=== PATIENT | male | born 1955 | race Caucasian/White ===

== ENCOUNTER → 2017-08-05 08:44 | Day surgery (SDC) | payer OTHER, SELFPAY ==
--- NOTE | 2017-08-02 08:51 | RAD_ITS ---
STUDY: X-RAY CHEST REASON FOR EXAM: Male, 61 years old. Pre-heart catheter. TECHNIQUE: PA and lateral views of the chest. COMPARISON: 08/25/2016 FINDINGS: The lungs are clear and expanded. There is no demonstrated pleural abnormality. Sternal cerclage wires are present from a prior sternotomy. Mild cardiomegaly. Normal mediastinum and katie. Normal visualized pulmonary arteries. Normal visualized aortic arch and descending thoracic aorta. Normal visualized thoracic spine. Normal visualized ribs, clavicles, and shoulders. There is no demonstrated abnormality of the visualized soft tissue structures of the upper abdomen. RAD/Chest PA and Lateral IMPRESSION: Normal x-ray examination of the chest. Electronically Signed: Himanshu Romero DO at 15:19 EST Tel , Service support ,
[2017-08-02 09:23] LABS: Absolute Lymphocyte Count 1.56 X10^3/ul (0.83-4.51); Absolute Neutrophil Count 6.7 X10^3/uL (2.0-7.7); Basophil# 0.02 X10^3/uL; Basophil% 0.2 % (0-1); Eosinophil# 0.12 X10^3/uL; Eosinophils% 1.3 % (0-5); Hematocrit 37.1 % (40-54); Hemoglobin 12.7 g/dl (13.0-16.5); Lymphocyte # 1.56 X10^3/ul (4.0); Mean Corp Hgb Conc 34.2 g/gl (32-36); Mean Corpuscular Hgb 31.8 pg (27.0-32.0); Mean Corpuscular Volume 92.8 fL (80-94); Mean Platelet Vol. 11.7 fl (6.2-12.0); Monocyte# 0.75 X10^3/uL; Monocyte% 8.2 % (0-10); Neutrophil # 6.69 X10^3/uL (2.7-7.7); Neutrophil % 73.2 % (47-70); Platelet Count 190 K/mm3 (150-450); RBC Distribution Width CV 13.3 % (11.6-14.6); RBC Distribution Width SD 44.5 fl (35.1-43.9); White Blood Count 9.2 K/mm3 (4.4-11.0)
[2017-08-02 09:26] LABS: POSITIVE COUNT NO; POSITIVE DIFFERENTIAL NO; POSITIVE MORPHOLOGY NO
[2017-08-02 09:33] LABS: International Normalized Ratio 1.2; Partial Thromboplast Time 35.1 Seconds (24.1-36.2); Prothrombin Time (Protime)PT. 14.9 SECONDS (11.7-14.9)
[2017-08-02 09:45] LABS: Anion Gap 7 (5-15); BUN 33 mg/dL (7-18); BUN/Creat Ratio 18.8 RATIO (10-20); Chloride 108 mmol/L (98-107); Creatinine, Serum 1.76 mg/dL (0.70-1.30); EST Glomerular Filtration Rate 42 mL/min (>60); Est Glom Filt Rate - Afr Amer 50 mL/min (>60); Glucose 204 mg/dL (70-110); Potassium 4.5 mmol/L (3.5-5.1); Sodium Level 138 mmol/L (136-145)
[2017-08-04 12:44] VITALS: BMI 27.8
--- NOTE | 2017-08-05 09:53 | ECHOTEE_ITS ---
Reason For Study: AORTIC STENOSIS Medication THAI probe passed without difficulty. [id number] gargled and swallowed. Cetacaine Topical [place] given X2 orally. Versed 2 mg given slow IVP. Fentanyl 50 mcg given slow IVP. Performed a rapid injection of agitated mix of 9 cc saline and 1cc air to assess for atrial septal defect. Left Ventricle Normal size and thickness. The estimated ejection fraction is 40 %. There is moderate global hypokinesis of the left ventricle. Right Ventricle Normal size and thickness. The right ventricular wall motion is normal. Atria Normal atrial septum. Bubble contrast study negative for right to left interatrial shunt. Normal left atrium. No thrombus is detected in the left atrial appendage. Normal right atrium. Mitral Valve The mitral valve is structurally normal. No prolapse or stenosis seen. Trivial mitral valve insufficiency. Tricuspid Valve Normal tricuspid valve. Unable to estimate RV systolic pressure/pulmonary artery pressure due to technically difficult study. Aortic Valve Trisinus/trileaflet aortic valve. Mild diffuse aortic valve thickening. Mild restriction of the aortic valve. Mild restriction of non-coronary cusp. Mild aortic stenosis. Peak aortic valve gradient 23 mmHg. Mean aortic valve gradient 12 mmHg. Pulmonic Valve Normal pulmonic valve. Vessels Normal aortic root. Mild atherosclerosis of the aortic arch. The pulmonary artery is normal size. Normal pulmonary veins. Doppler Measurements & Calculations Ao V2 max: 223.3 cm/sec Ao V2 mean: 155.6 cm/sec Ao V2 VTI: 46.8 cm Interpretation Summary The estimated ejection fraction is 40 %. There is moderate global hypokinesis of the left ventricle. Bubble contrast study negative for right to left interatrial shunt. Trivial mitral valve insufficiency. Unable to estimate RV systolic pressure/pulmonary artery pressure due to technically difficult study. Mild aortic stenosis. No thrombus is detected in the left atrial appendage. Ordering Physician: Otoniel Cuevas Referring Physician: FREDY JOVEL III, MD Performed By: Alisson Patel RDCS, RVT
[2017-08-05 11:16] LABS: Blood Gas Specimen Type VEN; VBG BASE EXCESS -6 mmol/L (-1.0-3.5); VBG Bicarbonate 20 mmol/L (22-26); VBG Oxygen Content 21 mmol/L (23-33); VBG PO2 33 mmHg (25-40); VBG SO2 61 % (50-70); VBG pCO2 35.2 mmHg (41-51); VBG pH 7.36 (7.32-7.42)
[2017-08-05 11:16] LABS: Blood Gas Specimen Type VEN; VBG BASE EXCESS -3 mmol/L (-1.0-3.5); VBG Bicarbonate 22 mmol/L (22-26); VBG Oxygen Content 23 mmol/L (23-33); VBG PO2 34 mmHg (25-40); VBG SO2 65 % (50-70); VBG pCO2 36.2 mmHg (41-51); VBG pH 7.39 (7.32-7.42)
[2017-08-05 11:16] LABS: Base Excess -3 mmol/L (-2 to +2); Bicarbonate 20.9 mmol/L (22-26); Blood Gas Specimen Type ART; PO2 79 mmHG (75-100); SO2 96 % (95-99); Total Carbon Dioxide 22 mmol/L; pCO2 31.6 mmHg (35-45); pH 7.43 (7.35-7.45)
--- NOTE | 2017-08-05 11:23 | CL.D_ITS ---
Patient Name: VERENA CLEMENTS Study Date: 08/05/2017 Performing: Otoniel Cuevas MD Ht: 70.86 inches 180 cm : 1955 Wt: 200.62 lbs 91 kg Age: 61 Gender: male BSA: 2.11 PROCEDURE(S) PERFORMED EG29-EQR/LHC/COR/LV CLINICAL PROFILE AND INDICATIONS INDICATIONS: Chest-Pain syndrome of unclear etiology , Class I, Abnormal cardiac stress test, Lef t Ventricular dysfunction, Shortness of Breath, Valvular heart disease, Aortic valve stenosis Stress/Imaging Stress Echocardiogram: Yes Result: Positive Intermediate RiskStress Echocardiogram : Positive Intermediate Risk Angina Classification Anginal Classification w/in 2 Weeks: CCS II CAD Presentations: Unstable angina. Comorbidities/Risk Factors: Hypertension Dyslipidemia Prior CABG Diabetes Mellitus: Diabetes Therapy: Insulin CONCLUSIONS Global LV systolic dysfunction- Mild Triple vessel CAD of the LAD, DIAG, Ramus, RCA Widely patent MONROY to LAD Widely patent SVG to DIAG#1 Widely patent SVG to Ramus Widely patent SVG to PDA. The patient has normal pulmonary hemodynamics. RECOMMENDATIONS Risk factor modification ASA Indefinitely Management as per referring Electric Repair Supervisor D/c plavix, restart eliquis on 08/08/2017. DESCRIPTION OF PROCEDURE The patient arrived to the procedure lab. The risks and benefits of the procedure as well as a full d escription of our services here and current unavailability of surgical backup were fully explained to the patient and/or their significant other prior to the catheterization. The Timeout was completed, verifying the correct patient and procedure. The patient's procedural site was prepped and draped in the usual fashion. Local anesthetic was given subcutaneously to right groin region with Lidocaine 2%. Using a modified Seldinger technique, arterial access was obtained via the right femoral artery, a 4 Fr sheath was inserted. Venous access was obtained via the right femoral vein, a 7Fr sheath was inser ayana. A 7Fr thermal dilution catheter was inserted and right heart pressures were recorded, it was the n advanced to PA position for cardiac outputs. Thermal dilution cardiac outputs were then recorded. O 2 saturations were then obtained. The Thermal dilution catheter was then removed. Left Ventriculograp hy was performed in MANDUJANO projection using a 4 Fr. Pigtail catheter. LV to AO pullback pressures were t hen recorded. Left Coronary Artery selective angiography was performed in multiple views using a 4 Fr . JL5 catheter. Saphenous Vein graft to the DIAG 1 selective angiography was performed in multiple vi ews using a 4 Fr. 3DRC catheter. Saphenous Vein graft to the RPDA selective angiography was performed in multiple views using a 4 Fr. 3DRC catheter. Saphenous Vein graft to the Ramus selective angiograp hy was performed in multiple views using a 4 Fr. 3DRC catheter. Left internal mammary artery graft to the LAD selective angiography was performed in multiple views using a 4 Fr. 3DRC catheter. CORONARY ANGIOGRAPHY DOMINANCE: Right Dominant LEFT HEART ASSESSMENT Left Ventricular Ejection Fraction: by LV Gram 40-45 % Abnormal LV wall motion. Global Hypokinesis - Mild RIGHT HEART ASSESSMENT Thermal CO: 5.04 Thermal CI: 2.39 Shayy CO: 4.92 Shayy CI: 2.33 PW: 8 4 PA: 20/2 10 RV: 25/-4 0 RA: 12 PVR: 97 SVR: 1430 LEFT MAIN: Angiographically normal LEFT ANTERIOR DECENDING ARTERY: MID LAD: 75 % Stenosis DIAGONAL 1: Ostial - is occluded CIRCUMFLEX ARTERY: MID CIRC: 60 % Stenosis RIGHT CORONARY ARTERY: MID RCA: is occluded GRAFTS: MONROY graft to the LAD is patent Saphenous Vein graft to the 1st Diagonal is patent Saphenous Vein graft to the Ramus is patent Saphenous Vein graft to the RPDA is patent VALVE FINDINGS: Aortic Valve Stenosis - mild COMPLICATIONS No Complications PROCEDURE MEDICATIONS SUMMARY OF HEMODYNAMIC DATA Time AIR REST ECG 09:12:04 RA /14 (12) SV 10:50:32 RV 25/-4, 0 10:51:26 PW 12/20 (4) PV 10:51:59 PA 20/2 (10) PA 10:52:12 LV 147/-19, 3 10:57:09 LV 146/-15, 7 10:57:24 LV 151/-16, 5 10:57:51 PA 13/2 (6) 10:57:51 LV 143/-15, 6 10:58:06 PW 14/10 (7) 10:58:06 LV 145/-15, 6 10:58:35 RV 28/-1, 4 10:58:35 LVp 149/-13, 8 11:00:00 AOp 151/67 (97) 11:00:05 AO 130/75 (100) SA 11:01:52 Type SV CO (l/m) CI (l/m/ HR Time AIR REST Thermal 252.00 5.04 2.39 20 09:11:41 Shayy 246.00 4.92 2.33 20 09:11:41 Label % O2 Pres/Loc Time AIR REST AO 96 PV 11:05:31 PA 63 PA 11:05:46 Signed By Otoniel Cuevas MD On 08/05/2017 11:23:19 Otoniel Cuevas MD
== END ==
PROVIDERS: Family Provider Family Medicine; PCP Family Medicine; Visit Provider Internal Medicine Cardiovascular Disease
DX: I25.10 Atherosclerotic heart disease of native coronary artery without angina pectoris (principal); R94.39 Abnormal result of other cardiovascular function study; E78.5 Hyperlipidemia, unspecified; I50.22 Chronic systolic (congestive) heart failure; I27.21 Secondary pulmonary arterial hypertension; I48.0 Paroxysmal atrial fibrillation; I25.5 Ischemic cardiomyopathy; I35.0 Nonrheumatic aortic (valve) stenosis; E11.9 Type 2 diabetes mellitus without complications; I10 Essential (primary) hypertension; I25.2 Old myocardial infarction; R01.1 Cardiac murmur, unspecified; Z95.1 Presence of aortocoronary bypass graft; Z79.4 Long term (current) use of insulin; Z79.82 Long term (current) use of aspirin; Z79.899 Other long term (current) drug therapy; Z72.0 Tobacco use
CPT/HCPCS: 36415; 71020; 80048; 82803; 85025; 85610; 85730; 93312; 93320; 93325; 93461; A4216; C1751; C1769; C1894; Q9967

== ENCOUNTER 2018-05-11 10:36 | Emergency (ER) | payer OTHER, SELFPAY ==
[2018-05-11 10:37] VITALS: BP 173/87; PULSE 72; RESP 16; TEMP 36.7; O2SAT 98; BMI 26.6
[2018-05-11 10:39] VITALS: PULSE 68; O2SAT 99
--- NOTE | 2018-05-11 10:53 | EKG12_ITS ---
Test Reason : CP Blood Pressure : / mmHG Vent. Rate : 071 BPM Atrial Rate : 071 BPM P-R Int : 238 ms QRS Dur : 142 ms QT Int : 402 ms P-R-T Axes : 017 -21 -03 degrees QTc Int : 436 ms Sinus rhythm with 1st degree A-V block Left bundle branch block Abnormal ECG Confirmed by WOLFGANG CEVALLOS, JACKI ([id number]), graphic editor CORNEL MCKNIGHT ([id number]) on 05/15/2018 2:39:53 PM Referred By: LIANNE Confirmed By:JACKI GOSS MD
--- NOTE | 2018-05-11 10:53 | RAD_ITS ---
STUDY: X-RAY CHEST REASON FOR EXAM: Male, 62 years old. Chest pain and chest tightness for several days. TECHNIQUE: Single AP portable view of the chest. COMPARISON: Comparison is made with prior examination dated August 02, 2017. FINDINGS: EKG electrodes are seen. Hyperinflation. There is no demonstrated pleural abnormality. Sternal cerclage wires and vascular clips are present from a prior sternotomy and coronary artery bypass graft procedure (CABG). Mild cardiomegaly. Normal mediastinum and ktaie. Normal visualized pulmonary arteries. There is atherosclerotic calcification of the aortic arch with tortuosity. Normal visualized thoracic spine. Normal visualized ribs, clavicles, and shoulders. There is no demonstrated abnormality of the visualized soft tissue structures of the upper abdomen. RAD/Chest 1 View (Portable) IMPRESSION: No acute abnormality is seen. Electronically Signed: León Merchant MD at 11:27 EDT Tel [phone], Service support ,
--- NOTE | 2018-05-11 10:54 | ED.VISSUMM ---
- ER Visit Summary Date of Service: 05/11/18 Chief Complaint: Chest pain History of Present Illness: The patient is a 62 M known history of CAD, prior FL, A. fib status post quadruple bypass done 3 years ago. Patient states that the last 1-2 weeks he had intermittent episodes of chest discomfort on the left. Says is sharp and stabbing. Usually lasts 5-15 seconds. Not associated with exertion. Mild dyspnea. No history of DVT or PE. Physical Examination: Vital signs are stable and afebrile. His pulse ox 9 9% on room air no signs of hypoxia. He is in no distress. Patient is emotionally upset his fianc?e basically is terminal and was given about 2 months to live with a recent brain tumor. We have discussed that. H EENT exam unremarkable. Neck nontender no lymphadenopathy. Lungs clear to auscultation bilaterally. Heart regular rate and rhythm no murmur. Chest wall nontender. Status post CABG. Well-healed scar. Abdomen soft and nontender normal bowel sounds. Moving all 4 extremities. Calves nontender, no edema no cords. Neurologically awake alert no focal motor deficits. Test Results: EKG shows a sinus rhythm with a first-degree AV block. OR interval of 238. Also a left bundle branch block. No signs of FL or ischemia currently. White count of 15,000. Hemoglobin 13. Electrolytes unremarkable. He has chronic renal insufficiency his creatinine today is 1.5 which is better than his baseline. Normal gap. Normal troponin. Chest x-ray shows cardiomegaly but no acute process. He has had a prior sternotomy. Emergency Department Course and Treatment: Patient with atypical intermittent chest pain with no cardiac history will undergo cardiac workup. Repeat exam at 1230 patient is doing well. His [id number] sitting at bedside. He is in no distress. Has no complaints. He had I discussed further testing. He deferred a second troponin. Clinically I do not feel that he needs to be admitted. He has an upcoming appointment with his joy loading machine operator. Treatment Plan: Follow-up with his joy loading machine operator Dr. Stone Cuevas. Return if feeling worse. Disposition: Discharge Impression: Acute atypical chest pain of uncertain etiology History of CAD, CABG, anticoagulated This note was generated with [employer] dictation software. It may contain incorrect words, spelling, and punctuation that were not noted in review of the chart prior to signing ED Disposition - Plan for ED Patient: Chief Complaint: Chest Pain Referrals: Reynaldo Rucker III, MD [Primary Care Provider] -
[2018-05-11] MEDS: Aspirin 81 MG TAB.CHEW 324 MG PO (11:01)
[2018-05-11 11:03] VITALS: O2SAT 97
[2018-05-11 11:04] LABS: Absolute Neutrophil Count 12.6 X10^3/uL (2.0-7.7); Basophil# 0.02 X10^3/uL; Basophil% 0.1 % (0-1); Eosinophil# 0.14 X10^3/uL; Eosinophils% 0.9 % (0-5); Hematocrit 35.7 % (40-54); Lymphocyte % 8.5 % (19-41); Mean Corp Hgb Conc 36.4 g/gl (32-36); Mean Corpuscular Hgb 33.2 pg (27.0-32.0); Mean Corpuscular Volume 91.3 fL (80-94); Mean Platelet Vol. 11.3 fl (6.2-12.0); Monocyte# 1.15 X10^3/uL; Monocyte% 7.5 % (0-10); Neutrophil # 12.61 X10^3/uL (2.7-7.7); Neutrophil % 82.7 % (47-70); Platelet Count 186 K/mm3 (150-450); RBC Distribution Width CV 12.2 % (11.6-14.6); RBC Distribution Width SD 39.8 fl (35.1-43.9); Red Blood Count 3.91 M/mm3 (4.6-6.2); White Blood Count 15.3 K/mm3 (4.4-11.0)
--- NOTE | 2018-05-11 11:05 | ED.DCSUM_ITS ---
- ER Visit Summary Date of Service: 05/11/18 Chief Complaint: Chest pain History of Present Illness: The patient is a 62 M known history of CAD, prior [place], A. fib status post quadruple bypass done 3 years ago. Patient states that the last 1-2 weeks he had intermittent episodes of chest discomfort on the left. Says is sharp and stabbing. Usually lasts 5-15 seconds. Not associated with exertion. Mild dyspnea. No history of DVT or PE. Physical Examination: Vital signs are stable and afebrile. His pulse ox 9 9% on room air no signs of hypoxia. He is in no distress. Patient is emotionally upset his fianc?e basically is terminal and was given about 2 months to live with a recent brain tumor. We have discussed that. H EENT exam unremarkable. Neck nontender no lymphadenopathy. Lungs clear to auscultation bilaterally. Heart regular rate and rhythm no murmur. Chest wall nontender. Status post CABG. Well-healed scar. Abdomen soft and nontender normal bowel sounds. Moving all 4 extremities. Calves nontender, no edema no cords. Neurologically awake alert no focal motor deficits. Test Results: EKG shows a sinus rhythm with a first-degree AV block. SC interval of 238. Also a left bundle branch block. No signs of OR or ischemia currently. White count of 15,000. Hemoglobin 13. Electrolytes unremarkable. He has chronic renal insufficiency his creatinine today is 1.5 which is better than his baseline. Normal gap. Normal troponin. Chest x-ray shows cardiomegaly but no acute process. He has had a prior sternotomy. Emergency Department Course and Treatment: Patient with atypical intermittent chest pain with no cardiac history will undergo cardiac workup. Repeat exam at 1230 patient is doing well. His [id number] sitting at bedside. He is in no distress. Has no complaints. He had I discussed further testing. He deferred a second troponin. Clinically I do not feel that he needs to be admitted. He has an upcoming appointment with his buckshot swage operator. Treatment Plan: Follow-up with his buckshot swage operator Dr. Stone Cuevas. Return if feeling worse. Disposition: Discharge Impression: Acute atypical chest pain of uncertain etiology History of CAD, CABG, anticoagulated This note was generated with [employer] dictation software. It may contain incorrect words, spelling, and punctuation that were not noted in review of the chart prior to signing ED Disposition - Plan for ED Patient: Chief Complaint: Chest Pain Referrals: Reynaldo Rucker III, MD [Primary Care Provider] -
[2018-05-11 11:08] LABS: POSITIVE COUNT NO; POSITIVE DIFFERENTIAL NO; POSITIVE MORPHOLOGY NO
[2018-05-11 11:17] LABS: Anion Gap 7 (5-15); BUN 36 mg/dL (7-18); Calcium,Total 8.8 mg/dL (8.5-10.1); Chloride 109 mmol/L (98-107); EST Glomerular Filtration Rate 50 mL/min (>60); Est Glom Filt Rate - Afr Amer 61 mL/min (>60); Estimated Creatinine Clearance 54.61 ml/min; Glucose 164 mg/dL (74-106); Potassium 4.6 mmol/L (3.5-5.1); Sodium Level 137 mmol/L (136-145)
--- NOTE | 2018-05-11 12:33 | ED.DEP ---
ED Disposition - Plan for ED Patient: Disposition: Home or Assisted Living Chief Complaint: Chest Pain Instructions: ED Chest Pain Atypical Unkn Cause Referrals: Otoniel Cuevas MD [STAFF PHYSICIAN] - As soon as possible Additional Instructions: Return if feeling worse. Your workup today was negative. However I would try to call Dr. Cuevas's office and get in sooner than your next scheduled appointment.
[2018-05-11 12:44] VITALS: BP 151/94; PULSE 63; RESP 16; O2SAT 96
== END 2018-05-11 12:45 | disposition home or self-care (01) ==
PROVIDERS: Emergency Provider Emergency Medicine; Family Provider Family Medicine; PCP Family Medicine
DX: R07.89 Other chest pain (principal); I25.10 Atherosclerotic heart disease of native coronary artery without angina pectoris; Z95.1 Presence of aortocoronary bypass graft; I44.0 Atrioventricular block, first degree; I44.7 Left bundle-branch block, unspecified; E11.22 Type 2 diabetes mellitus with diabetic chronic kidney disease; I12.9 Hypertensive chronic kidney disease with stage 1 through stage 4 chronic kidney disease, or unspecified chronic kidney disease; N18.9 Chronic kidney disease, unspecified; I25.2 Old myocardial infarction; I48.91 Unspecified atrial fibrillation; Z79.01 Long term (current) use of anticoagulants; Z79.82 Long term (current) use of aspirin; Z79.899 Other long term (current) drug therapy
CPT/HCPCS: 71045; 80048; 84484; 85025; 93005; 99285; A4216

== ENCOUNTER → 2018-06-12 08:50 | Outpatient (CLI) | payer OTHER, SELFPAY ==
--- NOTE | 2018-06-12 08:51 | ECHOD_ITS ---
[id number] ECHO^ECHOD^Echo Complete [id number] TAG_START [facility] Echocardiogram [address] [place], [place] [address] Ordering Physician: Otoniel Cuevas TAG_ENDED TAG_START Name: VERENA CLEMENTS Study Date: 06/12/2018 09:01 AM BP: 138/79 mmHg Patient Location: [facility] BSA: 2.1 m2 : 1955 Gender: Male Height: 72 in Age: 62 yrs Ethnicity: C Weight: 185 lb History: ASHD, STEMI, CABG (05/06/2015), DM, HTN, ICMP, , PAF, PHTN, smoker TAG_ENDED Reason For Study: VALVE REPL EVAL Procedure This was a 2D Doppler, Color Flow transthoracic echocardiogram. Myocardial strain analysis was performed in this exam to aid in the assessment of cardiac function. Exam performed in department. Left Ventricle Moderately dilated left ventricle. The estimated ejection fraction is 35-40 %. Stage 1 diastolic dysfunction. There is moderate to severe global hypokinesis of the left ventricle. TAG_START TAG_ENDED Right Ventricle Normal size and thickness. Normal systolic function. Atria The left atrium is moderately enlarged. Normal right atrium. Normal atrial septum. Mitral Valve The mitral valve is structurally normal. No prolapse or stenosis seen. Trivial mitral valve insufficiency. Tricuspid Valve Normal tricuspid valve. Mild (1+) tricuspid valve insufficiency. Right ventricular systolic pressure estimated to be 23 mmHg. Aortic Valve Trisinus/trileaflet aortic valve. Moderate focal aortic valve thickening. Severe focal aortic valve calcification. Immobile and fixed non coronary cusp. Mild to moderate aortic stenosis. Peak aortic valve gradient 15 mmHg. Mean aortic valve gradient 9 mmHg. Calculated aortic valve area (continuity equation) is 1.3 cm2. Pulmonic Valve Normal pulmonic valve. Great Vessels Normal aortic root. Normal arch. Normal inferior vena cava. Inferior vena cava collapse with sniff. Pericardium/Pleural No pericardial effusion. MMode/2D Measurements & Calculations LVIDd: 5.2 cm IVSd: 0.95 cm LVOT diam: 2.1 cm LVIDs: 4.7 cm LVPWd: 0.99 cm LVOT area: 3.5 cm2 RVDd: 3.3 cm FS: 9.5 % Ao root diam: 3.5 cm LAV(MOD-bp): 76.2 ml LVAd ap4: 38.2 cm2 LAV(MOD-bp) Indexed: 37.0 ml/m2 EDV(MOD-sp4): 135.7 ml LAV(MOD-sp2): 70.6 ml EDV(sp4-el): 140.8 ml LAV(MOD-sp4): 80.2 ml LVAs ap4: 28.6 cm2 ESV(MOD-sp4): 85.3 ml ESV(sp4-el): 88.1 ml EF(MOD-sp4): 37.1 % EF(sp4-el): 37.4 % SV(MOD-sp4): 50.4 ml SV(sp4-el): 52.7 ml Aortic Valve Planimetry: 1.3 cm2 LA A4 area: 23.7 cm2 LA dimension(2D): 4.3 cm RA A4 area: 14.8 cm2 Time Measurements MV dec time: 0.30 sec Doppler Measurements & Calculations MV E max og: 58.6 cm/sec Lat Peak E' Og: 13.7 cm/sec Med Peak E' Og: 3.9 cm/sec MV A max og: 93.9 cm/sec E/E' lat: 4.3 E/E' med: 15.1 MV E/A: 0.62 Ao V2 max: 195.1 cm/sec LV V1 max: 73.0 cm/sec SV(LVOT): 59.9 ml Ao max P.2 mmHg LV V1 max P.1 mmHg Ao V2 mean: 141.5 cm/sec LV V1 mean P.2 mmHg Ao mean P.7 mmHg LV V1 mean: 51.3 cm/sec Ao V2 VTI: 42.0 cm LV V1 VTI: 16.9 cm MATT(I,D): 1.4 cm2 MATT(V,D): 1.3 cm2 PA V2 max: 98.6 cm/sec TR max og: 211.2 cm/sec TR max P.8 mmHg Interpretation Summary Moderately dilated left ventricle. The estimated ejection fraction is 35-40 %. Stage 1 diastolic dysfunction. There is moderate to severe global hypokinesis of the left ventricle. The left atrium is moderately enlarged. Trivial mitral valve insufficiency. Mild (1+) tricuspid valve insufficiency. Right ventricular systolic pressure estimated to be 23 mmHg. Calculated aortic valve area (continuity equation) is 1.3 cm2. Mild to moderate aortic stenosis. May be underestimated given degree of LV dysfunction. Consider stress echo with AV gradient analysis at peak exercise. TAG_START TAG_ENDED Ordering Physician: Otoniel Cuevas Referring Physician: FREDY JOVEL Performed By: Alisson Patel RDCS, RVT
== END ==
PROVIDERS: Family Provider Family Medicine; PCP Family Medicine; Referring Provider Internal Medicine Cardiovascular Disease; Visit Provider Internal Medicine Cardiovascular Disease
DX: I25.10 Atherosclerotic heart disease of native coronary artery without angina pectoris (principal); I27.21 Secondary pulmonary arterial hypertension; I35.0 Nonrheumatic aortic (valve) stenosis; I50.22 Chronic systolic (congestive) heart failure; R07.9 Chest pain, unspecified
CPT/HCPCS: 93306

== ENCOUNTER → 2018-06-14 09:32 | Outpatient (CLI) | payer OTHER, SELFPAY ==
--- NOTE | 2018-06-14 09:33 | STEWCON_ITS ---
Reason For Study: CAD, Chest Pain, Stress Results Protocol: Rfanco Protocol Maximum Predicted HR: 156 bpm Target HR: 133 bpm % Maximum Predicted HR: 84 % DurationHeart Rate Stage (mm:ss) (bpm) BP Comment Baseline 66 138/80No Chest Pain; Diluted Definity 2 ML Given Franco Protocol Stage I 3:00 103 142/76No Chest Pain; Mild Dyspnea Franco Protocol Stage II 3:00 116 144/80No Chest Pain; Mild Dyspnea Franco Protocol Stage III 1:45 131 172/80No Chest Pain; Moderate Dyspnea Recovery 78 130/74No Chest Pain; No Dyspnea Stress Duration: 7:45 mm:ss Maximum Stress HR: 131 bpm METS: 10 Baseline Echocardiogram Findings The estimated ejection fraction is 40 %. Moderately dilated left ventricle . Stress Echo Wall motion Data Resting WM Intermediate WM Stress WM Resting Wall Motion No regional wall motion abnormalities noted. EKG Data The baseline ECG displays normal sinus rhythm. The patient exercised according to the regular Franco protocol for a total duration of 7:45. The maximum heart rate attained was 134 beats per minute. This was 85% of maximum predicted heart rate. The patient exercised into stage 3 of the Franco protocol. No clinical angina was noted. At peak exercise, upsloping ST changes only were noted, which did not meet the criteria for ischemia. Interpretation Summary The estimated ejection fraction is 40 %. Abnormal, adequate, treadmill echocardiogram. Positive for ischemia by EKG and echocardiographic criteria. Patient developed moderate anteroseptal hypokinesis as seen in 2 views. No anginal symptoms noted. No arrhythmias noted. Average exercise capacity for age. Final LVEF of 45%. Patient had baseline moderate global LV dilatation with LVEF around 35-40%. Peak and mean aortic valve gradient at peak exercise was 28 and 17 mmHg respectively consistent with mild aortic stenosis. Test terminated due to dyspnea on exertion which may be an anginal equivalent. MMode/2D Measurements & Calculations LVOT diam: 2.1 cm LVOT area: 3.6 cm2 Doppler Measurements & Calculations Ao V2 max: 258.5 cm/sec Ao max P.7 mmHg Ao V2 mean: 187.2 cm/sec Ao mean P.5 mmHg Ao V2 VTI: 52.3 cm Ordering Physician: Otoniel Cuevas Referring Physician: Kostas Garcia M.D. Performed By: Giovanna Saenz RVT, RDCS and Student
== END ==
PROVIDERS: Family Provider Family Medicine; PCP Family Medicine; Referring Provider Internal Medicine Cardiovascular Disease; Visit Provider Internal Medicine Cardiovascular Disease
DX: R07.9 Chest pain, unspecified (principal); I27.21 Secondary pulmonary arterial hypertension; I11.0 Hypertensive heart disease with heart failure; I50.22 Chronic systolic (congestive) heart failure; I25.5 Ischemic cardiomyopathy; I25.10 Atherosclerotic heart disease of native coronary artery without angina pectoris; I35.0 Nonrheumatic aortic (valve) stenosis
CPT/HCPCS: 93017; 93350; Q9957; A4216; C8928

== ENCOUNTER → 2018-06-22 12:19 | Outpatient (CLI) | payer OTHER, SELFPAY ==
[2018-06-22 12:52] LABS: Hematocrit 37.7 % (40-54); Hemoglobin 13.1 g/dl (13.0-16.5); Mean Corp Hgb Conc 34.7 g/gl (32-36); Mean Corpuscular Hgb 32.5 pg (27.0-32.0); Mean Corpuscular Volume 93.5 fL (80-94); Mean Platelet Vol. 11.6 fl (6.2-12.0); Platelet Count 194 K/mm3 (150-450); RBC Distribution Width CV 12.5 % (11.6-14.6); RBC Distribution Width SD 42.5 fl (35.1-43.9); Red Blood Count 4.03 M/mm3 (4.6-6.2); White Blood Count 11.3 K/mm3 (4.4-11.0)
[2018-06-22 12:53] LABS: Scan Indicated on CBC? Y/N NO
[2018-06-22 13:02] LABS: International Normalized Ratio 1.4; Partial Thromboplast Time 37.4 Seconds (24.1-36.2); Prothrombin Time (Protime)PT. 16.9 SECONDS (11.7-14.9)
[2018-06-22 13:23] LABS: Anion Gap 8 (5-15); BUN 41 mg/dL (7-18); BUN/Creat Ratio 26.6 RATIO (10-20); Calcium,Total 9.3 mg/dL (8.5-10.1); Chloride 110 mmol/L (98-107); Creatinine, Serum 1.54 mg/dL (0.70-1.30); EST Glomerular Filtration Rate 49 mL/min (>60); Est Glom Filt Rate - Afr Amer 59 mL/min (>60); Glucose 129 mg/dL (74-106); Potassium 4.8 mmol/L (3.5-5.1); Sodium Level 141 mmol/L (136-145)
== END ==
PROVIDERS: Family Provider Family Medicine; PCP Family Medicine; Visit Provider Internal Medicine Cardiovascular Disease
DX: R06.09 Other forms of dyspnea (principal); R94.39 Abnormal result of other cardiovascular function study; R07.9 Chest pain, unspecified; I48.0 Paroxysmal atrial fibrillation; Z95.1 Presence of aortocoronary bypass graft; I25.10 Atherosclerotic heart disease of native coronary artery without angina pectoris; I25.5 Ischemic cardiomyopathy; E11.9 Type 2 diabetes mellitus without complications
CPT/HCPCS: 36415; 80048; 85027; 85610; 85730

== ENCOUNTER 2018-06-30 06:37 | Day surgery (SDC) | payer OTHER, SELFPAY ==
[2018-06-29 07:38] VITALS: BMI 25.4
[2018-06-30 09:20] LABS: Blood Gas Specimen Type VEN; VBG BASE EXCESS -6 mmol/L (-1.0-3.5); VBG Bicarbonate 20 mmol/L (22-26); VBG Oxygen Content 21 mmol/L (23-33); VBG PO2 35 mmHg (25-40); VBG SO2 64 % (50-70); VBG pCO2 35.4 mmHg (41-51); VBG pH 7.35 (7.32-7.42)
[2018-06-30 09:20] LABS: Blood Gas Specimen Type VEN; VBG BASE EXCESS -6 mmol/L (-1.0-3.5); VBG Bicarbonate 20 mmol/L (22-26); VBG Oxygen Content 21 mmol/L (23-33); VBG PO2 39 mmHg (25-40); VBG SO2 72 % (50-70); VBG pCO2 34.8 mmHg (41-51); VBG pH 7.36 (7.32-7.42)
[2018-06-30 09:21] LABS: Base Excess -8 mmol/L (-2 to +2); Bicarbonate 17.5 mmol/L (22-26); Blood Gas Specimen Type ART; PO2 88 mmHG (75-100); SO2 97 % (95-99); Total Carbon Dioxide 18 mmol/L; pCO2 30.7 mmHg (35-45); pH 7.36 (7.35-7.45)
--- NOTE | 2018-06-30 09:25 | CL.D_ITS ---
Patient Name: VERENA CLEMENTS Study Date: 06/30/2018 Performing: Otoniel Cuevas MD Ht: 72.04 inches 183 cm : 1955 Wt: 187.39 lbs 85 kg Age: 62 Gender: male BSA: 2.07 PROCEDURE(S) PERFORMED AY37-GSD/LHC/COR/LV/CABG CLINICAL PROFILE AND INDICATIONS Indications: Stable Known CAD, Valvular Disease, LV Dysfunction Heart Failure: NYHA Class: 1, Newly Diagnosed: No, Heart Failure Type: Systolic Stress/Imaging Stress Echocardiogram: Yes Result: Positive Intermediate RiskStress Echocardiogram : Positive Intermediate Risk Angina Classification Anginal Classification w/in 2 Weeks: CCS I CAD Presentations: Other: Dyspnea on exertion, aortic stenosis. Comorbidities/Risk Factors: Hypertension Dyslipidemia Prior CHF Prior NC Prior CABG Diabetes Mellitus: Diabetes Therapy: Insulin CONCLUSIONS Triple vessel CAD of the LAD, DIAG, RAMUS, RCA Segmented LV systolic dysfunction- Severe LVEF: by LV gram 25 % Widely patent MONROY to LAD Widely patent SVG to DIAG. 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 Consult with Dr Simpson for AICD placement. DESCRIPTION OF PROCEDURE The patient arrived to the procedure lab. The risks and benefits of the procedure as well as a full d escription of our services here and current unavailability of surgical backup were fully explained to the patient and/or their significant other prior to the catheterization. The Timeout was completed, verifying the correct patient and procedure. The patient's procedural site was prepped and draped in the usual fashion. Local anesthetic was given subcutaneously to right groin region with Lidocaine 2%. Using a modified Seldinger technique, arterial access was obtained via the right femoral artery, a 4 Fr sheath was inserted Venous access was obtained via the right femoral vein, a 7Fr sheath was insert ed. A 7Fr thermal dilution catheter was inserted and right heart pressures were recorded, it was then advanced to PA position for cardiac outputs. Thermal dilution cardiac outputs were then recorded. Th e Thermal dilution catheter was then removed. Simultaneous pressures were then recorded. Left Ventriculography was performed in MANDUJANO projection using a 4 Fr. Pigtail catheter. LV to AO pullba ck pressures were then recorded. Left Coronary Artery selective angiography was performed in multiple views using a 4 Fr. JL5 catheter. Right Coronary Artery selective angiography was then performed in multiple views using a 4 Fr. 3DRC catheter. Saphenous Vein graft to the DIAG selective angiography w as performed in multiple views using a 4 Fr. 3DRC catheter. Saphenous Vein graft to the Ramus selecti ve angiography was performed in multiple views using a 4 Fr. 3DRC catheter. Left internal mammary art aimee graft to the LAD selective angiography was performed in multiple views using a 4 Fr. 3DRC cathete r. Saphenous Vein graft to the PDA selective angiography was performed in multiple views using a 4 Fr . AR MOD 2 catheter.The arterial sheath was pulled and manual compression applied until hemostasis is achieved. CORONARY ANGIOGRAPHY DOMINANCE: Right Dominant LEFT HEART ASSESSMENT Left Ventricular Ejection Fraction: by LV Gram 25 % Inferior Mid Hypokinesis - Severe. Anterior Hypokinesis - Mild Depressed Left Ventricular systolic function LVEDP: 12 mmHg RIGHT HEART ASSESSMENT Thermal CO: 6.26 Thermal CI: 3.02 Shayy CO: 5.33 Shayy CI: 2.57 PW: /6 5 PA: /4 11 RV: 25/-3 0 RA: 10/15 1 PVR: 90 SVR: 1516 LEFT MAIN: Mild calcification LEFT ANTERIOR DECENDING ARTERY: 75 mid % Stenosis DIAGONAL 1: Proximal - is occluded CIRCUMFLEX ARTERY: Mild luminal irregularities less than 30% RAMUS: 99 % Stenosis RIGHT CORONARY ARTERY: DISTAL RCA: 100 % Stenosis GRAFTS: MONROY graft to the LAD is patent Saphenous Vein graft to the 1st Diagonal is patent Saphenous Vein graft to the Ramus is patent Saphenous Vein graft to the RPDA is patent VALVE FINDINGS: Aortic Valve Stenosis - mild AORTIC ROOT: Atherosclerotic COMPLICATIONS No Complications PROCEDURE MEDICATIONS Versed 1 mg IV SUMMARY OF HEMODYNAMIC DATA Time AIR REST ECG 07:03:50 RA 33 (1) SV 08:47:34 RV 25/-3, 0 08:47:52 PW 02/17 (5) PV 08:48:23 PA 22/4 (11) PA 08:48:38 LV 149/-6, 10 08:52:43 LV 143/-13, 4 08:53:13 PW 02/18 (1) 08:53:13 LV 146/-9, 7 08:53:16 PW 05/23 (5) 08:53:16 LV 149/-7, 8 08:53:43 RV 27/-1, 3 08:53:43 LV 150/-9, 7 08:53:49 RV 25/-2, 1 08:53:49 LV 152/-7, 9 08:54:04 RV 27/0, 3 08:54:04 LV 148/-10, 8 08:54:12 RV 26/-2, 2 08:54:12 LV 149/-9, 12 08:55:17 LV 150/-10, 11 08:55:24 LVp 156/-12, 8 08:55:32 AOp 146/65 (96) 08:55:37 AO 138/74 (102) SA 09:04:25 RM AIR REST 09:18:35 Type SV CO (l/m) CI (l/m/ HR Time AIR REST Thermal 97.80 6.26 3.02 64 07:03:50 Shayy 83.30 5.33 2.57 64 07:03:50 Label % O2 Pres/Loc Time AIR REST AO 97 PV 09:00:13 PA 68 PA 09:00:19 Signed By Otoniel Cuevas MD On 06/30/2018 09:24:46 Otoniel Cuevas MD
== END 2018-06-30 13:35 | disposition home or self-care (01) ==
LOC: CLSP 06:38
PROVIDERS: Family Provider Family Medicine; PCP Family Medicine; Referring Provider Internal Medicine Cardiovascular Disease; Visit Provider Internal Medicine Cardiovascular Disease
DX: I25.10 Atherosclerotic heart disease of native coronary artery without angina pectoris (principal); I35.0 Nonrheumatic aortic (valve) stenosis; R94.39 Abnormal result of other cardiovascular function study; I27.21 Secondary pulmonary arterial hypertension; I48.0 Paroxysmal atrial fibrillation; I25.5 Ischemic cardiomyopathy; E11.9 Type 2 diabetes mellitus without complications; E78.00 Pure hypercholesterolemia, unspecified; I10 Essential (primary) hypertension; I25.2 Old myocardial infarction; Z95.1 Presence of aortocoronary bypass graft; Z79.82 Long term (current) use of aspirin; Z79.4 Long term (current) use of insulin; Z79.84 Long term (current) use of oral hypoglycemic drugs; Z79.01 Long term (current) use of anticoagulants; Z79.899 Other long term (current) drug therapy; Z87.891 Personal history of nicotine dependence
CPT/HCPCS: 82803; 93459; 93567; 99152; 99153; J7040; Q9967; C1751; C1769; C1894

== ENCOUNTER → 2018-09-11 08:17 | Outpatient (CLI) | payer OTHER, SELFPAY ==
[2018-07-27 14:22] VITALS: BMI 25.6
[2018-09-11 08:32] LABS: Bacteria 0 SEEN /hpf (None Seen); Mucous, Urine 0 SEEN /hpf (<or=2+); Red Blood Cells-Urine 0 SEEN /hpf (0-5); Squamous Epithelial Cells - UA 0 SEEN /hpf (0-5)
[2018-09-11 10:11] LABS: Color, Urine Straw (Yellow); Glucose, Dipstick Normal (Normal); Ketone-Dipstick Negative (Negative); Leukocyte Esterase-Dipstick Negative /ul (Negative); Nitrite-Dipstick Negative (Negative); Occult Blood-Urine Negative /ul (Negative); Protein-Dipstick 30 mg/dl (Negative); Specific Gravity, Urine 1.015 (1.002-1.030); Urine Bilirubin Dipstick Negative (Negative); Urine Clarity Clear (Clear); Urine Urobilinogen Normal (Normal)
[2018-09-11 10:19] LABS: Hematocrit 36.6 % (40-54); Hemoglobin 12.8 g/dl (13.0-16.5); Mean Corpuscular Hgb 32.6 pg (27.0-32.0); Mean Corpuscular Volume 93.1 fL (80-94); Mean Platelet Vol. 11.8 fl (6.2-12.0); Platelet Count 148 K/mm3 (150-450); RBC Distribution Width CV 12.1 % (11.6-14.6); RBC Distribution Width SD 40.4 fl (35.1-43.9); Red Blood Count 3.93 M/mm3 (4.6-6.2); White Blood Count 13.3 K/mm3 (4.4-11.0)
[2018-09-11 10:21] LABS: International Normalized Ratio 1.3; Prothrombin Time (Protime)PT. 16.4 SECONDS (11.7-14.9)
[2018-09-11 10:26] LABS: White Blood Cells 0-5 SEEN /hpf (0-5)
[2018-09-11 10:27] LABS: Scan Indicated on CBC? Y/N NO
[2018-09-11 11:06] LABS: AST(SGOT) 16 U/L (15-37); Alanine Aminotransfer ALT/SGPT 40 U/L (16-61); Albumin, Serum 3.9 g/dL (3.2-5.0); Alkaline Phosphatase 78 U/L (45-117); Anion Gap 11 (5-15); BUN 37 mg/dL (7-18); BUN/Creat Ratio 25.9 RATIO (10-20); Bilirubin, Direct 0.14 mg/dL (0.00-0.30); Calcium,Total 8.9 mg/dL (8.5-10.1); Chloride 111 mmol/L (98-107); Cholesterol 119 mg/dL (200); Creatinine, Serum 1.43 mg/dL (0.70-1.30); EST Glomerular Filtration Rate 53 mL/min (>60); Est Glom Filt Rate - Afr Amer 64 mL/min (>60); Globulin 3.4 g/dL (2.2-4.2); Glucose 171 mg/dL (74-106); High Density Lipoprotein 30 mg/dL; Potassium 4.5 mmol/L (3.5-5.1); Protein, Total 7.3 g/dL (6.4-8.2); Sodium Level 140 mmol/L (136-145); Triglycerides 171 mg/dL; Very Low Density Lipoprotein 34 mg/dL (5-40)
== END ==
PROVIDERS: Family Provider Family Medicine; PCP Family Medicine; Referring Provider Internal Medicine Cardiovascular Disease; Visit Provider Internal Medicine Cardiovascular Disease
DX: I25.5 Ischemic cardiomyopathy (principal); I25.10 Atherosclerotic heart disease of native coronary artery without angina pectoris; I50.22 Chronic systolic (congestive) heart failure
CPT/HCPCS: 36415; 80048; 80061; 80076; 81001; 85027; 85610

== ENCOUNTER → 2019-02-28 | Outpatient (CLI) | payer MEDICARE, BC, SELFPAY ==
[2018-12-11 13:43] VITALS: BMI 25.9
--- NOTE | 2019-02-28 08:43 | ECHOD_ITS ---
Reason For Study: CHF Procedure This was a 2D Doppler, Color Flow transthoracic echocardiogram. Exam performed in department. Left Ventricle Mildly dilated left ventricle. The estimated ejection fraction is 45 %. Paced septal motion. Stage 1 diastolic dysfunction. The global longitudinal strain = -12.4% (abnormal). There is mild to moderate global hypokinesis of the left ventricle. Right Ventricle Mildly dilated right ventricle. ICD or pacer leads identified within the right ventricle. Normal systolic function. Atria The left atrium is moderately enlarged. Normal right atrium. ICD or pacer leads identified within the right atrium. Normal atrial septum. Mitral Valve The mitral valve is structurally normal. No prolapse or stenosis seen. Tricuspid Valve Normal tricuspid valve. Mild (1+) tricuspid valve insufficiency. Right ventricular systolic pressure estimated to be 28 mmHg. Aortic Valve Trisinus/trileaflet aortic valve. Severe focal aortic valve thickening. Moderate focal aortic valve calcification. Mild restriction of the aortic valve. Mild aortic stenosis. Peak aortic valve gradient 16 mmHg. Mean aortic valve gradient 10 mmHg. Calculated aortic valve area (continuity equation) is 2.0 cm2. Pulmonic Valve Normal pulmonic valve. Great Vessels Normal aortic root. Normal arch. Normal inferior vena cava. Inferior vena cava collapse with sniff. Pericardium/Pleural No pericardial effusion. MMode/2D Measurements & Calculations LVIDd: 4.7 cm IVSd: 1.1 cm LVOT diam: 2.3 cm LVIDs: 3.7 cm LVPWd: 1.1 cm LVOT area: 4.1 cm2 RVDd: 3.7 cm FS: 22.6 % Ao root diam: 3.3 cm LAV(MOD-bp): 96.4 ml LA A4 area: 26.1 cm2 LAV(MOD-bp) Indexed: 46.1 ml/m2 LAV(MOD-sp2): 93.8 ml LAV(MOD-sp4): 93.9 ml LA dimension(2D): 3.6 cm RA A4 area: 16.3 cm2 Time Measurements MV dec time: 0.18 sec Doppler Measurements & Calculations MV E max og: 64.1 cm/sec Lat Peak E' Og: 8.0 cm/sec Med Peak E' Og: 4.4 cm/sec MV A max og: 81.2 cm/sec E/E' lat: 8.0 E/E' med: 14.6 MV E/A: 0.79 Ao V2 max: 201.8 cm/sec LV V1 max: 96.0 cm/sec SV(LVOT): 87.2 ml Ao max P.9 mmHg LV V1 max P.7 mmHg Ao V2 mean: 147.0 cm/sec LV V1 mean P.0 mmHg Ao mean P.4 mmHg LV V1 mean: 68.0 cm/sec Ao V2 VTI: 44.6 cm LV V1 VTI: 21.3 cm MATT(I,D): 2.0 cm2 MATT(V,D): 2.0 cm2 PA V2 max: 94.8 cm/sec TR max og: 238.5 cm/sec TR max P.7 mmHg Interpretation Summary Mildly dilated left ventricle. The estimated ejection fraction is 45 %. There is mild to moderate global hypokinesis of the left ventricle. Stage 1 diastolic dysfunction. Mildly dilated right ventricle. The left atrium is moderately enlarged. Mild (1+) tricuspid valve insufficiency. Right ventricular systolic pressure estimated to be 28 mmHg. Immobile and fixed non coronary cusp. Mild aortic stenosis, but may be underestimated given mild LV dysfunction. Peak aortic valve gradient 16 mmHg. Mean aortic valve gradient 10 mmHg. Calculated aortic valve area (continuity equation) is 2.0 cm2. Compared with echo report dated 06/12/2018, LV function has improved from 35-40% to 45%. The global longitudinal strain = -12.4% (abnormal). Ordering Physician: Otoniel Cuevas Referring Physician: Danny Simpson/Reynaldo Rucker Performed By: Giovanna Saenz, RDCS, RVT
== END | disposition home or self-care (01) ==
PROVIDERS: Family Provider Family Medicine; PCP Family Medicine; Referring Provider Internal Medicine Cardiovascular Disease; Visit Provider Internal Medicine Cardiovascular Disease
DX: I25.10 Atherosclerotic heart disease of native coronary artery without angina pectoris (principal); I25.5 Ischemic cardiomyopathy; I48.0 Paroxysmal atrial fibrillation; I50.22 Chronic systolic (congestive) heart failure; Z95.810 Presence of automatic (implantable) cardiac defibrillator
CPT/HCPCS: 93306

== ENCOUNTER → 2019-12-12 09:55 | Outpatient (CLI) | payer MEDICARE, BC, SELFPAY ==
[2019-07-09 13:00] VITALS: BMI 26.7
--- NOTE | 2019-12-12 09:59 | STEWCON_ITS ---
Reason For Study: CHEST PAIN Stress Results Protocol: Franco Protocol WITH DEFINITY Maximum Predicted HR: 154 bpm Target HR: 131 bpm % Maximum Predicted HR: 84 % DurationHeart Rate Stage (mm:ss) (bpm) BP Comment BASELINE 72 148/721 CC DEFINITY STAGE 1 3:00 86 140/62 STAGE 2 3:00 104 142/68SOB NOTED STAGE 3 2:36 130 / 2 CC DEFINITY, INCREASED SOB RECOVERY 83 132/78 Stress Duration: 8:36 mm:ss Maximum Stress HR: 130 bpm Baseline Echocardiogram Findings The estimated ejection fraction is 45 %. Stress Echo Wall motion Data Resting WM Intermediate WM Stress WM Resting Wall Motion Wall Motion Stress Mid-Anterior : Mildly No regional wall motion hypokinetic. abnormalities noted. Mid-anteroseptal : Mildly hypokinetic. EKG Data NSR with paced ventricular response. The patient exercised according to the regular Franco protocol for a total duration of 8:36. The maximum heart rate attained was 130 beats per minute. This was 84% of maximum predicted heart rate. The patient exercised into stage 3 of the Franco protocol. During stress, there were no ST or T wave changes noted to suggest ischemia. No clinical angina was noted. Doppler Measurements & Calculations Ao V2 max: 270.0 cm/sec Ao max P.2 mmHg Ao V2 mean: 197.2 cm/sec Ao mean P.0 mmHg Ao V2 VTI: 50.0 cm Interpretation Summary The estimated ejection fraction is 45 %. Normal, adequate, treadmill echocardiogram. Negative for ischemia by EKG and echocardiographic criteria. No anginal symptoms noted. Rare PVC and ventricular aberrancy at peak exercise. Test terminated due to attainment of target heart rate and dyspnea. Patient at baseline anteroseptal hypokinesis which contracted normally during peak exercise. Final LVEF of 55%. Decrease sensitivity due to poor echo windows requiring Definity agent. Patient tolerated the procedure well. No complications. The study was technically difficult. Contrast injection was performed. Ordering Physician: Otoniel Cuevas Referring Physician: Otoniel Cuevas Performed By: Giovanna Saenz, EMILIA, RVT
== END ==
PROVIDERS: PCP Family Medicine; Referring Provider Internal Medicine Cardiovascular Disease; Visit Provider Internal Medicine Cardiovascular Disease
DX: I25.10 Atherosclerotic heart disease of native coronary artery without angina pectoris (principal); R07.9 Chest pain, unspecified; Z95.810 Presence of automatic (implantable) cardiac defibrillator; I25.5 Ischemic cardiomyopathy; Z95.1 Presence of aortocoronary bypass graft
CPT/HCPCS: 93017; 93350; Q9957; A4216; C8928

== ENCOUNTER → 2020-02-07 09:42 | Outpatient (CLI) | payer MEDICARE, BC, SELFPAY ==
[2020-01-17 09:31] VITALS: BMI 26.7
--- NOTE | 2020-02-07 09:42 | ECHOD_ITS ---
Reason For Study: VALVE REPLACEMENT EVAL Procedure This was a 2D Doppler, Color Flow transthoracic echocardiogram. Exam performed in department. Left Ventricle Normal size and thickness. The estimated ejection fraction is 45 %. Stage 1 diastolic dysfunction. The global longitudinal strain = -14.4% (abnormal). No regional wall motion abnormalities noted. Right Ventricle Normal size and thickness. ICD or pacer leads identified within the right ventricle. Normal systolic function. Atria The left atrium is mildly enlarged. Normal right atrium. Normal atrial septum. Mitral Valve The mitral valve is structurally normal. No prolapse or stenosis seen. Tricuspid Valve Normal tricuspid valve. Trivial tricuspid valve insufficiency. Right ventricular systolic pressure estimated to be 31 mmHg. Aortic Valve Trisinus/trileaflet aortic valve. Moderate focal aortic valve thickening. Moderate diffuse aortic valve thickening. Mild restriction of the aortic valve. Mild aortic stenosis. Peak aortic valve gradient 16 mmHg. Mean aortic valve gradient 10 mmHg. Calculated aortic valve area (continuity equation) is 1.9 cm2. Pulmonic Valve Normal pulmonic valve. Great Vessels Normal aortic root. Normal arch. Normal inferior vena cava. Inferior vena cava collapse with sniff. Pericardium/Pleural No pericardial effusion. MMode/2D Measurements & Calculations LVIDd: 5.1 cm IVSd: 1.1 cm LVOT diam: 2.3 cm LVIDs: 4.0 cm LVPWd: 1.1 cm LVOT area: 4.1 cm2 FS: 21.9 % Ao root diam: 3.5 cm LAV(MOD-bp): 80.1 ml LA A4 area: 22.9 cm2 LAV(MOD-bp) Indexed: 37.8 ml/m2 LAV(MOD-sp2): 74.2 ml LAV(MOD-sp4): 74.6 ml LA dimension(2D): 4.3 cm Time Measurements MV dec time: 0.19 sec Doppler Measurements & Calculations MV E max og: 56.4 cm/sec Lat Peak E' Og: 8.6 cm/sec Med Peak E' Og: 4.3 cm/sec MV A max og: 79.7 cm/sec E/E' lat: 6.6 E/E' med: 13.2 MV E/A: 0.71 Ao V2 max: 202.1 cm/sec LV V1 max: 95.7 cm/sec SV(LVOT): 92.9 ml Ao max P.3 mmHg LV V1 max P.5 mmHg Ao V2 mean: 149.5 cm/sec LV V1 mean P.2 mmHg Ao mean P.6 mmHg LV V1 mean: 71.3 cm/sec Ao V2 VTI: 45.7 cm LV V1 VTI: 22.7 cm MATT(I,D): 2.0 cm2 MATT(V,D): 1.9 cm2 PA V2 max: 93.2 cm/sec TR max og: 251.1 cm/sec TR max P.2 mmHg Interpretation Summary The estimated ejection fraction is 45 %. Stage 1 diastolic dysfunction. The left atrium is mildly enlarged. Trivial tricuspid valve insufficiency. Right ventricular systolic pressure estimated to be 31 mmHg. Mild aortic stenosis, but may be underestimated due to mild to moderate LV dysfunction. Possible fusion between left and noncoronary cusps. Calculated aortic valve area (continuity equation) is 1.9 cm2. The global longitudinal strain = -14.4% (abnormal). Compared to echo report dated 02/28/2019, no appreciable changes noted. Ordering Physician: Otoniel Cuevas Referring Physician: Reynaldo Rucker Performed By: Giovanna Saenz RDCS, RVT
== END ==
PROVIDERS: PCP Family Medicine; Referring Provider Internal Medicine Cardiovascular Disease; Visit Provider Internal Medicine Cardiovascular Disease
DX: R06.09 Other forms of dyspnea (principal)
CPT/HCPCS: 93306

== ENCOUNTER → 2020-02-12 11:46 | Outpatient (CLI) | payer MEDICARE, BC, SELFPAY ==
[2020-01-17 09:31] VITALS: BMI 26.7
[2020-02-12 12:58] LABS: AST(SGOT) 17 U/L (15-37); Alanine Aminotransfer ALT/SGPT 46 U/L (16-61); Alkaline Phosphatase 99 U/L (45-117); Bilirubin, Direct 0.15 mg/dL (0.00-0.30); Cholesterol 125 mg/dL (200); Globulin 3.5 g/dL (2.2-4.2); High Density Lipoprotein 34 mg/dL; Protein, Total 7.5 g/dL (6.4-8.2); Triglycerides 162 mg/dL; Very Low Density Lipoprotein 32 mg/dL (5-40)
== END ==
PROVIDERS: PCP Family Medicine; Referring Provider Internal Medicine Cardiovascular Disease; Visit Provider Internal Medicine Cardiovascular Disease
DX: I25.10 Atherosclerotic heart disease of native coronary artery without angina pectoris (principal); E78.5 Hyperlipidemia, unspecified
CPT/HCPCS: 36415; 80061; 80076

== ENCOUNTER → 2020-09-12 10:00 | Outpatient (CLI) | payer MEDICARE, BC, SELFPAY ==
[2020-08-21 10:35] VITALS: BMI 27.3
[2020-09-12 11:21] LABS: AST(SGOT) 13 U/L (15-37); Alanine Aminotransfer ALT/SGPT 40 U/L (16-61); Albumin, Serum 4.2 g/dL (3.2-5.0); Alkaline Phosphatase 77 U/L (45-117); Bilirubin, Direct 0.14 mg/dL (0.00-0.30); Cholesterol 145 mg/dL (200); Globulin 3.4 g/dL (2.2-4.2); High Density Lipoprotein 33 mg/dL; Protein, Total 7.6 g/dL (6.4-8.2); Triglycerides 176 mg/dL; Very Low Density Lipoprotein 35 mg/dL (5-40)
== END ==
PROVIDERS: PCP Family Medicine; Referring Provider Nurse Practitioner Family; Visit Provider Nurse Practitioner Family
DX: E78.5 Hyperlipidemia, unspecified (principal); E78.00 Pure hypercholesterolemia, unspecified
CPT/HCPCS: 36415; 80061; 80076

== ENCOUNTER 2022-09-06 08:01 | Emergency (ER) | payer MEDICARE, BC, SELFPAY ==
[2022-09-06 08:03] VITALS: BP 159/82; PULSE 75; RESP 17; TEMP 36.7; O2SAT 97; BMI 27.8
--- NOTE | 2022-09-06 08:22 | ED.VIS.LOWEX ---
HPI History of Present Illness Chief Complaint: Lower Extremity Injury Informant: patient Occured/Mechanism Mechanism/Context: Yes fall Onset/Context/Timing Onset: Yesterday Context: Sudden Onset Timing: Continuous Quality of Pain: Aching Location: R knee Current Severity: Moderate Maximum Severity: Severe Worsened by: trying to WB or move Relieved by: remaining still, brace given to him Associated Symptoms Associated Symptoms: Positive for Loss of Funtion; Negative for Parasthesia or Weakness Narrative Narrative: Patient states he slipped on ice last night, his right leg caught under his left when he fell, with flexion at the knee and external rotation at the hip, hearing a pop in the knee and sudden pain that has continued to this morning. Difficulty putting any weight on it. He has a specialty orthopedic brace that he states was given to him by someone else he has no prior history of knee problems. PFSH PFSH Medical History Abnormal stress test Atherosclerosis of coronary artery of [place] heart without angina pectoris Chest pain DM2 (diabetes mellitus, type 2) Dyspnea on exertion Essential hypertension Hyperlipidemia Ischemic cardiomyopathy Non-rheumatic aortic stenosis Non-ST elevation [place] (NSTEMI) Nonrheumatic mitral (valve) insufficiency Paroxysmal atrial fibrillation Secondary pulmonary arterial hypertension Tobacco use Home Medications aspirin 81 mg tablet,delayed release 81 mg PO DAILY 06/16/15 [History Last Taken 06/30/18] albuterol sulfate 90 mcg/actuation aerosol inhaler (ProAir HFA) 2 puff inhalation Q6H PRN Shortness Of Breath 05/15/18 [History Last Taken Unknown] fluoxetine 20 mg capsule 20 mg PO DAILY 05/16/18 [History Last Taken 06/30/18] nitroglycerin 0.4 mg sublingual tablet 0.4 mg sublingual DAILY PRN Pain #25 tabs 07/09/19 [Rx Last Taken Unknown] sildenafil 50 mg tablet 50 mg PO DAILY PRN 02/27/21 [History Last Taken Unknown] losartan 100 mg tablet 100 mg PO DAILY #90 tabs 05/04/21 [Rx Last Taken Unknown] dulaglutide 1.5 mg/0.5 mL subcutaneous pen injector (Trulicity) 1.5 mg subcut QWEEK 09/24/21 [History Last Taken Unknown] insulin detemir U-100 100 unit/mL (3 mL) subcutaneous pen 48 unit subcut BREAKFAST 09/24/21 [History Last Taken Unknown] multivitamin 1 tab PO DAILY 09/24/21 [History Last Taken Unknown] omeprazole 20 mg tablet,delayed release 20 mg PO DAILY 09/24/21 [History Last Taken Unknown] furosemide 40 mg tablet 40 mg PO DAILY #90 tabs 11/24/21 [Rx Last Taken Unknown] atorvastatin 80 mg tablet 80 mg PO QHS #90 tabs 03/17/22 [Rx Last Taken Unknown] carvedilol 25 mg tablet 25 mg PO BID #180 tabs 04/09/22 [Rx Last Taken Unknown] spironolactone 25 mg tablet 25 mg PO DAILY #90 tabs 04/30/22 [Rx Last Taken Unknown] apixaban 5 mg tablet 5 mg PO BID #180 tabs 08/31/22 [Rx Last Taken Unknown] hydrocodone-acetaminophen 5-325mg 5mg-325mg 1 tab PO Q4H PRN PRN Pain 3 days #15 TABLETS 09/06/22 [Rx Last Taken Unknown] Allergy/AdvReac Type Severity Reaction Status Date / Time No Known Allergies Allergy Verified 09/06/22 08:02 Family History Father , Age 49 from [place] CAD (coronary artery disease) from [place] age 49 Myocardial infarction Mother Pacemaker History of heart valve replacement Surgical History H/O coronary artery bypass surgery (05/06/15) History of repair of rotator cuff (~04/2015) History of right and left heart catheterization (06/30/18) Presence of cardiac resynchronization therapy defibrillator ([employer] COORDINATOR-D) (09/14/18) Social History Smoking Status: Former smoker quit date: 04/15/15 alcohol intake: current details: rarely substance use type: does not use caffeine: Yes Type: coffee Number of servings: 1 ROS ROS ED Constitutional Constitutional ED: Denies chills or fever(s) Musculoskeletal Musculoskeletal: Reports extremity pain; Denies neck pain Integumentary Denies Abrasions, rash or wounds Neurologic Neurologic: Denies paresthesias or weakness EXAM Physical Exam Const Vital Signs: 09/06/22 08:03 Temperature 98.0 F Temperature Source Temporal Pulse Rate 75 Respiratory Rate 17 Blood Pressure 159/82 H Blood Pressure Mean 107 Pulse Ox 97 Oxygen Delivery Method Room Air Positive well nourished and well developed General Appearance ED: well developed and NAD Neck full ROM and supple Back/Spine normal ROM and normal to inspection Extremity Extremity Narrative: Effusion right knee. Tenderness medial aspect of the distal femur. No other bony tenderness throughout the knee. Very limited range of motion, he cannot fully extend but extensor mechanism is intact, and he can only flex about 15 or 20 degrees. When stressing the MCL and LCL, there is no laxity but he does have significant discomfort with stressing the MCL. Not able to evaluate the ACL and PCL, but there is no anteroposterior laxity of the tibia on the femur. Neurovascularly intact distally. No pain with internal/external rotation about the hip. No pain with dorsiflexion and plantarflexion about the ankle. Neuro oriented x3, no focal motor deficits and no sensory deficits noted Sensorium / Orientation: alert Psych mental status grossly normal and thought process normal Skin no wounds Rashes: no rashes MDM MDM MDM Narrative Medical decision making narrative: Clinically, patient has a moderate effusion, limiting his range of motion and the exam right now, however his knee joint is not unstable or dislocated. X-rays are negative except for the effusion, 5 views which I interpreted myself. I agree with the radiologist interpretation. Patient should be referred to orthopedics, he has a brace that can function as a knee immobilizer, he already has crutches, a walker, and does not require any other hardware except for some analgesics which I will prescribe him and give him here. We discussed the differential which includes a sprained MCL and/or ACL, and/or medial meniscus involvement, and reason to follow-up with orthopedics, he is requesting Dr. Walls which I think is very reasonable. Radiography Diagnostic Testing: Clinical Impression(s) from Imaging Studies Knee X-Ray 09/06/22 08:39 IMPRESSION: Moderate size joint effusion. Prepatellar soft tissue swelling. No fracture is seen. Electronically Signed: León Merchant MD at 8:52 EST , Discharge Plan Triage Chief Complaint: Lower Extremity Injury ED Provider: He Katz Dx/Rx/DC Orders Clinical Impression: Injury of knee, right, Effusion of right knee Instructions: ED Knee Effusion Prescriptions: New hydrocodone-acetaminophen [hydrocodone-acetaminophen] 5-325 mg tablet 1 tab PO Q4H PRN PRN (Reason: Pain) 3 Days Qty: 15 0RF No Action ProAir HFA 90 mcg/actuation HFA aerosol inhaler 2 puff INHALATION Q6H PRN (Reason: Shortness Of Breath) fluoxetine 20 mg capsule 20 mg PO DAILY nitroglycerin 0.4 mg tablet, sublingual 0.4 mg SUBLINGUAL DAILY PRN (Reason: Pain) Qty: 25 3RF sildenafil 50 mg tablet 50 mg PO DAILY PRN Rx Instructions: administer 30 minutes to 4 hours before activity Trulicity 1.5 mg/0.5 mL pen injector 1.5 mg subcut QWEEK multivitamin Tablet 1 tab PO DAILY omeprazole 20 mg tablet,delayed release (DR/EC) 20 mg PO DAILY atorvastatin 80 mg tablet 80 mg PO QHS Qty: 90 3RF aspirin 81 MG tablet 81 mg PO DAILY insulin detemir U-100 100 unit/mL (3 mL) insulin pen 48 unit SC BREAKFAST losartan 100 mg tablet 100 mg PO DAILY Qty: 90 3RF furosemide 40 mg tablet 40 mg PO DAILY Qty: 90 4RF carvedilol 25 mg tablet 25 mg PO BID Qty: 180 3RF spironolactone 25 mg tablet 25 mg PO DAILY Qty: 90 3RF apixaban 5 mg tablet 5 mg PO BID Qty: 180 3RF Hold Instructions: Order Changed Primary Care Provider: Celi Griffith Referrals: Celi Griffith DO [Primary Care Provider] - Vamshi Bernardo DO [Med Staff - Active Staff] - 1-2 Weeks Activity Restrictions/Additional Instructions: Best to see orthopedics next week, due to the amount of time it may take for the swelling to go down especially since you are on a blood thinner. You should continue the blood thinner, and aggressively ice your right knee when resting, try to rest the knee in the brace and using crutches or a walker and do not force yourself to bend it. Disposition Disposition: Home, Self Care
--- NOTE | 2022-09-06 08:39 | RAD_ITS ---
STUDY: X-RAY - RIGHT KNEE REASON FOR EXAM: Male, 66 years old. Pain following a fall. TECHNIQUE: 4 view(s) of the knee. COMPARISON: None. FINDINGS: Normal visualized distal femur. Normal visualized proximal tibia and fibula. Normal proximal tibiofibular articulation. Normal medial femorotibial compartment. Normal lateral femorotibial compartment. Normal patellofemoral articulation. There is a moderate-sized joint effusion. Prepatellar soft tissue swelling. Atherosclerotic vascular calcification. RAD/Knee 4 or More Views IMPRESSION: Moderate size joint effusion. Prepatellar soft tissue swelling. No fracture is seen. Electronically Signed: León Merchant MD at 8:52 EST ,
[2022-09-06] MEDS: HYDROcodone Bitartrate/Apap 5/325 Tablet PO (10:43)
[2022-09-06 10:59] VITALS: RESP 16
== END 2022-09-06 10:59 | disposition home or self-care (01) ==
PROVIDERS: Emergency Provider Emergency Medicine; PCP Family Medicine; Visit Provider Emergency Medicine
DX: S80.911A Unspecified superficial injury of right knee, initial encounter (principal); I48.0 Paroxysmal atrial fibrillation; E11.9 Type 2 diabetes mellitus without complications; Z79.4 Long term (current) use of insulin; W00.9XXA Unspecified fall due to ice and snow, initial encounter; I25.10 Atherosclerotic heart disease of native coronary artery without angina pectoris; I25.2 Old myocardial infarction; I10 Essential (primary) hypertension; E78.5 Hyperlipidemia, unspecified; Z95.1 Presence of aortocoronary bypass graft; Z79.01 Long term (current) use of anticoagulants; Z79.82 Long term (current) use of aspirin; Z79.899 Other long term (current) drug therapy; Z87.891 Personal history of nicotine dependence
CPT/HCPCS: 73564; 99283

== ENCOUNTER → 2022-09-13 | Outpatient (CLI) | payer MEDICARE, BC, SELFPAY ==
--- NOTE | 2022-09-13 12:50 | CT_ITS ---
EXAM: CT RIGHT LOWER EXTREMITY WITHOUT INTRAVENOUS CONTRAST, KNEE CLINICAL INDICATION: UNILATERAL PRIMARY OSTEOARTHRITIS, RIGHT KNEE TECHNIQUE: Helically acquired images were obtained of the right knee without intravenous contrast. CTDIvol = ( 156.35 ) mGy, DLP = ( 568.68 ) mGycm This CT exam was performed using one or more of the following dose reduction techniques: automated exposure control, adjustment of the mA and/or kV according to patient size, and/or use of iterative reconstruction technique. This report was created using [employer] technology. COMPARISON: None. FINDINGS: BONES/JOINTS: Large suprapatellar joint effusion. Mild to moderate degenerative joint space narrowing at the medial femorotibial compartment. Tiny peripheral marginal osteophytes are identified at the femorotibial compartment. Extensor mechanism enthesopathy. No acute or healing fracture or malalignment. No unusual lytic or sclerotic lesions of bone. SOFT TISSUES: Unremarkable. No soft tissue swelling or gas. No radiopaque foreign body. VASCULATURE: Prominent large vessel atherosclerotic arterial calcifications are seen posteriorly at and below the level of the knee. CT/Extremity Lower without Contra IMPRESSION: 1. Mild to moderate degenerative changes at the medial femorotibial joint. 2. Large suprapatellar joint effusion. 3. Peripheral vascular disease. Electronically Signed: Shahid Noonan MD at 22:59 EST ,
== END | disposition home or self-care (01) ==
LOC: CT 12:47
PROVIDERS: PCP Family Medicine; Visit Provider Orthopaedic Surgery
DX: M17.11 Unilateral primary osteoarthritis, right knee (principal); I73.9 Peripheral vascular disease, unspecified; M25.469 Effusion, unspecified knee; S76.121A Laceration of right quadriceps muscle, fascia and tendon, initial encounter
CPT/HCPCS: 73700

== ENCOUNTER → 2022-09-27 | Outpatient (CLI) | payer MEDICARE, BC, SELFPAY ==
[2022-09-27 12:16] LABS: Absolute Lymphocyte Count 1.18 X10^3/uL (0.83-4.51); Absolute Neutrophil Count 8.8 X10^3/uL (2.0-7.7); Basophil# 0.05 X10^3/uL; Basophil% 0.5 % (0-1); Eosinophil# 0.17 X10^3/uL; Eosinophils% 1.6 % (0-5); Hematocrit 34.8 % (40-54); Hemoglobin 11.9 g/dL (13.0-16.5); Lymphocyte # 1.18 X10^3/ul (0.83-4.51); Lymphocyte % 10.8 % (19-41); Mean Corp Hgb Conc 34.2 g/dL (32-36); Mean Corpuscular Hgb 31.6 pg (27.0-32.0); Mean Corpuscular Volume 92.3 fL (80-94); Mean Platelet Vol. 11.6 fl (6.2-12.0); Monocyte# 0.72 X10^3/uL; Monocyte% 6.6 % (0-10); NRBC Flagged by Analyzer 0 % (0-5); Neutrophil % 80.2 % (47-70); Platelet Count 219 K/mm3 (150-450); RBC Distribution Width CV 12.1 % (11.6-14.6); RBC Distribution Width SD 40.8 fl (35.1-43.9); Red Blood Count 3.77 M/mm3 (4.6-6.2)
[2022-09-27 12:48] LABS: AST(SGOT) 10 U/L (15-37); Alanine Aminotransfer ALT/SGPT 24 U/L (16-61); Albumin, Serum 3.6 g/dL (3.2-5.0); Alkaline Phosphatase 91 U/L (45-117); Anion Gap 6 (5-15); BUN 43 mg/dL (7-18); BUN/Creat Ratio 20.4 RATIO (10-20); Calcium,Total 9.3 mg/dL (8.5-10.1); Chloride 108 mmol/L (98-107); Cholesterol 130 mg/dL (200); Creatinine, Serum 2.11 mg/dL (0.70-1.30); EST Glomerular Filtration Rate 33 mL/min (>60); Est Glom Filt Rate - Afr Amer 40 mL/min (>60); Globulin 3.6 g/dL (2.2-4.2); Glucose 247 mg/dL (74-106); High Density Lipoprotein 33 mg/dL; Potassium 5.6 mmol/L (3.5-5.1); Protein, Total 7.2 g/dL (6.4-8.2); Sodium Level 138 mmol/L (136-145); Triglycerides 228 mg/dL; Very Low Density Lipoprotein 46 mg/dL (5-40)
== END | disposition home or self-care (01) ==
LOC: MFPLAB 10:11
PROVIDERS: PCP Family Medicine; Visit Provider Family Medicine
DX: I10 Essential (primary) hypertension (principal); E11.9 Type 2 diabetes mellitus without complications
CPT/HCPCS: 80053; 80061; 82043; 85025

== ENCOUNTER → 2022-09-30 | Outpatient (CLI) | payer MEDICARE, BC, SELFPAY ==
[2022-09-30 18:08] LABS: Anion Gap 8 (5-15); BUN 43 mg/dL (7-18); BUN/Creat Ratio 23.4 RATIO (10-20); Calcium,Total 9.4 mg/dL (8.5-10.1); Chloride 110 mmol/L (98-107); Creatinine, Serum 1.84 mg/dL (0.70-1.30); EST Glomerular Filtration Rate 39 mL/min (>60); Est Glom Filt Rate - Afr Amer 47 mL/min (>60); Glucose 192 mg/dL (74-106); Potassium 4.8 mmol/L (3.5-5.1); Sodium Level 140 mmol/L (136-145)
== END | disposition home or self-care (01) ==
LOC: MFPLAB 14:34
PROVIDERS: Family Medicine; PCP Family Medicine; Referring Provider Family Medicine; Visit Provider Family Medicine
DX: E87.5 Hyperkalemia (principal)
CPT/HCPCS: 36415; 80048

== ENCOUNTER → 2022-10-07 | Outpatient (CLI) | payer MEDICARE, BC, SELFPAY ==
[2022-10-07 11:24] LABS: Anion Gap 5 (5-15); BUN 36 mg/dL (7-18); BUN/Creat Ratio 23.5 RATIO (10-20); Calcium,Total 9.4 mg/dL (8.5-10.1); Chloride 109 mmol/L (98-107); Creatinine, Serum 1.53 mg/dL (0.70-1.30); EST Glomerular Filtration Rate 48 mL/min (>60); Est Glom Filt Rate - Afr Amer 58 mL/min (>60); Glucose 196 mg/dL (74-106); Potassium 4.3 mmol/L (3.5-5.1); Sodium Level 140 mmol/L (136-145)
== END | disposition home or self-care (01) ==
LOC: LAB 09:50
PROVIDERS: PCP Family Medicine; Referring Provider Nurse Practitioner Gerontology; Visit Provider Nurse Practitioner Gerontology
DX: I10 Essential (primary) hypertension (principal)
CPT/HCPCS: 36415; 80048

== ENCOUNTER → 2022-10-14 | Outpatient (CLI) | payer MEDICARE, BC, SELFPAY ==
--- NOTE | 2022-10-14 15:00 | ECHOD_ITS ---
Reason For Study: Procedure This was a 2D Doppler, Color Flow transthoracic echocardiogram. The exam was of adequate technical quality. Exam performed in department. Left Ventricle Mildly dilated left ventricle. Mild concentric left ventricular hypertrophy. Mild segmental systolic dysfunction (see wall motion). The estimated ejection fraction is 50 %. Stage 2 diastolic dysfunction. Infero-Basal: Hypokinetic. Mid-Inferior: Hypokinetic. Right Ventricle Normal RV size. ICD or pacer leads identified within the right ventricle. Normal systolic function. Atria The left atrium is moderately enlarged. Normal right atrium. ICD or pacer leads identified within the right atrium. No doppler evidence for ASD. Mitral Valve There is no mitral annular calcification. Normal mitral valve. Mild (1+) mitral valve insufficiency. Tricuspid Valve Normal tricuspid valve. Moderate (2+) tricuspid valve insufficiency. Right ventricular systolic pressure estimated to be 43 mmHg. Aortic Valve Trisinus/trileaflet aortic valve. Mild diffuse aortic valve thickening. Moderate focal aortic valve calcification. Mild to moderate aortic stenosis. Pulmonic Valve The pulmonic valve is not well visualized. Great Vessels Normal sized aortic root. Calcified aortic root. Pericardium/Pleural No pericardial effusion. MMode/2D Measurements & Calculations LVIDd: 5.1 cm IVSd: 1.5 cm LVOT diam: 2.0 cm LVIDs: 3.7 cm LVPWd: 1.3 cm LVOT area: 3.3 cm2 RVDd: 4.1 cm FS: 27.5 % Ao root diam: 3.5 cm LAV(MOD-bp): 145.3 ml LVAd ap4: 43.4 cm2 LAV(MOD-bp) Indexed: 70.2 ml/m2 LVLd ap4: 9.1 cm LAV(MOD-sp2): 141.3 ml EDV(MOD-sp4): 174.6 ml LAV(MOD-sp4): 132.5 ml EDV(sp4-el): 176.5 ml LVAs ap4: 31.0 cm2 LVLs ap4: 8.3 cm ESV(MOD-sp4): 106.0 ml ESV(sp4-el): 98.8 ml EF(MOD-sp4): 39.3 % EF(sp4-el): 44.0 % LVAd ap2: 42.2 cm2 SV(MOD-sp4): 68.5 ml SV(MOD-sp2): 73.1 ml LVLd ap2: 9.1 cm EDV(MOD-sp2): 169.8 ml EDV(sp2-el): 166.3 ml LVAs ap2: 30.7 cm2 LVLs ap2: 9.0 cm ESV(MOD-sp2): 96.7 ml ESV(sp2-el): 89.1 ml EF(MOD-sp2): 43.1 % SV(sp4-el): 77.7 ml LA dimension(2D): 5.2 cm LA A4 area: 34.3 cm2 RA A4 area: 18.5 cm2 Time Measurements MV dec time: 0.13 sec Doppler Measurements & Calculations MV E max og: 93.9 cm/sec Lat Peak E' Og: 9.4 cm/sec Med Peak E' Og: 4.7 cm/sec MV A max og: 83.7 cm/sec E/E' lat: 10.0 E/E' med: 20.2 MV E/A: 1.1 MV V2 max: 87.8 cm/sec Ao V2 max: 205.7 cm/sec MV max P.1 mmHg MV dec slope: 723.9 cm/sec2 Ao max P.0 mmHg MV V2 mean: 55.6 cm/sec Ao V2 mean: 155.0 cm/sec MV mean P.4 mmHg Ao mean P.7 mmHg MV V2 VTI: 27.1 cm Ao V2 VTI: 51.7 cm AV (velocity ratio): 0.48 MVA(VTI): 3.0 cm2 MATT(I,D): 1.6 cm2 MATT(V,D): 1.5 cm2 LV V1 max: 93.5 cm/sec SV(LVOT): 80.2 ml PA V2 max: 96.5 cm/sec LV V1 max P.5 mmHg PA V2 mean: 71.4 cm/sec LV V1 mean P.4 mmHg LV V1 mean: 73.7 cm/sec LV V1 VTI: 24.7 cm TR max og: 314.2 cm/sec TR max P.5 mmHg ECHO/Echo Complete Interpretation Summary Mildly dilated left ventricle. Mild segmental systolic dysfunction (see wall motion). The estimated ejection fraction is 50 %. Mild concentric left ventricular hypertrophy. The left atrium is moderately enlarged. Mild (1+) mitral valve insufficiency. Moderate (2+) tricuspid valve insufficiency. Mild to moderate aortic stenosis. Calcified aortic root. Right ventricular systolic pressure estimated to be 43 mmHg. Stage 2 diastolic dysfunction. ICD or pacer leads identified within the right atrium ICD or pacer leads identified within the right ventricle. Ordering Physician: Alka Wagner Referring Physician: NONA VELASQUEZ Performed By: Bebe Kearney RCS
== END | disposition home or self-care (01) ==
PROVIDERS: PCP Family Medicine; Visit Provider Nurse Practitioner Gerontology
DX: I25.5 Ischemic cardiomyopathy (principal); I35.0 Nonrheumatic aortic (valve) stenosis
CPT/HCPCS: 93306

== ENCOUNTER → 2023-03-23 | Outpatient (CLI) | payer MEDICARE, BC, SELFPAY ==
[2023-03-23 13:00] LABS: Anion Gap 8 (5-15); BUN 72 mg/dL (7-18); BUN/Creat Ratio 31.3 RATIO (10-20); Calcium,Total 9.2 mg/dL (8.5-10.1); Chloride 108 mmol/L (98-107); EST Glomerular Filtration Rate 30 mL/min (>60); Est Glom Filt Rate - Afr Amer 36 mL/min (>60); Glucose 198 mg/dL (74-106); Potassium 5.2 mmol/L (3.5-5.1); Sodium Level 136 mmol/L (136-145)
== END | disposition home or self-care (01) ==
LOC: MFPLAB 11:03
PROVIDERS: PCP Family Medicine; Visit Provider Family Medicine
DX: E11.9 Type 2 diabetes mellitus without complications (principal)
CPT/HCPCS: 36415; 80048

== ENCOUNTER → 2023-04-06 | Outpatient (CLI) | payer MEDICARE, BC, SELFPAY | END | disposition home or self-care (01) | PROVIDERS: PCP Family Medicine; Referring Provider Family Medicine; Visit Provider Family Medicine | DX: R19.7 Diarrhea, unspecified (principal) | CPT/HCPCS: 87177; 87209 ==

== ENCOUNTER 2023-04-11 12:51 | Outpatient (RCR) | payer MEDICARE, BC, SELFPAY | END 2023-04-14 23:59 | LOC: NS 12:51 | PROVIDERS: PCP Family Medicine; Referring Provider Family Medicine; Visit Provider Family Medicine | DX: Z71.3 Dietary counseling and surveillance (principal); E11.22 Type 2 diabetes mellitus with diabetic chronic kidney disease; N18.9 Chronic kidney disease, unspecified | CPT/HCPCS: 97802 ==

== ENCOUNTER → 2023-05-09 | Outpatient (CLI) | payer MEDICARE, BC, SELFPAY ==
[2023-05-09 13:27] LABS: Absolute Lymphocyte Count 1.44 X10^3/uL (0.83-4.51); Absolute Neutrophil Count 8.4 X10^3/uL (2.0-7.7); Basophil# 0.03 X10^3/uL; Basophil% 0.3 % (0-1); Eosinophil# 0.16 X10^3/uL; Eosinophils% 1.5 % (0-5); Hemoglobin 11.5 g/dL (13.0-16.5); Lymphocyte # 1.44 X10^3/ul (0.83-4.51); Lymphocyte % 13.2 % (19-41); Mean Corp Hgb Conc 33.8 g/dL (32-36); Mean Corpuscular Hgb 31.9 pg (27.0-32.0); Mean Corpuscular Volume 94.4 fL (80-94); Mean Platelet Vol. 11.4 fl (6.2-12.0); Monocyte# 0.83 X10^3/uL; Monocyte% 7.6 % (0-10); NRBC Flagged by Analyzer 0 % (0-5); Neutrophil # 8.38 X10^3/uL (2.7-7.7); Neutrophil % 76.5 % (47-70); Platelet Count 183 K/mm3 (150-450); RBC Distribution Width CV 12.6 % (11.6-14.6); RBC Distribution Width SD 43.7 fl (35.1-43.9); White Blood Count 10.9 K/mm3 (4.4-11.0)
[2023-05-09 14:03] LABS: ALB/GLOB Ratio 1.1 RATIO (0.9-2.4); AST(SGOT) 12 U/L (15-37); Alanine Aminotransfer ALT/SGPT 32 U/L (16-61); Albumin, Serum 3.7 g/dL (3.2-5.0); Alkaline Phosphatase 83 U/L (45-117); Anion Gap 6 (5-15); BUN 40 mg/dL (7-18); BUN/Creat Ratio 21.9 RATIO (10-20); Calcium,Total 9.1 mg/dL (8.5-10.1); Chloride 112 mmol/L (98-107); Creatinine, Serum 1.83 mg/dL (0.70-1.30); EST Glomerular Filtration Rate 39 mL/min (>60); Est Glom Filt Rate - Afr Amer 47 mL/min (>60); Globulin 3.5 g/dL (2.2-4.2); Glucose 199 mg/dL (74-106); Potassium 4.7 mmol/L (3.5-5.1); Protein, Total 7.2 g/dL (6.4-8.2); Sodium Level 138 mmol/L (136-145)
[2023-05-09 18:27] LABS: BNP,B-Type NATRIURETIC PEPTIDE 81.2 pg/mL (0-100)
== END | disposition home or self-care (01) ==
LOC: LAB 12:16
PROVIDERS: PCP Family Medicine; Referring Provider Nurse Practitioner Family; Visit Provider Nurse Practitioner Family
DX: I11.0 Hypertensive heart disease with heart failure (principal); I50.22 Chronic systolic (congestive) heart failure; R06.09 Other forms of dyspnea; E78.5 Hyperlipidemia, unspecified; E87.5 Hyperkalemia
CPT/HCPCS: 36415; 80053; 83880; 85025

== ENCOUNTER → 2023-05-19 | Outpatient (CLI) | payer MEDICARE, BC, SELFPAY ==
[2023-05-19 12:36] LABS: Platelet Count 196 K/mm3 (150-450); RET-HE 35.8 pg (30-35); Reticulocyte Count 3.69 % (0.5-1.5)
[2023-05-19 12:54] LABS: Vitamin B12 566 pg/mL (211-911)
[2023-05-19 13:32] LABS: Ferritin 56 ng/mL (26-388); Iron 68 ug/dL (65-175); Iron Binding Capacity,Total 290 ug/dL (250-450)
== END | disposition home or self-care (01) ==
LOC: MFPLAB 10:30
PROVIDERS: PCP Family Medicine; Visit Provider Family Medicine
DX: D64.9 Anemia, unspecified (principal)
CPT/HCPCS: 36415; 82607; 82728; 82746; 83540; 83550; 85045

== ENCOUNTER → 2023-05-27 | Outpatient (CLI) | payer MEDICARE, BC, SELFPAY ==
--- NOTE | 2023-05-27 19:24 | STRESSREP ---
Stress Test Report Pharmacologic myocardial perfusion stress test. 67-year-old man with a history of coronary disease status post coronary bypass surgery status post biventricular ICD. Resting EKG demonstrates AV sequential pacing with a rate of 60 bpm. Resting blood pressure is 140/80 mmHg. 0.4 mg of regadenoson was infused per usual protocol followed by rapid intravenous saline flush injection. Continuous EKG monitoring was performed. The maximum heart rate was 90 bpm which was 59% of max impacted heart rate the maximum workload was 1 metabolic equivalent. At rest there were no ST or T wave changes noted to suggest ischemia and at peak infusion nonspecific ST changes were noted which did not meet the criteria for ischemia. No clinical angina is noted. The final blood pressure was 140/80 mmHg. Myocardial perfusion protocol. 14.1 mCi of technetium 99m sestamibi was injected at rest. 0.4 mg of regadenoson was infused per usual protocol. At peak infusion 43.3 mCi of technetium 99m sestamibi was injected stress images were obtained stress and rest images were reconstructed and compared in the short axis vertical long and horizontal long axis. Gated images were also obtained. Perfusion SPECT analysis: Review of the stress images demonstrate normal uptake of tracer noted in all areas of the myocardium except for the basal to mid inferior wall and apex with reduced perfusion. The resting images similar demonstrated reduction of perfusion noted in the basal to mid inferior wall and the apex suggestive of a previous basal and mid inferior infarct as well as an apical infarct. No reversibility is noted to suggest ischemia. Gated SPECT analysis: The gated ejection fraction is 39%. Conclusion: Myocardial perfusion stress test with basal and mid inferior infarct and apical infarct. No ischemia is noted. Reduced ejection fraction.
== END | disposition home or self-care (01) ==
PROVIDERS: PCP Family Medicine; Referring Provider Nurse Practitioner Family; Visit Provider Nurse Practitioner Family
DX: I25.5 Ischemic cardiomyopathy (principal); I50.22 Chronic systolic (congestive) heart failure; I48.0 Paroxysmal atrial fibrillation; R06.09 Other forms of dyspnea; Z95.1 Presence of aortocoronary bypass graft
CPT/HCPCS: 78452; 93017; A9500; A4216; J2785

== ENCOUNTER → 2023-10-31 | Outpatient (CLI) | payer MEDICARE, BC, SELFPAY | END | disposition home or self-care (01) | LOC: PSN 09:21 | PROVIDERS: PCP Family Medicine; Referring Provider Nurse Practitioner Family; Visit Provider Nurse Practitioner Family | DX: R06.09 Other forms of dyspnea (principal) | CPT/HCPCS: 94060; 94726; 94729 ==

== ENCOUNTER → 2023-12-28 | Outpatient (CLI) | payer MEDICARE, BC, SELFPAY ==
[2023-12-28 15:19] LABS: Absolute Lymphocyte Count 0.94 X10^3/uL (0.83-4.51); Absolute Neutrophil Count 9.9 X10^3/uL (2.0-7.7); Basophil# 0.03 X10^3/uL; Basophil% 0.3 % (0-1); Eosinophil# 0.18 X10^3/uL; Eosinophils% 1.5 % (0-5); Hematocrit 34.8 % (40-54); Hemoglobin 12.1 g/dL (13.0-16.5); Lymphocyte # 0.94 X10^3/ul (0.83-4.51); Mean Corp Hgb Conc 34.8 g/dL (32-36); Mean Corpuscular Hgb 31.9 pg (27.0-32.0); Mean Corpuscular Volume 91.8 fL (80-94); Mean Platelet Vol. 11.9 fl (6.2-12.0); Monocyte% 5.9 % (0-10); NRBC Flagged by Analyzer 0 % (0-5); Neutrophil # 9.93 X10^3/uL (2.7-7.7); Platelet Count 158 K/mm3 (150-450); RBC Distribution Width CV 12.3 % (11.6-14.6); RBC Distribution Width SD 40.9 fl (35.1-43.9); Red Blood Count 3.79 M/mm3 (4.6-6.2); White Blood Count 11.8 K/mm3 (4.4-11.0)
[2023-12-28 15:27] LABS: Vitamin D,25 Hydroxy 44.7 ng/mL
[2023-12-28 15:57] LABS: ALB/GLOB Ratio 1.1 RATIO (0.9-2.4); AST(SGOT) 12 U/L (15-37); Alanine Aminotransfer ALT/SGPT 24 U/L (16-61); Albumin, Serum 3.5 g/dL (3.2-5.0); Alkaline Phosphatase 83 U/L (45-117); Anion Gap 7 (5-15); BUN 25 mg/dL (7-18); BUN/Creat Ratio 13.7 RATIO (10-20); Calcium,Total 8.9 mg/dL (8.5-10.1); Chloride 107 mmol/L (98-107); Creatinine, Serum 1.83 mg/dL (0.70-1.30); EST Glomerular Filtration Rate 39 mL/min (>60); Est Glom Filt Rate - Afr Amer 47 mL/min (>60); Globulin 3.2 g/dL (2.2-4.2); Glucose 238 mg/dL (74-106); PSA,Total - Annual Screen 1.65 ng/mL (0.00-4.00); Potassium 4.2 mmol/L (3.5-5.1); Protein, Total 6.7 g/dL (6.4-8.2); Sodium Level 138 mmol/L (136-145); T4 Free Direct 0.93 ng/dL (0.76-1.46); Thyroid Stim Hormone (TSH) 2.23 uIU/mL (0.358-3.74)
== END | disposition home or self-care (01) ==
LOC: MFPLAB 11:39
PROVIDERS: PCP Family Medicine; Visit Provider Family Medicine
DX: R53.83 Other fatigue (principal); N18.30 Chronic kidney disease, stage 3 unspecified; Z12.5 Encounter for screening for malignant neoplasm of prostate
CPT/HCPCS: 36415; 80053; 82306; 84153; 84439; 84443; 85025; G0103

== ENCOUNTER → 2024-06-19 | Outpatient (CLI) | payer MEDICARE, BC, SELFPAY ==
[2024-06-19 16:17] LABS: Anion Gap 6 (5-15); BUN 44 mg/dL (7-18); BUN/Creat Ratio 22.6 RATIO (10-20); Calcium,Total 9.3 mg/dL (8.5-10.1); Chloride 111 mmol/L (98-107); Creatinine, Serum 1.95 mg/dL (0.70-1.30); EST Glomerular Filtration Rate 36 mL/min (>60); Est Glom Filt Rate - Afr Amer 44 mL/min (>60); Glucose 181 mg/dL (74-106); Sodium Level 138 mmol/L (136-145)
== END | disposition home or self-care (01) ==
LOC: LAB 14:53
PROVIDERS: Nurse Practitioner Family; PCP Family Medicine; Referring Provider Internal Medicine Cardiovascular Disease; Visit Provider Internal Medicine Cardiovascular Disease
DX: I50.22 Chronic systolic (congestive) heart failure (principal); I48.0 Paroxysmal atrial fibrillation; Z95.1 Presence of aortocoronary bypass graft; I35.0 Nonrheumatic aortic (valve) stenosis
CPT/HCPCS: 36415; 80048

== ENCOUNTER → 2024-07-04 | Outpatient (CLI) | payer MEDICARE, BC, SELFPAY ==
--- NOTE | 2024-07-04 12:53 | ECHOD_ITS ---
Reason For Study: Dilated CMP Procedure This was a 2D Doppler, Color Flow transthoracic echocardiogram. Exam performed in department. Left Ventricle Normal LV size. The global longitudinal strain = -13.6% (abnormal). Basal inferoseptal: Hypokinetic. Infero-Basal: Severely Hypokinetic. There are regional wall motion abnormalities as specified. Right Ventricle Normal RV size. ICD or pacer leads identified within the right ventricle. Normal systolic function. Atria Normal left atrium. Normal right atrium. Bubble contrast study negative for right to left interatrial shunt. Mitral Valve Bileaflet diffuse mitral valve thickening. Tricuspid Valve Normal tricuspid valve. Mild (1+) tricuspid valve insufficiency. Pulmonary artery systolic pressure is 34 mmHg. Great Vessels Normal aortic root. The pulmonary artery is normal size. Inferior vena cava collapse with respiration. Pericardium/Pleural No pericardial effusion. Medication 22 gauge I.V. with prn adaptor inserted into right arm. Performed a rapid injection of agitated mix of 9 cc saline and 1cc air to assess for atrial septal defect. MMode/2D Measurements & Calculations LVIDd: 5.4 cm IVSd: 1.0 cm LVOT diam: 2.2 cm LVIDs: 4.5 cm LVPWd: 0.66 cm LVOT area: 3.7 cm2 RVDd: 3.4 cm FS: 15.8 % Ao root diam: 3.5 cm LAV(MOD-bp): 71.0 ml LVAd ap4: 34.3 cm2 LAV(MOD-bp) Indexed: 34.3 ml/m2 LVLd ap4: 8.8 cm LAV(MOD-sp2): 75.3 ml EDV(MOD-sp4): 110.3 ml LAV(MOD-sp4): 59.8 ml EDV(sp4-el): 113.8 ml LVAs ap4: 22.7 cm2 LVLs ap4: 7.8 cm ESV(MOD-sp4): 57.5 ml ESV(sp4-el): 56.4 ml EF(MOD-sp4): 47.9 % EF(sp4-el): 50.5 % SV(MOD-sp4): 52.9 ml SV(sp4-el): 57.4 ml Ao sinus diam: 3.8 cm SI(MOD-sp4): 25.6 ml/m2 Ao ST Junction: 2.6 cm LA A4 area: 20.5 cm2 LA dimension(2D): 4.5 cm RA A4 area: 14.9 cm2 TAPSE: 1.3 cm Time Measurements MV dec time: 0.39 sec Doppler Measurements & Calculations MV E max og: 43.9 cm/sec Lat Peak E' Og: 11.2 cm/sec Med Peak E' Og: 4.9 cm/sec MV A max og: 68.6 cm/sec E/E' lat: 3.9 E/E' med: 9.0 MV E/A: 0.64 MV V2 max: 92.3 cm/sec MV P1/2t max og: 58.2 cm/sec Ao V2 max: 206.6 cm/sec MV max P.4 mmHg MV P1/2t: 145.9 msec Ao max P.1 mmHg MV V2 mean: 48.6 cm/sec MV dec slope: 116.7 cm/sec2 Ao V2 mean: 143.6 cm/sec MV mean P.1 mmHg MVA(P1/2t): 1.5 cm2 Ao mean P.4 mmHg MV V2 VTI: 25.3 cm Ao V2 VTI: 48.3 cm MVA(VTI): 2.6 cm2 AV (velocity ratio): 0.37 MATT(I,D): 1.4 cm2 MATT(V,D): 1.4 cm2 LV V1 max: 75.3 cm/sec SV(LVOT): 66.2 ml PA V2 max: 103.0 cm/sec LV V1 max P.3 mmHg LV V1 mean P.4 mmHg LV V1 mean: 54.7 cm/sec LV V1 VTI: 17.7 cm TR max og: 269.5 cm/sec TR max P.1 mmHg ECHO/Echo Complete Interpretation Summary Normal LV size. The global longitudinal strain = -13.6% (abnormal). Pulmonary artery systolic pressure is 34 mmHg. There are regional wall motion abnormalities as specified. Ordering Physician: Lewis Templeton Referring Physician: Lewis Templeton Performed By: Mike Lin RCS
== END | disposition home or self-care (01) ==
LOC: CVS 12:50
PROVIDERS: PCP Family Medicine; Referring Provider Internal Medicine Cardiovascular Disease; Visit Provider Internal Medicine Cardiovascular Disease
DX: I25.5 Ischemic cardiomyopathy (principal)
CPT/HCPCS: 93306; A4216

== ENCOUNTER → 2024-09-03 | Outpatient (CLI) | payer MEDICARE, SELFPAY ==
--- NOTE | 2024-09-03 14:51 | CT_ITS ---
INDICATION: NEW ONSET HEADACHE EXAMINATION: CT BRAIN - CT Head or Brain W/O Contrast Injection TECHNIQUE: Multiple axial images were obtained of the head with sagittal and coronal reconstructed images. Individualized dose optimization techniques were used for this CT. IV contrast dosage and agent: None. COMPARISON: None. FINDINGS: BRAIN PARENCHYMA: No evidence of an acute infarct or intracranial hemorrhage. No evidence of a mass. Chronic left cerebellar infarct. White matter changes consistent with mild chronic microvascular disease. CSF SPACES: Mild cerebral atrophy. CALVARIUM, SKULL BASE, PARANASAL SINUSES AND MASTOID AIR CELLS: No fracture. Mastoid air cells are clear. Visualized paranasal sinuses are unremarkable. ORBITS: The globes, extraocular muscles, optic nerves and retrobulbar fat are unremarkable. CT/Brain/Head without Contrast IMPRESSION: Chronic findings as described above. No acute abnormality. Electronically Signed: Pasquale Villagran DO at 7:55 EST ,
== END | disposition home or self-care (01) ==
PROVIDERS: PCP Family Medicine; Referring Provider Family Medicine; Visit Provider Family Medicine
DX: R51.9 Headache, unspecified (principal)
CPT/HCPCS: 70450

== ENCOUNTER → 2025-01-18 | Outpatient (CLI) | payer MEDICARE, SELFPAY ==
[2025-01-18 13:25] LABS: ALB/GLOB Ratio 1.6 RATIO (0.9-2.4); AST(SGOT) 15 U/L (<=37); Alanine Aminotransfer ALT/SGPT 17 U/L (<=46); Albumin, Serum 4.1 g/dL (3.4-4.8); Alkaline Phosphatase 84 U/L (40-129); Anion Gap 12 (5-15); BUN 29 mg/dL (4-19); BUN/Creat Ratio 16.1 RATIO (10-20); Calcium,Total 9.3 mg/dL (7.6-11.0); Carbon Dioxide 18.7 mmol/L (21.0-32.0); Chloride 108 mmol/L (98-108); Cholesterol 114 mg/dL (<=200); EST Glomerular Filtration Rate 40 (>60); Globulin 2.5 g/dL (2.2-4.2); Glucose 188 mg/dL (70-99); High Density Lipoprotein 33 mg/dL; Low Density Lipoprotein Calc. 61 mg/dL; Potassium 4.5 mmol/L (3.3-5.1); Protein, Total 6.6 g/dL (5.9-8.4); Sodium Level 138 mmol/L (133-145); Total Bilirubin 0.33 mg/dL (0.00-1.30); Triglycerides 102 mg/dL; Very Low Density Lipoprotein 20 mg/dL (5-40); cholesterol:hdl ratio screen 3.45
== END | disposition home or self-care (01) ==
LOC: LAB 12:01
PROVIDERS: PCP Family Medicine; Referring Provider Physician Assistant Medical; Visit Provider Physician Assistant Medical
DX: E78.5 Hyperlipidemia, unspecified (principal); Z95.1 Presence of aortocoronary bypass graft
CPT/HCPCS: 36415; 80053; 80061

== ENCOUNTER → 2025-01-30 | Outpatient (CLI) | payer MEDICARE, SELFPAY ==
--- NOTE | 2025-01-30 10:04 | CDU_ITS ---
Reason For Study Reason For Study: Rt Carotid Artery Bruit Rt. Velocities/BP Lt. Velocities/BP Prox CCA 94.8/14.4 cm/sec. Prox CCA 86.9/12.1 cm/sec. Mid CCA 89.5/14.6 cm/sec. Mid CCA 100.2/15.5 cm/sec. Dist CCA 85.8/15.8 cm/sec. Dist CCA 69.5/14.2 cm/sec. Prox ICA 86.1/20.2 cm/sec. Prox ICA 86.7/25.3 cm/sec. Mid ICA 83.9/26.8 cm/sec. Mid ICA 95.8/26.0 cm/sec. Dist ICA 94.8/20.2 cm/sec. Dist ICA 98.6/26.1 cm/sec. Rt. ICA/CCA = 1.1. Lt. ICA/CCA = 1.0. Prox ECA 68.6/19.5 cm/sec. Prox ECA 100.8/4.2 cm/sec. Rt. Vert. 59.1/17.6 cm/sec. Lt. Vert. 43.9/0.0 cm/sec. Right Extracranial There is heterogeneous, irregular atherosclerotic plaque noted in the right common carotid artery. There is heterogeneous, irregular atherosclerotic plaque noted in the right internal carotid artery. The right internal carotid artery is very tortuous. There is heterogeneous, irregular atherosclerotic plaque noted in the right external carotid artery. Antegrade flow is noted in the right vertebral artery. Left Extracranial There is intimal thickening but no significant atherosclerotic plaque noted in the left common carotid artery. There is heterogeneous, irregular atherosclerotic plaque noted in the left internal carotid artery. There is intimal thickening but no significant atherosclerotic plaque noted in the left external carotid artery. Antegrade flow is noted in the left vertebral artery. Lt Vertebral Artery high resistant waveform noted. Procedure Carotid Duplex [id number]. This is a Carotid Duplex examination using B-mode, color flow and specral Doppler. The exam was diagnostic. Exam performed in department. VL/Carotid Duplex Ultrasound Interpretation Summary Mild (<50%) stenosis right extracranial internal carotid. Mild (<50%) stenosis left extracranial internal carotid. Patent and antegrade vertebrals bilaterally. Ordering Physician: Kiki Ramirez Referring Physician: Elo Ralph Performed By: Obi Díaz RVT
== END | disposition home or self-care (01) ==
LOC: CVS 10:01
PROVIDERS: PCP Family Medicine; Referring Provider Physician Assistant Medical; Visit Provider Physician Assistant Medical
DX: R09.89 Other specified symptoms and signs involving the circulatory and respiratory systems (principal)
CPT/HCPCS: 93880

== ENCOUNTER 2025-02-06 09:26 | Observation (INO) | payer MEDICARE, SELFPAY ==
[2025-02-06] VITALS (11 sets, daily range): BP systolic 143–170; BP diastolic 74–99; PULSE 67–86; RESP 10–18; TEMP 36.4–36.7; O2SAT 96–99; BMI 26.0
--- NOTE | 2025-02-06 09:48 | RAD_ITS ---
PROCEDURE: CHEST 1 VIEW (PORTABLE) 02/06/2025 REASON FOR EXAM: SHORTNESS OF BREATH TECHNIQUE: Frontal view of the chest. COMPARISON: Chest x-ray of 05/11/2018. RAD/Chest 1 View (Portable) IMPRESSION: Interval placement of left thoracic transvenous pacemaker/AICD device with lead s. No complication is noted. Sternotomy wires again noted. Mediastinal surgical clips are again seen. Lungs appear clear of acute disease; no evidence of pulmonary edema. No pleural effusion or pneumothorax is evident. The cardiomediastinal silhouette is stable, without evidence of cardiomegaly. No acute osseous change is seen. No evidence of acute cardiopulmonary disease. Reading Location: [facility]
--- NOTE | 2025-02-06 09:49 | EX.ED.DYSGE1 ---
HPI History of Present Illness Chief Complaint: General Illness Narrative Narrative: 69-year-old male past medical history of hypertension, hyperlipidemia, diabetes, pacemaker defibrillator, presents with generalized weakness, malaise and fatigue as well as intermittent nausea and vomiting that has had over the last week. 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 He states he has not vomited in the last 24 hours. Yesterday he may have had intermittent chest pain. He has been more tired and has not been feeling as energetic and has had low energy over the last week as he has been working out in the heat. He denies any diarrhea, no cough or shortness of breath. No fevers or chills, no dysuria or hematuria. No exacerbating or alleviating factors. [facility] Medical History Essential hypertension Hyperlipidemia Dyspnea on exertion Abnormal stress test Chest pain Nonrheumatic mitral (valve) insufficiency Secondary pulmonary arterial hypertension Paroxysmal atrial fibrillation Atherosclerosis of coronary artery of [place] heart without angina pectoris Ischemic cardiomyopathy Non-rheumatic aortic stenosis Non-ST elevation [place] (NSTEMI) Tobacco use DM2 (diabetes mellitus, type 2) Home Medications ?Medication ?Instructions ?Recorded ?Last Taken ?Type aspirin 81 mg tablet,delayed 81 mg PO DAILY 06/16/15 06/30/18 History release fluoxetine 20 mg capsule 20 mg PO DAILY 05/16/18 06/30/18 History nitroglycerin 0.4 mg sublingual 0.4 mg sublingual DAILY PRN Pain 07/09/19 Unknown Rx tablet #25 tabs sildenafil 50 mg tablet 50 mg PO DAILY PRN sexual activity 02/27/21 Unknown History omeprazole 20 mg tablet,delayed 20 mg PO DAILY 09/24/21 Unknown History release cholecalciferol (vitamin D3) 25 50 mcg PO DAILY 09/30/23 Unknown History mcg (1,000 unit) tablet insulin glargine U-300 conc 300 46 unit subcut DAILY 12/30/23 Unknown History unit/mL (1.5 mL) subcutaneous pen (Toureinaldoo SoloStar U-300 Insulin) furosemide 40 mg tablet 40 mg PO DAILY #90 tabs 01/16/24 Unknown Rx spironolactone 25 mg tablet 25 mg PO DAILY #90 tabs 03/29/24 Unknown Rx carvedilol 25 mg tablet 25 mg PO BID #180 tabs 05/02/24 Unknown Rx tamsulosin 0.4 mg capsule 0.4 mg PO DAILY 06/19/24 Unknown History apixaban 5 mg tablet (Eliquis) 5 mg PO BID #60 tabs 08/29/24 Unknown Rx sacubitril 49 mg-valsartan 51 mg 1 tab PO BID #180 tabs 09/03/24 Unknown Rx tablet (Entresto) atorvastatin 80 mg tablet 80 mg PO QHS #90 tabs 10/22/24 Unknown Rx albuterol sulfate 90 mcg/actuation 2 inh inhalation Q6H PRN shortness 02/06/25 Unknown History breath activated powder inhaler of breath or wheezing lorazepam 0.5 mg tablet 0.5 mg PO DAILY PRN anxiety 02/06/25 02/02/25 History losartan 100 mg tablet 100 mg PO DAILY 02/06/25 Unknown History semaglutide 1 mg/dose (4 mg/3 mL) 0.5 mg subcut QWEEK 02/06/25 02/02/25 History subcutaneous pen injector (Ozempic) trazodone 50 mg tablet 50 - 100 mg PO QHS 02/06/25 Unknown History Allergy/AdvReac Type Severity Reaction Status Date / Time No Known Allergies Allergy Verified 02/06/25 09:28 Family History Father , Age 49 from [place] CAD (coronary artery disease) from [place] age 49 Myocardial infarction Mother Pacemaker History of heart valve replacement Surgical History Presence of cardiac resynchronization therapy defibrillator ([employer]OR-D) (09/14/18) History of repair of rotator cuff (~04/2015) History of right and left heart catheterization (06/30/18) H/O coronary artery bypass surgery (05/06/15) Social History Smoking Status: Former smoker quit date: 04/15/15 alcohol intake: current details: rarely substance use type: does not use caffeine: Yes Type: coffee Number of servings: 1 ROS ROS ED ROS Narrative Review of systems positive for malaise and fatigue x 1 week. Generalized weakness. Intermittent chest pains even yesterday evening. Positive nausea and vomiting intermittently as well. No fevers or chills, no exacerbating or alleviating factors. EXAM Physical Exam Narrative Exam Narrative: Afebrile. Vital signs noted. Nontoxic-appearing. Cardiovascular examination reveals a regular rate and rhythm. Lungs are clear to auscultation bilaterally. Abdomen is soft and nontender with positive bowel sounds. Neurological examination nonfocal, nonlateralizing. No appreciable pedal edema bilaterally. Const Vital Signs: 02/06/25 09:27 02/06/25 09:37 02/06/25 09:38 Temperature 97.9 F Temperature Source Oral Pulse Rate 71 67 Respiratory Rate 18 14 Respiratory Effort Normal Non-Labored Respiratory Pattern Normal Blood Pressure 149/75 H 163/81 H Blood Pressure Mean 99 108 Pulse Ox 99 99 Oxygen Delivery Method Room Air Room Air 02/06/25 11:08 02/06/25 12:15 02/06/25 13:42 Temperature Temperature Source Pulse Rate 69 86 85 Respiratory Rate 17 11 L 10 L Respiratory Effort Respiratory Pattern Blood Pressure 155/99 H 170/88 H 168/75 H Blood Pressure Mean 117 115 106 Pulse Ox 98 97 97 Oxygen Delivery Method Room Air Room Air Room Air MDM MDM MDM Narrative Medical decision making narrative: Differential diagnosis includes but not limited to ACS versus unstable angina portion versus non-STEMI versus dehydration versus other electrolyte imbalance. EKG interpreted by myself independently shows a paced rhythm at [address] changes. No STEMI. I reviewed his laboratory work and he has normal white count/slightly elevated at 11.1 with hemoglobin 11.1, hematocrit 31.3, platelet count normal at 174. Electrolyte panel shows BUN of 36 with creatinine 1.84 with glucose 192 but normal anion gap of 12. LFTs are grossly unremarkable. Initial high-sensitivity troponin is elevated at 24 with repeat being 23. Lipase slightly elevated at 76 as well. Urinalysis is negative. Urinalysis negative for infection. Chest x-ray interpreted by myself independently shows no evidence of an acute process, no pneumonia or pneumothorax. I reviewed the radiology report which confirms my independent interpretation. While in the emergency department, patient has been having intermittent chest pains. His is concerned regarding this as he started having them yesterday. With his elevated troponins, he may be having more unstable angina although this may be his baseline. He has not had a stress test since 2022, and he did have an echocardiogram in 2023. I discussed patient with Dr. Medina, given his elevated troponin and his chronic kidney disease, he may have elevated troponins for this reason, but given his stuttering chest pains in the emergency department, he will be placed on observation in the PCU. Disposition is assigned observation. Patient is in stable condition. History & Record Review Discussion w/independent historian: Patient and Family Additional record(s) reviewed:: Prior outpatient record and Prior labs Lab Data Attestation: I reviewed the patient's lab results. Labs: Laboratory Results - last 24 hr 02/06/25 02/06/25 02/06/25 10:00 11:05 12:14 WBC 11.1 H RBC 3.41 L Hgb 11.1 L Hct 31.3 L MCV 91.8 MCH 32.6 H MCHC 35.5 RDW Std Deviation 40.6 RDW Coeff of Brianna 12.2 Plt Count 174 MPV 11.1 Immature Gran % (Auto) 0.600 Neut % (Auto) 82.5 H Lymph % (Auto) 8.7 L [place]ward % (Auto) 6.6 Eos % (Auto) 1.3 Baso % (Auto) 0.3 Absolute Neuts (auto) 9.2 H Absolute Lymphs (auto) 0.97 Nucleated RBC % 0 Sodium 139 Potassium 4.9 Chloride 106 Carbon Dioxide 21.7 Anion Gap 12 BUN 36 H Creatinine 1.84 H Estim Creat Clear Calc 39.22 L Est GFR (MDRD) Non-Af 39 L BUN/Creatinine Ratio 19.5 Glucose 192 H Calcium 9.7 Total Bilirubin 0.49 AST 18 ALT 25 Alkaline Phosphatase 84 Troponin T High Sens 24 H Troponin T Hi Sens 2 Hr 23 H Total Protein 6.6 Albumin 4.2 Globulin 2.4 Albumin/Globulin Ratio 1.7 Lipase 76 H Urine Color Yellow Urine Clarity Clear Urine pH 6.0 Ur Specific [place] 1.015 Urine Protein 100 H Urine Glucose (UA) Normal Urine Ketones Negative Urine Occult Blood 10 H Urine Nitrite Negative Urine Bilirubin Negative Urine Urobilinogen Normal Ur Leukocyte Esterase Negative Urine RBC 0-5 SEEN Urine WBC 0 SEEN Ur Squamous Epith Cells 0-5 SEEN Urine Bacteria 0 SEEN Urine Mucus 0 SEEN Radiography Chest X-Ray - ED: 1 View, Read by ED Physician and Read by Radiologist Diagnostic Testing: Clinical Impression(s) from Imaging Studies Chest X-Ray 02/06/25 09:48 IMPRESSION: Interval placement of left thoracic transvenous pacemaker/AICD device with leads. No complication is noted. Sternotomy wires again noted. Mediastinal surgical clips are again seen. Lungs appear clear of acute disease; no evidence of pulmonary edema. No pleural effusion or pneumothorax is evident. The cardiomediastinal silhouette is stable, without evidence of cardiomegaly. No acute osseous change is seen. No evidence of acute cardiopulmonary disease. Reading Location: [place] [id number] Management Discussion w/another healthcare provider: Hospitalist (Dr. Medina) Discharge Plan Dx/Rx/DC Orders Clinical Impression: Chest pain, Elevated troponin level, Malaise and fatigue, Nausea and vomiting Disposition Disposition: Acute Care [facility]
[2025-02-06 10:09] LABS: Absolute Lymphocyte Count 0.97 X10^3/uL (0.83-4.51); Absolute Neutrophil Count 9.2 X10^3/uL (2.0-7.7); Basophil# 0.03 X10^3/uL; Basophil% 0.3 % (0-1); Eosinophil# 0.14 X10^3/uL; Eosinophils% 1.3 % (0-5); Hematocrit 31.3 % (40-54); Hemoglobin 11.1 g/dL (13.0-16.5); Lymphocyte # 0.97 X10^3/ul (0.83-4.51); Lymphocyte % 8.7 % (19-41); Mean Corp Hgb Conc 35.5 g/dL (32-36); Mean Corpuscular Hgb 32.6 pg (27.0-32.0); Mean Corpuscular Volume 91.8 fL (80-94); Mean Platelet Vol. 11.1 fl (6.2-12.0); Monocyte# 0.74 X10^3/uL; Monocyte% 6.6 % (0-10); NRBC Flagged by Analyzer 0 % (0-5); Neutrophil # 9.19 X10^3/uL (2.7-7.7); Neutrophil % 82.5 % (47-70); Platelet Count 174 K/mm3 (150-450); RBC Distribution Width CV 12.2 % (11.6-14.6); RBC Distribution Width SD 40.6 fl (35.1-43.9); Red Blood Count 3.41 M/mm3 (4.6-6.2); White Blood Count 11.1 K/mm3 (4.4-11.0)
[2025-02-06] MEDS: 0.9% Normal Saline (1000mL) 1,000 ML 1000 ML IV (10:14)
[2025-02-06 10:46] LABS: Troponin T High Sensitivity 24 ng/L (<=22)
[2025-02-06 10:48] LABS: ALB/GLOB Ratio 1.7 RATIO (0.9-2.4); AST(SGOT) 18 U/L (<=37); Alanine Aminotransfer ALT/SGPT 25 U/L (<=46); Albumin, Serum 4.2 g/dL (3.4-4.8); Alkaline Phosphatase 84 U/L (40-129); Anion Gap 12 (5-15); BUN 36 mg/dL (4-19); BUN/Creat Ratio 19.5 RATIO (10-20); Calcium,Total 9.7 mg/dL (7.6-11.0); Carbon Dioxide 21.7 mmol/L (21.0-32.0); Chloride 106 mmol/L (98-108); Creatinine, Serum 1.84 mg/dL (0.70-1.20); EST Glomerular Filtration Rate 39 (>60); Estimated Creatinine Clearance 39.22 ml/min (50-250); Globulin 2.4 g/dL (2.2-4.2); Glucose 192 mg/dL (70-99); Lipase 76 U/L (13-75); Potassium 4.9 mmol/L (3.3-5.1); Protein, Total 6.6 g/dL (5.9-8.4); Sodium Level 139 mmol/L (133-145); Total Bilirubin 0.49 mg/dL (0.00-1.30)
[2025-02-06 11:15] LABS: Bacteria 0 SEEN /hpf (None Seen); Mucous, Urine 0 SEEN /hpf (<or=2+); White Blood Cells 0 SEEN /hpf (0-5)
[2025-02-06 11:17] LABS: Color, Urine Yellow (Yellow); Glucose, Dipstick Normal (Normal); Ketone-Dipstick Negative (Negative); Leukocyte Esterase-Dipstick Negative /ul (Negative); Nitrite-Dipstick Negative (Negative); Occult Blood-Urine 10 /ul (Negative); Protein-Dipstick 100 mg/dl (Negative); Specific Gravity, Urine 1.015 (1.002-1.030); Urine Bilirubin Dipstick Negative (Negative); Urine Clarity Clear (Clear); Urine Urobilinogen Normal (Normal)
[2025-02-06 11:23] LABS: Red Blood Cells-Urine 0-5 SEEN /hpf (0-5); Squamous Epithelial Cells - UA 0-5 SEEN /hpf (0-5)
[2025-02-06 13:23] LABS: Troponin T High Sens 2 HR 23 ng/L (<=22)
--- NOTE | 2025-02-06 13:31 | ED.RN ---
notified Dr. Trivedi aboutnew onset CP. Verbal order for repeat EKG, respiratory notified.
[2025-02-06] MEDS: Aspirin 81 MG TAB.CHEW 324 MG PO (13:47)
[2025-02-06] MEDS: Labetalol 20 MG/4 ML Vial IV (13:47)
[2025-02-06] MEDS: APIXABAN 5 MG TABLET PO ×2 (14:46→20:48)
[2025-02-06 15:26] LABS: Troponin T High Sens 4 HR 25 ng/L (<=22)
--- NOTE | 2025-02-06 15:34 | PCM.HP.STD ---
HPI - General General Date of Admission: 02/06/25 Date of Service: 02/06/25 Chief Complaint: Nausea, fatigue, CP HPI Narrative VERENA CLEMENTS, is [id number] male history of pacemaker defibrillator, diabetes, ischemic cardiomyopathy, CAD, paroxysmal atrial fibrillation, GERD, BPH, anxiety presented [facility] ED 02/06/2025 with generalized weakness, fatigue, intermittent nausea and vomiting as well as intermittent chest pain over the past week. Has been doing more manual labor around the house and has been feeling fatigued with chest pain and nausea that has been coming and going. In the ED patient afebrile, heart rate 71 with blood pressure 149/75, pulse ox 99% on room air. EKG is paced without acute ST changes and no STEMI. White blood cell count 11.1 with a hemoglobin of 11.1, platelets within normal limits at 174. BUN 36 and creatinine of 1.84 not overtly changed from baseline. Initial high-sensitivity troponin very minimally elevated at 24 with repeat of 23. Given patient's chest pain and history hospitalist contacted for admission for stress test/cardiac workup. Patient evaluated at bedside and reports he is felt somewhat unwell for the past week but notes he has been very stressed and a lot is been going on and has not been very good about taking his medications. Intermittently having nausea and reports the chest pain that he has is sometimes on the left side or sometimes middle of his chest and is more of just a general pain but would rated at a 1 out of 10 and it happens at random for a 15 to 20 seconds, not sustained no additional associations that patient reports. No shortness of breath. Reports he got his Eliquis in the ED and some fluids and is feeling better however given his history and the concern patient agreeable to coming in for stress test. [facility] Medical History Essential hypertension Hyperlipidemia Dyspnea on exertion Abnormal stress test Chest pain Nonrheumatic mitral (valve) insufficiency Secondary pulmonary arterial hypertension Paroxysmal atrial fibrillation Atherosclerosis of coronary artery of false pass heart without angina pectoris Ischemic cardiomyopathy Non-rheumatic aortic stenosis Non-ST elevation [place] (NSTEMI) Tobacco use DM2 (diabetes mellitus, type 2) Home Medications ?Medication ?Instructions ?Recorded ?Last Taken ?Type aspirin 81 mg tablet,delayed 81 mg PO DAILY 06/16/15 06/30/18 History release fluoxetine 20 mg capsule 20 mg PO DAILY 05/16/18 06/30/18 History nitroglycerin 0.4 mg sublingual 0.4 mg sublingual DAILY PRN Pain 07/09/19 Unknown Rx tablet #25 tabs sildenafil 50 mg tablet 50 mg PO DAILY PRN sexual activity 02/27/21 Unknown History omeprazole 20 mg tablet,delayed 20 mg PO DAILY 09/24/21 Unknown History release cholecalciferol (vitamin D3) 25 50 mcg PO DAILY 09/30/23 Unknown History mcg (1,000 unit) tablet insulin glargine U-300 conc 300 46 unit subcut DAILY 12/30/23 Unknown History unit/mL (1.5 mL) subcutaneous pen (T[employer] SoloStar U-300 Insulin) furosemide 40 mg tablet 40 mg PO DAILY #90 tabs 01/16/24 Unknown Rx spironolactone 25 mg tablet 25 mg PO DAILY #90 tabs 03/29/24 Unknown Rx carvedilol 25 mg tablet 25 mg PO BID #180 tabs 05/02/24 Unknown Rx tamsulosin 0.4 mg capsule 0.4 mg PO DAILY 06/19/24 Unknown History apixaban 5 mg tablet (Eliquis) 5 mg PO BID #60 tabs 08/29/24 Unknown Rx sacubitril 49 mg-valsartan 51 mg 1 tab PO BID #180 tabs 09/03/24 Unknown Rx tablet (Entresto) atorvastatin 80 mg tablet 80 mg PO QHS #90 tabs 10/22/24 Unknown Rx albuterol sulfate 90 mcg/actuation 2 inh inhalation Q6H PRN shortness 02/06/25 Unknown History breath activated powder inhaler of breath or wheezing lorazepam 0.5 mg tablet 0.5 mg PO DAILY PRN anxiety 02/06/25 02/02/25 History losartan 100 mg tablet 100 mg PO DAILY 02/06/25 Unknown History semaglutide 1 mg/dose (4 mg/3 mL) 0.5 mg subcut QWEEK 02/06/25 02/02/25 History subcutaneous pen injector (Ozempic) trazodone 50 mg tablet 50 - 100 mg PO QHS 02/06/25 Unknown History Allergy/AdvReac Type Severity Reaction Status Date / Time No Known Allergies Allergy Verified 02/06/25 09:28 Family History Father , Age 49 from [place] CAD (coronary artery disease) from [place] age 49 Myocardial infarction Mother Pacemaker History of heart valve replacement Surgical History Presence of cardiac resynchronization therapy defibrillator (VARNISH DIPPER-D) (09/14/18) History of repair of rotator cuff (~04/2015) History of right and left heart catheterization (06/30/18) H/O coronary artery bypass surgery (05/06/15) Social History Smoking Status: Former smoker quit date: 04/15/15 alcohol intake: current details: rarely substance use type: does not use caffeine: Yes Type: coffee Number of servings: 1 ROS ROS Narrative General: Denies fever/chills, self felt somewhat fatigued and generally unwell HENT: Denies headache, denies stuffy nose, denies sore throat EYES: Denies changes in vision Resp: Denies cough, denies shortness of breath Cardiac: Brief episodes of chest pain as above GI: Denies abdominal pain, denies changes in bowel, intermittent nausea : Denies changes in urination Extremity: Denies swelling MSK: Denies weakness Neuro: Denies any numbness/tingling Heme: Denies any bleeding or bruising Skin: Denies rashes Psychiatric: No complaints voiced Vital Signs Vital Signs Vital Signs: 02/06/25 09:27 02/06/25 09:37 02/06/25 09:38 Temperature 97.9 F Temperature Source Oral Pulse Rate 71 67 Respiratory Rate 18 14 Respiratory Effort Normal Non-Labored Respiratory Pattern Normal Blood Pressure 149/75 H 163/81 H Blood Pressure Mean 99 108 Pulse Ox 99 99 Oxygen Delivery Method Room Air Room Air 02/06/25 11:08 02/06/25 12:15 02/06/25 13:42 Temperature Temperature Source Pulse Rate 69 86 85 Respiratory Rate 17 11 L 10 L Respiratory Effort Respiratory Pattern Blood Pressure 155/99 H 170/88 H 168/75 H Blood Pressure Mean 117 115 106 Pulse Ox 98 97 97 Oxygen Delivery Method Room Air Room Air Room Air Weight Weight: 84.686 kg Body Mass Index (BMI) 26.0 Physical Exam Narrative General: Alert, oriented, no apparent distress HEENT: Atraumatic, normocephalic Eyes: Anicteric, normal conjunctiva, extraocular movements grossly intact Neck: Supple Respiratory: Clear to auscultation bilaterally, normal respiratory effort Cardiovascular: Regular rate and rhythm GI: Soft, nontender, nondistended Extremities: No edema Musculoskeletal: Moving all extremities Neuro: No overt focal neurological deficits Skin: No rashes appreciated Psych: Cooperative Results Lab / Micro Data 02/06/25 10:00 02/06/25 10:00 Labs: Laboratory Results - last 24 hr 02/06/25 10:00: WBC 11.1 H, RBC 3.41 L, Hgb 11.1 L, Hct 31.3 L, MCV 91.8, MCH 32.6 H, MCHC 35.5, RDW Std Deviation 40.6, RDW Coeff of Brianna 12.2, Plt Count 174, MPV 11.1, Immature Gran % (Auto) 0.600, Neut % (Auto) 82.5 H, Lymph % (Auto) 8.7 L, [place] % (Auto) 6.6, Eos % (Auto) 1.3, Baso % (Auto) 0.3, Absolute Neuts (auto) 9.2 H, Absolute Lymphs (auto) 0.97, Nucleated RBC % 0, Sodium 139, Potassium 4.9, Chloride 106, Carbon Dioxide 21.7, Anion Gap 12, BUN 36 H, Creatinine 1.84 H, Estim Creat Clear Calc 39.22 L, Est GFR (MDRD) Non-Af 39 L, BUN/Creatinine Ratio 19.5, Glucose 192 H, Calcium 9.7, Total Bilirubin 0.49, AST 18, ALT 25, Alkaline Phosphatase 84, Troponin T High Sens 24 H, Total Protein 6.6, Albumin 4.2, Globulin 2.4, Albumin/Globulin Ratio 1.7, Lipase 76 H 02/06/25 11:05: Urine Color Yellow, Urine Clarity Clear, Urine pH 6.0, Ur Specific [place] 1.015, Urine Protein 100 H, Urine Glucose (UA) Normal, Urine Ketones Negative, Urine Occult Blood 10 H, Urine Nitrite Negative, Urine Bilirubin Negative, Urine Urobilinogen Normal, Ur Leukocyte Esterase Negative, Urine RBC 0-5 SEEN, Urine WBC 0 SEEN, Ur Squamous Epith Cells 0-5 SEEN, Urine Bacteria 0 SEEN, Urine Mucus 0 SEEN 02/06/25 12:14: Troponin T Hi Sens 2 Hr 23 H 02/06/25 14:12: Troponin T Hi Sens 4Hr 25 H Imaging Radiology Impression Chest X-Ray 02/06/25 09:48 IMPRESSION: Interval placement of left thoracic transvenous pacemaker/AICD device with leads. No complication is noted. Sternotomy wires again noted. Mediastinal surgical clips are again seen. Lungs appear clear of acute disease; no evidence of pulmonary edema. No pleural effusion or pneumothorax is evident. The cardiomediastinal silhouette is stable, without evidence of cardiomegaly. No acute osseous change is seen. No evidence of acute cardiopulmonary disease. Reading Location: [place] [address] Assessment & Plan Assessment/Plan (1) Chest pain: (2) DM2 (diabetes mellitus, type 2): QUALIFIERS: Diabetes mellitus complication status: without complication Qualified Code(s): E11.9 - PLAN: Plan # Intermittent chest pain -Chest pain atypical and happens 15 to 20 seconds at random, sometimes left side of chest sometimes middle, there was concern given his history and the troponins the patient needs cardiac workup, patient to be admitted for stress test with likely DC tomorrow if normal -EKG paced with no acute changes -Trop very minimally elevated 24 with repeat of 23 -Admit to telemetry -Echo ordered -Aspirin -Statin -Lipid panel in AM -Stress test ordered for AM # History of ischemic cardiomyopathy with pacemaker/defibrillator - Daily weights, I's and O's - Does not appear to be fluid overloaded - Continue patient's home medications - Patient is listed on being on both losartan and Entresto, continue Entresto and holding losartan, will need to verify which 1 patient is on as these 2 medications are not indicated together # CKD stage III b -Appears to be at baseline -Avoid nephrotoxic agents -Daily BMPs #Type 2 diabetes mellitus -Glucose checks and sliding scale insulin -Continue long-acting insulin but at lower dosing given patient will be n.p.o. #Paroxysmal Atrial Fibrillation -Rate control: Carvedilol -Anticoagulation: Eliquis # History of coronary artery disease -With previous CABG - Continue aspirin and statin #Chronic BPH with obstruction -Continue home medications #GERD -Continue PPI #Depression/anxiety -Continue home medications #DVT ppx: Patient on Clairequis Miesha Medina MD Charges/Coding Visit Charges Inpatient E&M: 31708 Init Hosp L2
--- NOTE | 2025-02-06 16:00 | ECHOD_ITS ---
Reason For Study Reason For Study: Chest Pain Procedure This was a 2D Doppler, Color Flow transthoracic echocardiogram. Myocardial strain analysis was performed in this exam to aid in the assessment of cardiac function. Exam performed in department. Left Ventricle Normal LV size. Mild concentric left ventricular hypertrophy. The global longitudinal strain = -14.7% (abnormal). Mild global left ventricular systolic dysfunction. The LV ejection fraction is 45 %. Stage 2 diastolic dysfunction. Right Ventricle Normal right ventricle. There is a pacemaker lead in the right ventricle. Atria The left atrium is mildly enlarged. Normal right atrium. ICD or pacer leads identified within the right atrium. Mitral Valve Mild (1+) mitral valve insufficiency. Tricuspid Valve Mild tricuspid valve insufficiency. Right ventricular systolic pressure estimated to be 42 mmHg. Aortic Valve Mild aortic valve stenosis. Mean peak gradient 11 mmHg. Aortic valve area 1.5 cm?? by planimetry. Pulmonic Valve Trivial pulmonic valve insufficiency. Great Vessels Normal sized aortic root. Pericardium/Pleural No pericardial effusion. MMode/2D Measurements & Calculations LVIDd: 4.8 cm IVSd: 1.4 cm LVOT diam: 2.3 cm RVDd: 3.9 cm LVPWd: 1.2 cm LVOT area: 4.1 cm2 Ao root diam: 3.7 cm LAV(MOD-bp): 80.2 ml LVAd ap4: 36.1 cm2 LAV(MOD-bp) Indexed: 39.3 ml/m2 LVLd ap4: 8.8 cm LAV(MOD-sp2): 104.4 ml EDV(MOD-sp4): 120.6 ml LAV(MOD-sp4): 60.3 ml EDV(sp4-el): 126.1 ml LVAs ap4: 26.4 cm2 LVLs ap4: 7.8 cm ESV(MOD-sp4): 80.9 ml ESV(sp4-el): 76.5 ml EF(MOD-sp4): 32.9 % EF(sp4-el): 39.4 % SV(MOD-sp4): 39.7 ml SV(sp4-el): 49.6 ml Ao sinus diam: 3.9 cm SI(MOD-sp4): 19.5 ml/m2 Ao ST Junction: 2.4 cm Aortic Valve Planimetry: 1.5 cm2 LA A4 area: 21.3 cm2 LA dimension(2D): 4.5 cm RA A4 area: 15.2 cm2 TAPSE: 1.5 cm Time Measurements MV dec time: 0.21 sec Doppler Measurements & Calculations MV E max og: 65.6 cm/sec Lat Peak E' Og: 10.2 cm/sec Med Peak E' Og: 5.4 cm/sec MV A max og: 90.2 cm/sec E/E' lat: 6.4 E/E' med: 12.2 MV E/A: 0.73 MV V2 max: 127.2 cm/sec MV P1/2t max og: 91.2 cm/sec Ao V2 max: 222.1 cm/sec MV max P.5 mmHg MV P1/2t: 86.8 msec Ao max P.8 mmHg MV V2 mean: 64.5 cm/sec Ao V2 mean: 156.6 cm/sec MV mean P.0 mmHg MV dec slope: 307.7 cm/sec2 Ao mean P.2 mmHg MV V2 VTI: 31.8 cm MVA(P1/2t): 2.5 cm2 Ao V2 VTI: 51.9 cm AV (velocity ratio): 0.54 MVA(VTI): 3.6 cm2 MATT(I,D): 2.2 cm2 MATT(V,D): 2.1 cm2 LV V1 max: 111.3 cm/sec SV(LVOT): 116.0 ml PA V2 max: 113.4 cm/sec LV V1 max P.0 mmHg LV V1 mean P.9 mmHg LV V1 mean: 80.0 cm/sec LV V1 VTI: 28.3 cm TR max og: 305.9 cm/sec TR max P.4 mmHg ECHO/Echo Complete Interpretation Summary Mild concentric left ventricular hypertrophy. The global longitudinal strain = -14.7% (abnormal). The LV ejection fraction is 45 %. Stage 2 diastolic dysfunction. The left atrium is mildly enlarged. Mild (1+) mitral valve insufficiency. Mild tricuspid valve insufficiency. Right ventricular systolic pressure estimated to be 42 mmHg. Mild aortic valve stenosis. Mean peak gradient 11 mmHg. Aortic valve area 1.5 c m?? by planimetry. Ordering Physician: Miesha Medina Performed By: Mike Lin RCS
[2025-02-06] MEDS: Carvedilol 25 MG Tablet PO (19:18)
[2025-02-06] MEDS: traZODone 50 MG Tablet PO (20:48)
[2025-02-06] MEDS: SACUBITRIL/VALSARTAN 49-51 MG TABLET 1 EACH PO (20:48)
[2025-02-06] MEDS: Atorvastatin Calcium 80 MG Tablet PO (20:48)
[2025-02-07 04:59] LABS: Bedside Glucose 119 mg/dL (74-106)
[2025-02-07 05:30] VITALS: BP 144/90; PULSE 70; RESP 16; TEMP 36.3; O2SAT 95
[2025-02-07 05:39] VITALS: BMI 26.3
[2025-02-07 05:54] LABS: Absolute Lymphocyte Count 1.35 X10^3/uL (0.83-4.51); Absolute Neutrophil Count 7.7 X10^3/uL (2.0-7.7); Basophil# 0.03 X10^3/uL; Basophil% 0.3 % (0-1); Eosinophil# 0.16 X10^3/uL; Eosinophils% 1.6 % (0-5); Hemoglobin 10.6 g/dL (13.0-16.5); Lymphocyte # 1.35 X10^3/ul (0.83-4.51); Lymphocyte % 13.5 % (19-41); Mean Corp Hgb Conc 35.3 g/dL (32-36); Mean Corpuscular Hgb 32.6 pg (27.0-32.0); Mean Corpuscular Volume 92.3 fL (80-94); Mean Platelet Vol. 11.3 fl (6.2-12.0); Monocyte# 0.76 X10^3/uL; Monocyte% 7.6 % (0-10); NRBC Flagged by Analyzer 0 % (0-5); Neutrophil # 7.67 X10^3/uL (2.7-7.7); Neutrophil % 76.7 % (47-70); Platelet Count 154 K/mm3 (150-450); RBC Distribution Width SD 40.7 fl (35.1-43.9); Red Blood Count 3.25 M/mm3 (4.6-6.2)
[2025-02-07 06:35] LABS: Bedside Glucose 139 mg/dL (74-106)
[2025-02-07 07:04] LABS: Anion Gap 10 (5-15); BUN 27 mg/dL (4-19); BUN/Creat Ratio 17.2 RATIO (10-20); Calcium,Total 9.1 mg/dL (7.6-11.0); Carbon Dioxide 20.7 mmol/L (21.0-32.0); Chloride 110 mmol/L (98-108); Cholesterol 121 mg/dL (<=200); Creatinine, Serum 1.55 mg/dL (0.70-1.20); EST Glomerular Filtration Rate 48 (>60); Estimated Creatinine Clearance 46.56 ml/min (50-250); Glucose 138 mg/dL (70-99); High Density Lipoprotein 28 mg/dL; Low Density Lipoprotein Calc. 59 mg/dL; Potassium 4.5 mmol/L (3.3-5.1); Sodium Level 140 mmol/L (133-145); Triglycerides 168 mg/dL; Very Low Density Lipoprotein 34 mg/dL (5-40); cholesterol:hdl ratio screen 4.31
[2025-02-07 09:23] VITALS: BP 140/81; PULSE 66; RESP 14; RESP 16; TEMP 36.9; O2SAT 97
--- NOTE | 2025-02-07 09:26 | PN.HOSP_ITS ---
Reason for Visit Reason for Visit: Diagnoses Type 2 diabetes mellitus without complications (02/06/25) Chest pain, unspecified (02/06/25) Objective Data Objective Data Vital Signs: Vital Signs Temp Pulse Resp BP Pulse Ox O2 Del Method 97.3 F L 70 16 144/90 H 95 Room Air 02/07/25 05:30 02/07/25 05:30 02/07/25 05:30 02/07/25 05:30 02/07/25 05:30 02/07/25 05:30 Oxygen Delivery Method Room Air Weight: 188 lb 14.978 oz Body Mass Index (BMI) 26.3 Intake & Output: Intake and Output for Last 24 Hours 02/05/25 02/06/25 02/07/25 23:59 23:59 23:59 Intake Total 1000 / 1350 350 / 350 Balance 1000 / 1350 350 / 350 Lab / Micro Data 02/07/25 05:20 02/07/25 05:20 Labs: Laboratory Results - last 24 hr 02/06/25 10:00: WBC 11.1 H, RBC 3.41 L, Hgb 11.1 L, Hct 31.3 L, MCV 91.8, MCH 32.6 H, MCHC 35.5, RDW Std Deviation 40.6, RDW Coeff of Brianna 12.2, Plt Count 174, MPV 11.1, Immature Gran % (Auto) 0.600, Neut % (Auto) 82.5 H, Lymph % (Auto) 8.7 L, [place] % (Auto) 6.6, Eos % (Auto) 1.3, Baso % (Auto) 0.3, Absolute Neuts (auto) 9.2 H, Absolute Lymphs (auto) 0.97, Nucleated RBC % 0, Sodium 139, Potassium 4.9, Chloride 106, Carbon Dioxide 21.7, Anion Gap 12, BUN 36 H, Creatinine 1.84 H, Estim Creat Clear Calc 39.22 L, Est GFR (MDRD) Non-Af 39 L, BUN/Creatinine Ratio 19.5, Glucose 192 H, Calcium 9.7, Total Bilirubin 0.49, AST 18, ALT 25, Alkaline Phosphatase 84, Troponin T High Sens 24 H, Total Protein 6.6, Albumin 4.2, Globulin 2.4, Albumin/Globulin Ratio 1.7, Lipase 76 H 02/06/25 11:05: Urine Color Yellow, Urine Clarity Clear, Urine pH 6.0, Ur Specific [place] 1.015, Urine Protein 100 H, Urine Glucose (UA) Normal, Urine Ketones Negative, Urine Occult Blood 10 H, Urine Nitrite Negative, Urine Bilirubin Negative, Urine Urobilinogen Normal, Ur Leukocyte Esterase Negative, Urine RBC 0-5 SEEN, Urine WBC 0 SEEN, Ur Squamous Epith Cells 0-5 SEEN, Urine Bacteria 0 SEEN, Urine Mucus 0 SEEN 02/06/25 12:14: Troponin T Hi Sens 2 Hr 23 H 02/06/25 14:12: Troponin T Hi Sens 4Hr 25 H 02/06/25 18:11: POC Glucose 139 H 02/07/25 02:52: POC Glucose 119 H 02/07/25 05:20: WBC 10.0, RBC 3.25 L, Hgb 10.6 L, Hct 30.0 L, MCV 92.3, MCH 32.6 H, MCHC 35.3, RDW Std Deviation 40.7, RDW Coeff of Brianna 12.0, Plt Count 154, MPV 11.3, Immature Gran % (Auto) 0.300, Neut % (Auto) 76.7 H, Lymph % (Auto) 13.5 L, [place] % (Auto) 7.6, Eos % (Auto) 1.6, Baso % (Auto) 0.3, Absolute Neuts (auto) 7.7, Absolute Lymphs (auto) 1.35, Nucleated RBC % 0, Sodium 140, Potassium 4.5, Chloride 110 H, Carbon Dioxide 20.7 L, Anion Gap 10, BUN 27 H, Creatinine 1.55 H , Estim Creat Clear Calc 46.56 L, Est GFR (MDRD) Non-Af 48 L, BUN/Creatinine Ratio 17.2, Glucose 138 H, Calcium 9.1, Triglycerides 168, Cholesterol 121, LDL Cholesterol, Calc 59, VLDL Cholesterol 34, HDL Cholesterol 28 L, Cholesterol/HDL Ratio 4.31, TSH 2.190 Radiography Diagnostic Testing: Radiology Impression Chest X-Ray 02/06/25 09:48 IMPRESSION: Interval placement of left thoracic transvenous pacemaker/AICD device with leads. No complication is noted. Sternotomy wires again noted. Mediastinal surgical clips are again seen. Lungs appear clear of acute disease; no evidence of pulmonary edema. No pleural effusion or pneumothorax is evident. The cardiomediastinal silhouette is stable, without evidence of cardiomegaly. No acute osseous change is seen. No evidence of acute cardiopulmonary disease. Reading Location: [place] [address] Assessment & Plan Assessment/Plan (1) Chest pain: (2) DM2 (diabetes mellitus, type 2): QUALIFIERS: Diabetes mellitus complication status: without complication Qualified Code(s): E11.9 - PLAN: Plan 69-year-old Male admitted with nausea vomiting, generalized weakness and fatigue for about 1 week. Did not vomit last 24 hours. Yesterday had intermittent chest pain. # Intermittent chest pain -Chest pain atypical and happens 15 to 20 seconds at random, sometimes left side of chest sometimes middle, there was concern given his history and the troponins the patient needs cardiac workup, patient to be admitted for stress test with likely DC tomorrow if normal -EKG paced with no acute changes -Trop very minimally elevated 24 with repeat of 23 -Admit to telemetry -Echo ordered -Aspirin -Statin -Lipid panel in AM -Stress test ordered for AM # History of ischemic cardiomyopathy with pacemaker/defibrillator - Daily weights, I's and O's - Does not appear to be fluid overloaded - Continue patient's home medications - Patient is listed on being on both losartan and Entresto, continue Entresto and holding losartan, will need to verify which 1 patient is on as these 2 medications are not indicated together # CKD stage III b -Appears to be at baseline -Avoid nephrotoxic agents -Daily BMPs #Type 2 diabetes mellitus -Glucose checks and sliding scale insulin -Continue long-acting insulin but at lower dosing given patient will be n.p.o. #Paroxysmal Atrial Fibrillation -Rate control: Carvedilol -Anticoagulation: Eliquis # History of coronary artery disease -With previous CABG - Continue aspirin and statin #Chronic BPH with obstruction -Continue home medications #GERD -Continue PPI #Depression/anxiety -Continue home medications #DVT ppx: Patient on Eliquis
--- NOTE | 2025-02-07 11:25 | PCM.DC ---
Discharge Instructions Diet Discharge Diet: Low fat / Low cholesterol and 2000 mg Sodium Diet DC O2, CPAP, BIPAP needs Home O2 Discharge instructions: No Dressing / Incision Discharge Activity: Return to Normal Activity Weight Bearing Status: Weight bearing as tolerated Dressing / Incision Call your doctor if you observe: Fever of 101 or Higher, Coldness, Increased Pain, Numbness or Tingling, Change in Color, Inability to urinate, Inability to have a bowel movement, Shortness of breath, Dizziness, Fainting spells, Swelling in the ankles, Chest pain, Prolonged hiccupping, Increased palpitations (irregular heartbeat) and Calf discomfort Follow Up Care When: IN 2 WEEKS Test Results: Test results from this visit will be discussed in further detail at your follow-up appointment, if applicable. Discharge Plan Admission Admit Date/Time: 02/06/25 15:34 Primary Reason for Your Visit: Atypical chest pain, nausea/vomiting Attending Provider: Jair Simmons Primary Care Provider: Elo Ralph Consulting Providers: Miesha Medina Discharge Orders/Prescriptions Prescriptions: Continued fluoxetine 20 mg capsule 20 mg PO DAILY nitroglycerin 0.4 mg tablet, sublingual 0.4 mg SUBLINGUAL DAILY PRN (Reason: Pain) Qty: 25 3RF sildenafil 50 mg tablet 50 mg PO DAILY PRN (Reason: sexual activity) Rx Instructions: administer 30 minutes to 4 hours before activity omeprazole 20 mg tablet,delayed release (DR/EC) 20 mg PO DAILY cholecalciferol (vitamin D3) 25 mcg (1,000 unit) tablet 50 mcg PO DAILY insulin glargine U-300 conc [[employer] SoloStar U-300 Insulin] 300 unit/mL (1.5 mL) insulin pen 46 unit subcut DAILY tamsulosin 0.4 mg capsule 0.4 mg PO DAILY aspirin 81 MG tablet 81 mg PO DAILY lorazepam 0.5 mg tablet 0.5 mg PO DAILY PRN (Reason: anxiety) Ozempic 1 mg/dose (4 mg/3 mL) pen injector 0.5 mg subcut QWEEK Patient Comments: SATURDAYS losartan 100 mg tablet 100 mg PO DAILY trazodone 50 mg tablet 50 - 100 mg PO QHS albuterol sulfate 90 mcg/actuation aerosol powdr breath activated 2 inh inhalation Q6H PRN (Reason: shortness of breath or wheezing) furosemide 40 mg tablet 40 mg PO DAILY Qty: 90 4RF spironolactone 25 mg tablet 25 mg PO DAILY Qty: 90 3RF carvedilol 25 mg tablet 25 mg PO BID Qty: 180 3RF Eliquis 5 mg tablet 5 mg PO BID Qty: 60 11RF Entresto 49-51 mg tablet 1 tab PO BID Qty: 180 3RF atorvastatin 80 mg tablet 80 mg PO QHS Qty: 90 3RF Referrals / Follow Up: Elo Ralph MD [Primary Care Provider] - Kiki Ramirez PA [Med Staff - [facility]] - Within 1 Month Disposition Disposition (needs filled in before D/C Order can be placed): Home, Self Care
[2025-02-07 12:25] VITALS: BP 167/79; PULSE 63; RESP 14; TEMP 36.9; O2SAT 98
[2025-02-07] MEDS: Tamsulosin HCl 0.4 MG Capsule PO (12:33)
[2025-02-07] MEDS: FLUoxetine 20 MG Capsule PO (12:33)
[2025-02-07] MEDS: Carvedilol 25 MG Tablet PO (12:34)
[2025-02-07] MEDS: Spironolactone 25 MG Tablet PO (12:34)
[2025-02-07] MEDS: Furosemide 40 MG Tablet PO (12:34)
[2025-02-07] MEDS: Pantoprazole Sodium 20 MG Tablet PO (12:34)
--- NOTE | 2025-02-07 13:23 | STRESSREP_ITS ---
Stress Test Report Date: 02/07/2025 Procedure: Pharmacologic stress nuclear imaging study Indications: Chest pain Consent: Per the patient Procedure: The patient underwent pharmacologic (Regadenoson 0.4mg ) evaluation with a peak heart rate of 96 beats per minute (64%predicted maximal heart rate) and a peak blood pressure of 162/80 mmHg. The baseline ECG demonstrated sinus rhythm with electronic ventricular pacing. The peak pharmacologic ECG was nondiagnostic. There were no cardiac dysrhythmias pretest, during pharmacologic infusion, or recovery. There was no complaint of chest discomfort during pharmacologic infusion or recovery. The patient was injected with 11.8 millicuries of technetium 99m Cardiolite and subsequently rest SPECT Cardiolite nuclear imaging was obtained in the horizontal long, vertical long, and short axis views. The patient underwent pharmacologic (Regadenoson) evaluation. The patient was injected with 35.6 mil licuries of technetium 99m Cardiolite and subsequently stress SPECT Cardiolite nuclear imaging was obtained in the horizontal long, vertical long, and short axis views. A gated Cardiolite study at peak stress was obtained. The examination was stopped secondary to completion of protocol. Rest and stress SPECT Cardiolite nuclear imaging status post realignment, normalization, and attenuation correction demonstrate hypoperfusion of the inferior wall at rest, suggestive of prior nontransmural infarct. No significant guillermo-infarct ischemia noted. There is end systolic thickening and brightening. The gated study shows inferior hypokinesis. The reported LVEF is 40%. Impression: 1. Pharmacologic (Regadenoson) evaluation 2. Peak pharmacologic ECG with no diagnostic changes. 3. There were no cardiac dysrhythmias pretest, during pharmacologic infusion, or recovery. 5. Prior inferior nontransmural infarct with no significant guillermo-infarct ischemia. 6. The gated Cardiolite study reports an LVEF of 40%. This note was generated with [employer] software. It may contain incorrect words, spelling, and punctuation that were not noted in checking the note before signing.
[2025-02-07 14:22] VITALS: BP 143/92; PULSE 66; RESP 16; TEMP 36.6; O2SAT 98
--- NOTE | 2025-02-07 15:28 | DS.PCM_ITS ---
Providers Date of Admission: 02/06/25 Date of Discharge: 02/07/25 Primary Care Physician: Elo Ralph MD Reason For Visit: CP R/O Diagnosis Discharge Diagnosis (1) Chest pain: Status: Acute Code(s): R07.9 - Chest pain, unspecified (2) DM2 (diabetes mellitus, type 2): Status: Chronic Code(s): E11.9 - Type 2 diabetes mellitus without complications Qualifiers: Diabetes mellitus complication status: without complication Qualified Code(s): E11.9 - Plan 69-year-old Male admitted with nausea vomiting, generalized weakness and fatigue for about 1 week. Did not vomit last 24 hours. Yesterday had intermittent chest pain. # Intermittent chest pain, ACS ruled out -Chest pain atypical and happens 15 to 20 seconds at random, sometimes left side of chest sometimes middle Serial troponins were 24, 23 and 25. -EKG paced with no acute changes -Pharmacological nuclear stress test was done which shows prior inferior nontransmural infarct but no significant guillermo-infarct ischemia. EF 40%. 2D echo was also done which shows EF improved to 45%. Stage II diastolic dysfunction, LA mildly enlarged mild MR, mild TR RVSP 42 mmHg. Mild aortic stenosis aortic valve area 1.5 cm??. Patient stated his prior EF was very low about 18% Lipid profile shows LDL 59, HDL 28. Triglyceride 160. Patient on appropriate medications as mentioned below # History of ischemic cardiomyopathy with pacemaker/defibrillator - Daily weights, I's and O's - Does not appear to be fluid overloaded - Continue patient's home medications - Patient is listed on being on both losartan and Entresto, continue Entresto and holding losartan, will need to verify which 1 patient is on as these 2 02/07: Patient on furosemide, spironolactone, Entresto, atorvastatin, and baby aspirin continue. Losartan discontinued. Follow-up with Kiki Ramirez in 1 month # CKD stage III b -Appears to be at baseline -Avoid nephrotoxic agents -Daily BMPs 02/07: Kidney function is on baseline #Type 2 diabetes mellitus -Glucose checks and sliding scale insulin -Continue long-acting insulin but at lower dosing given patient will be n.p.o. #Paroxysmal Atrial Fibrillation -Rate control: Carvedilol -Anticoagulation: Eliquis # History of coronary artery disease -With previous CABG - Continue aspirin and statin #Chronic BPH with obstruction -Continue home medications #GERD -Continue PPI #Depression/anxiety -Continue home medications #DVT ppx: Patient on Eliquis Discharge medication reconciliation done. Discharge follow-up instructions completed. Discharge process discussed with the patient and all questions were answered to patient's satisfaction. Follow with PCP in 1 to 2 weeks Total time spent, exact 35 minutes on discharge meds reconciliation, examination, coordination of care with nurses and ancillary staff, review of imaging and blood test and discussion with the patient on follow-up instructions. Medications at Discharge Home Medications aspirin 81 mg tablet,delayed release 81 mg PO DAILY 06/16/15 fluoxetine 20 mg capsule 20 mg PO DAILY 05/16/18 nitroglycerin 0.4 mg sublingual tablet 0.4 mg sublingual DAILY PRN Pain #25 tabs 07/09/19 sildenafil 50 mg tablet 50 mg PO DAILY PRN sexual activity 02/27/21 omeprazole 20 mg tablet,delayed release 20 mg PO DAILY 09/24/21 cholecalciferol (vitamin D3) 25 mcg (1,000 unit) tablet 50 mcg PO DAILY 09/30/23 insulin glargine U-300 conc 300 unit/mL (1.5 mL) subcutaneous pen (Toujeo SoloStar U-300 Insulin) 46 unit subcut DAILY 12/30/23 furosemide 40 mg tablet 40 mg PO DAILY #90 tabs 01/16/24 spironolactone 25 mg tablet 25 mg PO DAILY #90 tabs 03/29/24 carvedilol 25 mg tablet 25 mg PO BID #180 tabs 05/02/24 tamsulosin 0.4 mg capsule 0.4 mg PO DAILY 06/19/24 apixaban 5 mg tablet (Eliquis) 5 mg PO BID #60 tabs 08/29/24 sacubitril 49 mg-valsartan 51 mg tablet (Entresto) 1 tab PO BID #180 tabs 09/03/24 atorvastatin 80 mg tablet 80 mg PO QHS #90 tabs 10/22/24 albuterol sulfate 90 mcg/actuation breath activated powder inhaler 2 inh inhalation Q6H PRN shortness of breath or wheezing 02/06/25 lorazepam 0.5 mg tablet 0.5 mg PO DAILY PRN anxiety 02/06/25 semaglutide 1 mg/dose (4 mg/3 mL) subcutaneous pen injector (Ozempic) 0.5 mg subcut QWEEK 02/06/25 trazodone 50 mg tablet 50 - 100 mg PO QHS 02/06/25 Hospital Course Summary of Care Provided Hospital Course: Clinical Impression(s) from Imaging Studies Chest X-Ray 02/06/25 09:48 IMPRESSION: Interval placement of left thoracic transvenous pacemaker/AICD device with leads. No complication is noted. Sternotomy wires again noted. Mediastinal surgical clips are again seen. Lungs appear clear of acute disease; no evidence of pulmonary edema. No pleural effusion or pneumothorax is evident. The cardiomediastinal silhouette is stable, without evidence of cardiomegaly. No acute osseous change is seen. No evidence of acute cardiopulmonary disease. Reading Location: [facility] Echocardiogram 02/06/25 16:00 Interpretation Summary Mild concentric left ventricular hypertrophy. The global longitudinal strain = -14.7% (abnormal). The LV ejection fraction is 45 %. Stage 2 diastolic dysfunction. The left atrium is mildly enlarged. Mild (1+) mitral valve insufficiency. Mild tricuspid valve insufficiency. Right ventricular systolic pressure estimated to be 42 mmHg. Mild aortic valve stenosis. Mean peak gradient 11 mmHg. Aortic valve area 1.5 cm?? by planimetry. Ordering Physician: Miesha Medina Performed By: Mike Lin RCS Physical Exam Narrative Seen and examined Patient worked unaccustomed under sun. Feeling normal back to his baseline Physical exam General: Alert, Oriented x3, Cooperative HEENT: Atraumatic, PERRLA, EOMI, Normocephalic. Oral: No Gingival or Mucosal Lesions/ Ulcerations Neck: Supple, No JVD, Negative Carotid Bruits Chest wall/Lungs: Air entry diminished in bilateral lung bases. No crepitation/rhonchi Cardiovascular: Sinus rhythm, normal S1,S2, soft holosystolic murmur at cardiac apex. Defibrillator. Prior CABG Abdomen: Bowel Sounds Present, Soft, Non Tender, Non-Distended : No dysuria. No renal angle tenderness. No suprapubic tenderness. Extremities: No edema, Capillary Refill Less than 3 Seconds Skin: No rashes, No breakdown Musculoskeletal: No Tenderness to Palpation of Joints or Extremities Neurological: Cranial nerves II-XII grossly intact, DTR 2+/4. No acute focal neurological deficit. Psych/Mental Status: Normal Affect, Appropriate. Weight / BMI Weight Weight: 188 lb 14.978 oz Body Mass Index (BMI) 26.3 ABG / Lab / Microbiology Data 02/07/25 05:20 02/07/25 05:20 Laboratory: Laboratory Results - last 24 hr 02/06/25 18:11: POC Glucose 139 H 02/07/25 02:52: POC Glucose 119 H 02/07/25 05:20: WBC 10.0, RBC 3.25 L, Hgb 10.6 L, Hct 30.0 L, MCV 92.3, MCH 32.6 H, MCHC 35.3, RDW Std Deviation 40.7, RDW Coeff of Brianna 12.0, Plt Count 154, MPV 11.3, Immature Gran % (Auto) 0.300, Neut % (Auto) 76.7 H, Lymph % (Auto) 13.5 L, Boone % (Auto) 7.6, Eos % (Auto) 1.6, Baso % (Auto) 0.3, Absolute Neuts (auto) 7.7, Absolute Lymphs (auto) 1.35, Nucleated RBC % 0, Sodium 140, Potassium 4.5, Chloride 110 H, Carbon Dioxide 20.7 L, Anion Gap 10, BUN 27 H, Creatinine 1.55 H , Estim Creat Clear Calc 46.56 L, Est GFR (MDRD) Non-Af 48 L, BUN/Creatinine Ratio 17.2, Glucose 138 H, Calcium 9.1, Triglycerides 168, Cholesterol 121, LDL Cholesterol, Calc 59, VLDL Cholesterol 34, HDL Cholesterol 28 L, Cholesterol/HDL Ratio 4.31, TSH 2.190 Radiography Diagnostic Testing: Radiology Impression Echocardiogram 02/06/25 16:00 Interpretation Summary Mild concentric left ventricular hypertrophy. The global longitudinal strain = -14.7% (abnormal). The LV ejection fraction is 45 %. Stage 2 diastolic dysfunction. The left atrium is mildly enlarged. Mild (1+) mitral valve insufficiency. Mild tricuspid valve insufficiency. Right ventricular systolic pressure estimated to be 42 mmHg. Mild aortic valve stenosis. Mean peak gradient 11 mmHg. Aortic valve area 1.5 cm?? by planimetry. Ordering Physician: Miesha Medina Performed By: Mike Lin RCS D/C Instructions Discharge Diet: Low fat / Low cholesterol and 2000 mg Sodium Diet Weight Bearing Status: Weight bearing as tolerated Call your doctor if you observe: Fever of 101 or Higher, Coldness, Increased Pain, Numbness or Tingling, Change in Color, Inability to urinate, Inability to have a bowel movement, Shortness of breath, Dizziness, Fainting spells, Swelling in the ankles, Chest pain, Prolonged hiccupping, Increased palpitations (irregular heartbeat) and Calf discomfort DC O2, CPAP, BIPAP Needs Home O2 Discharge instructions: No When: IN 2 WEEKS Meaningful Use Info Meaningful Use Meaningful Use Diagnoses (Choose all that apply): None applicable Ischemic Stroke Statin Dosing Therapy Reference: STATIN DOSE THERAPY REFERENCE: * Patients > 75 years receive moderate or high dose statin therapy. * Patients 75 years or YOUNGER should receive HIGH intensity statin dose unless contraindicated. You will be required to document reason for non-treatment if statin daily dose does not meet guidelines. HIGH DOSE STATIN THERAPY DAILY Atorvastatin > than or = to 40 mg Rosuvastatin > than or = to 20 mg Amlodipine + Atorvastatin > than or = to 2.5/40 mg Ezetimibe + Simvastatin 10/80 mg Simvastatin 80mg Discharge Plan Admission Admit Date/Time: 02/06/25 15:34 Primary Reason for Your Visit: Atypical chest pain, nausea/vomiting Attending Provider: Jair Simmons Primary Care Provider: Eol Ralph Consulting Providers: Miesha Medina Discharge Orders/Prescriptions Prescriptions: Continued fluoxetine 20 mg capsule 20 mg PO DAILY nitroglycerin 0.4 mg tablet, sublingual 0.4 mg SUBLINGUAL DAILY PRN (Reason: Pain) Qty: 25 3RF sildenafil 50 mg tablet 50 mg PO DAILY PRN (Reason: sexual activity) Rx Instructions: administer 30 minutes to 4 hours before activity omeprazole 20 mg tablet,delayed release (DR/EC) 20 mg PO DAILY cholecalciferol (vitamin D3) 25 mcg (1,000 unit) tablet 50 mcg PO DAILY insulin glargine U-300 conc [Toujeo SoloStar U-300 Insulin] 300 unit/mL (1.5 mL) insulin pen 46 unit subcut DAILY tamsulosin 0.4 mg capsule 0.4 mg PO DAILY aspirin 81 MG tablet 81 mg PO DAILY lorazepam 0.5 mg tablet 0.5 mg PO DAILY PRN (Reason: anxiety) Ozempic 1 mg/dose (4 mg/3 mL) pen injector 0.5 mg subcut QWEEK Patient Comments: SATURDAYS trazodone 50 mg tablet 50 - 100 mg PO QHS albuterol sulfate 90 mcg/actuation aerosol powdr breath activated 2 inh inhalation Q6H PRN (Reason: shortness of breath or wheezing) furosemide 40 mg tablet 40 mg PO DAILY Qty: 90 4RF spironolactone 25 mg tablet 25 mg PO DAILY Qty: 90 3RF carvedilol 25 mg tablet 25 mg PO BID Qty: 180 3RF Eliquis 5 mg tablet 5 mg PO BID Qty: 60 11RF Entresto 49-51 mg tablet 1 tab PO BID Qty: 180 3RF atorvastatin 80 mg tablet 80 mg PO QHS Qty: 90 3RF Discontinued losartan 100 mg tablet 100 mg PO DAILY Referrals / Follow Up: Elo Ralph MD [Primary Care Provider] - Kiki Ramirez PA [Med Staff - Adv Practice Prof] - Within 1 Month Disposition Disposition (needs filled in before D/C Order can be placed): Home, Self Care Charges/Coding Visit Charges Inpatient E&M: 24167 Disch Hosp >30min
--- NOTE | 2025-02-07 15:40 | CASEMGMT ---
Patient has order for discharge. RN CM in to discuss needs at discharge. Patient denies needs or help at discharge. Patient had no further questions or concerns.
--- NOTE | 2025-02-07 15:44 | CASEMGMT ---
SW received a consult for advance directives. SW met with patient and his . Introduced self and role at [facility]. Patient confirmed he would like to complete documents. SW also assisted patient's in completing documents. Copies were made and given to patient along with originals. SW will take patient's 's copies to Medical Records to have them scanned in. Hermelinda ANGULO
== END 2025-02-07 15:27 | disposition home or self-care (01) ==
LOC: ED 13:41 → PCU 17:34
PROVIDERS: Admitting Provider Internal Medicine; Emergency Provider Emergency Medicine; PCP Family Medicine; Visit Provider Internal Medicine
DX: R07.89 Other chest pain (principal); I27.21 Secondary pulmonary arterial hypertension; I48.0 Paroxysmal atrial fibrillation; E11.22 Type 2 diabetes mellitus with diabetic chronic kidney disease; N18.32 Chronic kidney disease, stage 3b; E78.5 Hyperlipidemia, unspecified; Z95.810 Presence of automatic (implantable) cardiac defibrillator; Z82.49 Family history of ischemic heart disease and other diseases of the circulatory system; I25.5 Ischemic cardiomyopathy; Z87.891 Personal history of nicotine dependence; R53.81 Other malaise; R79.89 Other specified abnormal findings of blood chemistry; I12.9 Hypertensive chronic kidney disease with stage 1 through stage 4 chronic kidney disease, or unspecified chronic kidney disease; Z79.85 Long-term (current) use of injectable non-insulin antidiabetic drugs; K21.9 Gastro-esophageal reflux disease without esophagitis; Z79.82 Long term (current) use of aspirin; Z79.01 Long term (current) use of anticoagulants; I25.10 Atherosclerotic heart disease of native coronary artery without angina pectoris; N40.1 Benign prostatic hyperplasia with lower urinary tract symptoms; N13.8 Other obstructive and reflux uropathy; Z95.1 Presence of aortocoronary bypass graft
CPT/HCPCS: 36415; 71045; 78452; 80048; 80053; 80061; 81001; 82962; 83690; 84443; 84484; 85025; 93005; 93017; 93306; 96361; 96374; 99221; 99285; A9500; A4216; G0378; J2785

== ENCOUNTER 2025-02-18 16:26 | Outpatient (CLI) | payer MEDICARE, SELFPAY ==
[2025-02-18 18:09] LABS: Hematocrit 33.5 % (40-54); Hemoglobin 11.4 g/dL (13.0-16.5); Immature Granulocytes Count 0.040 X10^3/uL (0.0-0.0); Mean Corp Hgb Conc 34.0 g/dL (32-36); Mean Corpuscular Volume 94.1 fL (80-94); Mean Platelet Vol. 11.9 fl (6.2-12.0); NRBC Flagged by Analyzer 0 % (0-5); Platelet Count 173 K/mm3 (150-450); RBC Distribution Width CV 12.5 % (11.6-14.6); RBC Distribution Width SD 43.5 fl (35.1-43.9); Red Blood Count 3.56 M/mm3 (4.6-6.2); White Blood Count 10.4 K/mm3 (4.4-11.0)
[2025-02-18 19:05] LABS: Anion Gap 10 (5-15); BUN 31 mg/dL (4-19); BUN/Creat Ratio 18.3 RATIO (10-20); Calcium,Total 9.5 mg/dL (7.6-11.0); Carbon Dioxide 21.0 mmol/L (21.0-32.0); Chloride 107 mmol/L (98-108); Glucose 137 mg/dL (70-99); Potassium 4.9 mmol/L (3.3-5.1); Vitamin D,25 Hydroxy 29.3 ng/mL (30-100)
--- OUTSIDE RECORDS SUMMARY | 2025-02-21 02:28 | XMS RPT_ITS | CCD ---
Author Organization [facility] Care Team Providers Care Reworker Name Role Phone [employer] MEDICAL COLLECTIONS SPECIALIST.SENIOR POWER PLANT OPERATOR, DNP, Otoniel Primary Care Provider Afua STAGE RIGGER, STAGE RIGGER-C Otoniel Primary Care Provider Afua STAGE RIGGER, STAGE RIGGER-C Otoniel Referring Provider Dr. César Mcgill Attending Provider Lety Calderon Attending Provider Unavailable DO Celi Griffith Primary Care Provider Afua STAGE RIGGER, STAGE RIGGER-C Otoniel Referring Provider DO Celi Griffith Referring Provider Bernard TORRES, STAGE RIGGER-C [place] Attending Provider Dr. César Mcgill Attending Provider DO Celi Griffith Primary Care Provider DO Celi Griffith Referring Provider Lety Calderon Attending Provider Unavailable DO Celi Griffith Primary Care Provider DO Celi Griffith Referring Provider Lety Calderon Attending Provider Unavailable Jeanette STAGE RIGGER, STAGE RIGGER-C James Noonan Referring Provider Jeanette STAGE RIGGER, STAGE RIGGER-C James Noonan Other Provider Dr. Lewis Templeton Attending Provider Roof STAGE RIGGER, STAGE RIGGER-C James Noonan Attending Provider DO Celi Griffith Primary Care Provider Dr. Lewis Templeton Attending Provider DO Celi Griffith Referring Provider Jessica BLACKWELL, ROSALVA Rainey Attending Provider Jeanette STAGE RIGGER, BRIAN-Jesus Noonan Attending Provider Ramo CEVALLOS, Elo Primary Care Provider Jareth CEVALLOS, Dr. Saucedo Attending Provider Ramo CEVALLOS, Elo Referring Provider Kiki Corrigan Attending Provider Kiki Corrigan Referring Provider Alvin CEVALLOS, Dr. Maldonado Attending Provider Shikha CEVALLOS, Stevenson Emergency Provider Shikha CEVALLOS, Stevenson Emergency Provider Adam CEVALLOS, Dr. Whiteside Admit Provider Adam CEVALLOS, Dr. Whiteside Attending Provider Adam CEVALLOS, Dr. Whiteside Other Provider Troy CEVALLOS, Dr. Adam Attending Provider Troy CEVALLOS, Dr. Adam Other Provider Jesus CEVALLOS, Dr. Harry Attending Provider Jesus CEVALLOS, Dr. Harry Attending Provider Jesus CEVALLOS, Dr. Harry Referring Provider Bernard TORRES, [place] Attending Unavailable Ramo, Chalon Primary Care Unavailable Jareth, [place] Attending Unavailable Ramo, Chalon Primary Care Unavailable JarethLewis montes Attending Unavailable Celi Griffith Referring Unavailable Ramo, Chalon Primary Care Unavailable JarethLewis montes Attending Unavailable Celi Griffith Referring Unavailable Ramo, Chalon Primary Care Unavailable Ramo, Chalon Primary Care Unavailable Miesha Medina Attending Unavailable Piero Lee Attending Unavailable Miesha Medina Consulting Unavailable Miesha Medina Admitting Unavailable Jair Simmons Consulting Unavailable Jair Simmons Attending Unavailable Ramo, Chalon Primary Care Unavailable Kiki Corrigan Referring Unavail able Kiki Corrigan Attending Unavail able Jareth, Lewis Attending Unavailable Ramo, Chalon Primary Care Unavailable Jareth, [place] Referring Unavailable Kiki Corrigan Attending Unavail able Kiki Corrigan Referring Unavail able Ramo, Chalon Primary Care Unavailable Ramo, Chalon Primary Care Unavailable Jareth, [place] Attending Unavailable Ramo, Chalon Primary Care Unavailable Jareth, [place] Attending Unavailable Jareth, [place] Referring Unavailable Ramo, Chalon Primary Care Unavailable Miesha Medina Consulting Unavailable Miesha Medina Admitting Unavailable Jair Simmons Attending Unavailable Ramo, Chalon Referring Unavailable Ramo, Chalon Attending Unavailable Ramo, Chalon Primary Care Unavailable Ramo, Chalon Referring Unavailable Kiki Corrigan Attending Unavail able Ramo, Chalon Primary Care Unavailable Ramo, Chalon Primary Care Unavailable Jareth, [place] Attending Unavailable Ramo, Chalon Primary Care Unavailable Jareth, Lewis Attending Unavailable Ramo, Chalon Primary Care Unavailable Jareth, Lewis Attending Unavailable Jesus, Piero Referring Unavailable Jesus, Piero Attending Unavailable Ramo, Chalon Primary Care Unavailable Ramo, Chalon Primary Care Unavailable Joel Esquivel Attending Unavailable Kiki Corrigan Referring Unavail able Ramo, Chalon Primary Care Unavailable Jareth, [place] Attending Unavailable Allergies Allergy Classification Reported Allergen(s) Allergy Type Date of Onset Reaction(s) Facility (4 sources) metFORMIN Drug Allergy 03-29-2019 GI Upset [facility] Medications Current Medications Medication Drug Class(es) Dates Sig (Normalized) Sig (Original) 200 actuat albuterol 0.09 mg/actuat dry powder inhaler (20 sources) beta2-Adrenergic Agonist Start: 02-06-2025 Albuterol Sulfate 90 mcg/actuation aerosol powdr breath activated Active 2 NMA INHALATION EVERY 6 HOURS as needed for shortness of breath or wheezing February 06, 2025 12:00am Start: 05-30-2020 take 2 puff(s) by in halation every four hours as needed for wheezing albuterol HFA (PROAIR HFA) 90 mcg/actuation inhaler Inhale 2 Puffs as instructed every 4 hours as needed for Wheezing/Shortness of Breath. 8.5 g 5 05/30/2020 Active Start: 05-15-2018 End: 02-06-2025 Albuterol Sulfate (Proair Hf a) 90 mcg/actuation HFA aerosol inhaler Discontinued 2 NMA INHALATION EVERY 6 HOURS as needed for Shortness Of Breath May 15, 2018 12:00am February 06, 2025 12:58pm Start: 05-15-2018 take 1 puff(s) by in halation every six hours Albuterol Sulfate (Proair Hfa) 90 mcg/actuation HFA aerosol inhaler Active 2 PUFF INHALATION EVERY 6 HOURS May 15, 2018 12:00am Comment on above: Inhale 2 Puffs as in structed every 4 hours as needed for Wheezing/Shortness of Breath. aspirin 81 mg delayed release oral tablet (20 sources) Platelet Aggregation Inhibitor, Nonsteroidal Anti-inflammatory Drug Start: 2014 take 1 tablet by mouth once daily Aspirin 81 MG tablet Active 81 mg PO DAILY June 16, 2015 1:00am Comment on above: Take 1 tablet by kwesi once daily. cholecalciferol 0.025 mg oral tablet (7 sources) Vitamin D Start: 2023 take 1 tablet by mouth once daily Cholecalciferol (Vitamin D3) 25 mcg (1,000 unit) tablet Active 50 ug PO DAILY September 30, 2023 1:00am Start: 09-30-2023 take 1 tablet by kwesi once daily Cholecalciferol (Vitamin D3) 25 mcg (1,000 unit) tablet Active 25 ug PO DAILY September 30, 2023 1:00am FLUoxetine 20 mg oral capsule (20 sources) Serotonin Reuptake Inhibitor Start: 05-16-2018 End: 02-16-2022 take 1 capsule by mouth once daily Fluoxetine 20 mg capsule Active 20 mg PO DAILY May 16, 2018 12:00am Comment on above: Take 1 capsule by [facility] once daily. TAKE 1 CAPSULE BY MO [facility] DAILY Insulin Glargine U-300 Conc (Toujeo Solostar U-300 Insulin) 300 unit/mL (1.5 mL) insulin pen (13 sources) Start: 12-30-2023 Insulin Glargi ne U-300 Conc (Toujeo Solostar U-300 Insulin) 300 unit/mL (1.5 mL) insulin pen Active 46 U SC DAILY December 30, 2023 11:53am Start: 12-30-2023 Insulin Glargi ne U-300 Conc (Toujeo Solostar U-300 Insulin) 300 unit/mL (1.5 mL) insulin pen Active 30 U SC DAILY December 30, 2023 11:53am Start: 09-30-2023 End: 12-30-2023 Insulin Glargine U-300 Conc (Toujeo Solostar U-300 Insulin) 300 unit/mL (1.5 mL) insulin pen Discontinued 48 U SC DAILY September 30, 2023 1:00am December 30, 2023 11:54am Start: 09-30-2023 Insulin Glargi ne U-300 Conc (Toujeo Solostar U-300 Insulin) 300 unit/mL (1.5 mL) insulin pen Active 48 UNIT SC DAILY September 30, 2023 1:00am LORazepam 0.5 mg oral tablet (9 sources) Benzodiazepine Start: 02-06-2025 take 1 tablet by mouth once daily as needed for anxiety Lorazepam 0.5 mg tablet Active 0.5 mg PO DAILY as needed for anxiety February 06, 2025 12:00am Start: 01-18-2022 End: 03-18-2022 take 1 tablet by mouth once daily as needed for anxiety LORazepam (ATIVAN) 0.5 mg Indications: Long-term current use of benzodiazepine , Anxiety TAKE 1 TABLET BY MOUTH EVERY DAY NEEDED FOR ANXIETY FOR UP TO 30 DAYS 15 tablet 0 01/18/2022 03/18/2022 Active Start: 09-15-2021 End: 01-10-2022 take 1 tablet by mouth once daily as needed for anxiety LORazepam (ATIVAN) 0.5 mg Indications: Anxiety , Long-term current use of benzodiazepine TAKE 1 TABLET BY MOUTH EVERY DAY NEEDED FOR ANXIETY FOR UP TO 30 DAYS 15 tablet 0 11/12/2021 01/10/2022 Active Comment on above: TAKE 1 TABLET BY KWESI TH EVERY DAY NEEDED FOR ANXIETY FOR UP TO 30 DAYS nitroglycerin 0.4 mg sublingual tablet (20 sources) Nitrate Vasodilator Start: 07-26-2018 nitroglycerin sublingual (NITROQUICK) 0.4 mg SL tablet Dissolve 1 tablet under the tongue every 5 minutes as needed for Chest Pain. 1 Bottle of 25 0 07/26/2018 Active Start: 05-11-2018 End: 07-09-2019 take 1 tablet under the tongue once daily as needed for pain Nitroglycerin 0.4 mg tablet, sublingual Active 0.4 mg SL DAILY as needed for Pain 06 11July 09, 2019 2:10pm Comment on above: Dissolve 1 tablet un rashard the tongue every 5 minutes as needed for Chest Pain. omeprazole 20 mg delayed release oral tablet (20 sources) Proton Pump Inhibitor Start: 09-24-2021 take 1 tablet by mouth once daily Omeprazole 20 mg tablet,delayed release (DR/EC) Active 20 mg PO DAILY September 24, 2021 1:00am Start: 04-30-2015 End: 06-16-2015 take 1 capsule by mouth once daily Omeprazole 20 MG capsule Discontinued 20 mg PO DAILY April 30, 2015 12:00am June 16, 2015 2:34pm Comment on above: Take 20 mg by mouth once daily. Semaglutide (4 sources) Start: 02-06-2025 Semaglutide (Ozempic) 1 mg/dose (4 mg/3 mL) pen injector Active 0.5 mg SC EVERY WEEK February 06, 2025 12:00am Start: 02-06-2025 inject 1 mg by subcu taneous injection every week Semaglutide (Semaglutide 1 Mg/Dose (4 Mg/3 Ml) Subcutaneous Pen Injector) 1 mg/dose (4 mg/3 mL) pen injector Active 0.5 mg SC EVERY WEEK February 06, 2025 12:00am sildenafil 50 mg oral tablet (20 sources) Phosphodiesterase 5 Inhibitor Start: 02-27-2021 Sildenafil 50 mg tablet Active 50 mg PO DAILY as needed for sexual activity February 27, 2021 12:00am administer 30 minutes to 4 hours before activity Start: 05-15-2018 End: 05-16-2018 take 1 tablet by mouth once daily as needed Sildenafil 50 mg tablet Discontinued 50 mg PO DAILY as needed May 15, 2018 12:00am May 16, 2018 2:30pm tamsulosin hydrochloride 0.4 mg oral capsule (6 sources) alpha-Adrenergic Jina Start: 06-19-2024 take 1 capsule by mouth once daily Tamsulosin 0.4 mg capsule Active 0.4 mg PO DAILY June 19, 2024 1:00am temazepam 15 mg oral capsule (5 sources) Benzodiazepine Start: 01-18-2022 End: 03-04-2022 take 1 capsule by mouth at bedtime as needed temazepam (RESTORIL) 15 mg Indications: Chronic insomnia , Long-term current use of benzodiazepine Take 1 capsule by mouth at bedtime as needed for up to 45 days. FOR INSOMNIA 45 capsule 0 01/18/2022 03/04/2022 Active Start: 11-12-2021 End: 12-27-2021 take 1 capsule by mouth at bedtime as needed temazepam (RESTORIL) 15 mg Indications: Chronic insomnia , Long-term current use of benzodiazepine Take 1 capsule by mouth at bedtime as needed for up to 45 days. FOR INSOMNIA 45 capsule 0 11/12/2021 12/27/2021 Active Start: 07-21-2021 End: 11-12-2021 take 1 capsule by mouth at bedtime as needed temazepam (RESTORIL) 15 mg Indications: Chronic insomnia Take 1 capsule by mouth at bedtime as needed for up to 90 days. FOR INSOMNIA 90 capsule 0 07/21/2021 11/12/2021 Discontinued Comment on above: Take 1 capsule by mo uth at bedtime as needed for up to 45 days. FOR INSOMNIA Take 1 capsule by mo uth at bedtime as needed for up to 90 days. FOR INSOMNIA traZODone hydrochloride 50 mg oral tablet (4 sources) Serotonin Reuptake Inhibitor Start: take 50-100 mg by mouth at bedtime Trazodone 50 mg tablet Active 50 - 100 mg PO AT BEDTIME February 06, 2025 12:00am Completed/Discontinued Medications Medication Drug Class(es) Dates Sig (Normalized) Sig (Original) acetaminophen 325 mg / HYDROcodone bitartrate 5 mg oral tablet (17 sources) Opioid Agonist Start: 09-06-2022 End: 10-07-2022 Hydrocodone-Acetami nophen 5-325 mg tablet Discontinued 1 {tbl} PO EVERY 4 HOURS NEEDED as needed for Pain 15 3 0 September 06, 2022 October 07, 2022 10:10am Injury of right knee Unspecified injury of right lower leg, initial encounter Start: 09-06-2022 End: 10-07-2022 take 1 tablet by mouth every four hours as needed Hydrocodone-Acetaminophen Discontinued 1 TABLET PO EVERY 4 HOURS NEEDED 15 3 September 06, 2022 October 07, 2022 10:10am allopurinol 100 mg oral tablet (2 sources) Xanthine Oxidase Inhibitor Start: 10-30-2020 End: 11-25-2021 take 1 tablet by mouth once daily allopurinol (ZYLOPRIM) 100 mg tablet Indications: Chronic gout of right elbow, unspecified cause Take 1 tablet by mouth once daily. For gout. 30 tablet 11 10/30/2020 11/25/2021 Discontinued (Course of therapy completed) Comment on above: Take 1 tablet by kwesi th once daily. For gout. amiodarone hydrochloride 200 mg oral tablet (17 sources) Antiarrhythmic Start: 06-16-2015 End: 08-01-2017 take 1 tablet by mouth once daily Amiodarone 200 MG tablet Discontinued 200 mg PO DAILY June 16, 2015 1:00am August 01, 2017 2:05pm amLODIPine 5 mg oral tablet (20 sources) Dihydropyridine Calcium Channel Jina Start: 05-09-2023 End: 09-30-2023 take 1 tablet by mouth once daily Amlodipine 5 mg tablet Discontinued 5 mg PO DAILY 30 May 09, 2023 11:56am September 30, 2023 11:56am Start: 04-30-2015 End: 06-16-2015 take 1 tablet by mouth once daily Amlodipine 5 MG tablet Discontinued 5 mg PO DAILY April 30, 2015 12:00am June 16, 2015 2:34pm amoxicillin 875 mg / clavulanate 125 mg oral tablet (7 sources) Penicillin-class Antibacterial Start: 09-06-2023 End: 09-30-2023 Amoxicillin-Pot Clavulanate 875-125 mg tablet Discontinued 1 {tbl} PO TWICE A DAY September 06, 2023 1:00am September 30, 2023 11:56am Start: 09-06-2023 End: 09-30-2023 take 1 tablet by mouth twice daily Amoxicillin-Pot Clavulanate Discontinued 1 TABLET PO TWICE A DAY September 06, 2023 1:00am September 30, 2023 11:56am apixaban 5 mg oral tablet (20 sources) Factor Xa Inhibitor Start: 01-23-2024 End: 08-29-2024 take 1 tablet by mouth twice daily Apixaban (Eliquis) 5 mg tablet Discontinued 5 mg PO TWICE A DAY 60 April 02, 2024 11:30am August 29, 2024 9:02am Start: 09-05-2015 End: 12-30-2023 take 1 tablet by mouth twice daily Apixaban 5 mg tablet Discontinued 5 mg PO TWICE A DAY 180 3 August 31, 2022 2:47pm December 30, 2023 11:55am Comment on above: Take 1 tablet by kwesi twice daily. Ascorbic Acid (4 sources) Vitamin C ascorbic acid (VITAMIN C ORAL) Take by mouth once daily. 0 Active Comment on above: Take by mouth once d aily. atorvastatin 80 mg oral tablet (20 sources) HMG-CoA Reductase Inhibitor Start: 5 End: 5 take 1 tablet by mouth at bedtime Atorvastatin 80 MG tablet Discontinued 80 mg PO AT BEDTIME June 16, 2015 1:00am March 17, 2022 11:08am Comment on above: Take 1 tablet by kwesi once daily. carvedilol 25 mg oral tablet (20 sources) alpha-Adrenergic Ijna, beta-Adrenergic Jina Start: 8 End: 4 take 1 tablet by mouth twice daily Carvedilol 25 mg tablet Discontinued 25 mg PO TWICE A DAY 180 3 April 20, 2023 3:37pm May 02, 2024 12:29pm Start: 08-01-2017 End: 11-03-2017 take 1 tablet by mouth twice daily Carvedilol 12.5 mg tablet Discontinued 12.5 mg PO TWICE A DAY August 01, 2017 1:00am November 03, 2017 1:48pm Start: 06-16-2015 End: 08-01-2017 Carvedilol 6.25 MG tablet Discontinued 2 {tbl} PO TWICE A DAY June 16, 2015 1:00am August 01, 2017 2:06pm Comment on above: Take 1 tablet by kwesi twice daily. cholecalciferol, vitamin D3, (VITAMIN D3 ORAL) (4 sources) cholecalciferol, vitamin D3, (VITAMIN D3 ORAL) Take by mouth once daily. 0 Active Comment on above: Take by mouth once d aily. clopidogrel 75 mg oral tablet (20 sources) P2Y12 Platelet Inhibitor Start: 06-15-2018 End: 07-12-2018 Clopidogrel (Plavix) 75 mg tablet Discontinued 75 mg PO .COMPLEX June 15, 2018 12:00am July 12, 2018 9:59am 75 mg PO start when Eliquis stopped for heart cath; Start: 08-01-2017 End: 11-03-2017 take 1 tablet by mouth once daily Clopidogrel (Plavix) 75 mg tablet Discontinued 75 mg PO daily 14 07August 01, 2017 3:59pm November 03, 2017 1:49pm Dulaglutide (20 sources) GLP-1 Receptor Agonist Start: 10-07-2022 End: 09-30-2023 Dulaglutide (Trulicity) 3 mg/0.5 mL pen injector Discontinued 3 mg SC EVERY WEEK October 07, 2022 1:00am September 30, 2023 11:53am Start: 10-07-2022 End: 09-30-2023 Dulaglutide (Trulicity) 3 mg /0.5 mL pen injector Discontinued 3 MG SC EVERY WEEK October 07, 2022 1:00am September 30, 2023 11:53am Start: 10-07-2022 Dulaglutide (T rulicity) 3 mg/0.5 mL pen injector Active 3 MG SC EVERY WEEK October 07, 2022 1:00am Start: 10-07-2022 Dulaglutide (T rulicity) 3 mg/0.5 mL pen injector Active 3 MG SC EVERY WEEK October 07, 2022 12:00am Start: 05-11-2018 End: 10-07-2022 Dulaglutide (Trulicity) 1.5 mg/0.5 mL pen injector Discontinued 1.5 mg SC EVERY WEEK September 24, 2021 1:00am October 07, 2022 10:12am Comment on above: Inject 1.5 mg subcut aneously one time a week. Inject once per week. Discard Pen After ferrous sulfate 325 mg delayed release oral tablet (20 sources) Start: End: 2 take 1 tablet by mouth once daily Ferrous Sulfate 325 mg (65 mg iron) tablet,delayed release (DR/EC) Discontinued 325 mg PO DAILY February 27, 2021 3:35pm September 24, 2021 11:17am Start: 12-11-2018 End: 02-27-2021 take 1 tablet by mouth twice daily Ferrous Sulfate 325 mg (65 mg iron) tablet,delayed release (DR/EC) Discontinued 325 mg PO TWICE A DAY December 11, 2018 12:00am February 27, 2021 3:35pm furosemide 40 mg oral tablet (20 sources) Loop Diuretic Start: 06-18-2015 End: 01-16-2024 take 1 tablet by mouth once daily Furosemide 40 mg tablet Discontinued 40 mg PO DAILY 90 4 January 12, 2023 5:16pm January 16, 2024 1:42pm Comment on above: Take 1 tablet by kwesi th once daily. glimepiride 4 mg oral tablet (17 sources) Sulfonylurea Start: 04-30-2015 End: 06-16-2015 take 1 tablet by mouth once daily Glimepiride 4 MG tablet Discontinued 4 mg PO DAILY April 30, 2015 12:00am June 16, 2015 2:34pm indapamide 2.5 mg oral tablet (17 sources) Thiazide-like Diuretic Start: 04-30-2015 End: 06-16-2015 take 1 tablet by mouth once daily Indapamide 2.5 MG tablet Discontinued 2.5 mg PO DAILY April 30, 2015 12:00am June 16, 2015 2:34pm insulin detemir (20 sources) Insulin Analog Start: 10-07-2022 End: 09-30-2023 Insulin Detemir U-100 Discontinued 48 UNIT SC AT BEDTIME October 07, 2022 10:10am September 30, 2023 11:54am Start: 10-07-2022 Insulin Detemi r U-100 Active 48 UNIT SC AT BEDTIME October 07, 2022 10:10am Start: 10-07-2022 Insulin Detemi r U-100 Active 48 UNIT SC AT BEDTIME October 07, 2022 9:10am Start: 12-09-2021 insulin detemi r U-100 (LEVEMIR FLEXTOUCH U-100 INSULIN) 100 unit/mL (3 mL) injection pen Indications: Type 2 diabetes mellitus with stage 3a chronic kidney disease, with long-term current use of insulin (HCC) Inject 34 units subcutaneously daily 15 Pen 3 12/09/2021 Active Start: 09-24-2021 End: 10-07-2022 Insulin Detemir U-100 100 un it/mL (3 mL) insulin pen Discontinued 48 U SC WITH BREAKFAST September 24, 2021 11:16am October 07, 2022 10:12am Start: 02-27-2021 End: 09-24-2021 Insulin Detemir U-100 100 un it/mL (3 mL) insulin pen Discontinued 34 U SC WITH BREAKFAST February 27, 2021 3:33pm September 24, 2021 11:18am Start: 02-04-2021 insulin detemi r U-100 (LEVEMIR FLEXTOUCH U-100 INSULIN) 100 unit/mL (3 mL) injection pen Indications: Type 2 diabetes mellitus with stage 3a chronic kidney disease, with long-term current use of insulin (HCC) Inject 34 units subcutaneously daily 15 Pen 3 02/04/2021 Active Start: 07-09-2019 End: 02-27-2021 Insulin Detemir U-100 100 un it/mL (3 mL) insulin pen Discontinued 36 U SC WITH BREAKFAST July 09, 2019 2:09pm February 27, 2021 3:35pm Start: 12-11-2018 End: 07-09-2019 Insulin Detemir U-100 100 un it/mL (3 mL) insulin pen Discontinued 34 U SC WITH BREAKFAST December 11, 2018 1:47pm July 09, 2019 2:10pm Start: 06-16-2015 End: 12-11-2018 Insulin Detemir U-100 100 UN IT/ML insulin pen Discontinued 36 U SC WITH BREAKFAST June 16, 2015 1:00am December 11, 2018 1:48pm Comment on above: Inject 34 units subc utaneously daily Insulin Detemir U-100 100 unit/mL (3 mL) insulin pen (6 sources) Start: 3 End: 4 Insulin Detemir U-100 100 unit/mL (3 mL) insulin pen Discontinued 48 U SC AT BEDTIME October 07, 2022 10:10am September 30, 2023 11:54am losartan potassium 100 mg oral tablet (20 sources) Angiotensin 2 Receptor Jina Start: 5 End: 5 take 1 tablet by mouth once daily Losartan 100 mg tablet Discontinued 100 mg PO DAILY February 06, 2025 12:00am February 07, 2025 3:35pm Start: 08-05-2017 End: 09-30-2023 take 1 tablet by mouth once daily Losartan 100 mg tablet Discontinued 100 mg PO DAILY 90 3 May 04, 2021 8:30am September 30, 2023 12:42pm Start: 06-16-2015 End: 08-01-2017 take 2 tablets by mouth once daily Losartan 50 MG tablet Discontinued 100 mg PO DAILY June 16, 2015 1:00am August 01, 2017 2:07pm Start: 06-16-2015 End: 08-01-2017 take 100 mg by mouth once daily Losartan Discontinued 100 MG PO DAILY June 16, 2015 1:00am August 01, 2017 2:07pm Comment on above: Take 100 mg by mouth once daily. metFORMIN hydrochloride 500 mg oral tablet (20 sources) Biguanide Start: 8 End: 9 take 1 tablet by mouth twice daily Metformin 500 mg tablet Discontinued 500 mg PO TWICE A DAY May 16, 2018 12:00am December 11, 2018 1:47pm Start: 04-30-2015 End: 06-16-2015 take 1 tablet by mouth twice daily at mealtime Metformin 500 MG tablet Discontinued 500 mg PO TWICE DAILY WITH MEALS April 30, 2015 12:00am June 16, 2015 2:34pm Multivitamin preparation (11 sources) Start: 09-24-2021 End: 09-30-2023 take 1 tablet by mouth once daily Multivitamin Discontinued 1 TABLET PO DAILY September 24, 2021 1:00am September 30, 2023 11:57am Start: 09-24-2021 take 1 tablet by kwesi th once daily Multivitamin Active 1 TABLET PO DAILY September 24, 2021 1:00am Start: 09-24-2021 take 1 tablet by kwesi th once daily Multivitamin Active 1 TABLET PO DAILY September 24, 2021 12:00am Multivitamin tablet (6 sources) Start: 09-24-2021 End: 09-30-2023 Multivitamin tablet Discontinued 1 {tbl} PO DAILY September 24, 2021 1:00am September 30, 2023 11:57am quinapril 40 mg oral tablet (17 sources) Angiotensin Converting Enzyme Inhibitor Start: 04-30-2015 End: 06-16-2015 take 1 tablet by mouth once daily Quinapril Hcl (Accupril) 40 MG tablet Discontinued 40 mg PO DAILY April 30, 2015 12:00am June 16, 2015 2:33pm rivaroxaban 20 mg oral tablet (17 sources) Factor Xa Inhibitor Start: 09-24-2021 End: 03-17-2022 take 1 tablet by mouth once daily at dinner Rivaroxaban (Xarelto) 20 mg tablet Discontinued 20 mg PO DAILY 30 6 September 24, 2021 1:00am March 17, 2022 10:50am must administer with evening meal sacubitril 49 mg / valsartan 51 mg oral tablet (19 sources) Angiotensin 2 Receptor Jina Start: 09-30-2023 End: 09-03-2024 Sacubitril-Valsart an (Entresto) 49-51 mg tablet Discontinued 1 {tbl} PO TWICE A DAY 60 January 23, 2024 4:35pm September 03, 2024 12:30pm Semaglutide (7 sources) Start: 09-30-2023 End: 02-06-2025 Semaglutide (Ozempic) 0.25 mg or 0.5 mg (2 mg/3 mL) pen injector Discontinued 0.25 mg SC EVERY WEEK September 30, 2023 1:00am February 06, 2025 12:54pm for 4 weeks Start: 09-30-2023 Semaglutide (O zempic) 0.25 mg or 0.5 mg (2 mg/3 mL) pen injector Active 0.25 mg SC EVERY WEEK September 30, 2023 1:00am for 4 weeks Start: 09-30-2023 Semaglutide (O zempic) 0.25 mg or 0.5 mg (2 mg/3 mL) pen injector Active 0.25 MG SC EVERY WEEK September 30, 2023 1:00am for 4 weeks spironolactone 25 mg oral tablet (20 sources) Aldosterone Antagonist Start: 09-05-2015 End: 03-29-2024 take 1 tablet by mouth once daily Spironolactone 25 mg tablet Discontinued 25 mg PO DAILY 90 3 April 20, 2023 3:37pm March 29, 2024 11:15am Comment on above: Take 1 tablet by kwesi once daily. tadalafil 20 mg oral tablet (20 sources) Phosphodiesterase 5 Inhibitor Start: 06-12-2019 End: 02-27-2021 take 1 tablet by mouth once daily as needed Tadalafil 20 mg tablet Discontinued 20 mg PO DAILY as needed July 09, 2019 1:00am February 27, 2021 3:35pm Comment on above: Take 1 tablet by kwesi th as needed. terbinafine 250 mg oral tablet (4 sources) Allylamine Antifungal Start: 11-25-2021 End: 02-23-2022 take 1 tablet by mouth once daily terbinafine HCl (LAMISIL) 250 mg tablet Indications: Toenail fungus TAKE 1 TABLET BY MOUTH DAILY 90 tablet 0 02/16/2022 Active Comment on above: Take 1 tablet by kwesi th once daily. TAKE 1 TABLET BY KWESI TH DAILY Problems Active Problems Problem Classification Problem Date Documented Date Episodic/Chronic Acute myocardial infarction (20 sources) Myocardial infarction; Translations: [Non-ST elevation (NSTEMI) myocardial infarction] Onset: 06-28-2018 06-28-2018 Chronic Anxiety disorders (10 sources) Anxiety; Translations: [Anxiety disorder, unspecified] Onset: 07-11-2015 Chronic Cardiac dysrhythmias (20 sources) Paroxysmal atrial fibrillation; Translations: [Paroxysmal atrial fibrillation] Onset: 08-26-2015 08-26-2015 Chronic Chronic kidney disease (3 sources) Chronic kidney disease stage 3; Translations: [Chronic kidney disease, stage III (moderate)] Onset: 05-02-2017 11-23-2021 Chronic Conduction disorders (20 sources) Cardiac defibrillator in situ; Translations: [Presence of automatic (implantable) cardiac defibrillator] Onset: 09-14-2018 09-19-2018 Chronic Comment on above: Placed per Dr. 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 Congestive heart failure; nonhypertensive (20 sources) Chronic systolic heart failure; Translations: [Chronic systolic (congestive) heart failure] Onset: 06-23-2015 03-28-2018 Chronic Coronary atherosclerosis and other heart disease (20 sources) Coronary arteriosclerosis; Translations: [Atherosclerotic heart disease of [place] coronary artery without angina pectoris] Onset: 08-26-2015 08-26-2015 Chronic Comment on above: MONROY-LAD, SVG-Diag, SVG-Ramus, SVG-PDA 05/06/15 Coronary atherosclerosis and other heart disease (7 sources) Aortocoronary bypass graft present; Translations: [Presence of aortocoronary bypass graft] Onset: 05-06-2015 03-28-2018 Episodic Diabetes mellitus with complications (5 sources) Type 2 diabetes mellitus; Translations: [Type 2 diabetes mellitus with diabetic chronic kidney disease] Onset: 01-09-2016 Chronic Diabetes mellitus without complication (20 sources) Type 2 diabetes mellitus without complication; Translations: [Type 2 diabetes mellitus without complications] Onset: 01-09-2016 06-29-2021 Chronic Disorders of lipid metabolism (20 sources) Hyperlipidemia; Translations: [Hyperlipidemia, unspecified] Onset: 05-23-2012 04-08-2015 Chronic Esophageal disorders (4 sources) Gastroesophageal reflux disease; Translations: [Gastro-esophageal reflux disease without esophagitis] Onset: 07-13-2010 07-13-2010 Chronic Essential hypertension (20 sources) Benign essential hypertension; Translations: [Essential (primary) hypertension] 01-29-2010 Chronic Headache; including migraine (1 source) Headache; including migraine; Translations: [Headache, unspecified] Onset: 09-26-2024 Heart valve disorders (20 sources) Aortic stenosis, non-rheumatic ; Translations: [Nonrheumatic aortic (valve) stenosis] Onset: 07-26-2017 07-26-2017 Chronic Comment on above: Mild (1+) per echo 1 08/29/16 Hypertension with complications and secondary hypertension (3 sources) Hypertensive heart AND chronic kidney disease with congestive heart failure; Translations: [Hypertensive heart and chronic kidney disease with heart failure and stage 1 through stage 4 chronic kidney disease, or unspecified chronic kidney disease] Onset: 11-23-2021 11-23-2021 Chronic Malaise and fatigue (8 sources) Fatigue; Translations: [Other fatigue] Episodic Miscellaneous mental health disorders (2 sources) Chronic insomnia; Translations: [Psychophysiologic insomnia] Chronic Mycoses (2 sources) Onychomycosis of toenails; Translations: [Tinea unguium] Episodic Nausea and vomiting (7 sources) Nausea and vomiting; Translations: [Nausea with vomiting, unspecified] 02-06-2025 Episodic Nonspecific chest pain (20 sources) Chest pain; Translations: [Chest pain, unspecified] Onset: 02-11-2025 05-15-2018 Episodic Comment on above: To [facility] 05/11/2018 Nutritional deficiencies (1 source) Vitamin D deficiency; Translations: [Vitamin D deficiency, unspecified] Chronic Occlusion or stenosis of precerebral arteries (4 sources) Arteriosclerosis of carotid artery; Translations: [Occlusion and stenosis of unspecified carotid artery] Onset: 08-16-2013 08-16-2013 Chronic Other aftercare (2 sources) Long-term current use of benzodiazepine; Translations: [Other longwall foreman (current) drug therapy] Episodic Other circulatory disease (12 sources) Carotid bruit; Translations: [Other specified symptoms and signs involving the circulatory and respiratory systems] 01-18-2025 Episodic Other circulatory disease (1 source) Other specified symptoms and signs involving the circulatory and respiratory systems; Translations: [Other specified symptoms and signs involving the circulatory and respiratory systems] Onset: 02-06-2025 Episodic Other injuries and conditions due to external causes (9 sources) Injury of knee; Translations: [Unspecified injury of right lower leg, initial encounter] 09-06-2022 Episodic Other injuries and conditions due to external causes (8 sources) Injury of right knee; Translations: [Unspecified injury of right lower leg, initial encounter] 09-14-2022 Episodic Other lower respiratory disease (17 sources) Dyspnea on exertion; Translations: [Other forms of dyspnea] 06-15-2018 Episodic Other lower respiratory disease (2 sources) Other forms of dyspnea; Translations: [Other respiratory abnormalities] 05-09-2023 Episodic Other male genital disorders (4 sources) Male erectile dysfunction, unspecified; Translations: [Impotence of organic origin] Onset: 10-22-2016 10-22-2016 Chronic Other non-traumatic joint disorders (17 sources) Effusion of right knee joint; Translations: [Effusion, right knee] 09-06-2022 Episodic Other screening for suspected conditions (not mental disorders or infectious disease) (20 sources) Cardiovascular stress test abnormal; Translations: [Abnormal result of other cardiovascular function study] 06-15-2018 Episodic Pulmonary heart disease (20 sources) Pulmonary arterial hypertension; Translations: [Secondary pulmonary arterial hypertension] Onset: 06-13-2018 06-28-2018 Chronic Residual codes; unclassified (17 sources) Tobacco use and exposure - finding; Translations: [Tobacco use] 08-01-2017 Episodic Past or Other Problems Problem Classification Problem Date Documented Date Episodic/Chronic Other aftercare (4 sources) Long-term current use of anticoagulant; Translations: [penitentiary (current) use of anticoagulants] Onset: 08-26-2015 08-26-2015 Episodic Residual codes; unclassified (17 sources) History of cardiac catheterization; Translations: [Other specified postprocedural states] Onset: 06-30-2018 06-30-2018 Episodic Comment on above: per cath 06/30/18: a ll grafts open, EF persists at 25%; refer for prophylactic ICD. Results Test Name Value Interpretation Reference Range Facility Absolute lymphocyte countOrd ered By: Miesha Medina on 02-07-2025 Lymphocytes Auto (Unsp spec) [#/Vol] 1.35 10*3/uL 0.83-4.51 [facility] Absolute neutrophil countOrd ered By: Miesha Medina on 02-07-2025 Neutrophils (Bld) [#/Vol] 7.7 10*3/uL 2.0-7.7 [facility] Anion gap in Serum or Plasma Ordered By: Miesha Medina on 02-07-2025 Anion gap [Moles/Vol] 10 mmol/L 5- [facility] Automated lymphocyte count a s percentage of total leukocytesOrdered By: Miesha Medina on 02-07-2025 Lymphocytes/100 WBC Auto (Unsp spec) 13.5 % Low 19-41 [facility] BUN/creatinine ratioOrdered By: Miesha Medina on 02-07-2025 Urea nitrogen/Creatinine [Mass ratio] 17.2 mg/mg 10- [facility] Basic Metabolic Profile (BMP )on 02-07-2025 BUN/CRE 17.2 RATIO Normal - [facility] Comment on above: Performed By: #### L 500.2500, L100.0100, L500.4100, L501.9520 #### [facility] [address] [place], [address] Calcium [Mass/Vol] 9.1 mg/dL Normal 7.6-11.0 [facility] Comment on above: Performed By: #### L 500.2500, L100.0100, L500.4100, L501.9520 #### [facility] [address] [place], [address] Chloride [Moles/Vol] 110 mmol/L High 98-108 [facility] Comment on above: Performed By: #### L 500.2500, L100.0100, L500.4100, L501.9520 #### [facility] [address] [place], [address] CO2 [Moles/Vol] 20.7 mmol/L Low 21.0-32.0 [facility] Comment on above: Performed By: #### L 500.2500, L100.0100, L500.4100, L501.9520 #### [facility] [address] [place], [address] Creatinine [Mass/Vol] 1.55 mg/dL High 0.70-1.20 [facility] Comment on above: Performed By: #### L 500.2500, L100.0100, L500.4100, L501.9520 #### [facility] [address] [place], [address] ECRCL 46.56 ml/min Low 50-250 [facility] Comment on above: Performed By: #### L 500.2500, L100.0100, L500.4100, L501.9520 #### [facility] [address] [place], [address] GAP 10 Normal 5-15 [facility] Comment on above: Performed By: #### L 500.2500, L100.0100, L500.4100, L501.9520 #### [facility] [address] [place], [address] GFR/1.73 sq M.predicted among non-blacks MDRD (S/P/Bld) [Vol rate/Area] 48 mL/min/{1.73_m2} Low >60 [facility] Comment on above: Result Comment: mL/m in/1.73m2 CKD-EPI Creatinine Equation (2020) Performed By: #### L 500.2500, L100.0100, L500.4100, L501.9520 #### [facility] [address] [place], [address] Glucose [Mass/Vol] 138 mg/dL High 70-99 [facility] Comment on above: Performed By: #### L 500.2500, L100.0100, L500.4100, L501.9520 #### [facility] [address] [place], [address] Potassium [Moles/Vol] 4.5 mmol/L Normal 3.3-5.1 [facility] Comment on above: Performed By: #### L 500.2500, L100.0100, L500.4100, L501.9520 #### [facility] [address] [place], [address] Sodium [Moles/Vol] 140 mmol/L Normal 133-145 [facility] Comment on above: Performed By: #### L 500.2500, L100.0100, L500.4100, L501.9520 #### [facility] [address] [place], [address] Urea nitrogen [Mass/Vol] 27 mg/dL High 4-19 [facility] Comment on above: Performed By: #### L 500.2500, L100.0100, L500.4100, L501.9520 #### [facility] [address] [place], [address] Basophil percentageOrdered B y: Miesha Medina on 02-07-2025 Basophils/100 WBC (Bld) 0.3 % 0-1 [facility] Bedside Glucoseon 02-07-2025 FINGERSTICK GLU 139 mg/dL High 74-106 [facility] Comment on above: Result Comment: KRISTINE GEMENT OF PATIENT CARE PER NURSING PROTOCOL Performed By: #### L 501.080 ####[facility] [address] [place], [address] FINGERSTICK GLU 119 mg/dL High 74-106 [facility] Comment on above: Result Comment: KRISTINE GEMENT OF PATIENT CARE PER NURSING PROTOCOL Performed By: #### L 501.080 ####[facility] [address] [place], [address] CBC W/Diff, Automatedon 06-2 Absolute Lymph 1.35 X10 3/uL Normal 0.83-4.51 [facility] Comment on above: Performed By: #### L 500.2500, L100.0100, L500.4100, L501.9520 #### [facility] [address] [place], [address] Absolute Neut 7.7 X10 3/uL Normal 2.0-7.7 [facility] Comment on above: Performed By: #### L 500.2500, L100.0100, L500.4100, L501.9520 #### [facility] [address] [place], [address] Basophils/100 WBC (Bld) 0.3 % Normal 0-1 [facility] Comment on above: Performed By: #### L 500.2500, L100.0100, L500.4100, L501.9520 #### [facility] [address] [place], [address] Eosinophils/100 WBC (Bld) 1.6 % Normal 0-5 [facility] Comment on above: Performed By: #### L 500.2500, L100.0100, L500.4100, L501.9520 #### [facility] [address] [place], [address] Erythrocyte distribution width (RBC) [Ratio] 12.0 % Normal 11.6-14.6 [facility] Comment on above: Performed By: #### L 500.2500, L100.0100, L500.4100, L501.9520 #### [facility] [address] [place], [address] Hematocrit (Bld) [Volume fraction] 30.0 % Low 40-54 [facility] Comment on above: Performed By: #### L 500.2500, L100.0100, L500.4100, L501.9520 #### [facility] [address] [place], [address] Hemoglobin (Bld) [Mass/Vol] 10.6 g/dL Low 13.0-16.5 [facility] Comment on above: Performed By: #### L 500.2500, L100.0100, L500.4100, L501.9520 #### [facility] [address] [place], [address] IG% 0.300 Normal 0.0-0.9 [facility] Comment on above: Result Comment: IG% - Immature Granulocytes (promyelocytes, myelocytes and metamyelocytes) > 1% indicates that a LEFT SHIFT is Present. Performed By: #### L 500.2500, L100.0100, L500.4100, L501.9520 #### [facility] [address] [place], [address] Lymphocytes/100 WBC (Bld) 13.5 % Low 19-41 [facility] Comment on above: Performed By: #### L 500.2500, L100.0100, L500.4100, L501.9520 #### [facility] [address] [place], [address] MCH (RBC) [Entitic mass] 32.6 pg High 27.0-32.0 [facility] Comment on above: Performed By: #### L 500.2500, L100.0100, L500.4100, L501.9520 #### [facility] [address] [place], [address] MCHC (RBC) [Mass/Vol] 35.3 g/dL Normal 32-36 [facility] Comment on above: Performed By: #### L 500.2500, L100.0100, L500.4100, L501.9520 #### [facility] [address] [place], [address] MCV (RBC) [Entitic vol] 92.3 fL Normal 80-94 [facility] Comment on above: Performed By: #### L 500.2500, L100.0100, L500.4100, L501.9520 #### [facility] [address] [place], [address] Monocytes/100 WBC (Bld) 7.6 % Normal 0-10 [facility] Comment on above: Performed By: #### L 500.2500, L100.0100, L500.4100, L501.9520 #### [facility] [address] [place], [address] Neutrophils/100 WBC (Bld) 76.7 % High 47-70 [facility] Comment on above: Performed By: #### L 500.2500, L100.0100, L500.4100, L501.9520 #### [facility] [address] [place], [address] Nucleated RBC (Bld) [#/Vol] 0 10*3/uL Normal 0-5 [facility] Comment on above: Performed By: #### L 500.2500, L100.0100, L500.4100, L501.9520 #### [facility] [address] [place], [address] Platelet mean volume (Bld) [Entitic vol] 11.3 fL Normal 6.2-12.0 [facility] Comment on above: Performed By: #### L 500.2500, L100.0100, L500.4100, L501.9520 #### [facility] [address] [place], [address] Platelets (Bld) [#/Vol] 154 10*3/uL Normal 150-450 [facility] Comment on above: Performed By: #### L 500.2500, L100.0100, L500.4100, L501.9520 #### [facility] [address] [place], [address] RBC (Bld) [#/Vol] 3.25 10*6/uL Low 4.6-6.2 [facility] Comment on above: Performed By: #### L 500.2500, L100.0100, L500.4100, L501.9520 #### [facility] [address] [place], [address] RDW SD 40.7 fl Normal 35.1-43.9 [facility] Comment on above: Performed By: #### L 500.2500, L100.0100, L500.4100, L501.9520 #### [facility] [address] [place], [address] WBC (Bld) [#/Vol] 10.0 10*3/uL Normal 4.4-11.0 [facility] Comment on above: Performed By: #### L 500.2500, L100.0100, L500.4100, L501.9520 #### [facility] [address] [place], [address] Calculated very low density lipoprotein (VLDL) cholesterol measurementOrdered By: Miesha Medina on 02-07-2025 Calculated very low density lipoprotein (VLDL) cholesterol measurement 34 mg/dL 5-40 [facility] Carbon dioxide, total [Moles /volume] in Central venous bloodOrdered By: Miesha Medina on 02-07-2025 CO2 [Moles/Vol] 20.7 mmol/L Low 21.0-32.0 [facility] Cardiovascular stress test r eportOrdered By: Piero Lee on 02-07-2025 Study report [facility] [address] [place] [address] MR#: [id number] Acct: [id number] Name: VERENA CLEMENTS Rep #: [id number] : 1955 69 From: Piero Lee MD Primary Care: Dr. Elo Ralph MD Status: ADM MARGARITA Referring Dr: Sex: Redd Lee Stress Test Report Date: 02/07/2025 Procedure: Pharmacologic stress nuclear imaging study Indications: Chest pain Consent: Per the patient Procedure: The patient underwent pharmacologic (Regadenoson 0.4mg ) evaluation with a peak heart rate of 96 beats per minute (64%predicted maximal heart rate) and a peak blood pressure of 162/80 mmHg. The baseline ECG demonstrated sinus rhythm with electronic ventricular pacing. The peak pharmacologic ECG was nondiagnostic. There were no cardiac dysrhythmias pretest, during pharmacologic infusion, or recovery. There was no complaint of chest discomfort during pharmacologic infusion or recovery. The patient was injected with 11.8 millicuries of technetium 99m Cardiolite and subsequently rest SPECT Cardiolite nuclear imaging was obtained in the horizontal long, vertical long, and short axis views. The patient underwent pharmacologic (Regadenoson) evaluation. The patient was injected with 35.6 millicuries of technetium 99m Cardiolite and subsequently stress SPECT Cardiolite nuclear imaging was obtained in the horizontal long, vertical long, and short axis views. A gated Cardiolite study at peak stress was obtained. The examination was stopped secondary to completion of protocol. Rest and stress SPECT Cardiolite nuclear imaging status post realignment, normalization, and attenuation correction demonstrate hypoperfusion of the inferior wall at rest, suggestive of prior nontransmural infarct. No significant guillermo-infarct ischemia noted. There is end systolic thickening and brightening. The gated study shows inferior hypokinesis. The reported LVEF is 40%. Impression: 1. Pharmacologic (Regadenoson) evaluation 2. Peak pharmacologic ECG with no diagnostic changes. 3. There were no cardiac dysrhythmias pretest, during pharmacologic infusion, or recovery. 5. Prior inferior nontransmural infarct with no significant guillermo-infarct ischemia. 6. The gated Cardiolite study reports an LVEF of 40%. This note was generated with [employer] software. It may contain incorrectwords, spelling, and punctuation that were not noted in checking the note beforesigning. 02/07/25 1325 Date _ Piero Lee MD CC: Dr. Stevenson Trivedi MD; Dr. Elo Ralph MD; Dr. Miesha Medina MD; Dr. Jair Simmons MD ~ Date Dictated: 02/07/251322 Date Transcribed: 02/07/251322 Windows Vmware Administrator: AR Signed [facility] Work Phone: Chloride assayOrdered By: Rosalva Medina on 02-07-2025 Chloride [Moles/Vol] 110 mmol/L High 98-108 [facility] Discharge Instructionon 01-14 Discharge Instruction [facility] Medical Records Department [address] [place] [address] Instructions for Home/Discharge Instructions 02/07/25 1125 MR#: [id number] Acct: [id number] Name: VERENA CLEMENTS Rep #: [id number] : 1955 69 From: Jair Simmons MD PCP: Dr. Elo Ralph MD Status:ADM MARGARITA Discharge Instructions Diet Discharge Diet: Low fat / Low cholesterol and 2000 mg Sodium Diet DC O2, CPAP, BIPAP needs Home O2 Discharge instructions: No Dressing / Incision Discharge Activity: Return to Normal Activity Weight Bearing Status: Weight bearing as tolerated Dressing / Incision Call your doctor if you observe: Fever of 101 or Higher, Coldness, Increased Pain, Numbness or Tingling, Change in Color, Inability to urinate, Inability to have a bowel movement, Shortness of breath, Dizziness, Fainting spells, Swelling in the ankles, Chest pain, Prolonged hiccupping, Increased palpitations (irregular heartbeat) and Calf discomfort Follow Up Care When: IN 2 WEEKS Test Results: Test results from this visit will be discussed in further detail at your follow-up appointment, if applicable. Discharge Plan Admission Admit Date/Time: 02/06/25 15:34 Primary Reason for Your Visit: Atypical chest pain, nausea/vomiting Attending Provider: Jair Simmons Primary Care Provider: Elo Ralph Consulting Providers: Miesha Medina Discharge Orders/Prescriptions Prescriptions: Continued fluoxetine 20 mg capsule 20 mg PO DAILY nitroglycerin 0.4 mg tablet, sublingual 0.4 mg SUBLINGUAL DAILY PRN (Reason: Pain) Qty: 25 3RF sildenafil 50 mg tablet 50 mg PO DAILY PRN (Reason: sexual activity) Rx Instructions: administer 30 minutes to 4 hours before activity omeprazole 20 mg tablet,delayed release (DR/EC) 20 mg PO DAILY cholecalciferol (vitamin D3) 25 mcg (1,000 unit) tablet 50 mcg PO DAILY insulin glargine U-300 conc [Toujeo SoloStar U-300 Insulin] 300 unit/mL (1.5 mL) insulin pen 46 unit subcut DAILY tamsulosin 0.4 mg capsule 0.4 mg PO DAILY aspirin 81 MG tablet 81 mg PO DAILY lorazepam 0.5 mg tablet 0.5 mg PO DAILY PRN (Reason: anxiety) Ozempic 1 mg/dose (4 mg/3 mL) pen injector 0.5 mg subcut QWEEK Patient Comments: SATURDAYS losartan 100 mg tablet 100 mg PO DAILY trazodone 50 mg tablet 50 - 100 mg PO QHS albuterol sulfate 90 mcg/actuation aerosol powdr breath activated 2 inh inhalation Q6H PRN (Reason: shortness of breath or wheezing) furosemide 40 mg tablet 40 mg PO DAILY Qty: 90 4RF spironolactone 25 mg tablet 25 mg PO DAILY Qty: 90 3RF carvedilol 25 mg tablet 25 mg PO BID Qty: 180 3RF Eliquis 5 mg tablet 5 mg PO BID Qty: 60 11RF Entresto 49-51 mg tablet 1 tab PO BID Qty: 180 3RF atorvastatin 80 mg tablet 80 mg PO QHS Qty: 90 3RF Referrals / Follow Up: Elo Ralph MD [Primary Care Provider] - Kiki Ramirez PA [Med Staff - Adv Practice Prof] - Within 1 Month Disposition Disposition (needs filled in before D/C Order can be placed): Home, Self Care 02/07/25 1528 Jair Simmons MD CC: Dr. Elo Ralph MD; Dr. Miesha Medina MD Signed Normal [facility] Echocardiogram study reportO rdered By: Piero Lee on 02-07-2025 Study report [facility] [address] [place] [address] Echo Complete 02/07/25 1115 MR#: [id number] Acct: [id number] Name: VERENA CLEMENTS Rep #:[id number] : 1955 69 From: Piero Lee MD Attending Dr: Dr. Jair Simmons MD Status: ADM MARGARITA Ordering Dr: Miesha Medina MD Date: Location: [facility] Sex: M C Admitted: 02/06/25 Reason For Study Reason For Study: Chest Pain Procedure This was a 2D Doppler, Color Flow transthoracic echocardiogram. Myocardial strain analysis was performed in this exam to aid in the assessment of cardiac function. Exam performed in department. Left Ventricle Normal LV size. Mild concentric left ventricular hypertrophy. The global longitudinal strain = -14.7% (abnormal). Mild global left ventricular systolic dysfunction. The LV ejection fraction is 45 %. Stage 2 diastolic dysfunction. Right Ventricle Normal right ventricle. There is a pacemaker lead in the right ventricle. Atria The left atrium is mildly enlarged. Normal right atrium. ICD or pacer leads identified within the right atrium. Mitral Valve Mild (1+) mitral valve insufficiency. Tricuspid Valve Mild tricuspid valve insufficiency. Right ventricular systolic pressure estimated to be 42 mmHg. Aortic Valve Mild aortic valve stenosis. Mean peak gradient 11 mmHg. Aortic valve area 1.5 cm?? by planimetry. Pulmonic Valve Trivial pulmonic valve insufficiency. Great Vessels Normal sized aortic root. Pericardium/Pleural No pericardial effusion. MMode/2D Measurements & Calculations LVIDd: 4.8 cm IVSd: 1.4 cm LVOT diam: 2.3 cm RVDd: 3.9 cm LVPWd: 1.2 cm LVOT area: 4.1 cm2 Ao root diam: 3.7 cm LAV(MOD-bp): 80.2 ml LVAd ap4: 36.1 cm2 LAV(MOD-bp) Indexed: 39.3 ml/m2 LVLd ap4: 8.8 cm LAV(MOD-sp2): 104.4 ml EDV(MOD-sp4): 120.6 ml LAV(MOD-sp4): 60.3 ml EDV(sp4-el): 126.1 ml LVAs ap4: 26.4 cm2 LVLs ap4: 7.8 cm ESV(MOD-sp4): 80.9 ml ESV(sp4-el): 76.5 ml EF(MOD-sp4): 32.9 % EF(sp4-el): 39.4 % SV(MOD-sp4): 39.7 ml SV(sp4-el): 49.6 ml Ao sinus diam: 3.9 cm SI(MOD-sp4): 19.5 ml/m2 Ao ST Junction: 2.4 cm Aortic Valve Planimetry: 1.5 cm2 LA A4 area: 21.3 cm2 LA dimension(2D): 4.5 cm RA A4 area: 15.2 cm2 TAPSE: 1.5 cm Time Measurements MV dec time: 0.21 sec Doppler Measurements & Calculations MV E max konrad: 65.6 cm/sec Lat Peak E' Konrad: 10.2 cm/sec Med Peak E' Konrad: 5.4 cm/sec MV A max konrad: 90.2 cm/sec E/E' lat: 6.4 E/E' med: 12.2 MV E/A: 0.73 MV V2 max: 127.2 cm/sec MV P1/2t max konrad: 91.2 cm/sec Ao V2 max: 222.1 cm/sec MV max P.5 mmHg MV P1/2t: 86.8 msec Ao max P.8 mmHg MV V2 mean: 64.5 cm/sec Ao V2 mean: 156.6 cm/sec MV mean P.0 mmHg MV dec slope: 307.7 cm/sec2 Ao mean P.2 mmHg MV V2 VTI: 31.8 cm MVA(P1/2t): 2.5 cm2 Ao V2 VTI: 51.9 cm AV (velocity ratio): 0.54 MVA(VTI): 3.6 cm2 MATT(I,D): 2.2 cm2 MATT(V,D): 2.1 cm2 LV V1 max: 111.3 cm/sec SV(LVOT): 116.0 ml PA V2 max: 113.4 cm/sec LV V1 max P.0 mmHg LV V1 mean P.9 mmHg LV V1 mean: 80.0 cm/sec LV V1 VTI: 28.3 cm TR max konrad: 305.9 cm/sec TR max P.4 mmHg ECHO/Echo Complete Interpretation Summary Mild concentric left ventricular hypertrophy. The global longitudinal strain = -14.7% (abnormal). The LV ejection fraction is 45 %. Stage 2 diastolic dysfunction. The left atrium is mildly enlarged. Mild (1+) mitral valve insufficiency. Mild tricuspid valve insufficiency. Right ventricular systolic pressure estimated to be 42 mmHg. Mild aortic valve stenosis. Mean peak gradient 11 mmHg. Aortic valve area 1.5 cm?? by planimetry. Ordering Physician: Miesha Medina Performed By: Mike Lin RCS 02/07/25 1506 Date _ Piero Lee MD CC: Dr. Elo Ralph MD; Dr. Miesha Medina MD; Dr. Jair Simmons MD ~ Date Dictated: 02/07/25 1115 Date Transcribed: 02/07/25 1506 Windows Vmware Administrator: Signed [facility] Work Phone: Eosinophil percentageOrdered By: Miesha Medina on 02-07-2025 Eosinophils/100 WBC (Bld) 1.6 % 0-5 [facility] Erythrocyte distribution wid th ratioOrdered By: Miesha Medina on 02-07-2025 Erythrocyte distribution width (RBC) [Ratio] 12.0 % 11.6-14.6 [facility] Erythrocyte distribution wid th standard deviationOrdered By: Miesha Medina on 02-07-2025 Erythrocyte distribution width (RBC) [Ratio] 40.7 fl 35.1-43.9 [facility] Glomerular filtration rate ( GFR) estimation/1.73 sq m using serum, plasma, or whole bOrdered By: Miesha Medina on 02-07-2025 GFR/1.73 sq M.predicted among non-blacks MDRD (S/P/Bld) [Vol rate/Area] 48 mL/min/{1.73_m2} Low >60 [facility] Comment on above: mL/min/1.73m2 CKD-EP I Creatinine Equation (2020) Glucose measurement at [facility] deOrdered By: Miesha Medina on 02-07-2025 Glucose [Mass/Vol] 119 mg/dL High 74-106 [facility] Comment on above: MANAGEMENT OF PATIEN T CARE PER NURSING PROTOCOL Hematocrit Auto (Bld) [Volum e fraction]Ordered By: Miesha Medina on 02-07-2025 Hematocrit (Bld) [Volume fraction] 30.0 % Low 40-54 [facility] Hemoglobin measurementOrdere d By: Miesha Medina on 02-07-2025 Hemoglobin (Bld) [Mass/Vol] 10.6 g/dL Low 13.0-16.5 [facility] Immature granulocytes/100 WB C Auto (Bld)Ordered By: Miesha Medina on 02-07-2025 Immature granulocytes/100 WBC (Bld) 0.300 % 0.0-0.9 [facility] Comment on above: IG% - Immature Granu locytes (promyelocytes, myelocytes and metamyelocytes) > 1% indicates that a LEFT SHIFT is Present. LDL calc ser/plasOrdered By: Miesha Medina on 02-07-2025 Cholesterol in LDL [Mass/Vol] 59 mg/dL [facility] Comment on above: Esikqkemfz=547-195 m g/dL & Higher [place]=555 mg/dL or greater Lipid Profileon 02-07-2025 CHOL:HDL 4.31 Normal [facility] Comment on above: Performed By: #### L 500.2500, L100.0100, L500.4100, L501.9520 #### [facility] [address] [place], [address] Cholesterol [Mass/Vol] 121 mg/dL Normal <=200 [facility] Comment on above: Result Comment: Chol esterol level, Desirable <200 mg/dL Borderline high cholesterol 200-239 mg/dL High cholesterol >=240 mg/dL Recommendations of the NCEP Adult Treatment Panel for the following risk-cutoff thresholds for the [place] population. Performed By: #### L 500.2500, L100.0100, L500.4100, L501.9520 #### [facility] [address] [place], [address] Cholesterol in HDL [Mass/Vol] 28 mg/dL Low [facility] Comment on above: Result Comment: Lien onal Cholesterol Education Program (NCEP) guidelines: <40 mg/dL: Low HDL-cholesterol (major risk factor for CHD) >= 60 mg/dL: High HDL-cholesterol (negative risk factor for CHD) HDL-cholesterol is affected by a number of factors, e.g. smoking, exercise, hormones, sex and age. Performed By: #### L 500.2500, L100.0100, L500.4100, L501.9520 #### [facility] [address] [place], [address] Cholesterol in LDL [Mass/Vol] 59 mg/dL Normal [facility] Comment on above: Result Comment: Bord bbpnpp=650-701 mg/dL Higher Jrgh=334 mg/dL or greater Performed By: #### L 500.2500, L100.0100, L500.4100, L501.9520 #### [facility] [address] [place], [address] Cholesterol in VLDL [Mass/Vol] 34 mg/dL Normal 5-40 [facility] Comment on above: Performed By: #### L 500.2500, L100.0100, L500.4100, L501.9520 #### [facility] [address] [facility] [place], [address] Triglyceride [Mass/Vol] 168 mg/dL Normal [facility] Comment on above: Result Comment: The drugs N-Acetylcysteine and Metamizole may falsely depress this assay. Normal range: <150 mg/dL Borderline High: 150-199 mg/dL High: 200-499 mg/dL Very High: >500 mg/dL Performed By: #### L 500.2500, L100.0100, L500.4100, L501.9520 #### [facility] [address], [place], [id number] MCV (mean corpuscular volume ) determinationOrdered By: Miesha Medina on 02-07-2025 MCV (RBC) [Entitic vol] 92.3 fL 80-94 [facility] Mean corpuscular hemoglobin (MCH) determinationOrdered By: Miesha Medina on 02-07-2025 MCH (RBC) [Entitic mass] 32.6 pg High 27.0-32.0 [facility] Mean corpuscular hemoglobin concentration (MCHC) determinationOrdered By: Miesha Medina on 02-07-2025 MCHC (RBC) [Mass/Vol] 35.3 g/dL 32-36 [facility] Mean platelet volume determi nationOrdered By: Miesha Medina on 02-07-2025 Platelet mean volume (Bld) [Entitic vol] 11.3 fL 6.2-12.0 [facility] Monocyte percentageOrdered B y: Miesha Medina on 02-07-2025 Monocytes/100 WBC (Bld) 7.6 % 0-10 [facility] Neutrophil percentageOrdered By: Miesha Medina on 02-07-2025 Neutrophils/100 WBC (Bld) 76.7 % High 47-70 [facility] Nucleated red blood cell per centageOrdered By: Miesha Medina on 02-07-2025 Nucleated RBC/100 WBC (Bld) [Ratio] 0 % 0-5 [facility] Platelet countOrdered By: Rosalva Medina on 02-07-2025 Platelets (Bld) [#/Vol] 154 10*3/uL 150-450 [facility] Potassium measurement (mass/ volume)Ordered By: Miesha Medina on 02-07-2025 Potassium (Unsp spec) [Mass/Vol] 4.5 mmol/L 3.3-5.1 [facility] RBC Auto (Bld) [#/Vol]Ordere d By: Miesha Medina on 02-07-2025 RBC (Bld) [#/Vol] 3.25 10*6/uL Low 4.6-6.2 [facility] Screening total cholesterol/ high density lipoprotein (HDL) cholesterol ratioOrdered By: Miesha Medina on 02-07-2025 Cholesterol.total/Sveta sterol in HDL [Mass ratio] 4.31 {ratio} [facility] Serum creatinine measurement (mass/volume)Ordered By: Miesha Medina on 02-07-2025 Creatinine [Mass/Vol] 1.55 mg/dL High 0.70-1.20 [facility] Serum glucose measurement (m ass/volume)Ordered By: Miesha Medina on 02-07-2025 Glucose [Mass/Vol] 138 mg/dL High 70-99 [facility] Serum or plasma calcium lion urement (mass/volume)Ordered By: Miesha Medina on 02-07-2025 Calcium [Mass/Vol] 9.1 mg/dL 7.6-11.0 [facility] Serum or plasma cholesterol in HDL measurement (mass/volume)Ordered By: Miesha Medina on 02-07-2025 Cholesterol in HDL [Mass/Vol] 28 mg/dL Low >40 [facility] Comment on above: National Cholesterol Education Program (NCEP) guidelines:<40 mg/dL: Low HDL-cholesterol (major risk factor for CHD)>= 60 mg/dL: High HDL-cholesterol (negative risk factor for CHD)HDL-cholesterol is affected by a number of factors, e.g. smoking, exercise, hormones, sex and age. Serum or plasma cholesterol measurement (mass/volume)Ordered By: Miesha Medina on 02-07-2025 Cholesterol [Mass/Vol] 121 mg/dL <201 [facility] Comment on above: Cholesterol level, D esirable <200 mg/dLBorderline high cholesterol 200-239 mg/dLHigh cholesterol >=240 mg/dLRecommendations of the NCEP Adult Treatment Panel for the following risk-cutoff thresholds for the [place] population. Serum or plasma urea nitroge n measurement (mass/volume)Ordered By: Miesha Medina on 02-07-2025 Urea nitrogen [Mass/Vol] 27 mg/dL High 4-19 [facility] Sodium levelOrdered By: French Medina on 02-07-2025 Sodium [Moles/Vol] 140 mmol/L 133-145 [facility] Stress Reporton 02-07-2025 Stress Report [facility] [address] [place] [address] MR#: [id number] Acct: [id number] Name: VERENA CLEMENTS Rep #: [id number] : 1955 69 From: Piero Lee MD Primary Care: Dr. Elo Ralph MD Status: ADM MARGARITA Referring Dr: Silke: Redd Lee Stress Test Report Date: 02/07/2025 Procedure: Pharmacologic stress nuclear imaging study Indications: Chest pain Consent: Per the patient Procedure: The patient underwent pharmacologic (Regadenoson 0.4mg ) evaluation with a peak heart rate of 96 beats per minute (64%predicted maximal heart rate) and a peak blood pressure of 162/80 mmHg. The baseline ECG demonstrated sinus rhythm with electronic ventricular pacing. The peak pharmacologic ECG was nondiagnostic. There were no cardiac dysrhythmias pretest, during pharmacologic infusion, or recovery. There was no complaint of chest discomfort during pharmacologic infusion or recovery. The patient was injected with 11.8 millicuries of technetium 99m Cardiolite and subsequently rest SPECT Cardiolite nuclear imaging was obtained in the horizontal long, vertical long, and short axis views. The patient underwent pharmacologic (Regadenoson) evaluation. The patient was injected with 35.6 millicuries of technetium 99m Cardiolite and subsequently stress SPECT Cardiolite nuclear imaging was obtained in the horizontal long, vertical long, and short axis views. A gated Cardiolite study at peak stress was obtained. The examination was stopped secondary to completion of protocol. Rest and stress SPECT Cardiolite nuclear imaging status post realignment, normalization, and attenuation correction demonstrate hypoperfusion of the inferior wall at rest, suggestive of prior nontransmural infarct. No significant guillermo-infarct ischemia noted. There is end systolic thickening and brightening. The gated study shows inferior hypokinesis. The reported LVEF is 40%. Impression: 1. Pharmacologic (Regadenoson) evaluation 2. Peak pharmacologic ECG with no diagnostic changes. 3. There were no cardiac dysrhythmias pretest, during pharmacologic infusion, or recovery. 5. Prior inferior nontransmural infarct with no significant guillermo-infarct ischemia. 6. The gated Cardiolite study reports an LVEF of 40%. This note was generated with [employer] software. It may contain incorrect words, spelling, and punctuation that were not noted in checking the note before signing. 02/07/251324 Date Piero Lee MD CC: Dr. Stevenson Trivedi MD; Dr. Elo Ralph MD; Dr. Miesha Medina MD; Dr. Jair Simmons MD Date Dictated: 02/07/251322 Date Transcribed: 02/07/251322 Windows Vmware Administrator: RUIZ Signed Normal [facility] TSH DL <= 0.005 mIU/L QnOrde red By: Miesha Medina on 02-07-2025 TSH Qn 2.190 uIU/mL 0.300-4.200 [facility] Thyroid Stim Hormone (TSH)on 02-07-2025 TSH 2.190 uIU/mL Normal 0.300-4.200 [facility] Comment on above: Performed By: #### L 500.2500, L100.0100, L500.4100, L501.9520 #### [facility] [address] [place], [address] Triglycerides measurementOrd ered By: Miesha Median on 02-07-2025 Triglyceride [Mass/Vol] 168 mg/dL <199 [facility] Comment on above: The drugs N-Acetylcy steine and Metamizole may falsely depress this assay. Normal range: <150 mg/dLBorderline High: 150-199 mg/dLHigh: 200-499 mg/dLVery High: >500 mg/dL White blood cell (WBC) count Ordered By: Miesha Medina on 02-07-2025 WBC (Bld) [#/Vol] 10.0 10*3/uL 4.4-11.0 [facility] Absolute lymphocyte countOrd ered By: Stevenson Trivedi on 02-06-2025 Lymphocytes Auto (Unsp spec) [#/Vol] 0.97 10*3/uL 0.83-4.51 [facility] Absolute neutrophil countOrd ered By: Stevenson Trivedi on 02-06-2025 Neutrophils (Bld) [#/Vol] 9.2 10*3/uL High 2.0-7.7 [facility] Anion gap in Serum or Plasma Ordered By: Stevenson Trivedi on 02-06-2025 Anion gap [Moles/Vol] 12 mmol/L 5-15 [facility] Automated blood erythrocyte countOrdered By: Stevenson Trivedi on 02-06-2025 RBC (Bld) [#/Vol] 3.41 10*6/uL Low 4.6-6.2 [facility] Comment on above: Performed By: #### L 500.4050, L501.2450, L100.0100 #### [facility] [address], [place], [id number] Automated blood hematocrit ( percentage)Ordered By: Stevenson Trivedi on 02-06-2025 Hematocrit (Bld) [Volume fraction] 31.3 % Low 40-54 [facility] Comment on above: Performed By: #### L 500.4050, L501.2450, L100.0100 #### [facility] [address] [place], [address] Automated lymphocyte count a s percentage of total leukocytesOrdered By: Stevenson Trivedi on 02-06-2025 Lymphocytes/100 WBC Auto (Unsp spec) 8.7 % Low 19-41 [facility] BUN/creatinine ratioOrdered By: Stevenson Trivedi on 02-06-2025 Urea nitrogen/Creatinine [Mass ratio] 19.5 mg/mg 10-20 [facility] Basophil percentageOrdered B y: Stevenson Trivedi on 02-06-2025 Basophils/100 WBC (Bld) 0.3 % Normal 0-1 [facility] Comment on above: Performed By: #### L 500.4050, L501.2450, L100.0100 #### [facility] [address] [place], [address] Bilirubin Test strip Ql (U)O rdered By: Stevenson Trivedi on 02-06-2025 Bilirubin Ql (U) Negative Negative [facility] Bilirubin, totalOrdered By: Stevenson Trivedi on 02-06-2025 Bilirubin [Mass/Vol] 0.49 mg/dL Normal 0.00-1.30 [facility] Comment on above: Performed By: #### L 500.4050, L501.2450, L100.0100 #### [facility] [address] [place], [address] CBC W/Diff, Automatedon 01-14 Absolute Lymph 0.97 X10 3/uL Normal 0.83-4.51 [facility] Comment on above: Performed By: #### L 500.4050, L501.2450, L100.0100 #### [facility] [address] [place], [address] Absolute Neut 9.2 X10 3/uL High 2.0-7.7 [facility] Comment on above: Performed By: #### L 500.4050, L501.2450, L100.0100 #### [facility] [address] [place], [address] IG% 0.600 Normal 0.0-0.9 [facility] Comment on above: Result Comment: IG% - Immature Granulocytes (promyelocytes, myelocytes and metamyelocytes) > 1% indicates that a LEFT SHIFT is Present. Performed By: #### L 500.4050, L501.2450, L100.0100 #### [facility] [address] [place], [address] Lymphocytes/100 WBC (Bld) 8.7 % Low 19-41 [facility] Comment on above: Performed By: #### L 500.4050, L501.2450, L100.0100 #### [facility] [address] [place], [address] Nucleated RBC (Bld) [#/Vol] 0 10*3/uL Normal 0-5 [facility] Comment on above: Performed By: #### L 500.4050, L501.2450, L100.0100 #### [facility] [address] [place], [address] RDW SD 40.6 fl Normal 35.1-43.9 [facility] Comment on above: Performed By: #### L 500.4050, L501.2450, L100.0100 #### [facility] [address] [place], [address] Carbon dioxide, total [Moles /volume] in Central venous bloodOrdered By: Stevenson Trivedi on 02-06-2025 CO2 [Moles/Vol] 21.7 mmol/L Normal 21.0-32.0 [facility] Comment on above: Performed By: #### L 500.4050, L501.2450, L100.0100 #### [facility] [address] [place], [address] Chest 1 View (Portable)on Chest 1 View (Portable) [facility] Imaging Services [address] [place] [address] Chest 1 View (Portable) MR#: [id number] Acct: [id number] Name: VERENA CLEMENTS Rep #: [id number] : 1955 M 69 From: Hernandez Mott PCP: Dr. Elo Ralph MD Status: PRE ER Study: Chest 1 View (Portable) Date of Exam: 02/06/25 Exam# [id number] Ordering Dr: Stevenson Trivedi MD PROCEDURE: CHEST 1 VIEW (PORTABLE) 02/06/2025 REASON FOR EXAM: SHORTNESS OF BREATH TECHNIQUE: Frontal view of the chest. COMPARISON: Chest x-ray of 05/11/2018. RAD/Chest 1 View (Portable) IMPRESSION: Interval placement of left thoracic transvenous pacemaker/AICD device with leads. No complication is noted. Sternotomy wires again noted. Mediastinal surgical clips are again seen. Lungs appear clear of acute disease; no evidence of pulmonary edema. No pleural effusion or pneumothorax is evident. The cardiomediastinal silhouette is stable, without evidence of cardiomegaly. No acute osseous change is seen. No evidence of acute cardiopulmonary disease. Reading Location: [place] [address] CC: Dr. Stevenson Trivedi MD; Dr. Elo Ralph MD Windows Vmware Administrator: Signed Normal [facility] Chloride assayOrdered By: Jose J Trivedi on 02-06-2025 Chloride [Moles/Vol] 106 mmol/L Normal 98-108 [facility] Comment on above: Performed By: #### L 500.4050, L501.2450, L100.0100 #### [facility] [address] [place], [address] Comprehensive Metabolic Prof ilon 02-06-2025 ALK PHOS 84 U/L Normal 40-129 [facility] Comment on above: Performed By: #### L 500.4050, L501.2450, L100.0100 #### [facility] [address] [place], [address] BUN/CRE 19.5 RATIO Normal 10-20 [facility] Comment on above: Performed By: #### L 500.4050, L501.2450, L100.0100 #### [facility] [address] [place], [address] ECRCL 39.22 ml/min Low 50-250 [facility] Comment on above: Performed By: #### L 500.4050, L501.2450, L100.0100 #### [facility] [address] [place], [address] GAP 12 Normal 5-15 [facility] Comment on above: Performed By: #### L 500.4050, L501.2450, L100.0100 #### [facility] [address] [place], [address] Potassium [Moles/Vol] 4.9 mmol/L Normal 3.3-5.1 [facility] Comment on above: Performed By: #### L 500.4050, L501.2450, L100.0100 #### [facility] [address] [place], [address] T PROT 6.6 g/dL Normal 5.9-8.4 [facility] Comment on above: Performed By: #### L 500.4050, L501.2450, L100.0100 #### [facility] [address] [place], [address] Comprehensive Metabolic Prof ilOrdered By: Stevenson Trivedi on 02-06-2025 AST [Catalytic activity/Vol] 18 U/L Normal <=37 [facility] Comment on above: Performed By: #### L 500.4050, L501.2450, L100.0100 #### [facility] [address] [place], [address] Echo Completeon 02-06-2025 Echo Complete [facility] [address] [place] [address] Echo Complete 02/07/25 1115 MR#: [id number] Acct: [id number] Name: VERENA CLEMENTS Rep #: [id number] : 1955 69 From: Piero Lee MD Attending Dr: Dr. Jair Simmons MD Status: ADM MARGARITA Ordering Dr: Miesha Medina MD Date: 02/06/25 Location: [facility] Sex: M C Admitted: 02/06/25 Reason For Study Reason For Study: Chest Pain Procedure This was a 2D Doppler, Color Flow transthoracic echocardiogram. Myocardial strain analysis was performed in this exam to aid in the assessment of cardiac function. Exam performed in department. Left Ventricle Normal LV size. Mild concentric left ventricular hypertrophy. The global longitudinal strain = - 14.7% (abnormal). Mild global left ventricular systolic dysfunction. The LV ejection fraction is 45 %. Stage 2 diastolic dysfunction. Right Ventricle Normal right ventricle. There is a pacemaker lead in the right ventricle. Atria The left atrium is mildly enlarged. Normal right atrium. ICD or pacer leads identified within the right atrium. Mitral Valve Mild (1+) mitral valve insufficiency. Tricuspid Valve Mild tricuspid valve insufficiency. Right ventricular systolic pressure estimated to be 42 mmHg. Aortic Valve Mild aortic valve stenosis. Mean peak gradient 11 mmHg. Aortic valve area 1.5 cm?? by planimetry. Pulmonic Valve Trivial pulmonic valve insufficiency. Great Vessels Normal sized aortic root. Pericardium/Pleural No pericardial effusion. MMode/2D Measurements Calculations LVIDd: 4.8 cm IVSd: 1.4 cm LVOT diam: 2.3 cm RVDd: 3.9 cm LVPWd: 1.2 cm LVOT area: 4.1 cm2 Ao root diam: 3.7 cm LAV(MOD-bp): 80.2 ml LVAd ap4: 36.1 cm2 LAV(MOD-bp) Indexed: 39.3 ml/m2 LVLd ap4: 8.8 cm LAV(MOD-sp2): 104.4 ml EDV(MOD-sp4): 120.6 ml LAV(MOD-sp4): 60.3 ml EDV(sp4-el): 126.1 ml LVAs ap4: 26.4 cm2 LVLs ap4: 7.8 cm ESV(MOD-sp4): 80.9 ml ESV(sp4-el): 76.5 ml EF(MOD-sp4): 32.9 % EF(sp4-el): 39.4 % SV(MOD-sp4): 39.7 ml SV(sp4-el): 49.6 ml Ao sinus diam: 3.9 cm SI(MOD-sp4): 19.5 ml/m2 Ao ST Junction: 2.4 cm Aortic Valve Planimetry: 1.5 cm2 LA A4 area: 21.3 cm2 LA dimension(2D): 4.5 cm RA A4 area: 15.2 cm2 TAPSE: 1.5 cm Time Measurements MV dec time: 0.21 sec Doppler Measurements Calculations MV E max konrad: 65.6 cm/sec Lat Peak E' Konrad: 10.2 cm/sec Med Peak E' Konrad: 5.4 cm/sec MV A max konrad: 90.2 cm/sec E/E' lat: 6.4 E/E' med: 12.2 MV E/A: 0.73 MV V2 max: 127.2 cm/sec MV P1/2t max konrad: 91.2 cm/sec Ao V2 max: 222.1 cm/sec MV max P.5 mmHg MV P1/2t: 86.8 msec Ao max P.8 mmHg MV V2 mean: 64.5 cm/sec Ao V2 mean: 156.6 cm/sec MV mean P.0 mmHg MV dec slope: 307.7 cm/sec2 Ao mean P.2 mmHg MV V2 VTI: 31.8 cm MVA(P1/2t): 2.5 cm2 Ao V2 VTI: 51.9 cm AV (velocity ratio): 0.54 MVA(VTI): 3.6 cm2 MATT(I,D): 2.2 cm2 MATT(V,D): 2.1 cm2 LV V1 max: 111.3 cm/sec SV(LVOT): 116.0 ml PA V2 max: 113.4 cm/sec LV V1 max P.0 mmHg LV V1 mean P.9 mmHg LV V1 mean: 80.0 cm/sec LV V1 VTI: 28.3 cm TR max konrad: 305.9 cm/sec TR max P.4 mmHg ECHO/Echo Complete Interpretation Summary Mild concentric left ventricular hypertrophy. The global longitudinal strain = -14.7% (abnormal). The LV ejection fraction is 45 %. Stage 2 diastolic dysfunction. The left atrium is mildly enlarged. Mild (1+) mitral valve insufficiency. Mild tricuspid valve insufficiency. Right ventricular systolic pressure estimated to be 42 mmHg. Mild aortic valve stenosis. Mean peak gradient 11 mmHg. Aortic valve area 1.5 cm?? by planimetry. Ordering Physician: Miesha Medina Performed By: Mike Lin RCS 02/07/25 1506 Date Piero Lee MD CC: Dr. Elo Ralph MD; Dr. Miesha Medina MD; Dr. Jair Simmons MD Date Dictated: 02/07/25 1115 Date Transcribed: 02/07/25 1506 Windows Vmware Administrator: Signed Normal [facility] Emergency Department Summary on 02-06-2025 Emergency Department Summary [facility] Department [address] [place] [address] Emergency Department Summary 02/06/25 MR#: [id number] Acct: [id number] Name: TYREEVERENA Rep #: [id number] : 1955 69 From: Stevenson Trivedi MD PCP: Dr. Elo Ralph MD Status:REG ER Location: ED HPI History of Present Illness Chief Complaint: General Illness Narrative Narrative: 69-year-old male past medical history of hypertension, hyperlipidemia, diabetes, pacemaker defibrillator, presents with generalized weakness, malaise and fatigue as well as intermittent nausea and vomiting that has had over the last week. 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 He states he has not vomited in the last 24 hours. Yesterday he may have had intermittent chest pain. He has been more tired and has not been feeling as energetic and has had low energy over the last week as he has been working out in the heat. He denies any diarrhea, no cough or shortness of breath. No fevers or chills, no dysuria or hematuria. No exacerbating or alleviating factors. [facility] Medical History Essential hypertension Hyperlipidemia Dyspnea on exertion Abnormal stress test Chest pain Nonrheumatic mitral (valve) insufficiency Secondary pulmonary arterial hypertension Paroxysmal atrial fibrillation Atherosclerosis of coronary artery of [place] heart without angina pectoris Ischemic cardiomyopathy Non-rheumatic aortic stenosis Non-ST elevation [place] (NSTEMI) Tobacco use DM2 (diabetes mellitus, type 2) Home Medications ???Medication ???Instructions ???Recorded ???Last Taken ???Type aspirin 81 mg tablet,delayed 81 mg PO DAILY 06/16/15 06/30/18 H istory release fluoxetine 20 mg capsule 20 mg PO DAILY 05/16/18 06/30/18 H istory nitroglycerin 0.4 mg sublingual 0.4 mg sublingual DAILY PRN Pain 1 09/08/18 Unknown Rx tablet #25 tabs sildenafil 50 mg tablet 50 mg PO DAILY PRN sexual activity 02/27/21 Unknown History omeprazole 20 mg tablet,delayed 20 mg PO DAILY 09/24/21 Unknown Hi story release cholecalciferol (vitamin D3) 25 50 mcg PO DAILY 09/30/23 Unknown H istory mcg (1,000 unit) tablet insulin glargine U-300 conc 300 46 unit subcut DAILY 12/30/23 Unkn own History unit/mL (1.5 mL) subcutaneous pen ([employer] SoloStar U-300 Insulin) furosemide 40 mg tablet 40 mg PO DAILY #90 tabs 01/16/24 U nknown Rx spironolactone 25 mg tablet 25 mg PO DAILY #90 tabs 03/29/24 U nknown Rx carvedilol 25 mg tablet 25 mg PO BID #180 tabs 05/02/24 Un known Rx tamsulosin 0.4 mg capsule 0.4 mg PO DAILY 06/19/24 Unknown H istory apixaban 5 mg tablet (Eliquis) 5 mg PO BID #60 tabs 08/29/24 Unkn own Rx sacubitril 49 mg-valsartan 51 mg 1 tab PO BID #180 tabs 09/03/24 Un known Rx tablet (Entresto) atorvastatin 80 mg tablet 80 mg PO QHS #90 tabs 10/22/24 Unk nown Rx albuterol sulfate 90 mcg/actuation 2 inh inhalation Q6H PRN shortne ss 02/06/25 Unknown History breath activated powder inhaler of breath or wheezing lorazepam 0.5 mg tablet 0.5 mg PO DAILY PRN anxiety 02/02/25 History losartan 100 mg tablet 100 mg PO DAILY 02/06/25 Unknown H istory semaglutide 1 mg/dose (4 mg/3 mL) 0.5 mg subcut QWEEK 02/06/2501/14 History subcutaneous pen injector (Ozempic) trazodone 50 mg tablet 50 - 100 mg PO QHS 02/06/25 Unknow n History Allergy/AdvReac Type Severity Reaction Status Date / Time No Known Allergies Allergy Verified 02/06/25 09:28 Family History Father , Age 49 from [place] CAD (coronary artery disease) from [place] age 49 Myocardial infarction Mother Pacemaker History of heart valve replacement Surgical History Presence of cardiac resynchronization therapy defibrillator (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) (09/14/18) History of repair of rotator cuff ( 04/2015) History of right and left heart catheterization (06/30/18) H/O coronary artery bypass surgery (05/06/15) Social History Smoking Status: Former smoker quit date: 04/15/15 alcohol intake: current details: rarely substance use type: does not use caffeine: Yes Type: coffee Number of servings: 1 ROS ROS ED ROS Narrative Review of systems positive for malaise and fatigue x 1 week. Generalized weakness. Intermittent chest pains even yesterday evening. Positive nausea and vomiting intermittently as well. No fevers or chills, no exacerbating or alleviating factors. EXAM Physical Exam Narrative Exam Narrative: Afebrile. Vital signs noted. Nontoxic-appearing (more content not included)... Normal [facility] Eosinophil percentageOrdered By: Stevenson Trivedi on 02-06-2025 Eosinophils/100 WBC (Bld) 1.3 % Normal 0-5 [facility] Comment on above: Performed By: #### L 500.4050, L501.2450, L100.0100 #### [facility] [address] [place], [place], [id number] Erythrocyte distribution wid th ratioOrdered By: Stevenson Trivedi on 02-06-2025 Erythrocyte distribution width (RBC) [Ratio] 12.2 % Normal 11.6-14.6 [facility] Comment on above: Performed By: #### L 500.4050, L501.2450, L100.0100 #### [facility] [address] [place], [address] Erythrocyte distribution wid th standard deviationOrdered By: Stevenson Trivedi on 02-06-2025 Erythrocyte distribution width (RBC) [Ratio] 40.6 fl 35.1-43.9 [facility] Glomerular filtration rate ( GFR) estimation/1.73 sq m using serum, plasma, or whole bOrdered By: Stevenson Trivedi on 02-06-2025 GFR/1.73 sq M.predicted among non-blacks MDRD (S/P/Bld) [Vol rate/Area] 39 mL/min/{1.73_m2} Low >60 [facility] Comment on above: mL/min/1.73m2 CKD-EP I Creatinine Equation (2020) Result Comment: mL/m in/1.73m2 CKD-EPI Creatinine Equation (2020) Performed By: #### L 500.4050, L501.2450, L100.0100 #### [facility] [address] [place], [address] H AND P Exam - [facility] 02-06-2025 H&P Exam - Hospitalist [facility] Medical Records Department [address] [place] [address] H P Exam - Hospitalist 02/06/25 1534 MR#: [id number] Acct: [id number] Name: VERENA CLEMENTS Rep #: [id number] : 1955 69 From: Miesha Medina MD PCP: Dr. Elo Ralph MD Status:REG ER Location: ED HPI - General General Date of Admission: 02/06/25 Date of Service: 02/06/25 Chief Complaint: Nausea, fatigue, CP HPI Narrative VERENA CLEMENTS, is [id number] male history of pacemaker defibrillator, diabetes, ischemic cardiomyopathy, CAD, paroxysmal atrial fibrillation, GERD, BPH, anxiety presented [facility] ED 02/06/2025 with generalized weakness, fatigue, intermittent nausea and vomiting as well as intermittent chest pain over the past week. Has been doing more manual labor around the house and has been feeling fatigued with chest pain and nausea that has been coming and going. In the ED patient afebrile, heart rate 71 with blood pressure 149/75, pulse ox 99% on room air. EKG is paced without acute ST changes and no STEMI. White blood cell count 11.1 with a hemoglobin of 11.1, platelets within normal limits at 174. BUN 36 and creatinine of 1.84 not overtly changed from baseline. Initial high-sensitivity troponin very minimally elevated at 24 with repeat of 23. Given patient's chest pain and history hospitalist contacted for admission for stress test/cardiac workup. Patient evaluated at bedside and reports he is felt somewhat unwell for the past week but notes he has been very stressed and a lot is been going on and has not been very good about taking his medications. Intermittently having nausea and reports the chest pain that he has is sometimes on the left side or sometimes middle of his chest and is more of just a general pain but would rated at a 1 out of 10 and it happens at random for a 15 to 20 seconds, not sustained no additional associations that patient reports. No shortness of breath. Reports he got his Eliquis in the ED and some fluids and is feeling better however given his history and the concern patient agreeable to coming in for stress test. [facility] Medical History Essential hypertension Hyperlipidemia Dyspnea on exertion Abnormal stress test Chest pain Nonrheumatic mitral (valve) insufficiency Secondary pulmonary arterial hypertension Paroxysmal atrial fibrillation Atherosclerosis of coronary artery of [place] heart without angina pectoris Ischemic cardiomyopathy Non-rheumatic aortic stenosis Non-ST elevation [place] (NSTEMI) Tobacco use DM2 (diabetes mellitus, type 2) Home Medications ???Medication ???Instructions ???Recorded ???Last Taken ???Type aspirin 81 mg tablet,delayed 81 mg PO DAILY 06/16/15 06/30/18 H istory release fluoxetine 20 mg capsule 20 mg PO DAILY 05/16/18 06/30/18 H istory nitroglycerin 0.4 mg sublingual 0.4 mg sublingual DAILY PRN Pain 1 09/08/18 Unknown Rx tablet #25 tabs sildenafil 50 mg tablet 50 mg PO DAILY PRN sexual activity 02/27/21 Unknown History omeprazole 20 mg tablet,delayed 20 mg PO DAILY 09/24/21 Unknown Hi story release cholecalciferol (vitamin D3) 25 50 mcg PO DAILY 09/30/23 Unknown H istory mcg (1,000 unit) tablet insulin glargine U-300 conc 300 46 unit subcut DAILY 12/30/23 Unkn own History unit/mL (1.5 mL) subcutaneous pen ([employer] SoloStar U-300 Insulin) furosemide 40 mg tablet 40 mg PO DAILY #90 tabs 01/16/24 U nknown Rx spironolactone 25 mg tablet 25 mg PO DAILY #90 tabs 03/29/24 U nknown Rx carvedilol 25 mg tablet 25 mg PO BID #180 tabs 05/02/24 Un known Rx tamsulosin 0.4 mg capsule 0.4 mg PO DAILY 06/19/24 Unknown H istory apixaban 5 mg tablet (Eliquis) 5 mg PO BID #60 tabs 08/29/24 Unkn own Rx sacubitril 49 mg-valsartan 51 mg 1 tab PO BID #180 tabs 09/03/24 Un known Rx tablet (Entresto) atorvastatin 80 mg tablet 80 mg PO QHS #90 tabs 10/22/24 Unk nown Rx albuterol sulfate 90 mcg/actuation 2 inh inhalation Q6H PRN shortne ss 02/06/25 Unknown History breath activated powder inhaler of breath or wheezing lorazepam 0.5 mg tablet 0.5 mg PO DAILY PRN anxiety 02/02/25 History losartan 100 mg tablet 100 mg PO DAILY 02/06/25 Unknown H istory semaglutide 1 mg/dose (4 mg/3 mL) 0.5 mg subcut QWEEK 02/06/2501/14 History subcutaneous pen injector (Ozempic) trazodone 50 mg tablet 50 - 100 mg PO QHS 02/06/25 Unknow n History Allergy/AdvReac Type Severity Reaction Status Date / Time No Known Allergies Allergy Verified 02/06/25 09:28 Family History Father , Age 49 from [place] CAD (coronary artery disease) from [place] age 49 Myocardial infarction Mother Pacemaker History of heart valve replacement Surgical History (Reviewed (more content not included)... Normal [facility] Hemoglobin measurementOrdere d By: Stevenson Trivedi on 02-06-2025 Hemoglobin (Bld) [Mass/Vol] 11.1 g/dL Low 13.0-16.5 [facility] Comment on above: Performed By: #### L 500.4050, L501.2450, L100.0100 #### [facility] [address] [place], [address] Immature granulocytes/100 WB C Auto (Bld)Ordered By: Stevenson Trivedi on 02-06-2025 Immature granulocytes/100 WBC (Bld) 0.600 % 0.0-0.9 [facility] Comment on above: IG% - Immature Granu locytes (promyelocytes, myelocytes and metamyelocytes) > 1% indicates that a LEFT SHIFT is Present. Ketones Test strip Ql (U)Ord ered By: Stevenson Trivedi on 02-06-2025 Ketones Ql (U) Negative Negative [facility] L499.0042on 02-06-2025 Trop T High Sen 23 ng/L High <=22 [facility] Comment on above: Performed By: #### L 499.0042 ####[facility] [address] [place], [address] L499.0043on 02-06-2025 Trop T High Sen 25 ng/L High <=22 [facility] Comment on above: Performed By: #### L 499.0043 ####[facility] [address] [place], [address] L501.4021on 02-06-2025 Trop T High Sen 24 ng/L High <=22 [facility] Comment on above: Performed By: #### L 501.4021 ####[facility] [address] [place], [address] Lipase measurementOrdered By : Stevenson Trivedi on 02-06-2025 Lipase [Catalytic activity/Vol] 76 U/L High 13-75 [facility] Comment on above: Please note:LIPASE r evised reference range effective 22. New Lipase methodology. Expected to produce lower values than the previous assay method. NEW Reference Range: 13 - 75 U/L Result Comment: Ronnell robles note: LIPASE revised reference range effective 22. New Lipase methodology. Expected to produce lower values than the previous assay method. NEW Reference Range: 13 - 75 U/L Performed By: #### L 500.4050, L501.2450, L100.0100 #### [facility] [address] [place], [address] MCV (mean corpuscular volume ) determinationOrdered By: Stevenson Trivedi on 02-06-2025 MCV (RBC) [Entitic vol] 91.8 fL Normal 80-94 [facility] Comment on above: Performed By: #### L 500.4050, L501.2450, L100.0100 #### [facility] [address] [place], [address] Mean corpuscular hemoglobin (MCH) determinationOrdered By: Stevenson Trivedi on 02-06-2025 MCH (RBC) [Entitic mass] 32.6 pg High 27.0-32.0 [facility] Comment on above: Performed By: #### L 500.4050, L501.2450, L100.0100 #### [facility] [address] [place], [address] Mean corpuscular hemoglobin concentration (MCHC) determinationOrdered By: Stevenson Trivedi on 02-06-2025 MCHC (RBC) [Mass/Vol] 35.5 g/dL Normal 32-36 [facility] Comment on above: Performed By: #### L 500.4050, L501.2450, L100.0100 #### [facility] [address] [place], [address] Mean platelet volume determi nationOrdered By: Stevenson Trivedi on 02-06-2025 Platelet mean volume (Bld) [Entitic vol] 11.1 fL Normal 6.2-12.0 [facility] Comment on above: Performed By: #### L 500.4050, L501.2450, L100.0100 #### [facility] [address] [place], [address] Microscopic analysis of urin e for red blood cells (RBC)Ordered By: Stevenson Trivedi on 02-06-2025 Microscopic analysis of urine for red blood cells (RBC) 0-5 SEEN /hpf 0-5 [facility] Monocyte percentageOrdered B y: Stevenson Trivedi on 02-06-2025 Monocytes/100 WBC (Bld) 6.6 % Normal 0-10 [facility] Comment on above: Performed By: #### L 500.4050, L501.2450, L100.0100 #### [facility] [address] [place], [address] Mucus LM Ql (Urine sed)Order ed By: Stevenson Trivedi on 02-06-2025 Mucus Ql (Urine sed) 0 SEEN /hpf [facility] Neutrophil percentageOrdered By: Stevenson Trivedi on 02-06-2025 Neutrophils/100 WBC (Bld) 82.5 % High 47-70 [facility] Comment on above: Performed By: #### L 500.4050, L501.2450, L100.0100 #### [facility] [address] [place], [place], [id number] Nitrite Test strip Ql (U)Ord ered By: Stevenson Trivedi on 02-06-2025 Nitrite Ql (U) Negative Negative [facility] Nucleated red blood cell per centageOrdered By: Stevenson Trivedi on 02-06-2025 Nucleated RBC/100 WBC (Bld) [Ratio] 0 % 0-5 [facility] Platelet countOrdered By: Jose J Trivedi on 02-06-2025 Platelets (Bld) [#/Vol] 174 10*3/uL Normal 150-450 [facility] Comment on above: Performed By: #### L 500.4050, L501.2450, L100.0100 #### [facility] [address] [place], [place], [address] Potassium measurement (mass/ volume)Ordered By: Stevenson Trivedi on 02-06-2025 Potassium (Unsp spec) [Mass/Vol] 4.9 mmol/L 3.3-5.1 [facility] Protein Test strip Ql (U)Ord ered By: Stevensno Trivedi on 02-06-2025 Protein Ql (U) 100 mg/dl High Negative [facility] Serum creatinine measurement (mass/volume)Ordered By: Stevenson Trivedi on 02-06-2025 Creatinine [Mass/Vol] 1.84 mg/dL High 0.70-1.20 [facility] Comment on above: Performed By: #### L 500.4050, L501.2450, L100.0100 #### [facility] [address] [place], [address] Serum globulin measurementOr dered By: Stevenson Trivedi on 02-06-2025 Globulin (S) [Mass/Vol] 2.4 g/dL Normal 2.2-4.2 [facility] Comment on above: Performed By: #### L 500.4050, L501.2450, L100.0100 #### [facility] [address] [place], [address] Serum glucose measurement (m ass/volume)Ordered By: Stevenson Trivedi on 02-06-2025 Glucose [Mass/Vol] 192 mg/dL High 70-99 [facility] Comment on above: Performed By: #### L 500.4050, L501.2450, L100.0100 #### [facility] [address] [place], [address] Serum or plasma alanine hunter otransferase (ALT) measurementOrdered By: Stevenson Trivedi on 02-06-2025 ALT [Catalytic activity/Vol] 25 U/L Normal <=46 [facility] Comment on above: Performed By: #### L 500.4050, L501.2450, L100.0100 #### [facility] [address] [place], [address] Serum or plasma albumin lion urement (mass/volume)Ordered By: Stevenson Trivedi on 02-06-2025 Albumin [Mass/Vol] 4.2 g/dL Normal 3.4-4.8 [facility] Comment on above: Performed By: #### L 500.4050, L501.2450, L100.0100 #### [facility] [address] [place], [address] Serum or plasma albumin/glob ulin mass ratioOrdered By: Stevenson Trivedi on 02-06-2025 Albumin/Globulin [Mass ratio] 1.7 {ratio} Normal 0.9-2.4 [facility] Comment on above: Performed By: #### L 500.4050, L501.2450, L100.0100 #### [facility] [address] [place], [address] Serum or plasma alkaline alphonse sphatase measurementOrdered By: Stevenson Trivedi on 02-06-2025 ALP [Catalytic activity/Vol] 84 U/L 40-129 [facility] Serum or plasma calcium lion urement (mass/volume)Ordered By: Stevenson Trivedi on 02-06-2025 Calcium [Mass/Vol] 9.7 mg/dL Normal 7.6-11.0 [facility] Comment on above: Performed By: #### L 500.4050, L501.2450, L100.0100 #### [facility] [address] [place], [address] Serum or plasma urea nitroge n measurement (mass/volume)Ordered By: Stevenson Trivedi on 02-06-2025 Urea nitrogen [Mass/Vol] 36 mg/dL High 4-19 [facility] Comment on above: Performed By: #### L 500.4050, L501.2450, L100.0100 #### [facility] [address] [place], [address] Sodium levelOrdered By: Stevenson Trivedi on 02-06-2025 Sodium [Moles/Vol] 139 mmol/L Normal 133-145 [facility] Comment on above: Performed By: #### L 500.4050, L501.2450, L100.0100 #### [facility] [address] [place], [address] Squamous epithelial cells de tection in urine sediment by light microscopyOrdered By: Stevenson Trivedi on 02-06-2025 Epithelial cells.squamous LM Ql (Urine sed) 0-5 SEEN /hpf 0-5 [facility] Total proteinOrdered By: Fatmata Trivedi on 02-06-2025 Protein [Mass/Vol] 6.6 g/dL 5.9-8.4 [facility] Troponin T.cardiac [Mass/vol ume] in Serum or Plasma by High sensitivity methodOrdered By: Stevenson Trivedi on 02-06-2025 Troponin T.cardiac High sensitivity method [Mass/Vol] 25 ng/L High <22 [facility] Troponin T.cardiac High sensitivity method [Mass/Vol] 23 ng/L High <22 [facility] Troponin T.cardiac High sensitivity method [Mass/Vol] 24 ng/L High <22 [facility] Urinalysis, Completeon 02-06 EPI,SQUAMOUS 0-5 SEEN Normal 0-5 [facility] Comment on above: Order Comment: CLEAN CATCH Performed By: #### L 400.0001 #### [facility] [address] [place], [address] RBC 0-5 SEEN Normal 0-5 [facility] Comment on above: Order Comment: CLEAN CATCH Performed By: #### L 400.0001 #### [facility] [address] [place], [address] BACTERIA 0 SEEN Normal None Seen [facility] Comment on above: Order Comment: CLEAN CATCH Performed By: #### L 400.0001 #### [facility] [address] [place], [address] Mucus Ql (Urine sed) 0 SEEN Normal [facility] Comment on above: Order Comment: CLEAN CATCH Performed By: #### L 400.0001 #### [facility] [address] [place], [address] WBC 0 SEEN Normal 0-5 [facility] Comment on above: Order Comment: CLEAN CATCH Performed By: #### L 400.0001 #### [facility] [address] [place], [address] Urine clarityOrdered By: Fatmata Trivedi on 02-06-2025 Clarity (U) Clear Clear [facility] Urine color determinationOrd ered By: Stevenson Trivedi on 02-06-2025 Color (U) Yellow Yellow [facility] Urine glucose detectionOrder ed By: Stevenson Trivedi on 02-06-2025 Glucose Ql (U) Normal mg/dl Normal [facility] Urine leukocyte esterase det ection by dipstickOrdered By: Stevenson Trivedi on 02-06-2025 Leukocyte esterase Test strip Ql (U) Negative Negative [facility] Urine pHOrdered By: Stevenson petty on 02-06-2025 pH (U) 6.0 [pH] 5.0 - 8.0 [facility] Urine sediment bacteria coun t by microscopy (number/high power field)Ordered By: Stevenson Trivedi on 02-06-2025 Bacteria LM.HPF (Urine sed) [#/Area] 0 /[HPF] None Seen [facility] Urine specific gravity measu rementOrdered By: Stevenson Trivedi on 02-06-2025 Specific gravity (U) [Rel density] 1.015 1.002-1.030 [facility] Urine urobilinogen measureme ntOrdered By: Stevenson Trivedi on 02-06-2025 Urobilinogen Ql (U) Normal mg/dl Normal [facility] White blood cell (WBC) count Ordered By: Stevenson Trivedi on 02-06-2025 WBC (Bld) [#/Vol] 11.1 10*3/uL High 4.4-11.0 [facility] Comment on above: Performed By: #### L 500.4050, L501.2450, L100.0100 #### [facility] [address] [place], [address] White blood cell countOrdere d By: Stevenson Trivedi on 02-06-2025 White blood cell count 0 SEEN /hpf 0-5 [facility] Duplex ultrasound of carotid artery reportOrdered By: Joel Esquivel on 02-04-2025 Study report [facility] [address] [place] [address] Carotid Duplex Ultrasound 01/30/25 1006 MR#: [id number] Acct: [id number] Name: VERENA CLEMENTS Rep #:[id number] : 1955 69 From: Joel Mott Attending Dr: ROSALVA Albert Status: REG CLI Ordering Dr: Kiki Ramirez Date: 01/30/25 Location: [facility] Sex: M C Admitted: Reason For Study Reason For Study: Rt Carotid Artery Bruit Rt. Velocities/BP Lt. Velocities/BP Prox CCA 94.8/14.4 cm/sec. Prox CCA 86.9/12.1 cm/sec. Mid CCA 89.5/14.6 cm/sec. Mid CCA 100.2/15.5 cm/sec. Dist CCA 85.8/15.8 cm/sec. Dist CCA 69.5/14.2 cm/sec. Prox ICA 86.1/20.2 cm/sec. Prox ICA 86.7/25.3 cm/sec. Mid ICA 83.9/26.8 cm/sec. Mid ICA 95.8/26.0 cm/sec. Dist ICA 94.8/20.2 cm/sec. Dist ICA 98.6/26.1 cm/sec. Rt. ICA/CCA = 1.1. Lt. ICA/CCA = 1.0. Prox ECA 68.6/19.5 cm/sec. Prox ECA 100.8/4.2 cm/sec. Rt. Vert. 59.1/17.6 cm/sec. Lt. Vert. 43.9/0.0 cm/sec. Right Extracranial There is heterogeneous, irregular atherosclerotic plaque noted in the right common carotid artery. There is heterogeneous, irregular atherosclerotic plaque noted in the right internal carotid artery. The right internal carotid artery is very tortuous. There is heterogeneous, irregular atherosclerotic plaque noted in the right external carotid artery. Antegrade flow is noted in the right vertebral artery. Left Extracranial There is intimal thickening but no significant atherosclerotic plaque noted in the left common carotid artery. There is heterogeneous, irregular atherosclerotic plaque noted in the left internal carotid artery. There is intimal thickening but no significant atherosclerotic plaque noted in the left external carotid artery. Antegrade flow is noted in the left vertebral artery. Lt Vertebral Artery high resistant waveform noted. Procedure Carotid Duplex [id number]. This is a Carotid Duplex examination using B-mode, color flow and specral Doppler. The exam was diagnostic. Exam performed in department. VL/Carotid Duplex Ultrasound Interpretation Summary Mild (<50%) stenosis right extracranial internal carotid. Mild (<50%) stenosis left extracranial internal carotid. Patent and antegrade vertebrals bilaterally. Ordering Physician: Kiki Ramirez Referring Physician: Elo Ralph Performed By: Obi Díaz RVAubree 02/04/25 1618 Date _ Joel Esquivel MD CC: Dr. Elo Ralph MD; ROSALVA Albert ~ Date Dictated: 01/30/25 1006 Date Transcribed: 02/04/251617 Windows Vmware Administrator: Signed [facility] Work Phone: Carotid Duplex Ultrasoundon 01-30-2025 Carotid Duplex Ultrasound [facility] [address] [place] [address]. [place] [address] Carotid Duplex Ultrasound 01/30/25 1006 MR#: [id number] Acct: [id number] Name: VERENA CLEMENTS Rep #: [id number] : 1955 69 From: Joel Esquivel MD Attending Dr: ROSALVA Albert Status: REG CLI Ordering Dr: Kiki Ramirez Date: 01/13 04/08 Location: CVS Sex: M C Admitted: Reason For Study Reason For Study: Rt Carotid Artery Bruit Rt. Velocities/BP Lt. Velocities/BP Prox CCA 94.8/14.4 cm/sec. Prox CCA 86.9/12.1 cm/sec. Mid CCA 89.5/14.6 cm/sec. Mid CCA 100.2/15.5 cm/sec. Dist CCA 85.8/15.8 cm/sec. Dist CCA 69.5/14.2 cm/sec. Prox ICA 86.1/20.2 cm/sec. Prox ICA 86.7/25.3 cm/sec. Mid ICA 83.9/26.8 cm/sec. Mid ICA 95.8/26.0 cm/sec. Dist ICA 94.8/20.2 cm/sec. Dist ICA 98.6/26.1 cm/sec. Rt. ICA/CCA = 1.1. Lt. ICA/CCA = 1.0. Prox ECA 68.6/19.5 cm/sec. Prox ECA 100.8/4.2 cm/sec. Rt. Vert. 59.1/17.6 cm/sec. Lt. Vert. 43.9/0.0 cm/sec. Right Extracranial There is heterogeneous, irregular atherosclerotic plaque noted in the right common carotid artery. There is heterogeneous, irregular atherosclerotic plaque noted in the right internal carotid artery. The right internal carotid artery is very tortuous. There is heterogeneous, irregular atherosclerotic plaque noted in the right external carotid artery. Antegrade flow is noted in the right vertebral artery. Left Extracranial There is intimal thickening but no significant atherosclerotic plaque noted in the left common carotid artery. There is heterogeneous, irregular atherosclerotic plaque noted in the left internal carotid artery. There is intimal thickening but no significant atherosclerotic plaque noted in the left external carotid artery. Antegrade flow is noted in the left vertebral artery. Lt Vertebral Artery high resistant waveform noted. Procedure Carotid Duplex 80516. This is a Carotid Duplex examination using B-mode, color flow and specral Doppler. The exam was diagnostic. Exam performed in department. VL/Carotid Duplex Ultrasound Interpretation Summary Mild (<50%) stenosis right extracranial internal carotid. Mild (<50%) stenosis left extracranial internal carotid. Patent and antegrade vertebrals bilaterally. Ordering Physician: Kiki Ramirez Referring Physician: Ramo, Chalon Performed By: Bre, Obi, RVT 02/04/25 1618 Date Joel Esquivel MD CC: Dr. Elo Ralph MD; ROSALVA Albert Date Dictated: 01/30/25 1006 Date Transcribed: 02/04/251617 Windows Vmware Administrator: Signed Normal [facility] Anion gap in Serum or Plasma Ordered By: Kiki Ramirez on 01-18-2025 Anion gap [Moles/Vol] 12 mmol/L 5-15 [facility] BUN/creatinine ratioOrdered By: Kiki Ramirez on 01-18-2025 Urea nitrogen/Creatinine [Mass ratio] 16.1 mg/mg 10-20 [facility] Bilirubin, totalOrdered By: Kiki Ramirez on 01-18-2025 Bilirubin [Mass/Vol] 0.33 mg/dL 0.00-1.30 [facility] Calculated very low density lipoprotein (VLDL) cholesterol measurementOrdered By: Kiki Ramirez on 01-18-2025 Calculated very low density lipoprotein (VLDL) cholesterol measurement 20 mg/dL 5-40 [facility] Carbon dioxide, total [Moles /volume] in Central venous bloodOrdered By: Kiki Ramirez on 01-18-2025 CO2 [Moles/Vol] 18.7 mmol/L Low 21.0-32.0 [facility] Cardiology Visit Reporton Cardiology Visit Report [facility] 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 Pts main complaint is postional dizziness. He does have DM and does have neuropathy. He does not have any chest pain/heaviness or SOB. Intake Vital Signs 06/19/24 14:08 01/18/25 07:08 01/18/25 11:53 Height 5 ft 11 in 5 ft 11 in Weight: 192 lb BMI 26.7 BP 147/81 H 128/70 H Blood Pressure Location Lt brachial Position Sitting Respiration 18 Pulse 62 Pulse Source Monitor Pulse Oximetry (%) 97 Intake Visit Reasons: 6-8 M FU Clinical Statistical Programmer Required: No Is patient in pain?: No Allergies No Known Allergies Allergy (Verified 01/18/25 11:28) Medications ???Medication ???Instructions ???Recorded ???Confirmed ???Type aspirin 81 mg tablet,delayed 81 mg PO DAILY 06/16/15 01/18/25 H istory release albuterol sulfate 90 mcg/actuation 2 puff inhalation Q6H PRN 01/18/25 History aerosol inhaler (ProAir HFA) Shortness Of Breath fluoxetine 20 mg capsule 20 mg PO DAILY 05/16/18 01/18/25 H istory nitroglycerin 0.4 mg sublingual 0.4 mg sublingual DAILY PRN Pain 1 09/08/18 01/18/25 Rx tablet #25 tabs sildenafil 50 mg tablet 50 mg PO DAILY PRN 02/27/21 History omeprazole 20 mg tablet,delayed 20 mg PO DAILY 09/24/21 01/18/25 H istory release cholecalciferol (vitamin D3) 25 25 mcg PO DAILY 09/30/23 01/18/25 History mcg (1,000 unit) tablet semaglutide 0.25 mg or 0.5 mg (2 0.25 mg subcut QWEEK 09/30/2302/06 History mg/3 mL) subcutaneous pen injector (Ozempic) insulin glargine U-300 conc 300 30 unit subcut DAILY 12/30/2302/06 History unit/mL (1.5 mL) subcutaneous pen (Toujeo SoloStar U-300 Insulin) furosemide 40 mg tablet 40 mg PO DAILY #90 tabs 01/16/24 0 01/18/25 Rx spironolactone 25 mg tablet 25 mg PO DAILY #90 tabs 03/29/24 0 01/18/25 Rx carvedilol 25 mg tablet 25 mg PO BID #180 tabs 05/02/24 Rx tamsulosin 0.4 mg capsule 0.4 mg PO QDAY 06/19/24 01/18/25 H istory apixaban 5 mg tablet (Eliquis) 5 mg PO BID #60 tabs 08/29/2402/06 Rx sacubitril 49 mg-valsartan 51 mg 1 tab PO BID #180 tabs 09/03/24 Rx tablet (Entresto) atorvastatin 80 mg tablet 80 mg PO QHS #90 tabs 10/22/2402/06 Rx Ejection fraction %: 50 Have you fallen in the past year?: No PFSH Medical History Essential hypertension Hyperlipidemia Dyspnea on exertion Abnormal stress test Chest pain Nonrheumatic mitral (valve) insufficiency Secondary pulmonary arterial hypertension Paroxysmal atrial fibrillation Atherosclerosis of coronary artery of [place] heart without angina pectoris Ischemic cardiomyopathy Non-rheumatic aortic stenosis Non-ST elevation [place] (NSTEMI) Tobacco use DM2 (diabetes mellitus, type 2) Surgical History Presence of cardiac resynchronization therapy defibrillator (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) (09/14/18) History of repair of rotator cuff ( 04/2015) History of right and left heart catheterization (06/30/18) H/O coronary artery bypass surgery (05/06/15) Family History Father , Age 49 from [place] CAD (coronary artery disease) from [place] age 49 Myocardial infarction Mother Pacemaker History of heart valve replacement Social History Smoking Status: Former smoker quit date: 04/15/15 alcohol intake: current details: rarely substance use type: does not use caffeine: Yes Type: coffee Number of servings: 1 ROS Const Const: Positive for fatigue; Negative for weakness, headache(s) or frequent falls Eyes Eyes: Negative for blurry vision ENT ENT: Positive for dizziness; Negative for headache(s) or Nosebleed/epistaxis Cardio Chest Pain: No Palpitations: No Edema: Bilateral (occasionally) and None Muscle aches with walking: None Resp Respiratory: Negative for SOB with activity, SOB at rest or SOB orthopnea SOB lying down GI GI: Negative nausea, vomiting, heartburn, bright, red blood in stools or black,tarry stools : Negative for hematuria Neur (more content not included)... Normal [facility] Chloride assayOrdered By: Sylvia Ramirez on 01-18-2025 Chloride [Moles/Vol] 108 mmol/L 98-108 [facility] Comprehensive Metabolic Prof ilon 01-18-2025 Albumin [Mass/Vol] 4.1 g/dL Normal 3.4-4.8 [facility] Comment on above: Performed By: #### L 500.4050, L500.4100 ####[facility] [address] [place], [address] Albumin/Globulin [Mass ratio] 1.6 {ratio} Normal 0.9-2.4 [facility] Comment on above: Performed By: #### L 500.4050, L500.4100 ####[facility] [address] [place], [address] ALK PHOS 84 U/L Normal 40-129 [facility] Comment on above: Performed By: #### L 500.4050, L500.4100 ####[facility] [address] [place], [address] ALT [Catalytic activity/Vol] 17 U/L Normal <=46 [facility] Comment on above: Performed By: #### L 500.4050, L500.4100 ####[facility] [address] [place], [address] AST [Catalytic activity/Vol] 15 U/L Normal <=37 [facility] Comment on above: Performed By: #### L 500.4050, L500.4100 ####[facility] [address] [place], [address] Bilirubin [Mass/Vol] 0.33 mg/dL Normal 0.00-1.30 [facility] Comment on above: Performed By: #### L 500.4050, L500.4100 ####[facility] [address] [place], [address] BUN/CRE 16.1 RATIO Normal 10-20 [facility] Comment on above: Performed By: #### L 500.4050, L500.4100 ####[facility] [address] [place], [address] Calcium [Mass/Vol] 9.3 mg/dL Normal 7.6-11.0 [facility] Comment on above: Performed By: #### L 500.4050, L500.4100 ####[facility] [address] [place], [address] Chloride [Moles/Vol] 108 mmol/L Normal 98-108 [facility] Comment on above: Performed By: #### L 500.4050, L500.4100 ####[facility] [address] [place], [address] CO2 [Moles/Vol] 18.7 mmol/L Low 21.0-32.0 [facility] Comment on above: Performed By: #### L 500.4050, L500.4100 ####[facility] [address] [place], [address] Creatinine [Mass/Vol] 1.80 mg/dL High 0.70-1.20 [facility] Comment on above: Performed By: #### L 500.4050, L500.4100 ####[facility] [address] [place], [address] GAP 12 Normal 5-15 [facility] Comment on above: Performed By: #### L 500.4050, L500.4100 ####[facility] [address] [place], [address] GFR/1.73 sq M.predicted among non-blacks MDRD (S/P/Bld) [Vol rate/Area] 40 mL/min/{1.73_m2} Low >60 [facility] Comment on above: Result Comment: mL/m in/1.73m2 CKD-EPI Creatinine Equation (2020) Performed By: #### L 500.4050, L500.4100 ####[facility] [address], [address] Globulin (S) [Mass/Vol] 2.5 g/dL Normal 2.2-4.2 [facility] Comment on above: Performed By: #### L 500.4050, L500.4100 ####[facility] [address] [place], [address] Glucose [Mass/Vol] 188 mg/dL High 70-99 [facility] Comment on above: Performed By: #### L 500.4050, L500.4100 ####[facility] [address] [place], [address] Potassium [Moles/Vol] 4.5 mmol/L Normal 3.3-5.1 [facility] Comment on above: Performed By: #### L 500.4050, L500.4100 ####[facility] [address] [place], [address] Sodium [Moles/Vol] 138 mmol/L Normal 133-145 [facility] Comment on above: Performed By: #### L 500.4050, L500.4100 ####[facility] [address] [place], [address] T PROT 6.6 g/dL Normal 5.9-8.4 [facility] Comment on above: Performed By: #### L 500.4050, L500.4100 ####[facility] [address] [place], [address] Urea nitrogen [Mass/Vol] 29 mg/dL High 4-19 [facility] Comment on above: Performed By: #### L 500.4050, L500.4100 ####[facility] [address] [place], [address] Glomerular filtration rate ( GFR) estimation/1.73 sq m using serum, plasma, or whole bOrdered By: Kiki Ramirez on 01-18-2025 GFR/1.73 sq M.predicted among non-blacks MDRD (S/P/Bld) [Vol rate/Area] 40 mL/min/{1.73_m2} Low >60 [facility] Comment on above: mL/min/1.73m2 CKD-EP I Creatinine Equation (2020) LDL calc ser/plasOrdered By: Kiki Ramirez on 01-18-2025 Cholesterol in LDL [Mass/Vol] 61 mg/dL [facility] Comment on above: Pmjthzxfyn=756-538 m g/dL & Higher Qlfq=616 mg/dL or greater Laboratory - Chemistry and C hemistry - challengeOrdered By: Kiki Ramirez on 01-18-2025 AST [Catalytic activity/Vol] 15 U/L <38 [facility] Lipid Profileon 01-18-2025 CHOL:HDL 3.45 Normal [facility] Comment on above: Performed By: #### L 500.4050, L500.4100 ####[facility] [address] [place], [address] Cholesterol [Mass/Vol] 114 mg/dL Normal <=200 [facility] Comment on above: Result Comment: Chol esterol level, Desirable <200 mg/dL Borderline high cholesterol 200-239 mg/dL High cholesterol >=240 mg/dL Recommendations of the NCEP Adult Treatment Panel for the following risk-cutoff thresholds for the [place] population. Performed By: #### L 500.4050, L500.4100 ####[facility] [address] [place], [address] Cholesterol in HDL [Mass/Vol] 33 mg/dL Low [facility] Comment on above: Result Comment: Lien onal Cholesterol Education Program (NCEP) guidelines: <40 mg/dL: Low HDL-cholesterol (major risk factor for CHD) >= 60 mg/dL: High HDL-cholesterol (negative risk factor for CHD) HDL-cholesterol is affected by a number of factors, e.g. smoking, exercise, hormones, sex and age. Performed By: #### L 500.4050, L500.4100 ####[facility] [address] [place], [address] Cholesterol in LDL [Mass/Vol] 61 mg/dL Normal [facility] Comment on above: Result Comment: Bord pveugi=062-706 mg/dL Higher Gdgr=886 mg/dL or greater Performed By: #### L 500.4050, L500.4100 ####[facility] [address] [place], [address] Cholesterol in VLDL [Mass/Vol] 20 mg/dL Normal 5-40 [facility] Comment on above: Performed By: #### L 500.4050, L500.4100 ####[facility] [address] [place], [address] Triglyceride [Mass/Vol] 102 mg/dL Normal [facility] Comment on above: Result Comment: The drugs N-Acetylcysteine and Metamizole may falsely depress this assay. Normal range: <150 mg/dL Borderline High: 150-199 mg/dL High: 200-499 mg/dL Very High: >500 mg/dL Performed By: #### L 500.4050, L500.4100 ####[facility] [address] [place], [address] Potassium measurement (mass/ volume)Ordered By: Kiki Ramirez on 01-18-2025 Potassium (Unsp spec) [Mass/Vol] 4.5 mmol/L 3.3-5.1 [facility] Screening total cholesterol/ high density lipoprotein (HDL) cholesterol ratioOrdered By: Kiki Ramirez on 01-18-2025 Cholesterol.total/Sveta sterol in HDL [Mass ratio] 3.45 {ratio} [facility] Serum creatinine measurement (mass/volume)Ordered By: Kiki Ramirez on 01-18-2025 Creatinine [Mass/Vol] 1.80 mg/dL High 0.70-1.20 [facility] Serum globulin measurementOr dered By: Kiki Ramirez on 01-18-2025 Globulin (S) [Mass/Vol] 2.5 g/dL 2.2-4.2 [facility] Serum glucose measurement (m ass/volume)Ordered By: Kiki Ramirez on 01-18-2025 Glucose [Mass/Vol] 188 mg/dL High 70-99 [facility] Serum or plasma alanine hunter otransferase (ALT) measurementOrdered By: Kiki Ramirez on 01-18-2025 ALT [Catalytic activity/Vol] 17 U/L <47 [facility] Serum or plasma albumin lion urement (mass/volume)Ordered By: Kiki Ramirez on 01-18-2025 Albumin [Mass/Vol] 4.1 g/dL 3.4-4.8 [facility] Serum or plasma albumin/glob ulin mass ratioOrdered By: Kiki Ramirez on 01-18-2025 Albumin/Globulin [Mass ratio] 1.6 {ratio} 0.9-2.4 [facility] Serum or plasma alkaline alphonse sphatase measurementOrdered By: Kiki Ramirez on 01-18-2025 ALP [Catalytic activity/Vol] 84 U/L 40-129 [facility] Serum or plasma calcium lion urement (mass/volume)Ordered By: Kiki Ramirez on 01-18-2025 Calcium [Mass/Vol] 9.3 mg/dL 7.6-11.0 [facility] Serum or plasma cholesterol in HDL measurement (mass/volume)Ordered By: Kiki Ramirez on 01-18-2025 Cholesterol in HDL [Mass/Vol] 33 mg/dL Low >40 [facility] Comment on above: National Cholesterol Education Program (NCEP) guidelines:<40 mg/dL: Low HDL-cholesterol (major risk factor for CHD)>= 60 mg/dL: High HDL-cholesterol (negative risk factor for CHD)HDL-cholesterol is affected by a number of factors, e.g. smoking, exercise, hormones, sex and age. Serum or plasma cholesterol measurement (mass/volume)Ordered By: Kiki Ramirez on 01-18-2025 Cholesterol [Mass/Vol] 114 mg/dL <201 [facility] Comment on above: Cholesterol level, D esirable <200 mg/dLBorderline high cholesterol 200-239 mg/dLHigh cholesterol >=240 mg/dLRecommendations of the NCEP Adult Treatment Panel for the following risk-cutoff thresholds for the [place] population. Serum or plasma urea nitroge n measurement (mass/volume)Ordered By: Kiki Ramirez on 01-18-2025 Urea nitrogen [Mass/Vol] 29 mg/dL High 4-19 [facility] Sodium levelOrdered By: Hernan Ramirez on 01-18-2025 Sodium [Moles/Vol] 138 mmol/L 133-145 [facility] Total proteinOrdered By: Antoine Ramirez on 01-18-2025 Protein [Mass/Vol] 6.6 g/dL 5.9-8.4 [facility] Triglycerides measurementOrd ered By: Kiki Ramirez on 01-18-2025 Triglyceride [Mass/Vol] 102 mg/dL <199 [facility] Comment on above: The drugs N-Acetylcy steine and Metamizole may falsely depress this assay. Normal range: <150 mg/dLBorderline High: 150-199 mg/dLHigh: 200-499 mg/dLVery High: >500 mg/dL Brain/Head without Contrasto n 09-03-2024 Brain/Head without Contrast [facility] Imaging Services [address] [place], [place] [address] Brain/Head without Contrast MR#: [id number] Acct: [id number] Name: VERENA CLEMENTS Rep #: [id number] : 1955 M 68 From: Pasquale Villagran MD PCP: Dr. Elo Ralph MD Status: REG CLI Study: Brain/Head without Contrast Date of Exam: 08/16 Exam# [id number] Ordering Dr: Elo Ralph MD [id number] INDICATION: NEW ONSET HEADACHE EXAMINATION: CT BRAIN - CT Head or Brain W/O Contrast Injection TECHNIQUE: Multiple axial images were obtained of the head with sagittal and coronal reconstructed images. Individualized dose optimization techniques were used for this CT. IV contrast dosage and agent: None. COMPARISON: None. FINDINGS: BRAIN PARENCHYMA: No evidence of an acute infarct or intracranial hemorrhage. No evidence of a mass. Chronic left cerebellar infarct. White matter changes consistent with mild chronic microvascular disease. CSF SPACES: Mild cerebral atrophy. CALVARIUM, SKULL BASE, PARANASAL SINUSES AND MASTOID AIR CELLS: No fracture. Mastoid air cells are clear. Visualized paranasal sinuses are unremarkable. ORBITS: The globes, extraocular muscles, optic nerves and retrobulbar fat are unremarkable. CT/Brain/Head without Contrast IMPRESSION: Chronic findings as described above. No acute abnormality. Electronically Signed: Pasquale Villagran DO at 7:55 EST , CC: Dr. Elo Ralph MD Windows Vmware Administrator: Signed Normal [facility] Echo Completeon 07-04-2024 Echo Complete [facility] [address] [place] [address] Echo Complete 07/04/24 1257 MR#: [id number] Acct: [id number] Name: VERENA CLEMENTS Rep #: [id number] : 1955 68 From: Lewis Templeton MD Attending Dr: Dr. Lewis Templeton MD Status: MATTEO PIERSON Ordering Dr: Lewis Templeton MD Date: 07/04/24 Location: [facility] Sex: M C Admitted: Reason For Study: Dilated CMP Procedure This was a 2D Doppler, Color Flow transthoracic echocardiogram. Exam performed in department. Left Ventricle Normal LV size. The global longitudinal strain = -13.6% (abnormal). Basal inferoseptal: Hypokinetic. Infero-Basal: Severely Hypokinetic. There are regional wall motion abnormalities as specified. Right Ventricle Normal RV size. ICD or pacer leads identified within the right ventricle. Normal systolic function. Atria Normal left atrium. Normal right atrium. Bubble contrast study negative for right to left interatrial shunt. Mitral Valve Bileaflet diffuse mitral valve thickening. Tricuspid Valve Normal tricuspid valve. Mild (1+) tricuspid valve insufficiency. Pulmonary artery systolic pressure is 34 mmHg. Great Vessels Normal aortic root. The pulmonary artery is normal size. Inferior vena cava collapse with respiration. Pericardium/Pleural No pericardial effusion. Medication 22 gauge I.V. with prn adaptor inserted into right arm. Performed a rapid injection of agitated mix of 9 cc saline and 1cc air to assess for atrial septal defect. MMode/2D Measurements Calculations LVIDd: 5.4 cm IVSd: 1.0 cm LVOT diam: 2.2 cm LVIDs: 4.5 cm LVPWd: 0.66 cm LVOT area: 3.7 cm2 RVDd: 3.4 cm FS: 15.8 % Ao root diam: 3.5 cm LAV(MOD-bp): 71.0 ml LVAd ap4: 34.3 cm2 LAV(MOD-bp) Indexed: 34.3 ml/m2 LVLd ap4: 8.8 cm LAV(MOD-sp2): 75.3 ml EDV(MOD-sp4): 110.3 ml LAV(MOD-sp4): 59.8 ml EDV(sp4-el): 113.8 ml LVAs ap4: 22.7 cm2 LVLs ap4: 7.8 cm ESV(MOD-sp4): 57.5 ml ESV(sp4-el): 56.4 ml EF(MOD-sp4): 47.9 % EF(sp4-el): 50.5 % SV(MOD-sp4): 52.9 ml SV(sp4-el): 57.4 ml Ao sinus diam: 3.8 cm SI(MOD-sp4): 25.6 ml/m2 Ao ST Junction: 2.6 cm LA A4 area: 20.5 cm2 LA dimension(2D): 4.5 cm RA A4 area: 14.9 cm2 TAPSE: 1.3 cm Time Measurements MV dec time: 0.39 sec Doppler Measurements Calculations MV E max konrad: 43.9 cm/sec Lat Peak E' Konrad: 11.2 cm/sec Med Peak E' Konrad: 4.9 cm/sec MV A max konrad: 68.6 cm/sec E/E' lat: 3.9 E/E' med: 9.0 MV E/A: 0.64 MV V2 max: 92.3 cm/sec MV P1/2t max konrad: 58.2 cm/sec Ao V2 max: 206.6 cm/sec MV max P.4 mmHg MV P1/2t: 145.9 msec Ao max P.1 mmHg MV V2 mean: 48.6 cm/sec MV dec slope: 116.7 cm/sec2 Ao V2 mean: 143.6 cm/sec MV mean P.1 mmHg MVA(P1/2t): 1.5 cm2 Ao mean P.4 mmHg MV V2 VTI: 25.3 cm Ao V2 VTI: 48.3 cm MVA(VTI): 2.6 cm2 AV (velocity ratio): 0.37 MATT(I,D): 1.4 cm2 MATT(V,D): 1.4 cm2 LV V1 max: 75.3 cm/sec SV(LVOT): 66.2 ml PA V2 max: 103.0 cm/sec LV V1 max P.3 mmHg LV V1 mean P.4 mmHg LV V1 mean: 54.7 cm/sec LV V1 VTI: 17.7 cm TR max konrad: 269.5 cm/sec TR max P.1 mmHg ECHO/Echo Complete Interpretation Summary Normal LV size. The global longitudinal strain = -13.6% (abnormal). Pulmonary artery systolic pressure is 34 mmHg. There are regional wall motion abnormalities as specified. Ordering Physician: Lewis Templeton Referring Physician: Lewis Templeton Performed By: Mike Lin RCS 07/04/241717 Date Lewis Templeton MD CC: Dr. Elo Ralph MD; Dr. Lewis Templeton MD Date Dictated: 07/04/24 1257 Date Transcribed: 07/04/241717 Windows Vmware Administrator: Signed Normal [facility] Basic Metabolic Profile (BMP )on 06-19-2024 BUN/CRE 22.6 RATIO High 10-20 [facility] Comment on above: Performed By: #### L 500.2500 ####[facility] [address] [place], [address] CA,Total 9.3 mg/dL Normal 8.5-10.1 [facility] Comment on above: Performed By: #### L 500.2500 ####[facility] [address] [place], [address] Chloride [Moles/Vol] 111 mmol/L High 98-107 [facility] Comment on above: Performed By: #### L 500.2500 ####[facility] [address] [place], [address] CO2 [Moles/Vol] 21.0 mmol/L Normal 21.0-32.0 [facility] Comment on above: Performed By: #### L 500.2500 ####[facility] [address] [place], [address] Creatinine [Mass/Vol] 1.95 mg/dL High 0.70-1.30 [facility] Comment on above: Result Comment: The validity of the calculated GFR GFRAA in patients over 70 years has not been determined. Clinical correlation is essential. Performed By: #### L 500.2500 ####[facility] [address] [place], [address] EST GFR - AA 44 mL/min Low >60 [facility] Comment on above: Result Comment: Afri can Lao GFR Calc Performed By: #### L 500.2500 ####[facility] [address] [place], [address] GAP 6 Normal 5-15 [facility] Comment on above: Performed By: #### L 500.2500 ####[facility] [address] [place], [address] GFR/1.73 sq M.predicted among non-blacks MDRD (S/P/Bld) [Vol rate/Area] 36 mL/min/{1.73_m2} Low >60 [facility] Comment on above: Result Comment: Non- GFR Calc Performed By: #### L 500.2500 ####[facility] [address] [place], [address] Glucose [Mass/Vol] 181 mg/dL High 74-106 [facility] Comment on above: Result Comment: Fast ing Glucose result greater than or equal to 126 mg/dL suggests DIABETES MELLITUS per A.D.A. criteria. Performed By: #### L 500.2500 ####[facility] [address] [place], [address] Potassium [Moles/Vol] 5.0 mmol/L Normal 3.5-5.1 [facility] Comment on above: Performed By: #### L 500.2500 ####[facility] [address] [place], [address] Sodium [Moles/Vol] 138 mmol/L Normal 136-145 [facility] Comment on above: Performed By: #### L 500.2500 ####[facility] [address] [place], [address] Urea nitrogen [Mass/Vol] 44 mg/dL High 7-18 [facility] Comment on above: Performed By: #### L 500.2500 ####[facility] [address] [place], [place], [address] Cardiology Visit Reporton Cardiology Visit Report [facility] [address] [place], [place] [address] OFFICE VISIT Date of Service: 06/19/24 MR#: [id number] Acct: [id number] Name: VERENA CLEMENTS Rep #: [id number] : 1955 Provider: Dr. Lewis Templeton MD Age/Sex: 68/M Location: [facility] Status: Signed HPI HPI History of Present Illness Details: This is a 68-year-old white male who presents today for an outpatient cardiovascular follow-up visit. He has a history of underlying CAD, status post CABG, ischemic mediated cardiomyopathy, chronic systolic CHF, status post BiV-ICD/RIBBON LAP MACHINE TENDER therapy, paroxysmal atrial fibrillation/flutter, aortic valve stenosis, MR, hyperlipidemia, and hypertension. He denies chest, arm, jaw, or neck discomfort. He denies palpitations. He states bilateral lower extremity edema. He denies claudication. He states shortness of breath with activity. He denies shortness of breath at rest, orthopnea, or PND. He denies chronic cough. He denies significant, sudden weight gain. He denies lightheadedness, dizziness, near-syncope, or syncope. He denies blood in urine, blood in stool, or epistaxis. He denies fever with chills. He denies myalgia. He denies fatigue. His exercise level has remained stable. Intake Vital Signs 05/09/23 11:07 12/30/23 11:49 06/19/24 14:08 Height 5 ft 11 in 5 ft 11 in 5 ft 11 in Weight: 191 lb BMI 26.6 BP 153/86 H Blood Pressure Location Lt brachial Position Sitting Respiration 16 Pulse 70 Pulse Source Monitor Intake Visit Reasons: 1 Y FU 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 f/u @ 11AM Clinical Statistical Programmer Required: No Accompanied by: Self Is patient in pain?: No Allergies No Known Allergies Allergy (Verified 06/19/24 14:23) Medications ???Medication ???Instructions ???Recorded ???Confirmed ???Type aspirin 81 mg tablet,delayed 81 mg PO DAILY 06/16/15 06/19/24 History release albuterol sulfate 90 mcg/actuation 2 puff inhalation Q6H PRN 05/15/18 06/19/24 History aerosol inhaler (ProAir HFA) Shortness Of Breath fluoxetine 20 mg capsule 20 mg PO DAILY 05/16/18 06/19/24 History nitroglycerin 0.4 mg sublingual 0.4 mg sublingual DAILY PRN Pain 07/09/19 06/19/24 Rx tablet #25 tabs sildenafil 50 mg tablet 50 mg PO DAILY PRN 02/27/21 06/19/24 History omeprazole 20 mg tablet,delayed 20 mg PO DAILY 09/24/21 06/19/24 History release cholecalciferol (vitamin D3) 25 25 mcg PO DAILY 09/30/23 06/19/24 History mcg (1,000 unit) tablet semaglutide 0.25 mg or 0.5 mg (2 0.25 mg subcut QWEEK 09/30/23 06/19/24 History mg/3 mL) subcutaneous pen injector (Ozempic) atorvastatin 80 mg tablet 80 mg PO QHS #90 tabs 12/30/23 06/19/24 Rx insulin glargine U-300 conc 300 30 unit subcut DAILY 12/30/23 06/19/24 History unit/mL (1.5 mL) subcutaneous pen (Toujeo SoloStar U-300 Insulin) furosemide 40 mg tablet 40 mg PO DAILY #90 tabs 01/16/24 06/19/24 Rx sacubitril 49 mg-valsartan 51 mg 1 tab PO BID #60 tabs 01/23/24 06/19/24 Rx tablet (Entresto) spironolactone 25 mg tablet 25 mg PO DAILY #90 tabs 03/29/24 06/19/24 Rx apixaban 5 mg tablet (Eliquis) 5 mg PO BID #60 tabs 04/02/24 06/19/24 Rx carvedilol 25 mg tablet 25 mg PO BID #180 tabs 05/02/24 06/19/24 Rx tamsulosin 0.4 mg capsule 0.4 mg PO QDAY 06/19/24 06/19/24 History Have you fallen in the past year?: No PFSH Medical History Essential hypertension Hyperlipidemia Dyspnea on exertion Abnormal stress test Chest pain Nonrheumatic mitral (valve) insufficiency Secondary pulmonary arterial hypertension Paroxysmal atrial fibrillation Atherosclerosis of coronary artery of [place] heart without angina pectoris Ischemic cardiomyopathy Non-rheumatic aortic stenosis Non-ST elevation [place] (NSTEMI) Tobacco use DM2 (diabetes mellitus, type 2) Surgical History Presence of cardiac resynchronization therapy defibrillator (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) (09/14/18) History of repair of rotator cuff ( 04/2015) History of right and left heart catheterization (06/30/18) H/O coronary artery bypass surgery (05/06/15) Family History Father , Age 49 from [place] CAD (coronary artery disease) from [place] age 49 Myocardial infarction Mother Pacemaker History of heart valve replacement Social History Smoking Status: Former smoker quit date: 04/15/15 alcohol intake: current details: rarely substance use type: does not use caffeine: Yes Type: coffee Number of servings: 1 ROS Const Const: Positive for fatigue; Negative for weakness, headache(s), daytime sleepiness or difficulty sleeping ENT ENT: Negative for headache(s), dizziness or Nosebleed/epistaxis Cardio Ch (more content not included)... Normal [facility] Pacemaker Checkon 06-19-2024 Pacemaker Check [facility] [address] [place] [address] Pacemaker Check Date of Service: 06/19/241443 MR#: [id number] Acct: [id number] Name: VERENA CLEMENTS Rep #: [id number] : 1955 From: Lety Calderon Age/Sex: 68/M Location: [facility] Status: Signed Billing Codes ICD Device Billin ICD Dev Prog Eval, Multi Assessment and Plan Assessment and Plan (1) Presence of cardiac resynchronization therapy defibrillator (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): Status: Chronic Comment: Placed per Dr. Danny Simpson on 09/14/18 @ [facility]: [employer]ogen X4 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 model G148; serial # [id number], lot # [id number]; leads [employer]. (2) Chronic systolic (congestive) heart failure: Status: Chronic (3) Paroxysmal atrial fibrillation: Status: Chronic (4) Ischemic cardiomyopathy: Status: Chronic 06/19/241443 Date Lety Reddy Signature: Date (if applicable) CC: Normal [facility] Hemoglobin in reticulocytes (mass per reticulocyte)Ordered By: Celi Griffith on 05-19-2023 Hemoglobin (Reticulocytes) [Entitic mass] 35.8 pg 30-35 [facility] Iron measurement (mass/mass) Ordered By: Celi Griffith on 05-19-2023 Iron (Unsp spec) [Mass/Mass] 68 ug/dL 65-175 [facility] Laboratory - Chemistry and C hemistry - challengeOrdered By: Celi Griffith on 05-19-2023 Cobalamin (Vitamin B12) [Mass/Vol] 566 pg/mL 211-911 [facility] No Panel InformationOrdered By: Celi Griffith on 05-19-2023 Immature Reticulocyte Fraction 20.00 % 3.00-15.90 [facility] Reticulocyte Count 3.69 % 0.5-1.5 [facility] Total Iron Binding Capacity 290 ug/dL 250-450 [facility] Serum or plasma ferritin alicia surement (mass/volume)Ordered By: Celi Griffith on 05-19-2023 Ferritin [Mass/Vol] 56 ng/mL 26-388 [facility] Serum or plasma folate measu rement (mass/volume)Ordered By: Celi Griffith on 05-19-2023 Folate [Mass/Vol] 10.20 ng/mL 3.1-55.4 [facility] Absolute lymphocyte countOrd ered By: James Reid on 05-09-2023 Lymphocytes Auto (Unsp spec) [#/Vol] 1.44 10*3/uL 0.83-4.51 [facility] Basophil percentageOrdered B y: Celi Griffith on 05-09-2023 Bilirubin [Mass/Vol] 0.50 mg/dL 0.20-1.00 [facility] Comment on above: For patients on eltr ombopag therapy, use of Dimension [place] TBIL is not recommended. Chloride [Moles/Vol] 112 mmol/L 98-107 [facility] Glucose [Mass/Vol] 199 mg/dL 74-106 [facility] Comment on above: Fasting Glucose resu lt greater than or equal to 126 mg/dL suggests DIABETES MELLITUS per A.D.A. criteria. Potassium [Moles/Vol] 4.7 mmol/L 3.5-5.1 [facility] Protein [Mass/Vol] 7.2 g/dL 6.4-8.2 [facility] Sodium [Moles/Vol] 138 mmol/L 136-145 [facility] Basophil percentageOrdered B y: James Reid on 05-09-2023 Basophils/100 WBC (Bld) 0.3 % 0-1 [facility] Eosinophils/100 WBC (Bld) 1.5 % 0-5 [facility] Neutrophils (Bld) [#/Vol] 8.4 10*3/uL 2.0-7.7 [facility] Neutrophils/100 WBC (Bld) 76.5 % 47-70 [facility] WBC (Bld) [#/Vol] 10.9 10*3/uL 4.4-11.0 [facility] Blood erythrocytes count (nu mber/volume)Ordered By: James Reid on 05-09-2023 RBC (Bld) [#/Vol] 3.60 10*6/uL 4.6-6.2 [facility] Blood hemoglobin measurement (mass/volume)Ordered By: James Reid on 05-09-2023 Hemoglobin (Bld) [Mass/Vol] 11.5 g/dL 13.0-16.5 [facility] Blood lymphocytes/100 leukoc ytesOrdered By: James Reid on 05-09-2023 Lymphocytes/100 WBC (Bld) 13.2 % 19-41 [facility] Blood monocytes/100 leukocyt esOrdered By: James Reid on 05-09-2023 Monocytes/100 WBC (Bld) 7.6 % 0-10 [facility] Blood platelet mean volumeOr dered By: James Reid on 05-09-2023 Platelet mean volume (Bld) [Entitic vol] 11.4 fL 6.2-12.0 [facility] Determination of erythrocyte mean corpuscular volume (MCV)Ordered By: James Reid on 05-09-2023 MCV (RBC) [Entitic vol] 94.4 fL 80-94 [facility] Hematocrit Auto (Bld) [Volum e fraction]Ordered By: James Reid on 05-09-2023 Hematocrit (Bld) [Volume fraction] 34.0 % 40-54 [facility] Laboratory - Chemistry and C hemistry - challengeOrdered By: Celi Griffith on 05-09-2023 ALP [Catalytic activity/Vol] 83 U/L 45-117 [facility] ALT [Catalytic activity/Vol] 32 U/L 16-61 [facility] CO2 [Moles/Vol] 20.0 mmol/L 21.0-32.0 [facility] Globulin (S) [Mass/Vol] 3.5 g/dL 2.2-4.2 [facility] Urea nitrogen/Creatinine [Mass ratio] 21.9 mg/mg 10-20 [facility] - Chemistry and C hemistry - challengeOrdered By: James Reid on 05-09-2023 Natriuretic peptide B (Bld) [Mass/Vol] 81.2 pg/mL 0-100 [facility] - Hematology and Cell countsOrdered By: James Reid on 05-09-2023 Erythrocyte distribution width (RBC) [Entitic vol] 43.7 fL 35.1-43.9 [facility] Erythrocyte distribution width (RBC) [Ratio] 12.6 % 11.6-14.6 [facility] Immature granulocytes/100 WBC (Bld) 0.900 % 0.0-0.9 [facility] Comment on above: IG% - Immature Granu locytes (promyelocytes, myelocytes and metamyelocytes) > 1% indicates that a LEFT SHIFT is Present. MCH (RBC) [Entitic mass] 31.9 pg 27.0-32.0 [facility] Nucleated RBC/100 WBC (Bld) [Ratio] 0 % 0-5 [facility] MCHC Auto (RBC) [Mass/Vol]Or dered By: James Reid on 05-09-2023 MCHC (RBC) [Mass/Vol] 33.8 g/dL 32-36 [facility] No Panel InformationOrdered By: Celi Griffith on 05-09-2023 Estimated GFR (MDRD) Amer 47 mL/min >60 [facility] Comment on above: GFR Calc Estimated GFR (MDRD) Non-Af Amer 39 mL/min >60 [facility] Comment on above: Non- GFR Calc Platelets bldOrdered By: Santosh Reid on 05-09-2023 Platelets (Bld) [#/Vol] 183 10*3/uL 150-450 [facility] Serum or plasma albumin lion urement (mass/volume)Ordered By: Celi Griffith on 05-09-2023 Albumin [Mass/Vol] 3.7 g/dL 3.2-5.0 [facility] Serum or plasma albumin/glob ulin mass ratioOrdered By: Celi Griffith on 05-09-2023 Albumin/Globulin [Mass ratio] 1.1 {ratio} 0.9-2.4 [facility] Serum or plasma calcium lion urement (mass/volume)Ordered By: Celi Griffith on 05-09-2023 Calcium [Mass/Vol] 9.1 mg/dL 8.5-10.1 [facility] Serum or plasma creatinine m easurement (mass/volume)Ordered By: Celi Griffith on 05-09-2023 Creatinine [Mass/Vol] 1.83 mg/dL 0.70-1.30 [facility] Comment on above: The validity of the calculated GFR & GFRAA in patients over 70 years has not been determined. Clinical correlation is essential. Serum or plasma urea nitroge n measurement (mass/volume)Ordered By: Celi Griffith on 05-09-2023 Urea nitrogen [Mass/Vol] 40 mg/dL 7-18 [facility] Thin prep Papanicolaou smear with manual screeningOrdered By: Celi Griffith on 05-09-2023 Thin prep Papanicolaou smear with manual screening 12 U/L 15-37 [facility] Thin prep Papanicolaou smear with manual screening 6 5-15 [facility] No Panel InformationOrdered By: Celi Griffith on 04-06-2023 Miscellaneous Test See comment [facility] Comment on above: SALMONELLA/SHIGELLA SCREEN FINAL REPORTRESULT 1 NO SALMONELLA OR SHIGELLA RECOVERED.CAMPYLOBACTER CULTURE FINAL REPORTRESULT 1 NO CAMPYLOBACTER SPECIES ISOLATED.E. COLI TOXIN EIA NEGATIVE ___ TESTING PERFORMED AT [facility]. ORIGINAL REPORT ON FILE IN LAB CONTAINS ADDITIONAL TEST SITE INFORMATION. Ova and parasitesOrdered By: Celi Griffith on 04-06-2023 Ova and parasites identified LM Nom (Unsp spec) [facility] Basophil percentageOrdered B y: Celi Griffith on 03-23-2023 Chloride [Moles/Vol] 108 mmol/L 98-107 [facility] Glucose [Mass/Vol] 198 mg/dL 74-106 [facility] Comment on above: Fasting Glucose resu lt greater than or equal to 126 mg/dL suggests DIABETES MELLITUS per A.D.A. criteria. Potassium [Moles/Vol] 5.2 mmol/L 3.5-5.1 [facility] Sodium [Moles/Vol] 136 mmol/L 136-145 [facility] Laboratory - Chemistry and C hemistry - challengeOrdered By: Celi Griffith on 03-23-2023 CO2 [Moles/Vol] 20.0 mmol/L 21.0-32.0 [facility] Urea nitrogen/Creatinine [Mass ratio] 31.3 mg/mg 10-20 [facility] No Panel InformationOrdered By: Celi Griffith on 03-23-2023 Estimated GFR (MDRD) Amer 36 mL/min >60 [facility] Comment on above: GFR Calc Estimated GFR (MDRD) Non-Af Amer 30 mL/min >60 [facility] Comment on above: Non- GFR Calc Serum or plasma calcium lion urement (mass/volume)Ordered By: Celi Griffith on 03-23-2023 Calcium [Mass/Vol] 9.2 mg/dL 8.5-10.1 [facility] Serum or plasma creatinine m easurement (mass/volume)Ordered By: Celi Griffith on 03-23-2023 Creatinine [Mass/Vol] 2.30 mg/dL 0.70-1.30 [facility] Comment on above: The validity of the calculated GFR & GFRAA in patients over 70 years has not been determined. Clinical correlation is essential. Serum or plasma urea nitroge n measurement (mass/volume)Ordered By: Celi Griffith on 03-23-2023 Urea nitrogen [Mass/Vol] 72 mg/dL 7-18 [facility] Thin prep Papanicolaou smear with manual screeningOrdered By: Celi Griffith on 03-23-2023 Thin prep Papanicolaou smear with manual screening 8 5-15 [facility] Basophil percentageOrdered B y: Alka Wagner on 10-07-2022 Chloride [Moles/Vol] 109 mmol/L 98-107 [facility] Glucose [Mass/Vol] 196 mg/dL 74-106 [facility] Comment on above: Fasting Glucose resu lt greater than or equal to 126 mg/dL suggests DIABETES MELLITUS per A.D.A. criteria. Potassium [Moles/Vol] 4.3 mmol/L 3.5-5.1 [facility] Sodium [Moles/Vol] 140 mmol/L 136-145 [facility] Laboratory - Chemistry and C hemistry - challengeOrdered By: Alka Wagner on 10-07-2022 CO2 [Moles/Vol] 26.0 mmol/L 21.0-32.0 [facility] Urea nitrogen/Creatinine [Mass ratio] 23.5 mg/mg 10-20 [facility] No Panel InformationOrdered By: Alka Wagner on 10-07-2022 Estimated GFR (MDRD) Amer 58 mL/min >60 [facility] Comment on above: GFR Calc Estimated GFR (MDRD) Non-Af Amer 48 mL/min >60 [facility] Comment on above: Non- GFR Calc Serum or plasma calcium lion urement (mass/volume)Ordered By: Alka Wagner on 10-07-2022 Calcium [Mass/Vol] 9.4 mg/dL 8.5-10.1 [facility] Serum or plasma creatinine m easurement (mass/volume)Ordered By: Alka Wagner on 10-07-2022 Creatinine [Mass/Vol] 1.53 mg/dL 0.70-1.30 [facility] Comment on above: The validity of the calculated GFR & GFRAA in patients over 70 years has not been determined. Clinical correlation is essential. Serum or plasma urea nitroge n measurement (mass/volume)Ordered By: Alka Wagner on 10-07-2022 Urea nitrogen [Mass/Vol] 36 mg/dL 7-18 [facility] Thin prep Papanicolaou smear with manual screeningOrdered By: Alka Wagner on 10-07-2022 Thin prep Papanicolaou smear with manual screening 5 5-15 [facility] Basophil percentageOrdered B y: Dr. Chun on 09-30-2022 Chloride [Moles/Vol] 110 mmol/L 98-107 [facility] Glucose [Mass/Vol] 192 mg/dL 74-106 [facility] Comment on above: Fasting Glucose resu lt greater than or equal to 126 mg/dL suggests DIABETES MELLITUS per A.D.A. criteria. Potassium [Moles/Vol] 4.8 mmol/L 3.5-5.1 [facility] Sodium [Moles/Vol] 140 mmol/L 136-145 [facility] Laboratory - Chemistry and C hemistry - challengeOrdered By: Dr. Chun on 09-30-2022 CO2 [Moles/Vol] 22.0 mmol/L 21.0-32.0 [facility] Urea nitrogen/Creatinine [Mass ratio] 23.4 mg/mg 10-20 [facility] No Panel InformationOrdered By: Dr. Chun on 09-30-2022 Estimated GFR (MDRD) Amer 47 mL/min >60 [facility] Comment on above: GFR Calc Estimated GFR (MDRD) Non-Af Amer 39 mL/min >60 [facility] Comment on above: Non- GFR Calc Serum or plasma calcium lion urement (mass/volume)Ordered By: Dr. Chun on 09-30-2022 Calcium [Mass/Vol] 9.4 mg/dL 8.5-10.1 [facility] Serum or plasma creatinine m easurement (mass/volume)Ordered By: Dr. Chun on 09-30-2022 Creatinine [Mass/Vol] 1.84 mg/dL 0.70-1.30 [facility] Comment on above: The validity of the calculated GFR & GFRAA in patients over 70 years has not been determined. Clinical correlation is essential. Serum or plasma urea nitroge n measurement (mass/volume)Ordered By: Dr. Chun on 09-30-2022 Urea nitrogen [Mass/Vol] 43 mg/dL 7-18 [facility] Thin prep Papanicolaou smear with manual screeningOrdered By: Dr. Chun on 09-30-2022 Thin prep Papanicolaou smear with manual screening 8 5-15 [facility] Absolute lymphocyte countOrd ered By: Celi Griffith on 09-27-2022 Lymphocytes Auto (Unsp spec) [#/Vol] 1.18 10*3/uL 0.83-4.51 [facility] Basophil percentageOrdered B y: Celi Griffith on 09-27-2022 Basophils/100 WBC (Bld) 0.5 % 0-1 [facility] Bilirubin [Mass/Vol] 0.40 mg/dL 0.20-1.00 [facility] Comment on above: For patients on eltr ombopag therapy, use of Dimension [place] TBIL is not recommended. Chloride [Moles/Vol] 108 mmol/L 98-107 [facility] Cholesterol [Mass/Vol] 130 mg/dL <200 [facility] Comment on above: <200 mg/dL Desirable 200-240 mg/dL Borderline >240 mg/dL High Risk Eosinophils/100 WBC (Bld) 1.6 % 0-5 [facility] Glucose [Mass/Vol] 247 mg/dL 74-106 [facility] Comment on above: Glucose result great er than or equal to 200 mg/dLsuggests DIABETES MELLITUS per A.D.A. criteria. Neutrophils (Bld) [#/Vol] 8.8 10*3/uL 2.0-7.7 [facility] Neutrophils/100 WBC (Bld) 80.2 % 47-70 [facility] Potassium [Moles/Vol] 5.6 mmol/L 3.5-5.1 [facility] Protein [Mass/Vol] 7.2 g/dL 6.4-8.2 [facility] Sodium [Moles/Vol] 138 mmol/L 136-145 [facility] Triglyceride [Mass/Vol] 228 mg/dL <199 [facility] Comment on above: The drugs N-Acetylcy steine and Metamizole may falsely depress this assay.Serum Triglycerides Reference Interval Normal <150 mg/dL Borderline high 150 - 199 mg/dL High 200 - 499 mg/dL Very High > or = 500 mg/dL WBC (Bld) [#/Vol] 11.0 10*3/uL 4.4-11.0 [facility] Blood erythrocytes count (nu mber/volume)Ordered By: Celi Griffith on 02-13-2023 RBC (Bld) [#/Vol] 3.77 10*6/uL 4.6-6.2 [facility] Blood hemoglobin measurement (mass/volume)Ordered By: Celi Griffith on 09-27-2022 Hemoglobin (Bld) [Mass/Vol] 11.9 g/dL 13.0-16.5 [facility] Blood lymphocytes/100 leukoc ytesOrdered By: Celi Griffith on 09-27-2022 Lymphocytes/100 WBC (Bld) 10.8 % 19-41 [facility] Blood monocytes/100 leukocyt esOrdered By: Celi Griffith on 09-27-2022 Monocytes/100 WBC (Bld) 6.6 % 0-10 [facility] Blood platelet mean volumeOr dered By: Celi Griffith on 09-27-2022 Platelet mean volume (Bld) [Entitic vol] 11.6 fL 6.2-12.0 [facility] Determination of erythrocyte mean corpuscular volume (MCV)Ordered By: Celi Griffith on 09-27-2022 MCV (RBC) [Entitic vol] 92.3 fL 80-94 [facility] Hematocrit Auto (Bld) [Volum e fraction]Ordered By: Celi Griffith on 09-27-2022 Hematocrit (Bld) [Volume fraction] 34.8 % 40-54 [facility] Laboratory - Chemistry and C hemistry - challengeOrdered By: Celi Griffith on 09-27-2022 ALP [Catalytic activity/Vol] 91 U/L 45-117 [facility] ALT [Catalytic activity/Vol] 24 U/L 16-61 [facility] CO2 [Moles/Vol] 24.0 mmol/L 21.0-32.0 [facility] Globulin (S) [Mass/Vol] 3.6 g/dL 2.2-4.2 [facility] Urea nitrogen/Creatinine [Mass ratio] 20.4 mg/mg 10-20 [facility] - Hematology and Cell countsOrdered By: Celi Griffith on 09-27-2022 Erythrocyte distribution width (RBC) [Entitic vol] 40.8 fL 35.1-43.9 [facility] Erythrocyte distribution width (RBC) [Ratio] 12.1 % 11.6-14.6 [facility] Immature granulocytes/100 WBC (Bld) 0.300 % 0.0-0.9 [facility] Comment on above: IG% - Immature Granu locytes (promyelocytes, myelocytes and metamyelocytes) > 1% indicates that a LEFT SHIFT is Present. MCH (RBC) [Entitic mass] 31.6 pg 27.0-32.0 [facility] Nucleated RBC/100 WBC (Bld) [Ratio] 0 % 0-5 [facility] MCHC Auto (RBC) [Mass/Vol]Or dered By: Celi Griffith on 09-27-2022 MCHC (RBC) [Mass/Vol] 34.2 g/dL 32-36 [facility] No Panel InformationOrdered By: Celi Griffith on 09-27-2022 Estimated GFR (MDRD) Amer 40 mL/min >60 [facility] Comment on above: GFR Calc Estimated GFR (MDRD) Non-Af Amer 33 mL/min >60 [facility] Comment on above: Non- GFR Calc Platelets bldOrdered By: Lion Griffith on 09-27-2022 Platelets (Bld) [#/Vol] 219 10*3/uL 150-450 [facility] Serum or plasma albumin lion urement (mass/volume)Ordered By: Celi Griffith on 09-27-2022 Albumin [Mass/Vol] 3.6 g/dL 3.2-5.0 [facility] Serum or plasma albumin/glob ulin mass ratioOrdered By: Celi Griffith on 09-27-2022 Albumin/Globulin [Mass ratio] 1.0 {ratio} 0.9-2.4 [facility] Serum or plasma calcium lion urement (mass/volume)Ordered By: Celi Griffith on 09-27-2022 Calcium [Mass/Vol] 9.3 mg/dL 8.5-10.1 [facility] Serum or plasma cholesterol in HDL measurement (mass/volume)Ordered By: Celi Griffith on 09-27-2022 Cholesterol in HDL [Mass/Vol] 33 mg/dL >40 [facility] Comment on above: The drugs N-Acetylcy steine and Metamizole may falsely depress this assay. Reference Range HDL <40 mg/dL Low HDL Cholesterol HDL >or= 60 mg/dL High HDL Cholesterol Serum or plasma cholesterol in VLDL measurement (mass/volume)Ordered By: Celi Griffith on 09-27-2022 Cholesterol in VLDL [Mass/Vol] 46 mg/dL 5-40 [facility] Serum or plasma creatinine m easurement (mass/volume)Ordered By: Celi Griffith on 09-27-2022 Creatinine [Mass/Vol] 2.11 mg/dL 0.70-1.30 [facility] Comment on above: The validity of the calculated GFR & GFRAA in patients over 70 years has not been determined. Clinical correlation is essential. Serum or plasma low density lipoprotein (LDL) cholesterol measurement (mass/volume)Ordered By: Celi Griffith on 09-27-2022 Cholesterol in LDL [Mass/Vol] 51 mg/dL 0-130 [facility] Serum or plasma urea nitroge n measurement (mass/volume)Ordered By: Celi Griffith on 09-27-2022 Urea nitrogen [Mass/Vol] 43 mg/dL 7-18 [facility] Thin prep Papanicolaou smear with manual screeningOrdered By: Celi Griffith on 09-27-2022 Thin prep Papanicolaou smear with manual screening 10 U/L 15-37 [facility] Thin prep Papanicolaou smear with manual screening 6 5-15 [facility] Thin prep Papanicolaou smear with manual screening 864.0 mg/L NO RANGE EST. [facility] 01-23-2022 [facility] Telephone (CLIFFORD) VERENA CLEMENTS ([id number]) 1955 M Date Time Provider Department 01/23/22 OTONIEL CORTES During your visit today, we recorded the following information about you: Georgina Mcleod RN 01/23/2022 8:56 AM Signed Patient's Teressa calls and states that patient has gout which has gotten worse over the past week. asking if provider can send in medication for gout? Please review and advise, SERGIO Sparks DO 01/23/2022 9:28 AM Signed Patient can be seen in UC, needs to be seen for this concern with his health risks DO Georgina Mason RN 01/23/2022 9:30 AM Signed Patient's Teressa called and notified of provider instruction. voiced understanding. Georgina Mcleod RN Allergies As of Date: 01/23/2022 Noted Allergy Reaction METFORMIN 03/29/2019 8 - GI Upset Date Reviewed: 11/25/2021 Reviewed by: Otoniel Cortes APRN.SENIOR POWER PLANT OPERATOR, DNP - Fully Assessed Reason for Visit: Patient Update [1234] Prescriptions as of 01/23/2022 - temazepam (RESTORIL) 15 mg Take 1 capsule by mouth at bedtime as needed for up to 45 days. FOR INSOMNIA - LORazepam (ATIVAN) 0.5 mg TAKE 1 TABLET BY MOUTH EVERY DAY NEEDED FOR ANXIETY FOR UP TO 30 DAYS - insulin detemir U-100 (LEVEMIR FLEXTOUCH U-100 INSULIN) 100 unit/mL (3 mL) injection pen Inject 34 units subcutaneously daily - terbinafine HCl (LAMISIL) 250 mg tablet Take 1 tablet by mouth once daily. - dulaglutide (TRULICITY) 1.5 mg/0.5 mL pen injector Inject 1.5 mg subcutaneously one time a week. Inject once per week. Discard Pen After - furosemide (LASIX) 40 mg tablet Take 1 tablet by mouth once daily. - Insulin [place], Disposable, (BD ULTRAFINE III MINI PEN) 31 gauge x 3/16 USE 4 TIMES A DAY DIRECTED - spironolactone (ALDACTONE) 25 mg tablet Take 1 tablet by mouth once daily. - FLUoxetine (PROZAC) 20 mg capsule Take 1 capsule by mouth once daily. - apixaban (ELIQUIS) 5 mg tab(s) Take 1 tablet by mouth twice daily. - atorvastatin (LIPITOR) 80 mg tablet Take 1 tablet by mouth once daily. - cholecalciferol, vitamin D3, (VITAMIN D3 ORAL) Take by mouth once daily. - ascorbic acid (VITAMIN C ORAL) Take by mouth once daily. - albuterol HFA (PROAIR HFA) 90 mcg/actuation inhaler Inhale 2 Puffs as instructed every 4 hours as needed for Wheezing/Shortness of Breath. - omeprazole (PRILOSEC) 20 mg capsule Take 20 mg by mouth once daily. - Tadalafil (CIALIS) 20 mg tab(s) Take 1 tablet by mouth as needed. - nitroglycerin sublingual (NITROQUICK) 0.4 mg SL tablet Dissolve 1 tablet under the tongue every 5 minutes as needed for Chest Pain. - blood sugar diagnostic (Pathogenetix ULTRA TEST) test strip 1 Strip twice daily. Use as instructed - carvedilol (COREG) 25 mg tablet Take 1 tablet by mouth twice daily. - losartan (COZAAR) 100 mg tablet Take 100 mg by mouth once daily. - aspirin, enteric coated (ASPIRIN, ENTERIC COATED) 81 mg EC tablet Take 1 tablet by mouth once daily. Problem List As Of Date 01/23/2022 Noted Resolved Depression [F32.A] 03/02/2019 Essential Hypertension, Benign [I10] GERD (gastroesophageal reflux disease) [K21.9] 07/13/2010 Hyperlipidemia with target LDL less than 100 [E*05/23/2012 Arteriosclerosis of carotid artery [I65.29] 08/16/2013 Rotator cuff tear arthropathy [M75.100, M12.819]04/08/2015 11/22/2018 S/P CABG x 4 [Z95.1] 05/29/2015 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, F51.05] 07/11/2015 ASHD (arteriosclerotic heart disease) [I25.10] 08/26/2015 Paroxysmal atrial fibrillation (HCC) [I48.0] 08/26/2015 Chronic anticoagulation [Z79.01] 08/26/2015 Type 2 diabetes mellitus with stage 3 chronic k*01/09/2016 Anxiety [F41.9] 09/17/2016 Erectile dysfunction [N52.9] 10/22/2016 Chronic kidney disease, stage III (moderate) (H*05/02/2017 Nonrheumatic aortic valve stenosis [I35.0] 07/26/2017 Situational depression [F43.21] 07/26/2017 03/02/2019 Chronic systolic heart failure (HCC) [I50.22] 06/23/2015 Presence of aortocoronary bypass graft [Z95.1] 06/23/2015 11/23/2021 Ischemic cardiomyopathy [I25.5] 08/12/2017 11/23/2021 Nonrheumatic tricuspid (valve) insufficiency [I*03/28/2018 Ventricular bigeminy [I49.8] 03/28/2018 11/22/2018 Secondary pulmonary arterial hypertension (HCC)*06/13/2018 History of non-ST elevation myocardial infarcti*06/28/2018 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*11/23/2021 Non-ST elevation (NSTEMI) myocardial infarction*11/25/2021 Encounter Status:Closed by GEORGINA MCLEOD on 01/23/22 [facility] CNOVon 11-25-2021 CNOV Office Visit (FAMPWS ) VERENA CLEMENTS ([id number]) 1955 M Date Time Provider Department 11/25/21 1:20 PM OTONIEL CORTES During your visit today, we recorded the following information about you: Pulse Respiration Blood pressure Weight 80/minute 16/minute 128/70 90.3 kg Otoniel Cortes APRN.CNP, DNP 01/18/2022 4:47 PM Addendum Medicare Yearly Visit Verena Ki RiceClements is a 66 year old male who presents here today for a Medicare Wellness Exam. Presents to the [facility] as an established patient Dr. Otoniel Cortes APRN.CNP, DNP Medical B eligibilty date 2018 Date of last exam unknown Past medical history: CAD, diabetes type 2, CKD stage III, diabetes with neuropathy, hypertension, GERD, hyperlipidemia, long-term anticoagulation, left bundle branch block, A. fib, status post CABG x4 DM/CKD3: Last hemoglobin A1c was 7.1%. Currently on insulin and has been using 34 units of insulin detemir U100 and morning time along with his other diabetic medications. Overall feeling well. Denies hypoglycemic symptoms. States compliance with diabetic medications. Continues with routine follow-up with cardiology. Followed by cardiology in the [facility]. - Dr. Mcgill. On chronic anticoagulation. Stage 3 CKD. Stable in previous labs. Verena Clements gets minimal exercise. He watches his diet for sodium, low fat and low cholesterol most of the time. Previously diagnosed with Covid. Complains of occasional brain fog since having COVID. Also complains of intermittent continued fatigue. Denies chest pain, shortness of breath or difficulty breathing. No jaw numbness pain or tingling. No upper extremity pain. Followed by cardiology and has an appointment next month. Current specialists seen: Cardiology: [facility]?Dr. Mcgill Ophthalmology: [facility] Past medical history, appointments, medications, allergies reviewed 11/25/2021 Previous Medical History PAST MEDICAL HISTORY Diagnosis Date - Arteriosclerosis of carotid artery 08/16/2013 - Atherosclerotic heart disease of [place] coronary artery without angina pectoris 08/26/2015 - Chronic anticoagulation 08/26/2015 - Depression - Diabetes mellitus with neuropathy (HCC) 01/29/2010 - Essential hypertension, benign - GERD (gastroesophageal reflux disease) 07/13/2010 - Hyperlipidemia LDL goal < 100 05/23/2012 - LBBB (left bundle branch block) - Paroxysmal atrial fibrillation ([facility]) 08/26/2015 - Presence of cardiac resynchronization therapy defibrillator - Rotator cuff tear arthropathy 04/08/2015 - S/P CABG x 4 05/29/2015 - Type 2 diabetes mellitus with stage 3 chronic kidney disease, with long-term current use of insulin ([facility]) 01/09/2016 - Ventricular bigeminy 03/28/2018 Previous Surgical History PAST SURGICAL HISTORY Procedure Laterality Date - COLONOSCOP W/ OR W/O BRSH SPEC 09/12/2013 Colonoscopy - COLONOSCOPY - CORONARY ARTERY BYPASS GRAFT - CORONARY ARTERY BYPASS GRAFT HX 05/06/2015 - EGD W/O OR W/BRUSH/WASH 09/12/2013 EGD - INSERTION OF BIVENTRICULAR ASSIST DEVICE 09/14/2018 [facility]-Dr. Simpson - ROTATOR CUFF REPAIR 04/2015 - RT AND LT HEART CATH 05/01/2015 Family History FAMILY HISTORY Problem Relation Age of Onset - Diabetes Father - Coronary Artery Disease Father - Heart Mother pacemaker - Arthritis Brother - Hypertension Brother - Heart disease Brother - Hypertension Brother - Diabetes Sister - Heart disease Paternal Grandmother - Heart disease Paternal Grandfather Patient Allergies ALLERGIES Allergen Reactions - Metformin GI Upset Current Medications Current Outpatient Medications on File Prior to Visit Medication Sig - dulaglutide (TRULICITY) 1.5 mg/0.5 mL pen injector Inject 1.5 mg subcutaneously one time a week. Inject once per week. Discard Pen After - LORazepam (ATIVAN) 0.5 mg TAKE 1 TABLET BY MOUTH EVERY DAY NEEDED FOR ANXIETY FOR UP TO 30 DAYS - temazepam (RESTORIL) 15 mg Take 1 capsule by mouth at bedtime as needed for up to 45 days. FOR INSOMNIA - furosemide (LASIX) 40 mg tablet Take 1 tablet by mouth once daily. - Insulin [place], Disposable, (BD ULTRAFINE III MINI PEN) 31 gauge x 3/16 USE 4 TIMES A DAY DIRECTED - spironolactone (ALDACTONE) 25 mg tablet Take 1 tablet by mouth once daily. - FLUoxetine (PROZAC) 20 mg capsule Take 1 capsule by mouth once daily. - apixaban (ELIQUIS) 5 mg tab(s) Take 1 tablet by mouth twice daily. - insulin detemir U-100 (LEVEMIR FLEXTOUCH U-100 INSULIN) 100 unit/mL (3 mL) injection pen Inject 34 units subcutaneously daily - atorvastatin (LIPITOR) 80 mg tablet Take 1 tablet by mouth once daily. - cholecalciferol, vitamin D3, (VITAMIN D3 ORAL) Take by mouth once daily. - ascorbic acid (VITAMIN C ORAL) Take by mouth once daily. - allopurinol (ZYLOPRIM) 100 mg tablet Take 1 tablet by mouth once daily. For gout. - (more content not included)... Normal [facility] [place] 09-23-2021 [place] Telephone (FAMPWS) VERENA CLEMENTS ([id number]) 1955 M Date Time Provider Department 09/23/21 OTONIEL CORTES During your visit today, we recorded the following information about you: Kasey Darling RN 09/23/2021 12:45 PM Signed Friend (Shirley) calls to let provider know that patient is not able to afford the Trulicity (cost is over $500/mo). Patient has not had medication for a couple of weeks. Patient is filling out a [employer] Application and will bring in later today for provider to complete. Once completed, form needs faxed back to . Kasey Darling RN [facility] 09/23/2021 3:23 PM Signed Will give form to provider once received [facility] 09/24/2021 10:29 AM Signed Form received and given to PCP for completion [facility] Otoniel Cortes APRN.EL TAYLOR 09/25/2021 12:55 PM Signed Form completed and signed. Please fax. Otoniel Cortes APRN.EL TAYLORy [facility] 09/25/2021 1:16 PM Signed Faxed patient notified [facility] Allergies As of Date: 09/23/2021 Noted Allergy Reaction METFORMIN 03/29/2019 8 - GI Upset Date Reviewed: 07/21/2021 Reviewed by: Otoniel Cortes APRN.EL TAYLOR - Fully Assessed Reason for Visit: [employer] Application [Other] Prescriptions as of 09/25/2021 - LORazepam (ATIVAN) 0.5 mg TAKE 1 TABLET BY MOUTH EVERY DAY NEEDED FOR ANXIETY FOR UP TO 30 DAYS - furosemide (LASIX) 40 mg tablet Take 1 tablet by mouth once daily. - temazepam (RESTORIL) 15 mg Take 1 capsule by mouth at bedtime as needed for up to 90 days. FOR INSOMNIA - Insulin [place], Disposable, (BD ULTRAFINE III MINI PEN) 31 gauge x 3/16 USE 4 TIMES A DAY DIRECTED - spironolactone (ALDACTONE) 25 mg tablet Take 1 tablet by mouth once daily. - FLUoxetine (PROZAC) 20 mg capsule Take 1 capsule by mouth once daily. - dulaglutide (TRULICITY) 1.5 mg/0.5 mL pen injector Inject 1.5 mg subcutaneously one time a week. Inject once per week. Discard Pen After - apixaban (ELIQUIS) 5 mg tab(s) Take 1 tablet by mouth twice daily. - insulin detemir U-100 (LEVEMIR FLEXTOUCH U-100 INSULIN) 100 unit/mL (3 mL) injection pen Inject 34 units subcutaneously daily - atorvastatin (LIPITOR) 80 mg tablet Take 1 tablet by mouth once daily. - cholecalciferol, vitamin D3, (VITAMIN D3 ORAL) Take by mouth once daily. - ascorbic acid (VITAMIN C ORAL) Take by mouth once daily. - allopurinol (ZYLOPRIM) 100 mg tablet Take 1 tablet by mouth once daily. For gout. - albuterol HFA (PROAIR HFA) 90 mcg/actuation inhaler Inhale 2 Puffs as instructed every 4 hours as needed for Wheezing/Shortness of Breath. - omeprazole (PRILOSEC) 20 mg capsule Take 20 mg by mouth once daily. - Tadalafil (CIALIS) 20 mg tab(s) Take 1 tablet by mouth as needed. - nitroglycerin sublingual (NITROQUICK) 0.4 mg SL tablet Dissolve 1 tablet under the tongue every 5 minutes as needed for Chest Pain. - blood sugar diagnostic (Pathogenetix ULTRA TEST) test strip 1 Strip twice daily. Use as instructed - carvedilol (COREG) 25 mg tablet Take 1 tablet by mouth twice daily. - losartan (COZAAR) 100 mg tablet Take 100 mg by mouth once daily. - aspirin, enteric coated (ASPIRIN, ENTERIC COATED) 81 mg EC tablet Take 1 tablet by mouth once daily. Problem List As Of Date 09/23/2021 Noted Resolved Depression [F32.A] 03/02/2019 Essential Hypertension, Benign [I10] GERD (gastroesophageal reflux disease) [K21.9] 07/13/2010 Hyperlipidemia with target LDL less than 100 [E*05/23/2012 Arteriosclerosis of carotid artery [I65.29] 08/16/2013 Rotator cuff tear arthropathy [M75.100, M12.819]04/08/2015 11/22/2018 S/P CABG x 4 [Z95.1] 05/29/2015 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, F51.05] 07/11/2015 ASHD (arteriosclerotic heart disease) [I25.10] 08/26/2015 Paroxysmal atrial fibrillation (HCC) [I48.0] 08/26/2015 Chronic anticoagulation [Z79.01] 08/26/2015 Controlled type 2 diabetes mellitus without com*01/09/2016 Anxiety [F41.9] 09/17/2016 Erectile dysfunction [N52.9] 10/22/2016 CKD (chronic kidney disease) stage 3, GFR 30-59*05/02/2017 03/28/2018 Nonrheumatic aortic valve stenosis [I35.0] 07/26/2017 Situational depression [F43.21] 07/26/2017 03/02/2019 Chronic systolic heart failure (HCC) [I50.22] 06/23/2015 Presence of aortocoronary bypass graft [Z95.1] 06/23/2015 Ischemic cardiomyopathy [I25.5] 08/12/2017 Nonrheumatic tricuspid (valve) insufficiency [I*03/28/2018 Ventricular bigeminy [I49.8] 03/28/2018 11/22/2018 Secondary pulmonary arterial hypertension (HCC)*06/13/2018 Non-ST elevation (NSTEMI) myocardial infarction*06/28/2018 Encounter Status:Closed by BOOGIE HARO CMA on 09/25/21 [facility] Roberto 07-21-2021 CNOV Office Visit (ANNEWS ) VERENA CLEMENTS ([id number]) 1955 M Date Time Provider Department 07/21/21 10:00 AM OTONIEL CORTES During your visit today, we recorded the following information about you: Pulse Respiration Blood pressure Weight 96/minute 16/minute 130/74 90.7 kg Otoniel Cortes APRN.CNP, DNP 07/21/2021 10:22 AM Signed Follow up with Otoniel Cortes APRN.CNP, DNP in November 2021 for Medicare Wellness Exam Continue with current medications. We will recheck lab work at next appointment. Return to the clinic or seek care at [facility] for any worsening signs or symptoms: Healthy Habits: Recommend regular physical activity, nutrition and healthy eating habits. Consume a variety of foods every day focusing on fruits, vegetables and lean meats). Eat foods low in fat, saturated fat and cholesterol. Eat a limited amount of salt and sodium. Drink adequate amounts of water and limit sugary drinks. Exercise portion control in meal selection. Establish a mindset of a wellness approach to health. Thank you for allowing me to provide your care today. I look forward to seeing you again and maintaining your health. Otoniel Cortes APRN.CNP, DNP Daniel Blaz, APRN.CNP, DNP 07/21/2021 3:08 PM Signed Chief Complaint Patient presents with: Recheck HPI Verena Clements is a 65 year old male who presents here today for follow-up related to low back pain episode. This is an established patient of Otoniel Cortes APRN.CNP, DNP. Denies any recent urgent care visits, ER visits or hospitalizations. Back pain: Recently seen for back pain. Seen approximately 4 weeks ago for low back pain. Symptoms have improved. No more back pain at this time. He limited his heavy lifting he was doing as part of his workout routine. DM/CKD3: Last hemoglobin A1c was 7.3%. Currently on insulin and has been using 34 units of insulin detemir U100 and morning time along with his other diabetic medications. Overall feeling well. A1c was rechecked yesterday and was 7.1%. Denies hypoglycemic symptoms. States compliance with diabetic medications. Continues with routine follow-up with cardiology. Followed by cardiology in the [facility]. - Dr. Mcgill. On chronic anticoagulation. Stage 3 CKD. Stable in previous labs. Requesting med refills today Past medical history, appointments, medications, allergies reviewed 06/29/2021 Previous Medical History PAST MEDICAL HISTORY Diagnosis Date - Arteriosclerosis of carotid artery 08/16/2013 - Atherosclerotic heart disease of [place] coronary artery without angina pectoris 08/26/2015 - Chronic anticoagulation 08/26/2015 - Depression - Diabetes mellitus with neuropathy (HCC) 01/29/2010 - Essential hypertension, benign - GERD (gastroesophageal reflux disease) 07/13/2010 - Hyperlipidemia LDL goal < 100 05/23/2012 - LBBB (left bundle branch block) - Paroxysmal atrial fibrillation (HCC) 08/26/2015 - Presence of cardiac resynchronization therapy defibrillator - Rotator cuff tear arthropathy 04/08/2015 - S/P CABG x 4 05/29/2015 - Type 2 diabetes mellitus with stage 3 chronic kidney disease, with long-term current use of insulin (HCC) 01/09/2016 - Ventricular bigeminy 03/28/2018 Previous Surgical History PAST SURGICAL HISTORY Procedure Laterality Date - COLONOSCOP W/ OR W/O BRSH SPEC 09/12/2013 Colonoscopy - COLONOSCOPY - CORONARY ARTERY BYPASS GRAFT - CORONARY ARTERY BYPASS GRAFT HX 05/06/2015 - EGD W/O OR W/BRUSH/WASH 09/12/2013 EGD - INSERTION OF BIVENTRICULAR ASSIST DEVICE 09/14/2018 [facility]-Dr. Simpson - ROTATOR CUFF REPAIR 04/2015 - RT AND LT HEART CATH 05/01/2015 Family History FAMILY HISTORY Problem Relation Age of Onset - Diabetes Father - Coronary Artery Disease Father - Heart Mother pacemaker - Arthritis Brother - Hypertension Brother - Heart disease Brother - Hypertension Brother - Diabetes Sister - Heart disease Paternal Grandmother - Heart disease Paternal Grandfather Patient Allergies ALLERGIES Allergen Reactions - Metformin GI Upset Current Medications Current Outpatient Medications on File Prior to Visit Medication Sig - temazepam (RESTORIL) 15 mg Take 1 capsule by mouth at bedtime as needed for up to 90 days. FOR INSOMNIA - atorvastatin (LIPITOR) 80 mg tablet Take 1 tablet by mouth once daily. - cholecalciferol, vitamin D3, (VITAMIN D3 ORAL) Take by mouth once daily. - ascorbic acid (VITAMIN C ORAL) Take by mouth once daily. - insulin detemir U-100 (LEVEMIR FLEXTOUCH U-100 INSULIN) 100 unit/mL (3 mL) injection pen Inject 37 units subcutaneously daily - allopurinol (ZYLOPRIM) 100 mg tablet Take 1 tablet by mouth once daily. For gout. - albuterol HFA (PROAIR HFA) 90 mcg/actuation inhaler Inhale 2 Puffs as instructed every 4 hours as needed for Wheezing/Shortness of Breath. - Insulin [place], Dispo (more content not included)... Normal [facility] Comp Metabolic Panelon 07-20 Albumin [Mass/Vol] 4.5 g/dL Normal 3.9-4.9 [facility] Comment on above: Performed By: #### C MP, HBA1C ####[place] [address] [place], [place] [phone] ALP [Catalytic activity/Vol] 80 U/L Normal 38-113 [facility] Comment on above: Performed By: #### C MP, HBA1C ####[place] [address] [address] [place], [place] [phone] ALT [Catalytic activity/Vol] 65 U/L High 10-54 [facility] Comment on above: Performed By: #### C MP, HBA1C ####[place] [address] [place], [place] [phone] Anion gap [Moles/Vol] 12 mmol/L Normal 9-18 [facility] Comment on above: Performed By: #### C MP, HBA1C ####[place] [address] [place], [place] [phone] AST [Catalytic activity/Vol] 30 U/L Normal 14-40 [facility] Comment on above: Performed By: #### C MP, HBA1C ####[place] [address] [place], [place] [phone] Bilirubin [Mass/Vol] 0.6 mg/dL Normal 0.2-1.3 [facility] Comment on above: Performed By: #### C MP, HBA1C ####[place] [address] [place], [place] [phone] Calcium [Mass/Vol] 10.0 mg/dL Normal 8.5-10.2 [facility] Comment on above: Performed By: #### C MP, HBA1C ####[place] [address] [place], [place] [phone] Chloride [Moles/Vol] 103 mmol/L Normal 97-105 [facility] Comment on above: Performed By: #### C MP, HBA1C ####[facility] [address] [place], [place] [phone] CO2 [Moles/Vol] 23 mmol/L Normal 22-30 [facility] Comment on above: Performed By: #### C MP, HBA1C ####[facility] [place], [place] [phone] Creatinine [Mass/Vol] 1.57 mg/dL High 0.73-1.22 [facility] Comment on above: Performed By: #### C MP, HBA1C ####[facility] [place], [place] [phone] eGFR- Amer. 54 [facility] Comment on above: Performed By: #### C MP, HBA1C ####[facility], [place] [phone] eGFR-All Other Races 44 . Normal [facility] Comment on above: Result Comment: eGFR (Estimated GFR) Units of measure: mL/min/1.73 meters squared eGFR is derived from the reexpressed MDRD Study equation using the following parameters: serum creatinine, age, gender and race. The creatinine assay has been calibrated to be traceable to IDMS. An eGFR <60 mL/min/1.73m2 for >3 months is consistent with chronic kidney disease. Refer to KDOQI guidelines for clinical interpretation. In patients with unstable renal function, e.g. those with acute kidney injury, the eGFR may not accurately reflect actual GFR. Note: On 10/10/2021, the eGFR calculation will be updated to the NKF-ASN Task Force recommended 2020 CKD-EPI creatinine equation which does not include a race variable. For more information or to access a 2020 CKD-EPI calculator, visit the National Kidney Foundation website at kidney.org/professionals/kdoqi/gfr_calculator. Performed By: #### C MP, HBA1C ####[facility] [place], [place] [phone] Glucose [Mass/Vol] 161 mg/dL High 74-99 [facility] Comment on above: Result Comment: The [place] Diabetes Association (ADA) provides guidance for cutoff values for fasting glucose and random glucose. The ADA defines fasting as no caloric intake for at least 8 hours. Fasting plasma glucose results between 100 to 125 mg/dL indicate increased risk for diabetes (prediabetes). Fasting plasma glucose results greater than or equal to 126 mg/dL meet the criteria for diagnosis of diabetes. In the absence of unequivocal hyperglycemia, results should be confirmed by repeat testing. In a patient with classic symptoms of hyperglycemia or hyperglycemic crisis, random plasma glucose results greater than or equal to 200 mg/dL meet the criteria for diagnosis of diabetes. Reference: Standards of Medical Care in Diabetes 2016, [place] Diabetes Association. Diabetes Care. 2016.39(Suppl 1). Performed By: #### C MP, HBA1C ####[address] [phone] Potassium [Moles/Vol] 4.9 mmol/L Normal 3.7-5.1 [facility] Comment on above: Performed By: #### C MP, HBA1C ####[address] [phone] Protein [Mass/Vol] 7.1 g/dL Normal 6.3-8.0 [facility] Comment on above: Performed By: #### C MP, HBA1C ####[facility] [place] [address] [phone] Sodium [Moles/Vol] 138 mmol/L Normal 136-144 [facility] Comment on above: Performed By: #### C MP, HBA1C ####[facility] [place], [place] [phone] Urea nitrogen [Mass/Vol] 31 mg/dL High 9-24 [facility] Comment on above: Performed By: #### C MP, HBA1C ####[id number] [place], [place] [phone] Hemoglobin A1con 07-20-2021 Glucose [Mass/Vol] 157 mg/dL Normal [facility] Comment on above: Result Comment: eAG: (Estimated average glucose) is a calculated value from HgbA1c and is off premise service representative of the average blood glucose level in the last 2-3 month period. Performed By: #### C MP, HBA1C ####[facility] [place], [place] [phone] HbA1c (Bld) [Mass fraction] 7.1 % High 4.3-5.6 [facility] Comment on above: Result Comment: [place] Diabetes Association guidelines indicate that patients with HgbA1c in the range 5.7-6.4% are at increased risk for development of diabetes, and intervention by lifestyle modification may be beneficial. HgbA1c greater or equal to 6.5% is considered diagnostic of diabetes. Performed By: #### C MP, HBA1C ####[facility] [place], [place] [phone] CNOVon 06-29-2021 CNOV Office Visit (CLIFFORD ) VERENA CLEMENTS ([id number]) 1955 M Date Time Provider Department 06/29/21 3:00 PM OTONIEL CORTES During your visit today, we recorded the following information about you: Pulse Respiration Blood pressure Weight 71/minute 14/minute 138/80 89.4 kg Otoniel Cortes APRN.EL TAYLOR 07/21/2021 8:08 AM Addendum Chief Complaint Patient presents with: Back Pain HPI Verena Clements is a 65 year old male who presents here today for low back pain x 3 weeks. This is an established patient of Otoniel Cortes APRN.EL TAYLOR. Denies any recent urgent care visits, ER visits or hospitalizations. Back pain: Complains of 3 weeks of bilateral mid to low back pain. Denies numbness or tingling in the lower or upper extremities. Denies radicular pain. States he had an episode of shingles several weeks ago. This was on the right side. Denies redness or swelling. Denies bruising. Denies hearing a pop or snap. Pain is dull and achy typically at 2 out of 10. Pain-free today. Denies recent injury or trauma. No history of back surgery. No bowel or bladder changes. No numbness or tingling in the groin. DM/CKD3: Last hemoglobin A1c was 7.3%. Currently on insulin and has been using 34 units of insulin detemir U100 and morning time along with his other diabetic medications. Overall feeling well.. Denies hypoglycemic symptoms. States compliance with diabetic medications. Continues with routine follow-up with cardiology. Followed by cardiology in the [facility]. - Dr. Mcgill. On chronic anticoagulation. Stage 3 CKD. Stable in previous labs. Past medical history, appointments, medications, allergies reviewed 06/29/2021 Previous Medical History PAST MEDICAL HISTORY Diagnosis Date - Arteriosclerosis of carotid artery 08/16/2013 - Atherosclerotic heart disease of [place] coronary artery without angina pectoris 08/26/2015 - Chronic anticoagulation 08/26/2015 - Depression - Diabetes mellitus with neuropathy (HCC) 01/29/2010 - Essential hypertension, benign - GERD (gastroesophageal reflux disease) 07/13/2010 - Hyperlipidemia LDL goal < 100 05/23/2012 - LBBB (left bundle branch block) - Paroxysmal atrial fibrillation (HCC) 08/26/2015 - Presence of cardiac resynchronization therapy defibrillator - Rotator cuff tear arthropathy 04/08/2015 - S/P CABG x 4 05/29/2015 - Type 2 diabetes mellitus with stage 3 chronic kidney disease, with long-term current use of insulin ([facility]) 01/09/2016 - Ventricular bigeminy 03/28/2018 Previous Surgical History PAST SURGICAL HISTORY Procedure Laterality Date - COLONOSCOP W/ OR W/O BRSH SPEC 09/12/2013 Colonoscopy - COLONOSCOPY - CORONARY ARTERY BYPASS GRAFT - CORONARY ARTERY BYPASS GRAFT HX 05/06/2015 - EGD W/O OR W/BRUSH/WASH 09/12/2013 EGD - INSERTION OF BIVENTRICULAR ASSIST DEVICE 09/14/2018 [facility]-Dr. Simpson - ROTATOR CUFF REPAIR 04/2015 - RT AND LT HEART CATH 05/01/2015 Family History FAMILY HISTORY Problem Relation Age of Onset - Diabetes Father - Coronary Artery Disease Father - Heart Mother pacemaker - Arthritis Brother - Hypertension Brother - Heart disease Brother - Hypertension Brother - Diabetes Sister - Heart disease Paternal Grandmother - Heart disease Paternal Grandfather Patient Allergies ALLERGIES Allergen Reactions - Metformin GI Upset Current Medications Current Outpatient Medications on File Prior to Visit Medication Sig - temazepam (RESTORIL) 15 mg Take 1 capsule by mouth at bedtime as needed for up to 90 days. FOR INSOMNIA - atorvastatin (LIPITOR) 80 mg tablet Take 1 tablet by mouth once daily. - cholecalciferol, vitamin D3, (VITAMIN D3 ORAL) Take by mouth once daily. - ascorbic acid (VITAMIN C ORAL) Take by mouth once daily. - insulin detemir U-100 (LEVEMIR FLEXTOUCH U-100 INSULIN) 100 unit/mL (3 mL) injection pen Inject 37 units subcutaneously daily - allopurinol (ZYLOPRIM) 100 mg tablet Take 1 tablet by mouth once daily. For gout. - albuterol HFA (PROAIR HFA) 90 mcg/actuation inhaler Inhale 2 Puffs as instructed every 4 hours as needed for Wheezing/Shortness of Breath. - Insulin [place], Disposable, (BD ULTRAFINE III MINI PEN) 31 gauge x 3/16 USE 4 TIMES A DAY DIRECTED - dulaglutide (TRULICITY) 1.5 mg/0.5 mL Inject 1.5 mg subcutaneously one time a week. Inject once per week. Discard Pen After - spironolactone (ALDACTONE) 25 mg tablet Take 1 tablet by mouth once daily. - furosemide (LASIX) 40 mg tablet Take 1 tablet by mouth once daily. - apixaban (ELIQUIS) 5 mg tab(s) Take 1 tablet by mouth twice daily. - FLUoxetine (PROZAC) 20 mg capsule Take 1 capsule by mouth once daily. - omeprazole (PRILOSEC) 20 mg capsule Take 20 mg by mouth once daily. - Tadalafil (CIALIS) 20 mg tab(s) Take 1 tablet by mouth as needed. - nitroglycerin sublingual (NITROQUICK) 0.4 mg SL tablet Dissolv (more content not included)... Normal [facility] 05-06-2021 [facility] VERE[facility] CLE[facility] ([id number]) 1955 M Date Time Provider Department 05/06/21 OTONIEL CORTES During your visit today, we recorded the following information about you: Hipolito Holguin LPN 05/06/2021 1:16 PM Signed Pt calling stating he was seen in yesterday and was tested for COVID. States was advised if he is + to call pcp to see if he has any additional recommendations/instru ctions for pt. Pt is +COVID. Pt has been taking Coricidin HBP and Nyquil for HBP. Pt reports that he is not in any distress and feels he is doing better than his . Pt did mention that his is getting monoclonal antibodies. Pt did not mention this for himself but got a message from Dr Sanchez that pt did express interest in this. Advised him would let you know this as well. Hipolito Cortes APRN.EL TAYLOR 05/06/2021 2:41 PM Signed Please set patient up with a virtual appointment with me tomorrow to discuss current symptomology and monoclonal antibody treatment Otoniel Cortes APRN.EL TAYLOR [employer] 05/06/2021 2:44 PM Signed Patient notified and scheduled Boogie Haro [facility] Allergies As of Date: 05/06/2021 Noted Allergy Reaction METFORMIN 03/29/2019 8 - GI Upset Date Reviewed: 05/05/2021 Reviewed by: Fannie Duke LPN - Fully Assessed Reason for Visit: positive COVID results [Other] Prescriptions as of 05/06/2021 - spironolactone (ALDACTONE) 25 mg tablet Take 1 tablet by mouth once daily. - temazepam (RESTORIL) 15 mg Take 1 capsule by mouth at bedtime as needed for up to 90 days. FOR INSOMNIA - FLUoxetine (PROZAC) 20 mg capsule Take 1 capsule by mouth once daily. - dulaglutide (TRULICITY) 1.5 mg/0.5 mL pen injector Inject 1.5 mg subcutaneously one time a week. Inject once per week. Discard Pen After - apixaban (ELIQUIS) 5 mg tab(s) Take 1 tablet by mouth twice daily. - insulin detemir U-100 (LEVEMIR FLEXTOUCH U-100 INSULIN) 100 unit/mL (3 mL) injection pen Inject 34 units subcutaneously daily - atorvastatin (LIPITOR) 80 mg tablet Take 1 tablet by mouth once daily. - cholecalciferol, vitamin D3, (VITAMIN D3 ORAL) Take by mouth once daily. - ascorbic acid (VITAMIN C ORAL) Take by mouth once daily. - allopurinol (ZYLOPRIM) 100 mg tablet Take 1 tablet by mouth once daily. For gout. - albuterol HFA (PROAIR HFA) 90 mcg/actuation inhaler Inhale 2 Puffs as instructed every 4 hours as needed for Wheezing/Shortness of Breath. - Insulin [place], Disposable, (BD ULTRAFINE III MINI PEN) 31 gauge x 3/16 USE 4 TIMES A DAY DIRECTED - furosemide (LASIX) 40 mg tablet Take 1 tablet by mouth once daily. - omeprazole (PRILOSEC) 20 mg capsule Take 20 mg by mouth once daily. - Tadalafil (CIALIS) 20 mg tab(s) Take 1 tablet by mouth as needed. - nitroglycerin sublingual (NITROQUICK) 0.4 mg SL tablet Dissolve 1 tablet under the tongue every 5 minutes as needed for Chest Pain. - blood sugar diagnostic (ONETOUCH ULTRA TEST) test strip 1 Strip twice daily. Use as instructed - carvedilol (COREG) 25 mg tablet Take 1 tablet by mouth twice daily. - losartan (COZAAR) 100 mg tablet Take 100 mg by mouth once daily. - aspirin, enteric coated (ASPIRIN, ENTERIC COATED) 81 mg EC tablet Take 1 tablet by mouth once daily. Problem List As Of Date 05/06/2021 Noted Resolved Depression [F32.9] 03/02/2019 Essential Hypertension, Benign [I10] GERD (gastroesophageal reflux disease) [K21.9] 07/13/2010 Hyperlipidemia with target LDL less than 100 [E*05/23/2012 Arteriosclerosis of carotid artery [I65.29] 08/16/2013 Rotator cuff tear arthropathy [M75.100, M12.819]04/08/2015 11/22/2018 S/P CABG x 4 [Z95.1] 05/29/2015 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, F51.05] 07/11/2015 ASHD (arteriosclerotic heart disease) [I25.10] 08/26/2015 Paroxysmal atrial fibrillation (HCC) [I48.0] 08/26/2015 Chronic anticoagulation [Z79.01] 08/26/2015 Type 2 diabetes mellitus with stage 3 chronic k*01/09/2016 Anxiety [F41.9] 09/17/2016 Erectile dysfunction [N52.9] 10/22/2016 CKD (chronic kidney disease) stage 3, GFR 30-59*05/02/2017 03/28/2018 Nonrheumatic aortic valve stenosis [I35.0] 07/26/2017 Situational depression [F43.21] 07/26/2017 03/02/2019 Chronic systolic heart failure (HCC) [I50.22] 06/23/2015 Presence of aortocoronary bypass graft [Z95.1] 06/23/2015 Ischemic cardiomyopathy [I25.5] 08/12/2017 Nonrheumatic tricuspid (valve) insufficiency [I*03/28/2018 Ventricular bigeminy [I49.8] 03/28/2018 11/22/2018 Secondary pulmonary arterial hypertension (HCC)*06/13/2018 Non-ST elevation (NSTEMI) myocardial infarction*06/28/2018 Encounter Status:Closed by BOOGIE HARO CMA on 05/06/21 [facility] CNOVon 05-05-2021 CNOV Office Visit (UCWSTR ) VERENA CLEMENTS ([id number]) 1955 M Date Time Provider Department 05/05/21 6:00 PM TERRANCE CONTRERAS [facility] During your visit today, we recorded the following information about you: Temperature Pulse Respiration Blood pressure 97.9 degrees 71/minute 18minute 136/82 Weight 88.9 kg Terrance Contreras PA-C 05/05/2021 7:19 PM Signed This note was created using Sparktrendter. Subjective Verena Clements is a 65 year old male. HPI Patient presents with headache, body aches mild cough and nausea over the past 4 days. His tested positive for Covid recently. He does have decreased smell. He has not had Covid previously and is not vaccinated. He does have history of diabetes and coronary artery disease. His temp has been around 100. He has been taking ibuprofen and Tylenol. Denies chest pain or shortness of breath. Review of Systems Constitutional: Positive for fatigue and fever. HENT: Positive for congestion. Negative for sore throat. Respiratory: Positive for cough. Gastrointestinal: Positive for nausea. Genitourinary: Negative. Musculoskeletal: Positive for myalgias. Neurological: Positive for headaches. All other systems reviewed and are negative. PAST MEDICAL HISTORY Diagnosis Date - Arteriosclerosis of carotid artery 08/16/2013 - Atherosclerotic heart disease of [place] coronary artery without angina pectoris 08/26/2015 - Chronic anticoagulation 08/26/2015 - Depression - Diabetes mellitus with neuropathy ([facility]) 01/29/2010 - Essential hypertension, benign - GERD (gastroesophageal reflux disease) 07/13/2010 - Hyperlipidemia LDL goal < 100 05/23/2012 - LBBB (left bundle branch block) - Paroxysmal atrial fibrillation ([facility]) 08/26/2015 - Presence of cardiac resynchronization therapy defibrillator - Rotator cuff tear arthropathy 04/08/2015 - S/P CABG x 4 05/29/2015 - Type 2 diabetes mellitus with stage 3 chronic kidney disease, with long-term current use of insulin ([facility]) 01/09/2016 - Ventricular bigeminy 03/28/2018 Current Outpatient Medications Medication Sig Dispense Refill - spironolactone (ALDACTONE) 25 mg tablet Take 1 tablet by mouth once daily. 90 tablet 3 - temazepam (RESTORIL) 15 mg Take 1 capsule by mouth at bedtime as needed for up to 90 days. FOR INSOMNIA 90 capsule 0 - FLUoxetine (PROZAC) 20 mg capsule Take 1 capsule by mouth once daily. 90 capsule 3 - dulaglutide (TRULICITY) 1.5 mg/0.5 mL pen injector Inject 1.5 mg subcutaneously one time a week. Inject once per week. Discard Pen After 4 Each 5 - apixaban (ELIQUIS) 5 mg tab(s) Take 1 tablet by mouth twice daily. 180 tablet 3 - insulin detemir U-100 (LEVEMIR FLEXTOUCH U-100 INSULIN) 100 unit/mL (3 mL) injection pen Inject 34 units subcutaneously daily 15 Pen 3 - atorvastatin (LIPITOR) 80 mg tablet Take 1 tablet by mouth once daily. 90 tablet 3 - cholecalciferol, vitamin D3, (VITAMIN D3 ORAL) Take by mouth once daily. - ascorbic acid (VITAMIN C ORAL) Take by mouth once daily. - allopurinol (ZYLOPRIM) 100 mg tablet Take 1 tablet by mouth once daily. For gout. 30 tablet 11 - albuterol HFA (PROAIR HFA) 90 mcg/actuation inhaler Inhale 2 Puffs as instructed every 4 hours as needed for Wheezing/Shortness of Breath. 8.5 g 5 - Insulin [place], Disposable, (BD ULTRAFINE III MINI PEN) 31 gauge x 3/16 USE 4 TIMES A DAY DIRECTED 400 Each 3 - furosemide (LASIX) 40 mg tablet Take 1 tablet by mouth once daily. 90 tablet 3 - omeprazole (PRILOSEC) 20 mg capsule Take 20 mg by mouth once daily. - Tadalafil (CIALIS) 20 mg tab(s) Take 1 tablet by mouth as needed. 10 tablet 5 - nitroglycerin sublingual (NITROQUICK) 0.4 mg SL tablet Dissolve 1 tablet under the tongue every 5 minutes as needed for Chest Pain. 1 Bottle of 25 0 - blood sugar diagnostic (ONETOUCH ULTRA TEST) test strip 1 Strip twice daily. Use as instructed 200 Strip 3 - carvedilol (COREG) 25 mg tablet Take 1 tablet by mouth twice daily. 60 tablet 5 - losartan (COZAAR) 100 mg tablet Take 100 mg by mouth once daily. - aspirin, enteric coated (ASPIRIN, ENTERIC COATED) 81 mg EC tablet Take 1 tablet by mouth once daily. 0 No current facility-administered medications for this visit. PAST SURGICAL HISTORY Procedure Laterality Date - COLONOSCOP W/ OR W/O [facility] SPEC 09/12/2013 Colonoscopy - COLONOSCOPY - CORONARY ARTERY BYPASS GRAFT - CORONARY ARTERY BYPASS GRAFT HX 05/06/2015 - EGD W/O OR W/BRUSH/WASH 09/12/2013 EGD - INSERTION OF BIVENTRICULAR ASSIST DEVICE 09/14/2018 [facility]-Dr. Simpson - ROTATOR CUFF REPAIR 04/2015 - RT AND LT HEART CATH 05/01/2015 FAMILY HISTORY Problem Relation Age of Onset - Diabetes Father - Coronary Artery Disease Father - Heart Mother pacemaker - Arthritis Brother - Hypertension Brother - Heart disease Brother - Hypertension Brother - Diabetes Sister - Heart disease Paternal Grandmot (more content not included)... Normal [facility] Coronavirus 2019on 1 SARS-CoV-2 (COVID-19) RNA JACQUELIN+probe Ql (Unsp spec) UPPER RESPIRATORY TRACT SWAB Normal [facility] Comment on above: Performed By: #### C OVID ####[id number] [place], [place] [phone] SARS-CoV-2 (COVID-19) RNA JACQUELIN+probe Ql (Unsp spec) Positive for COVID19 (SARS CoV2) by RT-PCR or equivalent method. Critically abnormal Negative for COVID19 (SARS CoV2) by RT-PCR or equivalent method. [facility] Comment on above: Result Comment: This test was developed and its performance characteristics determined by [facility] [place]. This test has been authorized by FDA under an Emergency Use Authorization (EUA). This test has been validated in accordance with the FDA's Guidance Document Policy for Diagnostics Testing in Laboratories Certified to Perform High Complexity Testing under CLIA prior to Emergency use Authorization for Coronavirus Disease 2019 during the Public Health Emergency issued on October 13, 2019. Test performed by [facility], [facility] [place], [address] [place], [place] [address]. Performed By: #### C OVID ####[facility], [place] [phone] OBSOLETEon 05-04-2021 OBSOLETE Refill (FAMPWS) VERENA CLEMENTS ([id number]) 1955 M Date Time Provider Department 05/04/21 OTONIEL CORTES During your visit today, we recorded the following information about you: Giovanna Hale Pss 05/04/2021 8:10 AM Addendum Patient's request for medication is as follows: Pending Prescriptions Disp Refills SPIRONOLACTONE 25 MG TABLET 90 tablet 3 Sig: Take 1 tablet by mouth once daily. CHAVEZ: No KELSEY-02/04/21 with PCP Labs-02/04/21 NOV-07/15/21 with PCP Prescription(s) as above. Please process accordingly. Giovanna Cortes APRN.EL TAYLOR 05/04/2021 8:46 AM Signed The following approved medication requests have been transmitted electronically. Pending Prescriptions Disp Refills SPIRONOLACTONE 25 MG TABLET 90 tablet 3 Sig: Take 1 tablet by mouth once daily. CHAVEZ: No Otoniel Cortes APRN.EL TAYLOR Allergies As of Date: 05/04/2021 Noted Allergy Reaction METFORMIN 03/29/2019 8 - GI Upset Date Reviewed: 02/04/2021 Reviewed by: Boogie Haro Cma - Fully Assessed Reason for Visit: Refill Request [94] Visit Diagnoses:ASHD (arteriosclerotic heart disease) [I25.10] Essential hypertension, benign [I10] Order(s):spironolacton e (ALDACTONE) 25 mg tabletTake 1 tablet by mouth once daily.Disp: 90 tabletRfl: 3 Prescriptions as of 05/04/2021 - spironolactone (ALDACTONE) 25 mg tablet Take 1 tablet by mouth once daily. - temazepam (RESTORIL) 15 mg Take 1 capsule by mouth at bedtime as needed for up to 90 days. FOR INSOMNIA - FLUoxetine (PROZAC) 20 mg capsule Take 1 capsule by mouth once daily. - dulaglutide (TRULICITY) 1.5 mg/0.5 mL pen injector Inject 1.5 mg subcutaneously one time a week. Inject once per week. Discard Pen After - apixaban (ELIQUIS) 5 mg tab(s) Take 1 tablet by mouth twice daily. - insulin detemir U-100 (LEVEMIR FLEXTOUCH U-100 INSULIN) 100 unit/mL (3 mL) injection pen Inject 34 units subcutaneously daily - atorvastatin (LIPITOR) 80 mg tablet Take 1 tablet by mouth once daily. - cholecalciferol, vitamin D3, (VITAMIN D3 ORAL) Take by mouth once daily. - ascorbic acid (VITAMIN C ORAL) Take by mouth once daily. - allopurinol (ZYLOPRIM) 100 mg tablet Take 1 tablet by mouth once daily. For gout. - albuterol HFA (PROAIR HFA) 90 mcg/actuation inhaler Inhale 2 Puffs as instructed every 4 hours as needed for Wheezing/Shortness of Breath. - Insulin [place], Disposable, (BD ULTRAFINE III MINI PEN) 31 gauge x 3/16 USE 4 TIMES A DAY DIRECTED - furosemide (LASIX) 40 mg tablet Take 1 tablet by mouth once daily. - omeprazole (PRILOSEC) 20 mg capsule Take 20 mg by mouth once daily. - Tadalafil (CIALIS) 20 mg tab(s) Take 1 tablet by mouth as needed. - nitroglycerin sublingual (NITROQUICK) 0.4 mg SL tablet Dissolve 1 tablet under the tongue every 5 minutes as needed for Chest Pain. - blood sugar diagnostic (CarJumpUCH ULTRA TEST) test strip 1 Strip twice daily. Use as instructed - carvedilol (COREG) 25 mg tablet Take 1 tablet by mouth twice daily. - losartan (COZAAR) 100 mg tablet Take 100 mg by mouth once daily. - aspirin, enteric coated (ASPIRIN, ENTERIC COATED) 81 mg EC tablet Take 1 tablet by mouth once daily. Problem List As Of Date 05/04/2021 Noted Resolved Depression [F32.9] 03/02/2019 Essential Hypertension, Benign [I10] GERD (gastroesophageal reflux disease) [K21.9] 07/13/2010 Hyperlipidemia with target LDL less than 100 [E*05/23/2012 Arteriosclerosis of carotid artery [I65.29] 08/16/2013 Rotator cuff tear arthropathy [M75.100, M12.819]04/08/2015 11/22/2018 S/P CABG x 4 [Z95.1] 05/29/2015 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, F51.05] 07/11/2015 ASHD (arteriosclerotic heart disease) [I25.10] 08/26/2015 Paroxysmal atrial fibrillation (HCC) [I48.0] 08/26/2015 Chronic anticoagulation [Z79.01] 08/26/2015 Type 2 diabetes mellitus with stage 3 chronic k*01/09/2016 Anxiety [F41.9] 09/17/2016 Erectile dysfunction [N52.9] 10/22/2016 CKD (chronic kidney disease) stage 3, GFR 30-59*05/02/2017 03/28/2018 Nonrheumatic aortic valve stenosis [I35.0] 07/26/2017 Situational depression [F43.21] 07/26/2017 03/02/2019 Chronic systolic heart failure (HCC) [I50.22] 06/23/2015 Presence of aortocoronary bypass graft [Z95.1] 06/23/2015 Ischemic cardiomyopathy [I25.5] 08/12/2017 Nonrheumatic tricuspid (valve) insufficiency [I*03/28/2018 Ventricular bigeminy [I49.8] 03/28/2018 11/22/2018 Secondary pulmonary arterial hypertension (HCC)*06/13/2018 Non-ST elevation (NSTEMI) myocardial infarction*06/28/2018 Prescriptions ordered this encounter Disp Refills Start End SPIRONOLACTONE 25 MG TABLET 90 t* 3 05/04/2021 Route: ORAL Sig: Take 1 tablet by mouth once daily. Medications Discontinued During This Encounter Prescriptions - spironolactone (ALDACTONE) 25 mg tablet (Discontinued) Take 1 tablet by mouth once daily. Cherelle (more content not included)... Normal [facility] OBSOLETEon 04-21-2021 OBSOLETE Refill (ANNEWS) VERENA CLEMENTS ([id number]) 1955 M Date Time Provider Department 04/21/21 OTONIEL CORTES During your visit today, we recorded the following information about you: Danita Logan Pss 04/21/2021 12:54 PM Signed Patient has been identified by name and date of : Yes Pending Prescriptions Disp Refills TEMAZEPAM 15 MG CAPSULE 90 capsule 0 Sig: Take 1 capsule by mouth at bedtime as needed for up to 90 days. FOR INSOMNIA VICTOR MANUEL Class: C-IV CHAVEZ: No LORazepam (ATIVAN) 0.5 mg tab (Discontinued) 30 tablet 0 RX INSTRUCTIONS: Patient aware RX will be sent to pharmacy. No need to nofity patient. Controlled medication - must be call in. Danita Logan [facility] Misys Mai Ma 04/22/2021 1:22 PM Signed Last office visit: 02/04/21 F/u scheduled: 07/15/21 Missy Cortes APRN.CNP, DNP 04/22/2021 3:03 PM Signed PDMP website checked and validated 04/22/2021 All prescriptions have been APPROPRIATELY filled. No suspicious activity was identified. The following approved medication requests have been transmitted electronically. Pending Prescriptions Disp Refills TEMAZEPAM 15 MG CAPSULE 90 capsule 0 Sig: Take 1 capsule by mouth at bedtime as needed for up to 90 days. FOR INSOMNIA VICTOR MANUEL Class: C-IV CHAVEZ: No Otoniel Cortes APRN.EL TAYLOR Allergies As of Date: 04/21/2021 Noted Allergy Reaction METFORMIN 03/29/2019 8 - GI Upset Date Reviewed: 02/04/2021 Reviewed by: Boogie [employer] - Fully Assessed Reason for Visit: Refill Request [94] Visit Diagnosis:Chronic insomnia [F51.04] Order(s):temazepam (RESTORIL) 15 mgTake 1 capsule by mouth at bedtime as needed for up to 90 days. FOR INSOMNIADisp: 90 capsuleRfl: 0 Prescriptions as of 04/22/2021 - temazepam (RESTORIL) 15 mg Take 1 capsule by mouth at bedtime as needed for up to 90 days. FOR INSOMNIA - FLUoxetine (PROZAC) 20 mg capsule Take 1 capsule by mouth once daily. - dulaglutide (TRULICITY) 1.5 mg/0.5 mL pen injector Inject 1.5 mg subcutaneously one time a week. Inject once per week. Discard Pen After - apixaban (ELIQUIS) 5 mg tab(s) Take 1 tablet by mouth twice daily. - insulin detemir U-100 (LEVEMIR FLEXTOUCH U-100 INSULIN) 100 unit/mL (3 mL) injection pen Inject 34 units subcutaneously daily - atorvastatin (LIPITOR) 80 mg tablet Take 1 tablet by mouth once daily. - cholecalciferol, vitamin D3, (VITAMIN D3 ORAL) Take by mouth once daily. - ascorbic acid (VITAMIN C ORAL) Take by mouth once daily. - allopurinol (ZYLOPRIM) 100 mg tablet Take 1 tablet by mouth once daily. For gout. - albuterol HFA (PROAIR HFA) 90 mcg/actuation inhaler Inhale 2 Puffs as instructed every 4 hours as needed for Wheezing/Shortness of Breath. - Insulin [place], Disposable, (BD ULTRAFINE III MINI PEN) 31 gauge x 3/16 USE 4 TIMES A DAY DIRECTED - spironolactone (ALDACTONE) 25 mg tablet Take 1 tablet by mouth once daily. - furosemide (LASIX) 40 mg tablet Take 1 tablet by mouth once daily. - omeprazole (PRILOSEC) 20 mg capsule Take 20 mg by mouth once daily. - Tadalafil (CIALIS) 20 mg tab(s) Take 1 tablet by mouth as needed. - nitroglycerin sublingual (NITROQUICK) 0.4 mg SL tablet Dissolve 1 tablet under the tongue every 5 minutes as needed for Chest Pain. - blood sugar diagnostic ([employer] SciencesTOUCH ULTRA TEST) test strip 1 Strip twice daily. Use as instructed - carvedilol (COREG) 25 mg tablet Take 1 tablet by mouth twice daily. - losartan (COZAAR) 100 mg tablet Take 100 mg by mouth once daily. - aspirin, enteric coated (ASPIRIN, ENTERIC COATED) 81 mg EC tablet Take 1 tablet by mouth once daily. Problem List As Of Date 04/21/2021 Noted Resolved Depression [F32.9] 03/02/2019 Essential Hypertension, Benign [I10] GERD (gastroesophageal reflux disease) [K21.9] 07/13/2010 Hyperlipidemia with target LDL less than 100 [E*05/23/2012 Arteriosclerosis of carotid artery [I65.29] 08/16/2013 Rotator cuff tear arthropathy [M75.100, M12.819]04/08/2015 11/22/2018 S/P CABG x 4 [Z95.1] 05/29/2015 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, F51.05] 07/11/2015 ASHD (arteriosclerotic heart disease) [I25.10] 08/26/2015 Paroxysmal atrial fibrillation (HCC) [I48.0] 08/26/2015 Chronic anticoagulation [Z79.01] 08/26/2015 Type 2 diabetes mellitus with stage 3 chronic k*01/09/2016 Anxiety [F41.9] 09/17/2016 Erectile dysfunction [N52.9] 10/22/2016 CKD (chronic kidney disease) stage 3, GFR 30-59*05/02/2017 03/28/2018 Nonrheumatic aortic valve stenosis [I35.0] 07/26/2017 Situational depression [F43.21] 07/26/2017 03/02/2019 Chronic systolic heart failure (HCC) [I50.22] 06/23/2015 Presence of aortocoronary bypass graft [Z95.1] 06/23/2015 Ischemic cardiomyopathy [I25.5] 08/12/2017 Nonrheumatic tricuspid (valve) insufficiency [I*03/28/2018 Ventricular bigeminy [I49.8] 03/28/2018 11/22/2018 Secondary pulmonary arterial hypertension (HCC)*10 (more content not included)... Normal [facility] OBSOLETEon 03-19-2021 OBSOLETE Refill (CLIFFORD) VERENA CLEMENTS ([id number]) 1955 M Date Time Provider Department 03/19/21 OTONIEL CORTES During your visit today, we recorded the following information about you: Krupa Magaña Pss 03/19/2021 1:51 PM Signed Patient has been identified by name and date of : Yes Pending Prescriptions Disp Refills FLUOXETINE 20 MG CAPSULE 90 capsule 3 Sig: Take 1 capsule by mouth once daily. CHAVEZ: No TRULICITY 1.5 MG/0.5 ML SUBCUTANEOUS PEN INJECTOR Sig: Inject 1.5 mg subcutaneously one time a week. Inject once per week. Discard Pen After CHAVEZ: No APIXABAN 5 MG TABLET 60 tablet 11 Sig: Take 1 tablet by mouth twice daily. CHAVEZ: No RX INSTRUCTIONS: Patient wants to know if these can be called in before the weekend. Patient aware RX will be sent to pharmacy. No need to notify patient. Krupa Zamudio RN 03/19/2021 3:32 PM Signed Patient has been identified by name and date of : Yes Patient phones for refill(s): Pending Prescriptions Disp Refills FLUOXETINE 20 MG CAPSULE 90 capsule 3 Sig: Take 1 capsule by mouth once daily. CHAVEZ: No TRULICITY 1.5 MG/0.5 ML SUBCUTANEOUS PEN INJECTOR Sig: Inject 1.5 mg subcutaneously one time a week. Inject once per week. Discard Pen After CHAVEZ: No APIXABAN 5 MG TABLET 180 tablet 3 Sig: Take 1 tablet by mouth twice daily. CHAVEZ: No Date of last office visit in primary care: 02/04/21 . No future appointment scheduled yet. Last 2 Encounter Wt Readings: Date: Wt: 02/04/2021 90.3 kg (199 lb) 10/30/2020 92.1 kg (203 lb) Previous labs/tests for medication: Diabetes: Hemoglobin A1C (%) Date Value 02/04/2021 7.1 10/06/2020 7.3 Cholesterol: Triglycerides (mg/dL) Date Value 09/12/2020 176 HDL Cholesterol (mg/dL) Date Value 10/06/2020 31 LDL Cholesterol (mg/dL) Date Value 10/06/2020 53 ALT (U/L) Date Value 02/04/2021 33 Non HDL Cholesterol (mg/dL) Date Value 10/06/2020 83 Blood Pressure: BUN (mg/dL) Date Value 02/04/2021 46 Sodium (mmol/L) Date Value 02/04/2021 136 Last 1 Encounter BP Readings: Date: BP: 02/04/2021 132/74 Blood Counts: WBC (k/uL) Date Value 02/04/2021 10.70 RBC (m/uL) Date Value 02/04/2021 4.00 Hematocrit (%) Date Value 02/04/2021 37.9 Hemoglobin (g/dL) Date Value 02/04/2021 13.0 Platelet Count (k/uL) Date Value 02/04/2021 172 Liver Function: ALT (U/L) Date Value 02/04/2021 33 AST (U/L) Date Value 02/04/2021 24 Please advise. Thank you. Aixa Cortes APRN.EL TAYLOR 03/19/2021 4:35 PM Signed The following approved medication requests have been transmitted electronically. Pending Prescriptions Disp Refills FLUOXETINE 20 MG CAPSULE 90 capsule 3 Sig: Take 1 capsule by mouth once daily. CHAVEZ: No TRULICITY 1.5 MG/0.5 ML SUBCUTANEOUS PEN INJECTOR 4 Each 5 Sig: Inject 1.5 mg subcutaneously one time a week. Inject once per week. Discard Pen After CHVAEZ: No APIXABAN 5 MG TABLET 180 tablet 3 Sig: Take 1 tablet by mouth twice daily. CHAVEZ: No Otoniel Cortes APRN.EL TAYLOR Allergies As of Date: 03/19/2021 Noted Allergy Reaction METFORMIN 03/29/2019 8 - GI Upset Date Reviewed: 02/04/2021 Reviewed by: [employer]ie [employer] - Fully Assessed Reason for Visit: Refill Request [94] Visit Diagnosis:Type 2 diabetes mellitus with stage 3 chronic kidney disease, with long-term current use of insulin (HCC) [E11.22, N18.30, Z79.4] Order(s):FLUoxetine (PROZAC) 20 mg capsuleTake 1 capsule by mouth once daily.Disp: 90 capsuleRfl: 3 dulaglutide (TRULICITY) 1.5 mg/0.5 mL pen injectorInject 1.5 mg subcutaneously one time a week. Inject once per week. Discard Pen AfterDisp: 4 EachRfl: 5 apixaban (ELIQUIS) 5 mg tab(s)Take 1 tablet by mouth twice daily.Disp: 180 tabletRfl: 3 Prescriptions as of 03/19/2021 - FLUoxetine (PROZAC) 20 mg capsule Take 1 capsule by mouth once daily. - dulaglutide (TRULICITY) 1.5 mg/0.5 mL pen injector Inject 1.5 mg subcutaneously one time a week. Inject once per week. Discard Pen After - apixaban (ELIQUIS) 5 mg tab(s) Take 1 tablet by mouth twice daily. - insulin detemir U-100 (LEVEMIR FLEXTOUCH U-100 INSULIN) 100 unit/mL (3 mL) injection pen Inject 34 units subcutaneously daily - temazepam (RESTORIL) 15 mg Take 1 capsule by mouth at bedtime as needed for up to 90 days. FOR INSOMNIA - atorvastatin (LIPITOR) 80 mg tablet Take 1 tablet by mouth once daily. - cholecalciferol, vitamin D3, (VITAMIN D3 ORAL) Take by mouth once daily. - ascorbic acid (VITAMIN C ORAL) Take by mouth once daily. - allopurinol (ZYLOPRIM) 100 mg tablet Take 1 tablet by mouth once daily. For gout. - albuterol HFA (PROAIR HFA) 90 mcg/actuation inhaler Inhale 2 Puffs as instructed every 4 hours as needed for Wheezing/Shortness of Breath. - Insulin [place], Disposable, (BD ULTRAFINE III MINI PEN) 31 gauge x 3/16 USE 4 (more content not included)... [facility] Telephone (CLIFFORD) VERENA CLEMENTS ([id number]) 1955 M Date Time Provider Department 02/07/21 OTONIEL CORTES During your visit today, we recorded the following information about you: Georgina Mcleod RN 02/07/2021 11:46 AM Signed ----- Message from Otoniel Cortes APRN.EL TAYLOR sent at 02/06/2021 4:17 PM EDT ----- Please inform the patient: CBC is trending back to normal. We will continue to monitor. Kidney function is stable at stage III chronic kidney disease. GFR was 39. Slightly increased from 4 months ago. Hemoglobin A1c is improved to 7.1%. Continue with current diabetic medications. Blood sugar was 161. Uric acid levels were normal range. Otherwise the rest of his lab results are negative/unremarkable and no further testing is indicated at this time. Recommend repeat lab work in 6 months to monitor hemoglobin A1c, kidney function and anemia Due to CKD. Otoniel Cortes APRN.SENIOR POWER PLANT OPERATOR, DNP Georgina Mcleod RN 02/07/2021 11:48 AM Signed Patient notified of results and provider's instructions. Patient verbalizes understanding. Georgina Mcleod RN Allergies As of Date: 02/07/2021 Noted Allergy Reaction METFORMIN 03/29/2019 8 - GI Upset Date Reviewed: 02/04/2021 Reviewed by: [employer] - Fully Assessed Reason for Visit: Results [95] Prescriptions as of 02/07/2021 Sig: LEVEMIR FLEXTOUCH U-100 INSUL* Inject 34 units subcutaneousl* TEMAZEPAM 15 MG CAPSULE Take 1 capsule by mouth at be* ATORVASTATIN 80 MG TABLET Take 1 tablet by mouth once d* VITAMIN D3 ORAL Take by mouth once daily. VITAMIN C ORAL Take by mouth once daily. ALLOPURINOL 100 MG TABLET Take 1 tablet by mouth once d* ALBUTEROL SULFATE HFA 90 MCG/* Inhale 2 Puffs as instructed * PEN NEEDLE, DIABETIC 31 GAUGE* USE 4 TIMES A DAY DIRECTED TRULICITY 1.5 MG/0.5 ML SUBCU* Inject 1.5 mg subcutaneously * SPIRONOLACTONE 25 MG TABLET Take 1 tablet by mouth once d* FUROSEMIDE 40 MG TABLET Take 1 tablet by mouth once d* APIXABAN 5 MG TABLET Take 1 tablet by mouth twice * FLUOXETINE 20 MG CAPSULE Take 1 capsule by mouth once * OMEPRAZOLE 20 MG CAPSULE,JOAQUIN* Take 20 mg by mouth once ari* TADALAFIL 20 MG TABLET Take 1 tablet by mouth as nee* NITROGLYCERIN 0.4 MG SUBLINGU* Dissolve 1 tablet under the t* BLOOD SUGAR DIAGNOSTIC STRIPS 1 Strip twice daily. Use as i* CARVEDILOL 25 MG TABLET Take 1 tablet by mouth twice * LOSARTAN 100 MG TABLET Take 100 mg by mouth once jacquelyn* ASPIRIN 81 MG TABLET,DELAYED * Take 1 tablet by mouth once d* Problem List As Of Date 02/07/2021 Noted Resolved Depression [F32.9] 03/02/2019 Essential Hypertension, Benign [I10] GERD (gastroesophageal reflux disease) [K21.9] 07/13/2010 Hyperlipidemia with target LDL less than 100 [E*05/23/2012 Arteriosclerosis of carotid artery [I65.29] 08/16/2013 Rotator cuff tear arthropathy [M75.100, M12.819]04/08/2015 11/22/2018 S/P CABG x 4 [Z95.1] 05/29/2015 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, F51.05] 07/11/2015 ASHD (arteriosclerotic heart disease) [I25.10] 08/26/2015 Paroxysmal atrial fibrillation (HCC) [I48.0] 08/26/2015 Chronic anticoagulation [Z79.01] 08/26/2015 Type 2 diabetes mellitus with stage 3 chronic k*01/09/2016 Anxiety [F41.9] 09/17/2016 Erectile dysfunction [N52.9] 10/22/2016 CKD (chronic kidney disease) stage 3, GFR 30-59*05/02/2017 03/28/2018 Nonrheumatic aortic valve stenosis [I35.0] 07/26/2017 Situational depression [F43.21] 07/26/2017 03/02/2019 Chronic systolic heart failure (HCC) [I50.22] 06/23/2015 Presence of aortocoronary bypass graft [Z95.1] 06/23/2015 Ischemic cardiomyopathy [I25.5] 08/12/2017 Nonrheumatic tricuspid (valve) insufficiency [I*03/28/2018 Ventricular bigeminy [I49.8] 03/28/2018 11/22/2018 Secondary pulmonary arterial hypertension (HCC)*06/13/2018 Non-ST elevation (NSTEMI) myocardial infarction*06/28/2018 Encounter Status:Closed by GEORGINA MCLEOD on 02/07/21 Normal [facility] Albumin/Creat Ratioon 2020 Albumin Urine Random 106.5 mg/L Normal [facility] Comment on above: Performed By: #### U ACR ####[facility] [address] [place], [place] [phone] Albumin/Creat Ratio 90 mg/g High <[address] [facility] Comment on above: Result Comment: Adul t Male and Female Nephrotic Criteria: <30 mg/g is considered normal to mildly increased 30-300 mg/g is considered moderately increased >300 mg/g is considered severely increased KDIGO. (2013). KDIGO 2012 Clinical Practice Guideline for the Evaluation and Management of Chronic Kidney Disease. Official Journal of the International Society of Nephrology, 3(1), 1-150. Performed By: #### U ACR ####[place] [address], [place] [phone] Creatinine,Urine,Ran 118.9 mg/dL Normal 20-300 [facility] Comment on above: Performed By: #### U ACR ####[place] [address] [place] [phone] CBC and Differentialon 02-04 Abs Baso 0.04 k/uL Normal <0.11 [facility] Comment on above: Performed By: #### C BCDIF, CMP, URIC, HBA1C ####[place] [address], [place] [phone] Abs [place] 0.99 k/uL High <0.87 [facility] Comment on above: Performed By: #### C BCDIF, CMP, URIC, HBA1C ####[place] [address] [place] [phone] Abs Neut 7.87 k/uL High 1.45-7.50 [facility] Comment on above: Performed By: #### C BCDIF, CMP, URIC, HBA1C ####[place] [address], [place] [phone] Absolute nRBC <0.01 Normal <0.01 [facility] Comment on above: Performed By: #### C BCDIF, CMP, URIC, HBA1C ####[place] [address], [place] [phone] Basophils/100 WBC (Bld) 0.4 % Normal [facility] Comment on above: Performed By: #### C BCDIF, CMP, URIC, HBA1C ####[place] [address], [place] [phone] DTYPE Auto Diff Normal [facility] Comment on above: Performed By: #### C BCDIF, CMP, URIC, HBA1C ####[place] [address] [phone] Eosinophils (Bld) [#/Vol] 0.28 10*3/uL Normal <0.46 [facility] Comment on above: Performed By: #### C BCDIF, CMP, URIC, HBA1C ####[place] [address] [phone] Eosinophils/100 WBC (Bld) 2.6 % Normal [facility] Comment on above: Performed By: #### C BCDIF, CMP, URIC, HBA1C ####[place] [address] [place] [phone] Erythrocyte distribution width (RBC) [Ratio] 12.4 % Normal 11.5-15.0 [facility] Comment on above: Performed By: #### C BCDIF, CMP, URIC, HBA1C ####[place] [address] [place] [phone] Hematocrit (Bld) [Volume fraction] 37.9 % Low 39.0-51.0 [facility] Comment on above: Performed By: #### C BCDIF, CMP, URIC, HBA1C ####[place] [address] [place] [phone] Hemoglobin (Bld) [Mass/Vol] 13.0 g/dL Normal 13.0-17.0 [facility] Comment on above: Performed By: #### C BCDIF, CMP, URIC, HBA1C ####[place] [address] [place] [phone] Lymphocytes (Bld) [#/Vol] 1.52 10*3/uL Normal 1.00-4.00 [facility] Comment on above: Performed By: #### C BCDIF, CMP, URIC, HBA1C ####[place] [address] [place] [phone] Lymphocytes/100 WBC (Bld) 14.2 % Normal [facility] Comment on above: Performed By: #### C BCDIF, CMP, URIC, HBA1C ####[place] [address] [place] [phone] MCH 32.5 pG Normal 26.0-34.0 [facility] Comment on above: Performed By: #### C BCDIF, CMP, URIC, HBA1C ####[place] [address] [place] [phone] MCHC (RBC) [Mass/Vol] 34.3 g/dL Normal 30.5-36.0 [facility] Comment on above: Performed By: #### C BCDIF, CMP, URIC, HBA1C ####[address] [phone] MCV (RBC) [Entitic vol] 94.8 fL Normal 80.0-100.0 [facility] Comment on above: Performed By: #### C BCDIF, CMP, URIC, HBA1C ####[place] [address] [address] [phone] Monocytes/100 WBC (Bld) 9.3 % Normal [facility] Comment on above: Performed By: #### C BCDIF, CMP, URIC, HBA1C ####[place] [address] [place] [phone] Neutrophils/100 WBC (Bld) 73.5 % Normal [facility] Comment on above: Performed By: #### C BCDIF, CMP, URIC, HBA1C ####[place] [address] [place] [phone] NRBCs 0.0 /100 WBC Normal 0 [facility] Comment on above: Performed By: #### C BCDIF, CMP, URIC, HBA1C ####[place] [address] [place] [phone] Platelet mean volume (Bld) [Entitic vol] 12.6 fL Normal 9.0-12.7 [facility] Comment on above: Performed By: #### C BCDIF, CMP, URIC, HBA1C ####[facility] [place], [place] [phone] Platelets (Bld) [#/Vol] 172 10*3/uL Normal 150-400 [facility] Comment on above: Performed By: #### C BCDIF, CMP, URIC, HBA1C ####[place] [id number] [place], [place] [phone] RBC (Bld) [#/Vol] 4.00 10*6/uL Low 4.20-6.[address] [facility] Comment on above: Performed By: #### C BCDIF, CMP, URIC, HBA1C ####[place] [id number] [place], [place] [phone] WBC (Bld) [#/Vol] 10.70 10*3/uL Normal 3.70-11.00 [facility] Comment on above: Performed By: #### C BCDIF, CMP, URIC, HBA1C ####[facility] [place], [place] [phone] CNOVon 02-04-2021 CN Office Visit (ANNEWS ) VERENA CLEMENTS ([id number]) 1955 M Date Time Provider Department 02/04/21 11:40 AM OTONIEL CORTES During your visit today, we recorded the following information about you: Temperature Pulse Respiration Blood pressure 98 degrees 72/minute 12/minute 132/74 Weight 90.3 kg Otoniel Cortes APRN.SENIOR POWER PLANT OPERATOR, DNP 02/04/2021 4:39 PM Signed Chief Complaint Patient presents with: Kitty REICH Verena Clements is a 65 year old male who presents here today for DM follow up. This is an established patient of Dr. Reynaldo Rucker III, MD. This is a new patient to me. Denies any recent urgent care visits, ER visits or hospitalizations. DM: Last hemoglobin A1c was 7.3%. Currently on insulin and has been using 34 units of insulin detemir U100 and morning time along with his other diabetic medications. Overall feeling well.. Denies hypoglycemic symptoms. States compliance with diabetic medications. Continues with routine follow-up with cardiology. Followed by cardiology in the [facility]. On chronic anticoagulation Past medical history, appointments, medications, allergies reviewed 02/04/2021 Previous Medical History PAST MEDICAL HISTORY Diagnosis Date - Arteriosclerosis of carotid artery 08/16/2013 - Atherosclerotic heart disease of [place] coronary artery without angina pectoris 08/26/2015 - Chronic anticoagulation 08/26/2015 - Depression - Diabetes mellitus with neuropathy (HCC) 01/29/2010 - Essential hypertension, benign - GERD (gastroesophageal reflux disease) 07/13/2010 - Hyperlipidemia LDL goal < 100 05/23/2012 - LBBB (left bundle branch block) - Paroxysmal atrial fibrillation ([facility]) 08/26/2015 - Presence of cardiac resynchronization therapy defibrillator - Rotator cuff tear arthropathy 04/08/2015 - S/P CABG x 4 05/29/2015 - Type 2 diabetes mellitus with stage 3 chronic kidney disease, with long-term current use of insulin ([facility]) 01/09/2016 - Ventricular bigeminy 03/28/2018 Previous Surgical History PAST SURGICAL HISTORY Procedure Laterality Date - COLONOSCOP W/ OR W/O BRSH SPEC 09/12/2013 Colonoscopy - COLONOSCOPY - CORONARY ARTERY BYPASS GRAFT - CORONARY ARTERY BYPASS GRAFT HX 05/06/2015 - EGD W/O OR W/BRUSH/WASH 09/12/2013 EGD - INSERTION OF BIVENTRICULAR ASSIST DEVICE 09/14/2018 [facility]. Simpson - ROTATOR CUFF REPAIR 04/2015 - RT AND LT HEART CATH 05/01/2015 Family History FAMILY HISTORY Problem Relation Age of Onset - Diabetes Father - Coronary Artery Disease Father - Heart Mother pacemaker - Arthritis Brother - Hypertension Brother - Heart disease Brother - Hypertension Brother - Diabetes Sister - Heart disease Paternal Grandmother - Heart disease Paternal Grandfather Patient Allergies ALLERGIES Allergen Reactions - Metformin GI Upset Current Medications Current Outpatient Medications on File Prior to Visit Medication Sig - temazepam (RESTORIL) 15 mg Take 1 capsule by mouth at bedtime as needed for up to 90 days. FOR INSOMNIA - atorvastatin (LIPITOR) 80 mg tablet Take 1 tablet by mouth once daily. - cholecalciferol, vitamin D3, (VITAMIN D3 ORAL) Take by mouth once daily. - ascorbic acid (VITAMIN C ORAL) Take by mouth once daily. - insulin detemir U-100 (LEVEMIR FLEXTOUCH U-100 INSULIN) 100 unit/mL (3 mL) injection pen Inject 37 units subcutaneously daily - allopurinol (ZYLOPRIM) 100 mg tablet Take 1 tablet by mouth once daily. For gout. - albuterol HFA (PROAIR HFA) 90 mcg/actuation inhaler Inhale 2 Puffs as instructed every 4 hours as needed for Wheezing/Shortness of Breath. - Insulin [place], Disposable, (BD ULTRAFINE III MINI PEN) 31 gauge x 3/16 USE 4 TIMES A DAY DIRECTED - dulaglutide (TRULICITY) 1.5 mg/0.5 mL Inject 1.5 mg subcutaneously one time a week. Inject once per week. Discard Pen After - spironolactone (ALDACTONE) 25 mg tablet Take 1 tablet by mouth once daily. - furosemide (LASIX) 40 mg tablet Take 1 tablet by mouth once daily. - apixaban (ELIQUIS) 5 mg tab(s) Take 1 tablet by mouth twice daily. - FLUoxetine (PROZAC) 20 mg capsule Take 1 capsule by mouth once daily. - omeprazole (PRILOSEC) 20 mg capsule Take 20 mg by mouth once daily. - Tadalafil (CIALIS) 20 mg tab(s) Take 1 tablet by mouth as needed. - nitroglycerin sublingual (NITROQUICK) 0.4 mg SL tablet Dissolve 1 tablet under the tongue every 5 minutes as needed for Chest Pain. - blood sugar diagnostic ([employer] ULTRA TEST) test strip 1 Strip twice daily. Use as instructed - carvedilol (COREG) 25 mg tablet Take 1 tablet by mouth twice daily. - losartan (COZAAR) 100 mg tablet Take 100 mg by mouth once daily. - aspirin, enteric coated (ASPIRIN, ENTERIC COATED) 81 mg EC tablet Take 1 tablet by mouth once daily. No current facility-administered medications on file prior to visit. Social History Social History Tobacco Use (more content not included)... Normal [facility] Comp Metabolic Panelon 02-04 Albumin [Mass/Vol] 4.6 g/dL Normal 3.9-4.9 [facility] Comment on above: Performed By: #### C BCDIF, CMP, URIC, HBA1C ####[place] [address], [place] [phone] ALP [Catalytic activity/Vol] 98 U/L Normal 38-113 [facility] Comment on above: Performed By: #### C BCDIF, CMP, URIC, HBA1C ####[place] [address], [place] [phone] ALT [Catalytic activity/Vol] 33 U/L Normal 10-54 [facility] Comment on above: Performed By: #### C BCDIF, CMP, URIC, HBA1C ####[place] [address], [place] [phone] Anion gap [Moles/Vol] 11 mmol/L Normal 9-18 [facility] Comment on above: Performed By: #### C BCDIF, CMP, URIC, HBA1C ####[place] [address] [place], [place] [phone] AST [Catalytic activity/Vol] 24 U/L Normal 14-40 [facility] Comment on above: Performed By: #### C BCDIF, CMP, URIC, HBA1C ####[place] [address], [place] [phone] Bilirubin [Mass/Vol] 0.4 mg/dL Normal 0.2-1.3 [facility] Comment on above: Performed By: #### C BCDIF, CMP, URIC, HBA1C ####[place] [address], [place] [phone] Calcium [Mass/Vol] 9.5 mg/dL Normal 8.5-10.2 [facility] Comment on above: Performed By: #### C BCDIF, CMP, URIC, HBA1C ####[place] [address] [place] [phone] Chloride [Moles/Vol] 106 mmol/L High 97-105 [facility] Comment on above: Performed By: #### C BCDIF, CMP, URIC, HBA1C ####[place] [phone] CO2 [Moles/Vol] 19 mmol/L Low 22-30 [facility] Comment on above: Performed By: #### C BCDIF, CMP, URIC, HBA1C ####[place] [phone] Creatinine [Mass/Vol] 1.76 mg/dL High 0.73-1.22 [facility] Comment on above: Performed By: #### C BCDIF, CMP, URIC, HBA1C ####[place] [phone] eGFR- Amer. 47 Normal [facility] Comment on above: Performed By: #### C BCDIF, CMP, URIC, HBA1C ####[place] [phone] eGFR-All Other Races 39 . Normal [facility] Comment on above: Result Comment: eGFR (Estimated GFR) Units of measure: mL/min/1.73 meters squared eGFR is derived from the reexpressed MDRD Study equation using the following parameters: serum creatinine, age, gender and race. The creatinine assay has been calibrated to be traceable to IDMS. An eGFR <60 mL/min/1.73m2 for >3 months is consistent with chronic kidney disease. Refer to KDOQI guidelines for clinical interpretation. In patients with unstable renal function, e.g. those with acute kidney injury, the eGFR may not accurately reflect actual GFR. Performed By: #### C BCDIF, CMP, URIC, HBA1C ####[address] [phone] Glucose [Mass/Vol] 161 mg/dL High 74-99 [facility] Comment on above: Result Comment: The [place] Diabetes Association (ADA) provides guidance for cutoff values for fasting glucose and random glucose. The ADA defines fasting as no caloric intake for at least 8 hours. Fasting plasma glucose results between 100 to 125 mg/dL indicate increased risk for diabetes (prediabetes). Fasting plasma glucose results greater than or equal to 126 mg/dL meet the criteria for diagnosis of diabetes. In the absence of unequivocal hyperglycemia, results should be confirmed by repeat testing. In a patient with classic symptoms of hyperglycemia or hyperglycemic crisis, random plasma glucose results greater than or equal to 200 mg/dL meet the criteria for diagnosis of diabetes. Reference: Standards of Medical Care in Diabetes 2016, [place] Diabetes Association. Diabetes Care. 2016.39(Suppl 1). Performed By: #### C BCDIF, CMP, URIC, HBA1C ####[address] [phone] Potassium [Moles/Vol] 5.1 mmol/L Normal 3.7-5.1 [facility] Comment on above: Performed By: #### C BCDIF, CMP, URIC, HBA1C ####[address] [phone] Protein [Mass/Vol] 7.3 g/dL Normal 6.3-8.0 [facility] Comment on above: Performed By: #### C BCDIF, CMP, URIC, HBA1C ####[address] [phone] Sodium [Moles/Vol] 136 mmol/L Normal 136-144 [facility] Comment on above: Performed By: #### C BCDIF, CMP, URIC, HBA1C ####[address] [phone] Urea nitrogen [Mass/Vol] 46 mg/dL High 9-24 [facility] Comment on above: Performed By: #### C BCDIF, CMP, URIC, HBA1C ####[facility] [place], [place] [phone] Hemoglobin A1con 02-04-2021 Glucose [Mass/Vol] 157 mg/dL Normal [facility] Comment on above: Result Comment: eAG: (Estimated average glucose) is a calculated value from HgbA1c and is off premise service representative of the average blood glucose level in the last 2-3 month period. Performed By: #### C BCDIF, CMP, URIC, HBA1C ####[address] [phone] HbA1c (Bld) [Mass fraction] 7.1 % High 4.3-5.6 [facility] Comment on above: Result Comment: Amer [place] Diabetes Association guidelines indicate that patients with HgbA1c in the range 5.7-6.4% are at increased risk for development of diabetes, and intervention by lifestyle modification may be beneficial. HgbA1c greater or equal to 6.5% is considered diagnostic of diabetes. Performed By: #### C BCDIF, CMP, URIC, HBA1C ####[place] [id number] [place], [place] [phone] Uric Acidon 02-04-2021 Urate [Mass/Vol] 7.1 mg/dL Normal 4.0-8.1 [facility] Comment on above: Performed By: #### C BCDIF, CMP, URIC, HBA1C ####[place] [id number] [place], [place] [phone] OBSOLETEon 11-13-2017 OBSOLETE Refill (AGENDPOB) --VERENA CLEMENTS ([id number]) 1955 MDate Time Provider Department11/13/17 CANDE PHILLIPS During your visit today, we recorded the following information about you:Ciarra Avalos 11/14/2017 9:17 AM SignedPharmacy electronically requests the following refill(s)Pending Prescriptions Disp Refills BD INSULIN PEN NEEDLE UF MINI 31 GAUGE X 3/16ANDquot; 400 Each 3 Sig: USE 4 TIMES A DAY DIRECTED CHAVEZ: Aristeo Lyon As of Date: 11/13/2017(No Known Allergies)Date Reviewed: 09/23/2017Reviewed by: Lilian (Lan) TESSA Lerma - Fully AssessedReason for Visit: Refill Request [94] Cmt: Pen NeedleReason For Visit History RecordedOrder(s):BD ULTRAFINE III MINI PEN 31 gauge x 3/16 ndleUSE 4 TIMES A DAY DIRECTEDDisp: 400 EachRfl: 3Prescriptions as of 11/13/2017 Sig: BD INSULIN PEN NEEDLE UF MINI* USE 4 TIMES A DAY DIRECTED INSULIN DETEMIR (U-100) 100 U* 45 units SC before breakfast EMPAGLIFLOZIN 10 MG TABLET Take 1 tablet by mouth once d* CARVEDILOL 25 MG TABLET Take 1 tablet by mouth twice * ATORVASTATIN 80 MG TABLET TAKE 1 TABLET BY MOUTH ONCE D* DULAGLUTIDE 1.5 MG/0.5 ML SUB* Inject 1.5 mg subcutaneously * ALBUTEROL SULFATE HFA 90 MCG/* Inhale 2 Puffs as instructed * NITROGLYCERIN 0.4 MG SUBLINGU* Dissolve 1 tablet under the t* FUROSEMIDE 40 MG TABLET Take 1 tablet by mouth once d* LOSARTAN 100 MG TABLET Take 100 mg by mouth once jacquelyn* ONETOUCH ULTRA TEST STRIPS USE TWICE DAILY SILDENAFIL 50 MG TABLET 50-100mg as needed SPIRONOLACTONE 25 MG TABLET Take 1 tablet by mouth once d* ASPIRIN 81 MG TABLET,DELAYED * Take 1 tablet by mouth once d* APIXABAN 5 MG TABLET Take 1 tablet by mouth twice *Problem List As Of Date 11/13/2017 Noted Resolved Depression [F32.9] Essential Hypertension, Benign [I10] GERD (gastroesophageal reflux disease) [K21.9] INVALID FOR* Hyperlipidemia with target LDL less than 100 [E*INVALID FOR* Arteriosclerosis of carotid artery [I65.29] INVALID FOR* Rotator cuff tear arthropathy [M12.819] INVALID FOR* S/P CABG x 4 [Z95.1] INVALID FOR* 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, F51.05] INVALID FOR* ASHD (arteriosclerotic heart disease) [I25.10] INVALID FOR* Paroxysmal atrial fibrillation (HCC) [I48.0] INVALID FOR* Chronic anticoagulation [Z79.01] INVALID FOR* Type 2 diabetes mellitus with stage 3 chronic k*INVALID FOR* Anxiety [F41.9] INVALID FOR* Erectile dysfunction [N52.9] INVALID FOR* CKD (chronic kidney disease) stage 3, GFR 30-59*INVALID FOR* Nonrheumatic aortic valve stenosis [I35.0] INVALID FOR* Situational depression [F43.21] INVALID FOR* Chronic insomnia [F51.04] INVALID FOR*Prescriptions ordered this encounter Disp Refills Start End BD INSULIN PEN NEEDLE UF MINI 31 GAU* 400 * 3 11/28/2017 Sig: USE 4 TIMES A DAY DIRECTEDMedications Discontinued During This Encounter BD ULTRAFINE III MINI PEN 31 gauge x* 400 * 3 08/05/2016 11/28/2017 Sig: USE 4 TIMES A DAY DIRECTED Disc: Reason for discontinue is not on file. Status:Closed by CANDE PHILLIPS MD on 11/28/17 [facility] Vital Signs Date Time Vital Sign Value Performing Clinician Millicent lopez 02-07-2025 14:22-0400 Body temperature 98 [degF] Elo Ralph MD Work Phone: [facility] 02-07-2025 14:22-0400 Diastolic blood pressure 92 mm[Hg] Elo Ralph MD Work Phone: [facility] 02-07-2025 14:22-0400 Heart rate 66 /min Elo Ralph MD Work Phone: [facility] 02-07-2025 14:22-0400 Respiratory rate 16 /min Elo Ralph MD Work Phone: [facility] 02-07-2025 14:22-0400 SaO2% (BldA) [Mass fraction] 98 % Elo Ralph MD Work Phone: [facility] 02-07-2025 14:22-0400 Systolic blood pressure 143 mm[Hg] Elo Ralph MD Work Phone: [facility] 02-07-2025 05:39-0400 Body mass index (BMI) [Ratio] 26.3 kg/m2 Elo Ralph MD Work Phone: [facility] 02-07-2025 05:39-0400 Body weight 85.7 kg Elo Ralph MD Work Phone: [facility] 02-06-2025 18:06-0400 Body height 180.34 cm Elo Ralph MD Work Phone: [facility] 02-06-2025 17:04-0400 Body temperature 97.6 [degF] Elo Ralph MD Work Phone: [facility] 02-06-2025 17:04-0400 Diastolic blood pressure 79 mm[Hg] Elo Ralph MD Work Phone: [facility] 02-06-2025 17:04-0400 Heart rate 68 /min Elo Ralph MD Work Phone: [facility] 02-06-2025 17:04-0400 Respiratory rate 12 /min Elo Ralph MD Work Phone: [facility] 02-06-2025 17:04-0400 SaO2% (BldA) [Mass fraction] 98 % Elo Ralph MD Work Phone: [facility] 02-06-2025 17:04-0400 Systolic blood pressure 163 mm[Hg] Elo Ralph MD Work Phone: [facility] 02-06-2025 13:42-0400 Diastolic blood pressure 75 mm[Hg] Elo Ralph MD Work Phone: [facility] 02-06-2025 13:42-0400 Heart rate 85 /min Elo Ralph MD Work Phone: [facility] 02-06-2025 13:42-0400 Respiratory rate 10 /min Elo Ralph MD Work Phone: [facility] 02-06-2025 13:42-0400 SaO2% (BldA) [Mass fraction] 97 % Elo Ralph MD Work Phone: [facility] 02-06-2025 13:42-0400 Systolic blood pressure 168 mm[Hg] Elo Ralph MD Work Phone: [facility] 02-06-2025 09:27-0400 Body height 180.34 cm Elo Ralph MD Work Phone: [facility] 02-06-2025 09:27-0400 Body mass index (BMI) [Ratio] 26 kg/m2 Elo Ralph MD Work Phone: [facility] 02-06-2025 09:27-0400 Body temperature 97.9 [degF] Elo Ralph MD Work Phone: [facility] 02-06-2025 09:27-0400 Body weight 84.68 kg Elo Ralph MD Work Phone: [facility] 01-18-2025 11:53-0400 Diastolic blood pressure 70 mm[Hg] Elo Ralph MD Work Phone: [facility] 01-18-2025 11:53-0400 Systolic blood pressure 128 mm[Hg] Elo Ralph MD Work Phone: [facility] 01-18-2025 07:08-0400 Body mass index (BMI) [Ratio] 26.7 kg/m2 Elo Ralph MD Work Phone: [facility] 01-18-2025 07:08-0400 Body weight 87.08 kg Elo Ralph MD Work Phone: [facility] 01-18-2025 07:08-0400 Heart rate 62 /min Elo Ralph MD Work Phone: [facility] 01-18-2025 07:08-0400 Respiratory rate 18 /min Elo Ralph MD Work Phone: [facility] 01-18-2025 07:08-0400 SaO2% (BldA) [Mass fraction] 97 % Elo Ralph MD Work Phone: [facility] 09-30-2023 10:49-0500 Body height 180.34 cm DO Celi Gladis Work Phone: [facility] 09-30-2023 10:49-0500 Body mass index (BMI) [Ratio] 27 kg/m2 DO Celi Gladis Work Phone: [facility] 09-30-2023 10:49-0500 Body weight 87.99 kg DO Celi Gladis Work Phone: [facility] 09-30-2023 10:49-0500 Diastolic blood pressure 70 mm[Hg] DO Celi Gladis Work Phone: [facility] 09-30-2023 10:49-0500 Heart rate 60 /min DO Celi Gladis Work Phone: [facility] 09-30-2023 10:49-0500 Respiratory rate 16 /min DO Celi Gladis Work Phone: [facility] 09-30-2023 10:49-0500 Systolic blood pressure 138 mm[Hg] DO Celi Gladis Work Phone: [facility] 09-06-2023 16:20-0500 Body mass index (BMI) [Ratio] 27.6 kg/m2 DO Celi Gladis Work Phone: [facility] 09-06-2023 16:20-0500 Body temperature 98.3 [degF] DO Celi Gladis Work Phone: [facility] 09-06-2023 16:20-0500 Body weight 89.81 kg DO Celi Gladis Work Phone: [facility] 09-06-2023 16:20-0500 Diastolic blood pressure 80 mm[Hg] DO Celi Gladis Work Phone: [facility] 09-06-2023 16:20-0500 Heart rate 58 /min DO Celi Gladis Work Phone: [facility] 09-06-2023 16:20-0500 Respiratory rate 12 /min DO Celi Gladis Work Phone: [facility] 09-06-2023 16:20-0500 SaO2% (BldA) [Mass fraction] 96 % DO Celi Gladis Work Phone: [facility] 09-06-2023 16:20-0500 Systolic blood pressure 130 mm[Hg] DO Celi Gladis Work Phone: [facility] 05-09-2023 11:07-0400 Body height 180.34 cm DO Celi Gladis Work Phone: [facility] 05-09-2023 11:07-0400 Body mass index (BMI) [Ratio] 27.1 kg/m2 DO Celi Gladis Work Phone: [facility] 05-09-2023 11:07-0400 Body weight 88.45 kg DO Celi Gladis Work Phone: [facility] 05-09-2023 11:07-0400 Diastolic blood pressure 75 mm[Hg] DO Celi Gladis Work Phone: [facility] 05-09-2023 11:07-0400 Heart rate 63 /min DO Celi Gladis Work Phone: [facility] 05-09-2023 11:07-0400 Respiratory rate 18 /min DO Celi Gladis Work Phone: [facility] 05-09-2023 11:07-0400 SaO2% (BldA) [Mass fraction] 97 % DO Celi Gladis Work Phone: [facility] 05-09-2023 11:07-0400 Systolic blood pressure 143 mm[Hg] DO Celi Gladis Work Phone: [facility] 04-11-2023 14:30-0400 Body weight 89.26 kg DO Celi Griffith Work Phone: [facility] 10-07-2022 09:13-0500 Body height 180.34 cm STAGE RIGGER-C Otoniel Cortes STAGE RIGGER Work Phone: [facility] 10-07-2022 09:13-0500 Body mass index (BMI) [Ratio] 27.7 kg/m2 STAGE RIGGER-C Otoniel Cortes STAGE RIGGER Work Phone: [facility] 10-07-2022 09:13-0500 Body weight 90.26 kg STAGE RIGGER-C Otoniel Cortes STAGE RIGGER Work Phone: [facility] 10-07-2022 09:13-0500 Diastolic blood pressure 83 mm[Hg] STAGE RIGGER-C Otoniel Cortes STAGE RIGGER Work Phone: [facility] 10-07-2022 09:13-0500 Heart rate 70 /min STAGE RIGGER-C Otoniel Cortes STAGE RIGGER Work Phone: [facility] 10-07-2022 09:13-0500 Respiratory rate 16 /min STAGE RIGGER-C Otoniel Cortes STAGE RIGGER Work Phone: [facility] 10-07-2022 09:13-0500 Systolic blood pressure 169 mm[Hg] STAGE RIGGER-C Otoniel Cortes STAGE RIGGER Work Phone: [facility] 09-06-2022 10:59-0500 Respiratory rate 16 /min STAGE RIGGER-C Otoniel Cortes STAGE RIGGER Work Phone: [facility] 09-06-2022 08:03-0500 Body height 180.34 cm STAGE RIGGER-C Otoniel Cortes STAGE RIGGER Work Phone: [facility] 09-06-2022 08:03-0500 Body mass index (BMI) [Ratio] 27.8 kg/m2 STAGE RIGGER-C Otoniel Cortes STAGE RIGGER Work Phone: [facility] 09-06-2022 08:03-0500 Body temperature 98 [degF] STAGE RIGGER-C Otoniel Cortes STAGE RIGGER Work Phone: [facility] 09-06-2022 08:03-0500 Body weight 90.71 kg STAGE RIGGER-Jesus Cortes STAGE RIGGER Work Phone: [facility] 09-06-2022 08:03-0500 Diastolic blood pressure 82 mm[Hg] STAGE RIGGER-Jesus Cortes STAGE RIGGER Work Phone: [facility] 09-06-2022 08:03-0500 Heart rate 75 /min STAGE RIGGER-C Otoniel Cortes STAGE RIGGER Work Phone: [facility] 09-06-2022 08:03-0500 SaO2% (BldA) [Mass fraction] 97 % STAGE RIGGER-Jesus Cortes STAGE RIGGER Work Phone: [facility] 09-06-2022 08:03-0500 Systolic blood pressure 159 mm[Hg] STAGE RIGGER-Jesus Cortes STAGE RIGGER Work Phone: [facility] 11-25-2021 13:22-0400 Body weight 90.27 kg Otoniel Cortes APRN.EL TAYLOR Work Phone: [facility] 11-25-2021 13:22-0400 Diastolic blood pressure 70 mm[Hg] Otoniel Cortes APRN.BRANDON DNP Work Phone: [facility] 11-25-2021 13:22-0400 Heart rate 80 /min Otoniel Cortes APRN.BRANDON DNP Work Phone: [facility] 11-25-2021 13:22-0400 Respiratory rate 16 /min Otoniel Cortes APRN.CNP DNP Work Phone: [facility] 11-25-2021 13:22-0400 SaO2% (BldA) [Mass fraction] 98 % Otoniel Cortes APRN.CNP DNP Work Phone: [facility] 11-25-2021 13:22-0400 Systolic blood pressure 128 mm[Hg] Otoniel Cortes APRN.EL TAYLOR Work Phone: [facility] Encounters Encounter Date Encounter Type Care Provider Facility Start: 02-11-2025 End: 02-11-2025 ambulatory Elo Ralph MD Work Phone: -[facility] Start: 02-11-2025 End: 02-11-[address] Lewis Templeton MD -[facility] Work Phone: Start: 02-07-2025 Non-patient / Non-visit Dr. Jair Simmons MD -[facility] Work Phone: Start: 02-07-2025 Non-patient / Non-visit Dr. Piero healy MD -[facility] Start: 02-06-2025 End: 02-06-2025 ambulatory Piero Lee Facility:[facility] Start: 02-06-2025 End: 02-06-2025 Non-patient / Non-visit Dr. Piero Lee MD -[facility] Work Phone: Start: 02-06-2025 End: 02-07-[address] [facility] Facility:[facility] Start: 02-06-2025 End: 02-07-2025 Evaluation and management of inpatient Dr. Miesha Medina MD -Progressive Care Unit Work Phone: Start: 02-06-2025 End: 02-07-2025 observation encounter Elo Ralph MD Work Phone: [facility] Work Phone: Start: 02-06-2025 Emergency department patient visit Elo Ralph MD Work Phone: -Emergency Department Work Phone: Start: 01-30-2025 Non-patient / Non-visit Dr. Joel sagastume MD -[facility] Start: 01-30-2025 End: 01-30-2025 ambulatory Elo Ralph MD Work Phone: [facility] Work Phone: Start: 01-30-2025 End: 01-30-2025 Patient encounter procedure Kiki Ramirez PA -Cardiovascular Services Work Phone: Start: 01-30-2025 End: 01-30-2025 ambulatory Chalon Ramo Facility:[facility] Start: 01-18-2025 End: 01-18-2025 Patient encounter procedure Kiki BLCAKWELL -[facility] Work Phone: Start: 01-18-2025 End: 01-18-2025 ambulatory Elo Ralph MD Work Phone: [facility] Work Phone: Start: 01-18-2025 End: 01-18-2025 ambulatory Kiki BALCKWELL Facility:[facility] Start: 11-12-2024 End: 11-12-2024 ambulatory Chalon Ramo Facility:[facility] Start: 11-12-2024 End: 11-12-[address] Lewis Templeton MD -[facility] Work Phone: Start: 09-03-2024 End: 09-03-2024 ambulatory Chalon Ramo Facility:[facility] Start: 08-13-2024 End: 08-13-2024 ambulatory Chalon Ramo Facility:[facility] Start: 07-05-2024 ambulatory Alka Wagner STAGE RIGGER Facili ty:[facility] Start: 07-04-2024 ambulatory Chalon Ramo Facility:[facility] Start: 07-04-2024 End: 07-04-2024 ambulatory Chalon Ramo Facility:[facility] Start: 06-19-2024 End: 06-19-2024 ambulatory Lewis Jareth Facility:[facility] Start: 06-19-2024 End: 06-19-2024 ambulatory Lewis Jareth Facility:[facility] Start: 05-14-2024 End: 05-14-2024 ambulatory [place] Jareth Facility:[facility] Start: 10-31-2023 End: 10-31-2023 ambulatory DO Celi Griffiht Work Phone: [facility] Work Phone: Start: 10-31-2023 End: 10-31-2023 Patient encounter procedure DO Celi Griffith Work Phone: [facility]-Pulmonary Services/Neurology Work Phone: Start: 10-24-2023 End: 10-24-2023 Patient encounter procedure DO Clei Griffith Work Phone: [facility] Work Phone: Start: 09-30-2023 End: 09-30-2023 Patient encounter procedure DO [facility]eli [facility] Work [facility]: Start: 09-06-2023 End: 09-06-2023 Patient encounter procedure DO Celi Griffith Work Phone: [facility] Work Phone: Start: 08-10-2023 End: 08-10-2023 Patient encounter procedure DO Celi Griffith [facility] Work [facility]: Start: 08-10-2023 End: 08-10-2023 Patient encounter procedure DO Celi Griffith [facility] Work Phone: Start: 05-31-2023 Non-patient / Non-visit DO Lion Griffith [facility] Work Phone: Start: 05-27-2023 Non-patient / Non-visit DO Lion Griffith Work Phone: [facility] Start: 05-27-2023 End: 05-27-2023 ambulatory DO Celi Griffith Work Phone: [facility] Work Phone: Start: 05-27-2023 End: 05-27-2023 Patient encounter procedure DO Celi Griffith Work Phone: [facility]-Cardiovascula r Services Work Phone: Start: 05-19-2023 End: 05-19-2023 Patient encounter procedure DO Celi Guajardonger Work Phone: [facility] Start: 05-09-2023 End: 05-09-2023 Patient encounter procedure DO [facility]onger [facility] [place] [facility] Start: 05-09-2023 End: 05-09-2023 Patient encounter procedure DO Celi Guajardonger Work Phone: [facility] Work Phone: Start: 04-11-2023 End: 04-14-2023 ambulatory [facility] Work Phone: Start: 04-11-2023 End: 04-14-2023 [facility] Start: 04-11-2023 Registered Recurring DO Meagan Plascenciaer [facility] Start: 04-06-2023 End: 04-06-2023 ambulatory DO Celi Rainey Gladis Work Phone: [facility] Work Phone: Start: 04-06-2023 End: 04-06-2023 Patient encounter procedure DO Celi Gladis Work Phone: [facility] Work Phone: Start: 03-23-2023 End: 03-23-2023 ambulatory DO Celi Rainey Gladis Work Phone: [facility] Work Phone: Start: 03-23-2023 End: 03-23-2023 Patient encounter procedure DO Celi Gladis Work Phone: [facility] Start: 12-15-2022 End: 12-15-2022 Patient encounter procedure DO Celi Plascenciaer Work Phone: [facility] Work Phone: Start: 10-14-2022 Non-patient / Non-visit STAGE RIGGER-Jesus Cortes STAGE RIGGER Work Phone: [facility] Start: 10-14-2022 End: 10-14-2022 ambulatory STAGE RIGGER-Jesus Cortes STAGE RIGGER Work Phone: [facility] Work Phone: Start: 10-14-2022 End: 10-14-2022 Patient encounter procedure STAGE RIGGER-Jesus Cortes STAGE RIGGER Work Phone: [facility]-Cardiovascula r Services Start: 10-07-2022 End: 10-07-2022 ambulatory STAGE RIGGER-Jesus Cortes STAGE RIGGER Work Phone: [facility] Work Phone: Start: 10-07-2022 End: 10-07-2022 Patient encounter procedure STAGE RIGGER-Jesus Cortes STAGE RIGGER Work Phone: [facility] Start: 09-30-2022 End: 09-30-2022 ambulatory STAGE RIGGER-Jesus Cortes STAGE RIGGER Work Phone: [facility] Work Phone: Start: 09-30-2022 End: 09-30-2022 Patient encounter procedure STAGE RIGGER-Jesus Cortes STAGE RIGGER Work Phone: [facility] Start: 09-27-2022 End: 09-27-2022 ambulatory STAGE RIGGER-Jesus Cortes STAGE RIGGER Work Phone: [facility] Work Phone: Start: 09-27-2022 End: 09-27-2022 Patient encounter procedure STAGE RIGGER-Jesus Cortes STAGE RIGGER Work Phone: [facility] Start: 09-13-2022 End: 09-13-2022 ambulatory STAGE RIGGER-Jesus Cortes STAGE RIGGER Work Phone: [facility] Work Phone: Start: 09-13-2022 End: 09-13-2022 Patient encounter procedure NATACHA Cortes NP Work Phone: [facility] Start: 09-08-2022 End: 09-08-2022 Patient encounter procedure NATACHA Cortes NP Work Phone: [facility] Start: 09-06-2022 End: 09-06-2022 Emergency department patient visit STAGE RIGGERJossue Cortes NP Work Phone: [facility]-Emergency Department Start: 06-09-2022 End: 06-09-2022 Patient encounter procedure NATACHA Cortes NP Work Phone: [facility] Start: 02-16-2022 Refill Otoniel SIMPSON RN.EL TAYLOR Work Phone: [facility] Comment on above: Refill Request Start: 01-23-2022 Telephone encounter Otoniel watson APRN.EL TAYLOR Work Phone: [facility] Comment on above: Patient Update Start: 11-25-2021 End: 11-25-2021 Patient encounter procedure Otoniel Cortes APRN.EL TAYLOR Work Phone: [facility] Comment on above: Medicare annual well ness visit, subsequent (Primary Dx); Type 2 diabetes mellitus with stage 3b chronic kidney disease, with long-term current use of insulin (HCC); Fatigue, unspecified type; Vitamin D deficiency; Toenail fungus; Chronic systolic heart failure (HCC); Secondary pulmonary arterial hypertension (HCC); Paroxysmal atrial fibrillation (HCC); Non-ST elevation (NSTEMI) myocardial infarction (HCC); Hyperlipidemia with target LDL less than 100; Long-term current use of benzodiazepine; Chronic insomnia; Anxiety Start: 11-12-2021 Refill Otoniel SIMPSON RN.EL TAYLOR Work Phone: [facility] Comment on above: Refill Request Procedures Date Procedure Procedure Detail Performing Clinician Start: 02-07-2025 Cardiovascular stres s test using pharmacologic stress agent Elo Ralph MD Work Phone: Start: 02-07-2025 Estimated creatinine clearance Elo Ralph MD Work Phone: Start: 02-06-2025 Urnls dip stick/tabl et reagent auto microscopy Elo Ralph MD Work Phone: Start: 02-06-2025 Estimated creatinine clearance Elo Ralph MD Work Phone: Start: 02-06-2025 Plain chest X-ray Jaxson Ralph MD Work Phone: Start: 05-27-2023 Cardiovascular stres s test using pharmacologic stress agent DO Celi Griffith Work Phone: Start: 04-06-2023 Clostridium difficil e detection DO Celivanessa Guajardonger Work Phone: Start: 04-06-2023 Ova OR parasites identification Start: 09-13-2022 MRI of lower extremity STAGE RIGGER-C Otoniel Cortes STAGE RIGGER Work Phone: Start: 09-06-2022 Radiologic examinati on of knee STAGE RIGGER-C Otoniel Cortes STAGE RIGGER Work Phone: Start: 02-02-2021 Adult depression scr eening assessment Otoniel Cortes APRN.BRANDON, [facility] Work Phone: Start: 05-29-2015 History of coronary artery bypass grafting S/P CABG x 4 Otoniel Cortes APRN.BRANDON, [facility] Work Phone: Start: 05-06-2015 History of coronary artery bypass grafting H/O coronary artery bypass surgery Kiki BLACKWELL Comment on above: MONROY-LAD, SVG-Diag, SVG-Ramus, SVG-PDA per Dr. Clements, [facility] Start: 09-12-2013 Colonoscopy Otoniel watson APRN.BRANDON, DNP Work Phone: Plan of Treatment Date Care Activity Detail Author Start: 02-07-2025 [facility] Start: 02-06-2025 Following clinical pathway protocol [facility] Start: 02-06-2025 Assessment of risk o f venous thromboembolism [facility] Start: 02-06-2025 Care regimes management [facility] Start: 02-06-2025 Inhalation therapy procedure [facility] Start: 02-06-2025 Insertion of cathete r into peripheral vein [facility] Start: 02-06-2025 Measuring intake and output [facility] Start: 02-06-2025 Notification of physician [facility] Start: 02-06-2025 Providing care accor ding to standard [facility] Start: 02-06-2025 Provision of activit y privileges [facility] Start: 02-06-2025 End: 02-06-2025 [facility] Start: 02-06-2025 Hospital admission, emergency, from emergency room, medical nature [facility] Start: 02-06-2025 Verification routine [facility] Start: 02-06-2025 Admission procedure [facility] Start: 02-06-2025 Troponin T.cardiac [Mass/volume] in Serum or Plasma by High sensitivity method [facility] Start: 02-06-2025 [facility] Start: 02-06-2025 [facility] Start: 02-06-2025 Consultation [facility] Start: 09-12-2023 Colonoscopy COLONOSCOPY [facility] Start: 09-12-2023 COLORECTAL CANCER SCREENING COLORECTAL CANCER SCREENING [facility] Start: 04-06-2023 Procedure [facility] Start: 12-21-2022 Hepatitis C antibody , confirmatory test DILATED RETINAL EXAM [facility] Start: 11-25-2022 3 comp foot exam completed DIABETIC FOOT EXAM [facility] Start: 11-25-2022 ANNUAL PCP TEAM ENGRAVING PATTERNMAKER VERONICA DISEASE VISIT ANNUAL PCP TEAM CHRONIC DISEASE VISIT [facility] Start: 11-25-2022 BP CONTROLLED (<130/80) BP CONTROLLE D (<130/80) [facility] Start: 09-09-2022 PROSTATE CANCER SCRE ENING DISCUSSION PROSTATE CANCER SCREENING DISCUSSION [facility] Start: 07-26-2022 PNEUMOCOCCAL: 65+ (3 - PPSV23 or PCV20) PNEUMOCOCCAL: 65+ (3 - PPSV23 or PCV20) [facility] Start: 07-26-2022 PNEUMOVAX AGE 65 AND OVER WITH 5YR LOOKBACK (#1) PNEUMOVAX AGE 65 AND OVER WITH 5YR LOOKBACK (#1) [facility] Start: 07-21-2022 ANNUAL PCP TEAM ENGRAVING PATTERNMAKER VERONICA DISEASE VISIT ANNUAL PCP TEAM CHRONIC DISEASE VISIT [facility] Start: 07-20-2022 SERUM CREATININE SERUM CREATININE Cl [facility] Start: 04-15-2022 Influenza vaccination C [facility] Start: 02-04-2022 BP CONTROLLED (<130/80) BP CONTROLLE D (<130/80) [facility] Start: 02-04-2022 HEMOGLOBIN/HEMATOCRIT HEMOGLOBIN/HEM ATOCRIT [facility] Start: 02-04-2022 Hepatitis B screening URINE AL BUMIN:CREATININE RATIO [facility] Start: 02-02-2022 Adult depression screening assessment DEPRESSION SCREENING [facility] Start: 01-18-2022 Hemoglobin A1c/Hemoglobin.total in Blood HBA1C [facility] Start: 01-12-2022 Hepatitis C antibody , confirmatory test DILATED RETINAL EXAM [facility] Comment on above: Postponed from 03/29 (Currently Scheduled) Start: 11-25-2021 End: 01-25-2022 Comprehensive metabolic 2000 panel - Serum or Plasma COMP METABOLIC PANEL Lab Routine Type 2 diabetes mellitus with stage 3b chronic kidney disease, with long-term current use of insulin (HCC) Fatigue, unspecified type Toenail fungus Expected: 11/25/2021, Expires: 01/25/2022 [facility] Work Phone: Comment on above: Expected: 11/25/2021 , Expires: 01/25/2022 Start: 11-25-2021 End: 01-25-2022 Hemoglobin A1c/Hemoglobin.total in Blood HGB A1C Lab Routine Medicare annual wellness visit, subsequent Type 2 diabetes mellitus with stage 3b chronic kidney disease, with long-term current use of insulin (HCC) Expected: 11/25/2021, Expires: 01/25/2022 [facility] Work Phone: Comment on above: Expected: 11/25/2021 , Expires: 01/25/2022 Start: 11-25-2021 End: 01-25-2022 LIPID PANEL BASIC LIPID PANEL BASIC Lab Routine Medicare annual wellness visit, subsequent Type 2 diabetes mellitus with stage 3b chronic kidney disease, with long-term current use of insulin (HCC) Expected: 11/25/2021, Expires: 01/25/2022 [facility] Work Phone: Comment on above: Expected: 11/25/2021 , Expires: 01/25/2022 Start: 11-25-2021 End: 01-25-2022 VITAMIN D 25 HYDROXY VITAMIN D 25 HYDROXY Lab Routine Fatigue, unspecified type Vitamin D deficiency Expected: 11/25/2021, Expires: 01/25/2022 [facility] Work Phone: Comment on above: Expected: 11/25/2021 , Expires: 01/25/2022 Start: 11-12-2021 End: 01-12-2022 BENZODIAZEPINE SCREEN, URINE BENZODIAZEPINE SCREEN, URINE Lab Routine Long-term current use of benzodiazepine Expected: 11/12/2021, Expires: 01/12/2022 [facility] Work Phone: Comment on above: Expected: 11/12/2021 , Expires: 01/12/2022 Start: 11-12-2021 End: 01-12-2022 TOX SCREEN ROUT UR TOX SCREEN ROUT UR Lab Routine Long-term current use of benzodiazepine Expected: 11/12/2021, Expires: 01/12/2022 [facility] Work Phone: Comment on above: Expected: 11/12/2021 , Expires: 01/12/2022 Start: 10-06-2021 3 comp foot exam completed DIABETIC FOOT EXAM [facility] Start: 10-06-2021 Hepatitis B surface antibody level LDL CHOLESTEROL [facility] Start: 08-15-2021 ADVANCE DIRECTIVE DISCUSSION ADVANCE DIRECTIVE DISCUSSION [facility] Start: 03-29-2021 Hepatitis C antibody , confirmatory test DILATED RETINAL EXAM [facility] Start: 11-21-2014 SHINGRIX VACCINE (2 of 3) NELSON GRIX VACCINE (2 of 3) [facility] Start: 1998 COLOGUARD (FIT-DNA) COLOGUARD (FIT-D NA) [facility] Start: [address] COLONOGRAPHY [facility] Start: 1998 FECAL OCCULT BLOOD FECAL OCCULT BLOO D [facility] Start: 1998 SIGMOIDOSCOPY SIGMOIDOSCOPY Lynette mott [facility] Start: 1972 Urine microalbumin profile DTAP,TDAP,TD (1 - Tdap) [facility] Blood chemistry [facility] Comprehensive metabo lic 1999 panel - Serum or Plasma [facility] Lipid 1996 panel - S nevin or Plasma [facility] Ova and parasites identified in Unspecified specimen by Light microscopy [facility] Patient Education ED Knee Effusion [facility] Work Phone: [facility] Work Phone: Procedure [facility] US Carotid arteries [facility] Heart [facility] Immunizations Immunization Date Immunization Notes Care Provider Fa sailaja 05-30-2020 influenza, high-dose , quadrivalent vaccine (FLUZONE HIGH DOSE QUADRIVALENT) Otoniel Cortes APRN.EL TAYLOR Work Phone: [facility] 06-12-2019 influenza, high dose seasonal, preservative-free Otoniel Cortes APRN.EL TAYLOR Work Phone: [facility] 06-09-2018 Influenza, injectabl e, Madin Vi Canine Kidney, preservative free, quadrivalent Elo Ralph MD Work Phone: [facility] 07-26-2017 pneumococcal polysaccharide vaccine, 23 valent Otoniel Cortes APRN.EL TAYLOR Work Phone: [facility] 05-02-2017 influenza, injectabl e, quadrivalent, contains preservative Otoniel Cortes APRN.EL TAYLOR Work Phone: [facility] 05-02-2017 influenza, injectabl e, quadrivalent, preservative free Elo Ralph MD Work Phone: [facility] 06-03-2016 influenza, injectabl e, quadrivalent, contains preservative Otoniel Cortes APRN.EL TAYLOR Work Phone: [facility] 06-03-2016 influenza, injectabl e, quadrivalent, preservative free Elo Ralph MD Work Phone: [facility] 06-03-2016 pneumococcal conjuga te vaccine, 13 valent Otoniel Cortes MEDICAL COLLECTIONS SPECIALIST.[facility] Work Phone: [facility] 09-26-2014 zoster vaccine, live Otoniel Cortes MEDICAL COLLECTIONS SPECIALIST.[facility] Work Phone: [facility] Work Phone: 05-23-2012 influenza virus vacc ine, unspecified formulation Otoniel Cortes MEDICAL COLLECTIONS SPECIALIST.[facility] Work Phone: [facility] 08-12-2011 influenza virus vacc ine, unspecified formulation Otoniel Cortes MEDICAL COLLECTIONS SPECIALIST.[facility] Work Phone: [facility] 07-13-2010 influenza virus vacc ine, unspecified formulation Otoniel Cortes MEDICAL COLLECTIONS SPECIALIST.[facility] Work Phone: [facility] Work Phone: 07-13-2010 pneumococcal polysaccharide vaccine, 23 valent Otoniel Cortes MEDICAL COLLECTIONS SPECIALIST.[facility] Work Phone: [facility] Work Phone: Payers Date Payer Category Payer Medicare [id number] 2023 Medicare [id number] 2023 Self-pay [id number] 2023 Unknown [id number] 2019 Unknown SHEEBA ALY ME DICARE SUPPLEMENT [id number] 2019-Present [phone] [address] [place] [address] Indemnity [id number] 2018 Medicare MEDICARE MEDICAR E A AND B [id number] 2018-Present [phone] [address] [address] [place] [address] Medicare [id number] 2017 Unknown MEDICAL BENEFITS [id number] Unknown [id number] Unknown [id number] Unknown [id number] 2.16.840.1.737449.3.579.2.462 Unknown [id number] 2.16.840.1.420525.3.579.2.462 Unknown [id number] 2.16.840.1.536541.3.579.2.462 Unknown [id number] 2.16.840.1.544643.3.579.2.462 Unknown [id number] 2.16.840.1.301135.3.579.2.462 Unknown [id number] 2.16.840.1.070409.3.579.2.462 Unknown [id number] 2.16.840.1.791447.3.579.2.462 Unknown [id number] 2.16.840.1.058618.3.579.2.462 Unknown [id number] 2.16.840.1.557576.3.579.2.462 Unknown [id number] 2.16.840.1.610193.3.579.2.462 Unknown [id number] 2.16.840.1.090990.3.579.2.462 Unknown [id number] 2.16.840.1.647876.3.579.2.462 Unknown [id number] 2.16.840.1.783089.3.579.2.462 Unknown [id number] 2.16.840.1.268692.3.579.2.462 Unknown [id number] 2.16.840.1.034538.3.579.2.462 Unknown [id number] 2.16.840.1.559064.3.579.2.462 Unknown [id number] 2.16.840.1.041862.3.579.2.462 Unknown [id number] 2.16.840.1.175054.3.579.2.462 Unknown [id number] 2.16.840.1.864415.3.579.2.462 Unknown [id number] 2.16.840.1.640058.3.579.2.462 Unknown [id number] 2.16.840.1.686796.3.579.2.462 Social History Date Type Detail Facility Tobacco smoking stat us VTIS Never smoked tobacco [facility] Work Phone: History of tobacco use Pipe Smoker [facility] Work Phone: Start: 07-21-2021 End: 11-25-2021 Alcohol intake Current drinker of alcohol (finding) [facility] Start: 12-12-2019 History SDOH Alcohol Std Drinks 98 [facility] Start: 12-12-2019 History SDOH Alcohol Binge 1 [facility] Start: 12-12-2019 History SDOH Social Connections Phone 5 [facility] Start: 05-28-2019 End: 12-12-2019 History SDOH Social Connections Get Together 2 [facility] Start: 12-12-2019 History SDOH Social Connections Taoist 3 [facility] Start: 12-12-2019 History SDOH Social Connections Living 8 [facility] Start: 1955 Sex Assigned At Male C [facility] Start: 09-06-2022 End: 09-30-2023 Tobacco smoking status NHIS Unknown if ever smoked [facility] Start: 09-30-2023 End: 02-06-2025 Tobacco smoking status NHIS Ex-smoker (finding) [facility] Start: 02-06-2025 [facility] Medical Equipment Procedure Code Equipment Code Equipment Original Text Equipment Identifier Dates Start: 05-29-2018 Comment on above: 1 Strip twice daily. Use as instructed USE 4 TIMES A DAY DIRECTED Goals Date Patient Goal Desired Activity /State Comment on above: Formatting of this n ote might be different from the original. Decrease Hgb A1c Functional Status Date Assessment Result Facility 02-07-2025 Functional status Ambulates;Up ad estephanie [facility] Work Phone: Mental Status Date Assessment Result Facility 02-07-2025 Cognitive function Voice/Name [facility] Work Phone: 02-06-2025 Cognitive function Level Of Cons ciousness Awake;Alert;Appropriate;Follow s Commands [facility] Work Phone: Clinical Notes 05-06-2015 to 02-07-2025 Note Date & Type Note Facility 02-07-2025 Discharge summary [facility] 02-07-2025 Note [facility] Medical Records Department [address] [place] [address] Discharge Summary 02/07/25 1528 MR#: [id number] Acct: [id number] Name: VERENA CLEMENTS Rep #: [id number] : 1955 69 From: Jair Simmons MD PCP: Dr. Elo Ralph MD Status:ADM MARGARITA Location: [place] [address] Providers Date of Admission: 02/06/25 Date of Discharge: 02/07/25 Primary Care Physician: Elo Ralph MD Reason For Visit: CP R/O Diagnosis Discharge Diagnosis (1) Chest pain: Status: Acute Code(s): R07.9 - Chest pain, unspecified (2) DM2 (diabetes mellitus, type 2): Status: Chronic Code(s): E11.9 - Type 2 diabetes mellitus without complications Qualifiers: Diabetes mellitus complication status: without complication Qualified Code(s): E11.9 - Plan 69-year-old Male admitted with nausea vomiting, generalized weakness and fatigue for about 1 week. Did not vomit last 24 hours. Yesterday had intermittent chest pain. # Intermittent chest pain, ACS ruled out -Chest pain atypical and happens 15 to 20 seconds at random, sometimes left side of chest sometimes middle Serial troponins were 24, 23 and 25. -EKG paced with no acute changes -Pharmacological nuclear stress test was done which shows prior inferior nontransmural infarct but no significant guillermo-infarct ischemia. EF 40%. 2D echo was also done which shows EF improved to 45%. Stage II diastolic dysfunction, LA mildly enlarged mild MR, mild TR RVSP 42 mmHg. Mild aortic stenosis aortic valve area 1.5 cm?. Patient stated his prior EF was very low about 18% Lipid profile shows LDL 59, HDL 28. Triglyceride 160. Patient on appropriate medications as mentioned below # History of ischemic cardiomyopathy with pacemaker/defibrillator - Daily weights, I's and O's - Does not appear to be fluid overloaded - Continue patient's home medications - Patient is listed on being on both losartan and Entresto, continue Entresto and holding losartan, will need to verify which 1 patient is on as these 2 02/07: Patient on furosemide, spironolactone, Entresto, atorvastatin, and baby aspirin continue. Losartan discontinued. Follow-up with Kiki Ramirez in 1 month # CKD stage III b -Appears to be at baseline -Avoid nephrotoxic agents -Daily BMPs 02/07: Kidney function is on baseline #Type 2 diabetes mellitus -Glucose checks and sliding scale insulin -Continue long-acting insulin but at lower dosing given patient will be n.p.o. #Paroxysmal Atrial Fibrillation -Rate control: Carvedilol -Anticoagulation: Eliquis # History of coronary artery disease -With previous CABG - Continue aspirin and statin #Chronic BPH with obstruction -Continue home medications #GERD -Continue PPI #Depression/anxiety -Continue home medications #DVT ppx: Patient on Eliquis Discharge medication reconciliation done. Discharge follow-up instructions completed. Discharge process discussed with the patient and all questions were answered to patient's satisfaction. Follow with PCP in 1 to 2 weeks Total time spent, exact 35 minutes on discharge meds reconciliation, examination, coordination of care with nurses and ancillary staff, review of imaging and blood test and discussion with the patient on follow-up instructions. Medications at Discharge Home Medications aspirin 81 mg tablet,delayed release 81 mg PO DAILY 06/16/15 fluoxetine 20 mg capsule 20 mg PO DAILY 05/16/18 nitroglycerin 0.4 mg sublingual tablet 0.4 mg sublingual DAILY PRN Pain #25 tabs 11/25/19 sildenafil 50 mg tablet 50 mg PO DAILY PRN sexual activity 02/27/21 omeprazole 20 mg tablet,delayed release 20 mg PO DAILY 09/24/21 cholecalciferol (vitamin D3) 25 mcg (1,000 unit) tablet 50 mcg PO DAILY 09/30/23 insulin glargine U-300 conc 300 unit/mL (1.5 mL) subcutaneous pen (Toujeo SoloStar U-300 Insulin) 46 unit subcut DAILY 12/30/23 furosemide 40 mg tablet 40 mg PO DAILY #90 tabs 01/16/24 spironolactone 25 mg tablet 25 mg PO DAILY #90 tabs 03/29/24 carvedilol 25 mg tablet 25 mg PO BID #180 tabs 05/02/24 tamsulosin 0.4 mg capsule 0.4 mg PO DAILY 06/19/24 apixaban 5 mg tablet (Eliquis) 5 mg PO BID #60 tabs 08/29/24 sacubitril 49 mg-valsartan 51 mg tablet (Entresto) 1 tab PO BID #180 tabs 09/03/24 atorvastatin 80 mg tablet 80 mg PO QHS #90 tabs 10/22/24 albuterol sulfate 90 mcg/actuation breath activated powder inhaler 2 inh inhalation Q6H PRN shortness of breath or wheezing 02/06/25 lorazepam 0.5 mg tablet 0.5 mg PO DAILY PRN anxiety 02/06/25 semaglutide 1 mg/dose (4 mg/3 mL) subcutaneous pen injector (Ozempic) 0.5 mg subcut QWEEK 02/06/25 trazodone 50 mg tablet 50 - 100 mg PO QHS 02/06/25 Hospital Course Summary of Care Provided Hospital Course: Clinical Impression(s) from Imaging Studies Chest X-Ray 02/06/25 09:48 IMPRESSION: Interval placement of left thoracic transvenous pacemaker/AICD (more content not included)... [facility] 02-07-2025 Discharge summary [facility] 02-07-2025 Discharge summary Note Date/Time February 07, 2025 3:27pm [facility] Medical Records Department [address] [place] [address] Instructions for Home/Discharge Instructions 02/07/25 1125 MR#: [id number] Acct: [id number] Name: VERENA CLEMENTS Rep #:[id number] : 1955 69 From: Jair Mott PCP: Dr. Elo Ralph MD Status:ADM IN O Discharge Instructions Diet Discharge Diet: Low fat / Low cholesterol and 2000 mg Sodium Diet DC O2, CPAP, BIPAP needs Home O2 Discharge instructions: No Dressing / Incision Discharge Activity: Return to Normal Activity Weight Bearing Status: Weight bearing as tolerated Dressing / Incision Call your doctor if you observe: Fever of 101 or Higher, Coldness, Increased Pain, Numbness or Tingling, Change in Color, Inability to urinate, Inability to have a bowel movement, Shortness of breath, Dizziness, Fainting spells, Swellingin the ankles, Chest pain, Prolonged hiccupping, Increased palpitations (irregular heartbeat) and Calf discomfort Follow Up Care When: IN 2 WEEKS Test Results: Test results from this visit will be discussed in further detail at your follow-up appointment, if applicable. Discharge Plan Admission Admit Date/Time: 02/06/25 15:34 Primary Reason for Your Visit: Atypical chest pain, nausea/vomiting Attending Provider: Jair Simmons Primary Care Provider: Elo Ralph Consulting Providers: Miesha Medina Discharge Orders/Prescriptions Prescriptions: Continued fluoxetine 20 mg capsule 20 mg PO DAILY nitroglycerin 0.4 mg tablet, sublingual 0.4 mg SUBLINGUAL DAILY PRN (Reason: Pain) Qty: 25 3RF sildenafil 50 mg tablet 50 mg PO DAILY PRN (Reason: sexual activity) Rx Instructions: administer 30 minutes to 4 hours before activity omeprazole 20 mg tablet,delayed release (DR/EC) 20 mg PO DAILY cholecalciferol (vitamin D3) 25 mcg (1,000 unit) tablet 50 mcg PO DAILY insulin glargine U-300 conc [Toujeo SoloStar U-300 Insulin] 300 unit/mL (1.5 mL) insulin pen 46 unit subcut DAILY tamsulosin 0.4 mg capsule 0.4 mg PO DAILY aspirin 81 MG tablet 81 mg PO DAILY lorazepam 0.5 mg tablet 0.5 mg PO DAILY PRN (Reason: anxiety) Ozempic 1 mg/dose (4 mg/3 mL) pen injector 0.5 mg subcut QWEEK Patient Comments: SATURDAYS losartan 100 mg tablet 100 mg PO DAILY trazodone 50 mg tablet 50 - 100 mg PO QHS albuterol sulfate 90 mcg/actuation aerosol powdr breath activated 2 inh inhalation Q6H PRN (Reason: shortness of breath or wheezing) furosemide 40 mg tablet 40 mg PO DAILY Qty: 90 4RF spironolactone 25 mg tablet 25 mg PO DAILY Qty: 90 3RF carvedilol 25 mg tablet 25 mg PO BID Qty: 180 3RF Eliquis 5 mg tablet 5 mg PO BID Qty: 60 11RF Entresto 49-51 mg tablet 1 tab PO BID Qty: 180 3RF atorvastatin 80 mg tablet 80 mg PO QHS Qty: 90 3RF Referrals / Follow Up: Elo Ralph MD [Primary Care Provider] - Kiki Ramirez PA [Med Staff - [facility] Practice Prof] - Within 1 Month Disposition Disposition (needs filled in before D/C Order can be placed): Home, Self Care 02/07/25 1528<Electronically signed by Jair Simmons MD>Jair Simmons MD CC: Dr. Elo Ralph MD; Dr. Miesha Medina MD ~ Signed [facility] Work Phone: [phone]) 850-336706-25-2025 History and physical note Author Miesha Medina [facility] Note Date/Time February 06, 2025 4:01 pm [facility] Medical Records Department [address] [place] [id number] H&P Exam - Hospitalist 02/06/25 1534 MR#: [id number] Acct: [id number] Name: VERENA CLEMENTS Rep #:[id number] : 1955 69 From: Miesha Medina MD PCP: Dr. Elo Ralph MD Status:REG ER Location: ED HPI - General General Date of Admission: 02/06/25 Date of Service: 02/06/25 Chief Complaint: Nausea, fatigue, CP HPI Narrative VERENA CLEMENTS is [id number] male history of pacemaker defibrillator, diabetes,ischemic cardiomyopathy, CAD, paroxysmal atrial fibrillation, GERD, BPH, anxietypresented [facility] ED 02/06/2025 with generalized weakness, fatigue, intermittent nausea and vomiting as well as intermittent chest pain over the past week. Has been doing more manual labor around the house and has been feeling fatigued with chest pain and nausea that has been coming and going. In the ED patient afebrile, heart rate 71 with blood pressure 149/75, pulse ox 99% on room air. EKG is paced without acute ST changes and no STEMI. White blood cell count 11.1 with a hemoglobin of 11.1, platelets within normal limits at 174. BUN 36 and creatinine of 1.84 not overtly changed from baseline. Initial high-sensitivity troponin very minimally elevated at 24 with repeat of 23. Given patient's chest pain and history hospitalist contacted for admission for stress test/cardiac workup. Patient evaluated at bedside and reports he is felt somewhat unwell for the past week but notes he has been very stressed and alot is been going on and has not been very good about taking his medications. Intermittently having nausea and reports the chest pain that he has is sometimeson the left side or sometimes middle of his chest and is more of just a general pain but would rated at a 1 out of 10 and it happens at random for a 15 to 20 seconds, not sustained no additional associations that patient reports. No shortness of breath. Reports he got his Eliquis in the ED and some fluids and is feeling better however given his history and the concern patient agreeable tocoming in for stress test. [facility] Medical History Essential hypertension Hyperlipidemia Dyspnea on exertion Abnormal stress test Chest pain Nonrheumatic mitral (valve) insufficiency Secondary pulmonary arterial hypertension Paroxysmal atrial fibrillation Atherosclerosis of coronary artery of [place] heart without angina pectoris Ischemic cardiomyopathy Non-rheumatic aortic stenosis Non-ST elevation [place] (NSTEMI) Tobacco use DM2 (diabetes mellitus, type 2) Home Medications ?Medication ?Instructions ?Recorded ?Last Taken ?Type aspirin 81 mg tablet,delayed 81 mg PO DAILY 06/16/15 1 08/30/17 History release fluoxetine 20 mg capsule 20 mg PO DAILY 05/16/1806/15 History nitroglycerin 0.4 mg sublingual 0.4 mg sublingual ARI Y PRN Pain 07/09/19 Unknown Rx tablet #25 tabs sildenafil 50 mg tablet 50 mg PO DAILY PRN sexual ac tivity 02/27/21 Unknown History omeprazole 20 mg tablet,delayed 20 mg PO DAILY 2 Unknown History release cholecalciferol (vitamin D3) 25 50 mcg PO DAILY Unknown History mcg (1,000 unit) tablet insulin glargine U-300 conc 300 46 unit subcut DAILY 0 12/30/23 Unknown History unit/mL (1.5 mL) subcutaneous pen (Toujeo SoloStar U-300 Insulin) furosemide 40 mg tablet 40 mg PO DAILY #90 tabs 11/05 Unknown Rx spironolactone 25 mg tablet 25 mg PO DAILY #90 tabs Unknown Rx carvedilol 25 mg tablet 25 mg PO BID #180 tabs 05/02 Unknown Rx tamsulosin 0.4 mg capsule 0.4 mg PO DAILY 06/19/24 Unk nown History apixaban 5 mg tablet (Eliquis) 5 mg PO BID #60 tabs Unknown Rx sacubitril 49 mg-valsartan 51 mg 1 tab PO BID #180 tab s 09/03/24 Unknown Rx tablet (Entresto) atorvastatin 80 mg tablet 80 mg PO QHS #90 tabs Unknown Rx albuterol sulfate 90 mcg/actuation 2 inh inhalation Q6 H PRN shortness 02/06/25 Unknown History breath activated powder inhaler of breath or wheezing lorazepam 0.5 mg tablet 0.5 mg PO DAILY PRN anxiety 02/06/25 02/02/25 History losartan 100 mg tablet 100 mg PO DAILY 02/06/25 Unk nown History semaglutide 1 mg/dose (4 mg/3 mL) 0.5 mg subcut QWEEK 02/06/25 02/02/25 History subcutaneous pen injector (Ozempic) trazodone 50 mg tablet 50 - 100 mg PO QHS 02/06/25 Unknown History Allergy/AdvReac Type Severity Reaction Status Date / Time No Known Allergies Allergy Verified 02/06/25 09:28 Family History Father , Age 49 from [place] CAD (coronary artery disease) from [place] age 49 Myocardial infarction Mother Pacemaker History of heart valve replacement Surgical History Presence of cardiac resynchronization therapy defibrillator (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) (09/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) History of repair of rotator cuff (~04/2015) History of right and left heart catheterization (06/30/18) H/O coronary artery bypass surgery (05/06/15) Social History Smoking Status: Former smoker quit date: 04/15/15 alcohol intake: current details: rarely substance use type: does not use caffeine: Yes Type: coffee Number of servings: 1 ROS ROS Narrative General: Denies fever/chills, self felt somewhat fatigued and generally unwell HENT: Denies headache, denies stuffy nose, denies sore throat EYES: Denies changes in vision Resp: Denies cough, denies shortness of breath Cardiac: Brief episodes of chest pain as above GI: Denies abdominal pain, denies changes in bowel, intermittent nausea : Denies changes in urination Extremity: Denies swelling MSK: Denies weakness Neuro: Denies any numbness/tingling Heme: Denies any bleeding or bruising Skin: Denies rashes Psychiatric: No complaints voiced Vital Signs Vital Signs Vital Signs: 02/06/25 09:27 02/06/25 09:37 02/06/25 09:38 Temperature 97.9 F Temperature Source Oral Pulse Rate 71 67 Respiratory Rate 18 14 Respiratory Effort Normal Non-Labored Respiratory Pattern Normal Blood Pressure 149/75 H 163/81 H Blood Pressure Mean 99 108 Pulse Ox 99 99 Oxygen Delivery Method Room Air Room Air 02/06/25 11:08 02/06/25 12:15 02/06/25 13:42 Temperature Temperature Source Pulse Rate 69 86 85 Respiratory Rate 17 11 L 10 L Respiratory Effort Respiratory Pattern Blood Pressure 155/99 H 170/88 H 168/75 H Blood Pressure Mean 117 115 106 Pulse Ox 98 97 97 Oxygen Delivery Method Room Air Room Air Room Air Weight Weight: 84.686 kg Body Mass Index (BMI) 26.0 Physical Exam Narrative General: Alert, oriented, no apparent distress HEENT: Atraumatic, normocephalic Eyes: Anicteric, normal conjunctiva, extraocular movements grossly intact Neck: Supple Respiratory: Clear to auscultation bilaterally, normal respiratory effort Cardiovascular: Regular rate and rhythm GI: Soft, nontender, nondistended Extremities: No edema Musculoskeletal: Moving all extremities Neuro: No overt focal neurological deficits Skin: No rashes appreciated Psych: Cooperative Results Lab / Micro Data 02/06/25 10:00 02/06/25 10:00 Labs: Laboratory Results - last 24 hr 02/06/25 10:00: WBC 11.1 H, RBC 3.41 L, Hgb 11.1 L, Hct 31.3 L, MCV 91.8, MCH 32.6 H, MCHC 35.5, RDW Std Deviation 40.6, RDW Coeff of Brianna 12.2, Plt Count 174,MPV 11.1, Immature Gran % (Auto) 0.600, Neut % (Auto) 82.5 H, Lymph % (Auto) 8.7L, [place] % (Auto) 6.6, Eos % (Auto) 1.3, Baso % (Auto) 0.3, Absolute Neuts (auto)9.2 H, Absolute Lymphs (auto) 0.97, Nucleated RBC % 0, Sodium 139, Potassium 4.9, Chloride 106, Carbon Dioxide 21.7, Anion Gap 12, BUN 36 H, Creatinine 1.84 H, Estim Creat Clear Calc 39.22 L, Est GFR (MDRD) Non-Af 39 L, BUN/Creatinine Ratio 19.5, Glucose 192 H, Calcium 9.7, Total Bilirubin 0.49, AST 18, ALT 25, Alkaline Phosphatase 84, Troponin T High Sens 24 H, Total Protein 6.6, Albumin 4.2, Globulin 2.4, Albumin/Globulin Ratio 1.7, Lipase 76 H 02/06/25 11:05: Urine Color Yellow, Urine Clarity Clear, Urine pH 6.0, Ur Specific [place] 1.015, Urine Protein 100 H, Urine Glucose (UA) Normal, Urine Ketones Negative, Urine Occult Blood 10 H, Urine Nitrite Negative, Urine Bilirubin Negative, Urine Urobilinogen Normal, Ur Leukocyte Esterase Negative, Urine RBC 0-5 SEEN, Urine WBC 0 SEEN, Ur Squamous Epith Cells 0-5 SEEN, Urine Bacteria 0 SEEN, Urine Mucus 0 SEEN 02/06/25 12:14: Troponin T Hi Sens 2 Hr 23 H 02/06/25 14:12: Troponin T Hi Sens 4Hr 25 H Imaging Radiology Impression Chest X-Ray 02/06/25 09:48 IMPRESSION: Interval placement of left thoracic transvenous pacemaker/AICD device with leads. No complication is noted. Sternotomy wires again noted. Mediastinal surgical clips are again seen. Lungs appear clear of acute disease; no evidence of pulmonary edema. No pleural effusion or pneumothorax is evident. The cardiomediastinal silhouette is stable, without evidence of cardiomegaly. No acute osseous change is seen. No evidence of acute cardiopulmonary disease. Reading Location: [place] [address] Assessment & Plan Assessment/Plan (1) Chest pain: (2) DM2 (diabetes mellitus, type 2): QUALIFIERS: Diabetes mellitus complication status: without complication Qualified Code(s): E11.9 - PLAN: Plan # Intermittent chest pain -Chest pain atypical and happens 15 to 20 seconds at random, sometimes left sideof chest sometimes middle, there was concern given his history and the troponinsthe patient needs cardiac workup, patient to be admitted for stress test with likely DC tomorrow if normal -EKG paced with no acute changes -Trop very minimally elevated 24 with repeat of 23 -Admit to telemetry -Echo ordered -Aspirin -Statin -Lipid panel in AM -Stress test ordered for AM # History of ischemic cardiomyopathy with pacemaker/defibrillator - Daily weights, I's and O's - Does not appear to be fluid overloaded - Continue patient's home medications - Patient is listed on being on both losartan and Entresto, continue Entresto and holding losartan, will need to verify which 1 patient is on as these 2 medications are not indicated together # CKD stage III b -Appears to be at baseline -Avoid nephrotoxic agents -Daily BMPs #Type 2 diabetes mellitus -Glucose checks and sliding scale insulin -Continue long-acting insulin but at lower dosing given patient will be n.p.o. #Paroxysmal Atrial Fibrillation -Rate control: Carvedilol -Anticoagulation: Eliquis # History of coronary artery disease -With previous CABG - Continue aspirin and statin #Chronic BPH with obstruction -Continue home medications #GERD -Continue PPI #Depression/anxiety -Continue home medications #DVT ppx: Patient on Eliquis Miesha Medina MD Charges/Coding Visit Charges Inpatient E&M: 90327 Init Hosp L2 02/06/25 1609 <Electronically signed by Miesha Medina MD> Cosigner Signature (if applicable): CC: Dr. Elo Ralph MD; Dr. Miesha Medina MD~ Signed [facility] Work Phone: [phone]) 287-104106-25-2025 History and physical note Author Miesha Medina [facility] Note Date/Time February 06, 2025 4:01 pm [facility] Medical Records Department [address] [place] [address] H&P Exam - Hospitalist 02/06/25 1534 MR#: [id number] Acct: [id number] Name: VERENA CLEEMNTS Rep #:[id number] : 1955 69 From: Miesha Medina MD PCP: Dr. Elo Ralph MD Status:REG ER Location: ED HPI - General General Date of Admission: 02/06/25 Date of Service: 02/06/25 Chief Complaint: Nausea, fatigue, CP HPI Narrative VERENA CLEMENTS, is [id number] male history of pacemaker defibrillator, diabetes,ischemic cardiomyopathy, CAD, paroxysmal atrial fibrillation, GERD, BPH, [facility] 02/[facility]/2025 with generalized weakness, fatigue, intermittent nausea and vomiting as well as intermittent chest pain over the past week. Has been doing more manual labor around the house and has been feeling fatigued with chest pain and nausea that has been coming and going. In the ED patient afebrile, heart rate 71 with blood pressure 149/75, pulse ox 99% on room air. EKG is paced without acute ST changes and no STEMI. White blood cell count 11.1 with a hemoglobin of 11.1, platelets within normal limits at 174. BUN 36 and creatinine of 1.84 not overtly changed from baseline. Initial high-sensitivity troponin very minimally elevated at 24 with repeat of 23. Given patient's chest pain and history hospitalist contacted for admission for stress test/cardiac workup. Patient evaluated at bedside and reports he is felt somewhat unwell for the past week but notes he has been very stressed and alot is been going on and has not been very good about taking his medications. Intermittently having nausea and reports the chest pain that he has is sometimeson the left side or sometimes middle of his chest and is more of just a general pain but would rated at a 1 out of 10 and it happens at random for a 15 to 20 seconds, not sustained no additional associations that patient reports. No shortness of breath. Reports he got his Eliquis in the ED and some fluids and is feeling better however given his history and the concern patient agreeable tocoming in for stress test. [facility] Medical History Essential hypertension Hyperlipidemia Dyspnea on exertion Abnormal stress test Chest pain Nonrheumatic mitral (valve) insufficiency Secondary pulmonary arterial hypertension Paroxysmal atrial fibrillation Atherosclerosis of coronary artery of [place] heart without angina pectoris Ischemic cardiomyopathy Non-rheumatic aortic stenosis Non-ST elevation [place] (NSTEMI) Tobacco use DM2 (diabetes mellitus, type 2) Home Medications ?Medication ?Instructions ?Recorded ?Last Taken ?Type aspirin 81 mg tablet,delayed 81 mg PO DAILY 06/16/15 1 08/30/17 History release fluoxetine 20 mg capsule 20 mg PO DAILY 05/16/1806/15 History nitroglycerin 0.4 mg sublingual 0.4 mg sublingual ARI Y PRN Pain 07/09/19 Unknown Rx tablet #25 tabs sildenafil 50 mg tablet 50 mg PO DAILY PRN sexual ac tivity 02/27/21 Unknown History omeprazole 20 mg tablet,delayed 20 mg PO DAILY 2 Unknown History release cholecalciferol (vitamin D3) 25 50 mcg PO DAILY Unknown History mcg (1,000 unit) tablet insulin glargine U-300 conc 300 46 unit subcut DAILY 0 12/30/23 Unknown History unit/mL (1.5 mL) subcutaneous pen (Toujeo SoloStar U-300 Insulin) furosemide 40 mg tablet 40 mg PO DAILY #90 tabs 11/05 Unknown Rx spironolactone 25 mg tablet 25 mg PO DAILY #90 tabs Unknown Rx carvedilol 25 mg tablet 25 mg PO BID #180 tabs 05/02 Unknown Rx tamsulosin 0.4 mg capsule 0.4 mg PO DAILY 06/19/24 Unk nown History apixaban 5 mg tablet (Eliquis) 5 mg PO BID #60 tabs Unknown Rx sacubitril 49 mg-valsartan 51 mg 1 tab PO BID #180 tab s 09/03/24 Unknown Rx tablet (Entresto) atorvastatin 80 mg tablet 80 mg PO QHS #90 tabs Unknown Rx albuterol sulfate 90 mcg/actuation 2 inh inhalation Q6 H PRN shortness 02/06/25 Unknown History breath activated powder inhaler of breath or wheezing lorazepam 0.5 mg tablet 0.5 mg PO DAILY PRN anxiety 02/06/25 02/02/25 History losartan 100 mg tablet 100 mg PO DAILY 02/06/25 Unk nown History semaglutide 1 mg/dose (4 mg/3 mL) 0.5 mg subcut QWEEK 02/06/25 02/02/25 History subcutaneous pen injector (Ozempic) trazodone 50 mg tablet 50 - 100 mg PO QHS 02/06/25 Unknown History Allergy/AdvReac Type Severity Reaction Status Date / Time No Known Allergies Allergy Verified 02/06/25 09:28 Family History Father , Age 49 from [place] CAD (coronary artery disease) from [place] age 49 Myocardial infarction Mother Pacemaker History of heart valve replacement Surgical History Presence of cardiac resynchronization therapy defibrillator (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) (09/14/18) History of repair of rotator cuff (~04/2015) History of right and left heart catheterization (06/30/18) H/O coronary artery bypass surgery (05/06/15) Social History Smoking Status: Former smoker quit date: 04/15/15 alcohol intake: current details: rarely substance use type: does not use caffeine: Yes Type: coffee Number of servings: 1 ROS ROS Narrative General: Denies fever/chills, self felt somewhat fatigued and generally unwell HENT: Denies headache, denies stuffy nose, denies sore throat EYES: Denies changes in vision Resp: Denies cough, denies shortness of breath Cardiac: Brief episodes of chest pain as above GI: Denies abdominal pain, denies changes in bowel, intermittent nausea : Denies changes in urination Extremity: Denies swelling MSK: Denies weakness Neuro: Denies any numbness/tingling Heme: Denies any bleeding or bruising Skin: Denies rashes Psychiatric: No complaints voiced Vital Signs Vital Signs Vital Signs: 02/06/25 09:27 02/06/25 09:37 02/06/25 09:38 Temperature 97.9 F Temperature Source Oral Pulse Rate 71 67 Respiratory Rate 18 14 Respiratory Effort Normal Non-Labored Respiratory Pattern Normal Blood Pressure 149/75 H 163/81 H Blood Pressure Mean 99 108 Pulse Ox 99 99 Oxygen Delivery Method Room Air Room Air 02/06/25 11:08 02/06/25 12:15 02/06/25 13:42 Temperature Temperature Source Pulse Rate 69 86 85 Respiratory Rate 17 11 L 10 L Respiratory Effort Respiratory Pattern Blood Pressure 155/99 H 170/88 H 168/75 H Blood Pressure Mean 117 115 106 Pulse Ox 98 97 97 Oxygen Delivery Method Room Air Room Air Room Air Weight Weight: 84.686 kg Body Mass Index (BMI) 26.0 Physical Exam Narrative General: Alert, oriented, no apparent distress HEENT: Atraumatic, normocephalic Eyes: Anicteric, normal conjunctiva, extraocular movements grossly intact Neck: Supple Respiratory: Clear to auscultation bilaterally, normal respiratory effort Cardiovascular: Regular rate and rhythm GI: Soft, nontender, nondistended Extremities: No edema Musculoskeletal: Moving all extremities Neuro: No overt focal neurological deficits Skin: No rashes appreciated Psych: Cooperative Results Lab / Micro Data 02/06/25 10:00 02/06/25 10:00 Labs: Laboratory Results - last 24 hr 02/06/25 10:00: WBC 11.1 H, RBC 3.41 L, Hgb 11.1 L, Hct 31.3 L, MCV 91.8, MCH 32.6 H, MCHC 35.5, RDW Std Deviation 40.6, RDW Coeff of Brianna 12.2, Plt Count 174,MPV 11.1, Immature Gran % (Auto) 0.600, Neut % (Auto) 82.5 H, Lymph % (Auto) 8.7L, [place] % (Auto) 6.6, Eos % (Auto) 1.3, Baso % (Auto) 0.3, Absolute Neuts (auto)9.2 H, Absolute Lymphs (auto) 0.97, Nucleated RBC % 0, Sodium 139, Potassium 4.9, Chloride 106, Carbon Dioxide 21.7, Anion Gap 12, BUN 36 H, Creatinine 1.84 H, Estim Creat Clear Calc 39.22 L, Est GFR (MDRD) Non-Af 39 L, BUN/Creatinine Ratio 19.5, Glucose 192 H, Calcium 9.7, Total Bilirubin 0.49, AST 18, ALT 25, Alkaline Phosphatase 84, Troponin T High Sens 24 H, Total Protein 6.6, Albumin 4.2, Globulin 2.4, Albumin/Globulin Ratio 1.7, Lipase 76 H 02/06/25 11:05: Urine Color Yellow, Urine Clarity Clear, Urine pH 6.0, Ur Specific [place] 1.015, Urine Protein 100 H, Urine Glucose (UA) Normal, Urine Ketones Negative, Urine Occult Blood 10 H, Urine Nitrite Negative, Urine Bilirubin Negative, Urine Urobilinogen Normal, Ur Leukocyte Esterase Negative, Urine RBC 0-5 SEEN, Urine WBC 0 SEEN, Ur Squamous Epith Cells 0-5 SEEN, Urine Bacteria 0 SEEN, Urine Mucus 0 SEEN 02/06/25 12:14: Troponin T Hi Sens 2 Hr 23 H 02/06/25 14:12: Troponin T Hi Sens 4Hr 25 H Imaging Radiology Impression Chest X-Ray 02/06/25 09:48 IMPRESSION: Interval placement of left thoracic transvenous pacemaker/AICD device with leads. No complication is noted. Sternotomy wires again noted. Mediastinal surgical clips are again seen. Lungs appear clear of acute disease; no evidence of pulmonary edema. No pleural effusion or pneumothorax is evident. The cardiomediastinal silhouette is stable, without evidence of cardiomegaly. No acute osseous change is seen. No evidence of acute cardiopulmonary disease. Reading Location: [place] [address] Assessment & Plan Assessment/Plan (1) Chest pain: (2) DM2 (diabetes mellitus, type 2): QUALIFIERS: Diabetes mellitus complication status: without complication Qualified Code(s): E11.9 - PLAN: Plan # Intermittent chest pain -Chest pain atypical and happens 15 to 20 seconds at random, sometimes left sideof chest sometimes middle, there was concern given his history and the troponinsthe patient needs cardiac workup, patient to be admitted for stress test with likely DC tomorrow if normal -EKG paced with no acute changes -Trop very minimally elevated 24 with repeat of 23 -Admit to telemetry -Echo ordered -Aspirin -Statin -Lipid panel in AM -Stress test ordered for AM # History of ischemic cardiomyopathy with pacemaker/defibrillator - Daily weights, I's and O's - Does not appear to be fluid overloaded - Continue patient's home medications - Patient is listed on being on both losartan and Entresto, continue Entresto and holding losartan, will need to verify which 1 patient is on as these 2 medications are not indicated together # CKD stage III b -Appears to be at baseline -Avoid nephrotoxic agents -Daily BMPs #Type 2 diabetes mellitus -Glucose checks and sliding scale insulin -Continue long-acting insulin but at lower dosing given patient will be n.p.o. #Paroxysmal Atrial Fibrillation -Rate control: Carvedilol -Anticoagulation: Eliquis # History of coronary artery disease -With previous CABG - Continue aspirin and statin #Chronic BPH with obstruction -Continue home medications #GERD -Continue PPI #Depression/anxiety -Continue home medications #DVT ppx: Patient on Eliquis Miesha Medina MD Charges/Coding Visit Charges Inpatient E&M: 34831 Init Hosp L2 02/06/25 1601 <Electronically signed by Miesha Medina MD> Cosigner Signature (if applicable): CC: Dr. Elo Ralph MD; Dr. Miesha Medina MD~ Signed [facility] Work Phone: [phone] Discharge summary Author Stevenson Trivedi [facility] Note Date/Time February 06, 2025 2:53 pm [facility] Medical Records Department [address] [place] [address] Emergency Department Summary 02/06/25 MR#: [id number] Acct: [id number] Name: VERENA CLEMENTS Rep #:[id number] : 1955 69 From: Stevenson Trivedi MD PCP: Dr. Elo Ralph MD Status:REG ER Location: ED HPI History of Present Illness Chief Complaint: General Illness Narrative Narrative: 69-year-old male past medical history of hypertension, hyperlipidemia, diabetes,pacemaker defibrillator, presents with generalized weakness, malaise and fatigueas well as intermittent nausea and vomiting that has had over the last week. Headmits to doing more manual labor around the house as he and his are getting ready to sell it. 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 He states he has not vomited in the last 24 hours. Yesterday he may have had intermittent chest pain. He has been more tired and has not been feeling as energetic and has had low energy over the lastweek as he has been working out in the heat. He denies any diarrhea, no cough or shortness of breath. No fevers or chills, no dysuria or hematuria. No exacerbating or alleviating factors. [facility] Medical History Essential hypertension Hyperlipidemia Dyspnea on exertion Abnormal stress test Chest pain Nonrheumatic mitral (valve) insufficiency Secondary pulmonary arterial hypertension Paroxysmal atrial fibrillation Atherosclerosis of coronary artery of [place] heart without angina pectoris Ischemic cardiomyopathy Non-rheumatic aortic stenosis Non-ST elevation [place] (NSTEMI) Tobacco use DM2 (diabetes mellitus, type 2) Home Medications ?Medication ?Instructions ?Recorded ?Last Taken ?Type aspirin 81 mg tablet,delayed 81 mg PO DAILY 06/16/15 1 08/30/17 History release fluoxetine 20 mg capsule 20 mg PO DAILY 05/16/1806/15 History nitroglycerin 0.4 mg sublingual 0.4 mg sublingual ARI Y PRN Pain 07/09/19 Unknown Rx tablet #25 tabs sildenafil 50 mg tablet 50 mg PO DAILY PRN sexual ac tivity 02/27/21 Unknown History omeprazole 20 mg tablet,delayed 20 mg PO DAILY 2 Unknown History release cholecalciferol (vitamin D3) 25 50 mcg PO DAILY Unknown History mcg (1,000 unit) tablet insulin glargine U-300 conc 300 46 unit subcut DAILY 0 12/30/23 Unknown History unit/mL (1.5 mL) subcutaneous pen (Elvie SoloStar U-300 Insulin) furosemide 40 mg tablet 40 mg PO DAILY #90 tabs 11/05 Unknown Rx spironolactone 25 mg tablet 25 mg PO DAILY #90 tabs Unknown Rx carvedilol 25 mg tablet 25 mg PO BID #180 tabs 05/02 Unknown Rx tamsulosin 0.4 mg capsule 0.4 mg PO DAILY 06/19/24 Unk nown History apixaban 5 mg tablet (Eliquis) 5 mg PO BID #60 tabs Unknown Rx sacubitril 49 mg-valsartan 51 mg 1 tab PO BID #180 tab s 09/03/24 Unknown Rx tablet (Entresto) atorvastatin 80 mg tablet 80 mg PO QHS #90 tabs Unknown Rx albuterol sulfate 90 mcg/actuation 2 inh inhalation Q6 H PRN shortness 02/06/25 Unknown History breath activated powder inhaler of breath or wheezing lorazepam 0.5 mg tablet 0.5 mg PO DAILY PRN anxiety 02/06/25 02/02/25 History losartan 100 mg tablet 100 mg PO DAILY 02/06/25 Unk nown History semaglutide 1 mg/dose (4 mg/3 mL) 0.5 mg subcut QWEEK 02/06/25 02/02/25 History subcutaneous pen injector (Ozempic) trazodone 50 mg tablet 50 - 100 mg PO QHS 02/06/25 Unknown History Allergy/AdvReac Type Severity Reaction Status Date / Time No Known Allergies Allergy Verified 02/06/25 09:28 Family History Father , Age 49 from [place] CAD (coronary artery disease) from [place] age 49 Myocardial infarction Mother Pacemaker History of heart valve replacement Surgical History Presence of cardiac resynchronization therapy defibrillator (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) (09/14/18) History of repair of rotator cuff (~04/2015) History of right and left heart catheterization (06/30/18) H/O coronary artery bypass surgery (05/06/15) Social History Smoking Status: Former smoker quit date: 04/15/15 alcohol intake: current details: rarely substance use type: does not use caffeine: Yes Type: coffee Number of servings: 1 ROS ROS ED ROS Narrative Review of systems positive for malaise and fatigue x 1 week. Generalized weakness. Intermittent chest pains even yesterday evening. Positive nausea andvomiting intermittently as well. No fevers or chills, no exacerbating or alleviating factors. EXAM Physical Exam Narrative Exam Narrative: Afebrile. Vital signs noted. Nontoxic-appearing. Cardiovascular examination reveals a regular rate and rhythm. Lungs are clear to auscultation bilaterally. Abdomen is soft and nontender with positive bowel sounds. Neurological examination nonfocal, nonlateralizing. No appreciable pedal edema bilaterally. Const Vital Signs: 02/06/25 09:27 02/06/25 09:37 02/06/25 09:38 Temperature 97.9 F Temperature Source Oral Pulse Rate 71 67 Respiratory Rate 18 14 Respiratory Effort Normal Non-Labored Respiratory Pattern Normal Blood Pressure 149/75 H 163/81 H Blood Pressure Mean 99 108 Pulse Ox 99 99 Oxygen Delivery Method Room Air Room Air 02/06/25 11:08 02/06/25 12:15 02/06/25 13:42 Temperature Temperature Source Pulse Rate 69 86 85 Respiratory Rate 17 11 L 10 L Respiratory Effort Respiratory Pattern Blood Pressure 155/99 H 170/88 H 168/75 H Blood Pressure Mean 117 115 106 Pulse Ox 98 97 97 Oxygen Delivery Method Room Air Room Air Room Air MDM MDM MDM Narrative Medical decision making narrative: Differential diagnosis includes but not limited to ACS versus unstable angina portion versus non-STEMI versus dehydration versus other electrolyte imbalance. EKG interpreted by myself independently shows a paced rhythm at [address] changes. No STEMI. I reviewed his laboratory work and he has normal white count/slightly elevated at 11.1 with hemoglobin 11.1, hematocrit 31.3, platelet count normal at 174. Electrolyte panel shows BUN of 36 with creatinine1.84 with glucose 192 but normal anion gap of 12. LFTs are grossly unremarkable. Initial high- sensitivity troponin is elevated at 24 with repeat being 23. Lipase slightly elevated at 76 as well. Urinalysis is negative. Urinalysis negative for infection. Chest x-ray interpreted by myself independently shows no evidence of an acute process, no pneumonia or pneumothorax. I reviewed the radiology report which confirms my independent interpretation. While in the emergency department, patient has been having intermittent chest pains. His is concerned regarding this as he started having them yesterday. With his elevated troponins, he may be having more unstable angina although this may be his baseline. He has not had a stress test since 2022, andhe did have an echocardiogram in 2023. I discussed patient with Dr. Medina, given his elevated troponin and his chronickidney disease, he may have elevated troponins for this reason, but given his stuttering chest pains in the emergency department, he will be placed on observation in the PCU. Disposition is assigned observation. Patient is in stable condition. History & Record Review Discussion w/independent historian: Patient and Family Additional record(s) reviewed:: Prior outpatient record and Prior labs Lab Data Attestation: I reviewed the patient's lab results. Labs: Laboratory Results - last 24 hr 02/06/25 02/06/25 02/06/25 10:00 11:05 12:14 WBC 11.1 H RBC 3.41 L Hgb 11.1 L Hct 31.3 L MCV 91.8 MCH 32.6 H MCHC 35.5 RDW Std Deviation 40.6 RDW Coeff of Brianna 12.2 Plt Count 174 MPV 11.1 Immature Gran % (Auto) 0.600 Neut % (Auto) 82.5 H Lymph % (Auto) 8.7 L [place] % (Auto) 6.6 Eos % (Auto) 1.3 Baso % (Auto) 0.3 Absolute Neuts (auto) 9.2 H Absolute Lymphs (auto) 0.97 Nucleated RBC % 0 Sodium 139 Potassium 4.9 Chloride 106 Carbon Dioxide 21.7 Anion Gap 12 BUN 36 H Creatinine 1.84 H Estim Creat Clear Calc 39.22 L Est GFR (MDRD) Non-Af 39 L BUN/Creatinine Ratio 19.5 Glucose 192 H Calcium 9.7 Total Bilirubin 0.49 AST 18 ALT 25 Alkaline Phosphatase 84 Troponin T High Sens 24 H Troponin T Hi Sens 2 Hr 23 H Total Protein 6.6 Albumin 4.2 Globulin 2.4 Albumin/Globulin Ratio 1.7 Lipase 76 H Urine Color Yellow Urine Clarity Clear Urine pH 6.0 Ur Specific [place]ell 1.015 Urine Protein 100 H Urine Glucose (UA) Normal Urine Ketones Negative Urine Occult Blood 10 H Urine Nitrite Negative Urine Bilirubin Negative Urine Urobilinogen Normal Ur Leukocyte Esterase Negative Urine RBC 0-5 SEEN Urine WBC 0 SEEN Ur Squamous Epith Cells 0-5 SEEN Urine Bacteria 0 SEEN Urine Mucus 0 SEEN Radiography Chest X-Ray - ED: 1 View, Read by ED Physician and Read by Radiologist Diagnostic Testing: Clinical Impression(s) from Imaging Studies Chest X-Ray 02/06/25 09:48 IMPRESSION: Interval placement of left thoracic transvenous pacemaker/AICD device with leads. No complication is noted. Sternotomy wires again noted. Mediastinal surgical clips are again seen. Lungs appear clear of acute disease; no evidence of pulmonary edema. No pleural effusion or pneumothorax is evident. The cardiomediastinal silhouette is stable, without evidence of cardiomegaly. No acute osseous change is seen. No evidence of acute cardiopulmonary disease. Reading Location: [place] [address] Management Discussion w/another healthcare provider: Hospitalist (Dr. Medina) Discharge Plan Dx/Rx/DC Orders Clinical Impression: Chest pain, Elevated troponin level, Malaise and fatigue, Nausea and vomiting Disposition Disposition: Acute Care Hospital [facility] What to do if you have Problems For any increased pain, shortness of breath, bleeding, nausea or vomiting, chestpain, or any unexpected problems, contact your Primary Care Provider. Call [facility] ([phone]) or report to the closest Emergency Room. Call 911 if necessary. 02/06/25 1453 <Electronically signed by Stevenson Trivedi MD> Cosigner Signature (if applicable): CC: Dr. Elo Ralph MD ~ Signed [facility] Work Phone: [phone] 222-169506-25-2025 History and physical note [facility] Medical Records Department [address] [place] [address] H&P Exam - Hospitalist 02/06/25 1534 MR#: [id number] Acct: [id number] Name: VERENA CLEMENTS Rep #:[id number] : 1955 69 From: Miesha Medina MD PCP: Dr. Elo Ralph MD Status:REG ER Location: ED HPI - General General Date of Admission: 02/06/25 Date of Service: 02/06/25 Chief Complaint: Nausea, fatigue, CP HPI Narrative VERENA CLEMENTS, is [id number] male history of pacemaker defibrillator, diabetes,ischemic cardiomyopathy, CAD, paroxysmal atrial fibrillation, GERD, BPH, [facility] with generalized weakness, fatigue, intermittent nausea and vomiting as well as intermittent chest pain over the past week. Has been doing more manual labor around the house and has been feeling fatigued with chest pain and nausea that has been coming and going. In the ED patient afebrile, heart rate 71 with blood pressure 149/75, pulse ox 99% on room air. EKG is paced without acute ST changes and no STEMI. White blood cell count 11.1 with a hemoglobin of 11.1, platelets within normal limits at 174. BUN 36 and creatinine of 1.84 not overtly changed from baseline. Initial high-sensitivity troponin very minimally elevated at 24 with repeat of 23. Given patient's chest pain and history hospitalist contacted for admission for stress test/cardiac workup. Patient evaluated at bedside and reports he is felt somewhat unwell for the past week but notes he has been very stressed and alot is been going on and has not been very good about taking his medications. Intermittently having nausea and reports the chest pain that he has is sometimeson the left side or sometimes middle of his chest and is more of just a general pain but would rated at a 1 out of 10 and it happens at random for a 15 to 20 seconds, not sustained no additional associations that patient reports. No shortness of breath. Reports he got his Eliquis in the ED and some fluids and is feeling better however given his history and the concern patient agreeable tocoming in for stress test. [facility] Medical History Essential hypertension Hyperlipidemia Dyspnea on exertion Abnormal stress test Chest pain Nonrheumatic mitral (valve) insufficiency Secondary pulmonary arterial hypertension Paroxysmal atrial fibrillation Atherosclerosis of coronary artery of [place] heart without angina pectoris Ischemic cardiomyopathy Non-rheumatic aortic stenosis Non-ST elevation [place] (NSTEMI) Tobacco use DM2 (diabetes mellitus, type 2) Home Medications ?Medication ?Instructions ?Recorded ?Last Taken ?Type aspirin 81 mg tablet,delayed 81 mg PO DAILY 06/16/15 1 08/30/17 History release fluoxetine 20 mg capsule 20 mg PO DAILY 05/16/1806/15 History nitroglycerin 0.4 mg sublingual 0.4 mg sublingual ARI Y PRN Pain 07/09/19 Unknown Rx tablet #25 tabs sildenafil 50 mg tablet 50 mg PO DAILY PRN sexual ac tivity 02/27/21 Unknown History omeprazole 20 mg tablet,delayed 20 mg PO DAILY 2 Unknown History release cholecalciferol (vitamin D3) 25 50 mcg PO DAILY Unknown History mcg (1,000 unit) tablet insulin glargine U-300 conc 300 46 unit subcut DAILY 0 12/30/23 Unknown History unit/mL (1.5 mL) subcutaneous pen (Toujeo SoloStar U-300 Insulin) furosemide 40 mg tablet 40 mg PO DAILY #90 tabs 11/05 Unknown Rx spironolactone 25 mg tablet 25 mg PO DAILY #90 tabs Unknown Rx carvedilol 25 mg tablet 25 mg PO BID #180 tabs 05/02 Unknown Rx tamsulosin 0.4 mg capsule 0.4 mg PO DAILY 06/19/24 Unk nown History apixaban 5 mg tablet (Eliquis) 5 mg PO BID #60 tabs Unknown Rx sacubitril 49 mg-valsartan 51 mg 1 tab PO BID #180 tab s 09/03/24 Unknown Rx tablet (Entresto) atorvastatin 80 mg tablet 80 mg PO QHS #90 tabs Unknown Rx albuterol sulfate 90 mcg/actuation 2 inh inhalation Q6 H PRN shortness 02/06/25 Unknown History breath activated powder inhaler of breath or wheezing lorazepam 0.5 mg tablet 0.5 mg PO DAILY PRN anxiety 02/06/25 02/02/25 History losartan 100 mg tablet 100 mg PO DAILY 02/06/25 Unk nown History semaglutide 1 mg/dose (4 mg/3 mL) 0.5 mg subcut QWEEK 02/06/25 02/02/25 History subcutaneous pen injector (Ozempic) trazodone 50 mg tablet 50 - 100 mg PO QHS 02/06/25 Unknown History Allergy/AdvReac Type Severity Reaction Status Date / Time No Known Allergies Allergy Verified 02/06/25 09:28 Family History Father , Age 49 from [place] CAD (coronary artery disease) from [place] age 49 Myocardial infarction Mother Pacemaker History of heart valve replacement Surgical History Presence of cardiac resynchronization therapy defibrillator (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) (09/14/18) History of repair of rotator cuff (~04/2015) History of right and left heart catheterization (06/30/18) H/O coronary artery bypass surgery (05/06/15) Social History Smoking Status: Former smoker quit date: 04/15/15 alcohol intake: current details: rarely substance use type: does not use caffeine: Yes Type: coffee Number of servings: 1 ROS ROS Narrative General: Denies fever/chills, self felt somewhat fatigued and generally unwell HENT: Denies headache, denies stuffy nose, denies sore throat EYES: Denies changes in vision Resp: Denies cough, denies shortness of breath Cardiac: Brief episodes of chest pain as above GI: Denies abdominal pain, denies changes in bowel, intermittent nausea : Denies changes in urination Extremity: Denies swelling MSK: Denies weakness Neuro: Denies any numbness/tingling Heme: Denies any bleeding or bruising Skin: Denies rashes Psychiatric: No complaints voiced Vital Signs Vital Signs Vital Signs: 02/06/25 09:27 02/06/25 09:37 02/06/25 09:38 Temperature 97.9 F Temperature Source Oral Pulse Rate 71 67 Respiratory Rate 18 14 Respiratory Effort Normal Non-Labored Respiratory Pattern Normal Blood Pressure 149/75 H 163/81 H Blood Pressure Mean 99 108 Pulse Ox 99 99 Oxygen Delivery Method Room Air Room Air 02/06/25 11:08 02/06/25 12:15 02/06/25 13:42 Temperature Temperature Source Pulse Rate 69 86 85 Respiratory Rate 17 11 L 10 L Respiratory Effort Respiratory Pattern Blood Pressure 155/99 H 170/88 H 168/75 H Blood Pressure Mean 117 115 106 Pulse Ox 98 97 97 Oxygen Delivery Method Room Air Room Air Room Air Weight Weight: 84.686 kg Body Mass Index (BMI) 26.0 Physical Exam Narrative General: Alert, oriented, no apparent distress HEENT: Atraumatic, normocephalic Eyes: Anicteric, normal conjunctiva, extraocular movements grossly intact Neck: Supple Respiratory: Clear to auscultation bilaterally, normal respiratory effort Cardiovascular: Regular rate and rhythm GI: Soft, nontender, nondistended Extremities: No edema Musculoskeletal: Moving all extremities Neuro: No overt focal neurological deficits Skin: No rashes appreciated Psych: Cooperative Results Lab / Micro Data 02/06/25 10:00 02/06/25 10:00 Labs: Laboratory Results - last 24 hr 02/06/25 10:00: WBC 11.1 H, RBC 3.41 L, Hgb 11.1 L, Hct 31.3 L, MCV 91.8, MCH 32.6 H, MCHC 35.5, RDW Std Deviation 40.6, RDW Coeff of Brianna 12.2, Plt Count 174,MPV 11.1, Immature Gran % (Auto) 0.600, Neut % (Auto) 82.5 H, Lymph % (Auto) 8.7L, [place] % (Auto) 6.6, Eos % (Auto) 1.3, Baso % (Auto) 0.3, Absolute Neuts (auto)9.2 H, Absolute Lymphs (auto) 0.97, Nucleated RBC % 0, Sodium 139, Potassium 4.9,Chloride 106, Carbon Dioxide 21.7, Anion Gap 12, BUN 36 H, Creatinine 1.84 H, Estim Creat Clear Calc 39.22 L, Est GFR (MDRD) Non-Af 39 L, BUN/Creatinine Ratio 19.5, Glucose 192 H, Calcium 9.7, Total Bilirubin 0.49, AST 18, ALT 25, Alkaline Phosphatase 84, Troponin T High Sens 24 H, Total Protein 6.6, Albumin 4.2, Globulin 2.4, Albumin/Globulin Ratio 1.7, Lipase 76 H 02/06/25 11:05: Urine Color Yellow, Urine Clarity Clear, Urine pH 6.0, Ur Specific [place] 1.015, Urine Protein 100 H, Urine Glucose (UA) Normal, Urine Ketones Negative, Urine Occult Blood 10 H, Urine Nitrite Negative, Urine Bilirubin Negative, Urine Urobilinogen Normal, Ur Leukocyte Esterase Negative, Urine RBC 0-5 SEEN, Urine WBC 0 SEEN, Ur Squamous Epith Cells 0-5 SEEN, Urine Bacteria 0 SEEN, Urine Mucus 0 SEEN 02/06/25 12:14: Troponin T Hi Sens 2 Hr 23 H 02/06/25 14:12: Troponin T Hi Sens 4Hr 25 H Imaging Radiology Impression Chest X-Ray 02/06/25 09:48 IMPRESSION: Interval placement of left thoracic transvenous pacemaker/AICD device with leads. No complication is noted. Sternotomy wires again noted. Mediastinal surgical clips are again seen. Lungs appear clear of acute disease; no evidence of pulmonary edema. No pleural effusion or pneumothorax is evident. The cardiomediastinal silhouette is stable, without evidence of cardiomegaly. No acute osseous change is seen. No evidence of acute cardiopulmonary disease. Reading Location: [place] [address] Assessment & Plan Assessment/Plan (1) Chest pain: (2) DM2 (diabetes mellitus, type 2): QUALIFIERS: Diabetes mellitus complication status: without complication Qualified Code(s): E11.9 - PLAN: Plan # Intermittent chest pain -Chest pain atypical and happens 15 to 20 seconds at random, sometimes left sideof chest sometimes middle, there was concern given his history and the troponinsthe patient needs cardiac workup, patient to be admitted for stress test with likely DC tomorrow if normal -EKG paced with no acute changes -Trop very minimally elevated 24 with repeat of 23 -Admit to telemetry -Echo ordered -Aspirin -Statin -Lipid panel in AM -Stress test ordered for AM # History of ischemic cardiomyopathy with pacemaker/defibrillator - Daily weights, I's and O's - Does not appear to be fluid overloaded - Continue patient's home medications - Patient is listed on being on both losartan and Entresto, continue Entresto and holding losartan,will need to verify which 1 patient is on as these 2 medications are not indicated together # CKD stage III b -Appears to be at baseline -Avoid nephrotoxic agents -Daily BMPs #Type 2 diabetes mellitus -Glucose checks and sliding scale insulin -Continue long-acting insulin but at lower dosing given patient will be n.p.o. #Paroxysmal Atrial Fibrillation -Rate control: Carvedilol -Anticoagulation: Eliquis # History of coronary artery disease -With previous CABG - Continue aspirin and statin #Chronic BPH with obstruction -Continue home medications #GERD -Continue PPI #Depression/anxiety -Continue home medications #DVT ppx: Patient on Eliquis Miesha Medina MD Charges/Coding Visit Charges Inpatient E&M: 21923 Init Hosp L2 02/06/25 1601 Cosigner Signature (if applicable): CC: Dr. Elo Ralph MD; Dr. Miesha Medina MD~ Signed [facility]06-25-2025 Discharge summary [facility] Medical Records Department [address] [place] [address] Emergency Department Summary 02/06/25 MR#: [id number] Acct: [id number] Name: VERENA CLEMENTS Rep #:[id number] : 1955 69 From: Stevenson Trivedi MD PCP: Dr. Elo Ralph MD Status:REG ER Location: ED HPI History of Present Illness Chief Complaint: General Illness Narrative Narrative: 69-year-old male past medical history of hypertension, hyperlipidemia, diabetes,pacemaker defibrillator, presents with generalized weakness, malaise and fatigueas well as intermittent nausea and vomiting that has had over the last week. 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 He states he has not vomited in the last 24 hours. Yesterday he may have had intermittent chest pain. He has been more tired and has not been feeling as energetic and has had low energy over the lastweek as he has been working out in the heat. He denies any diarrhea, no cough or shortness of breath. No fevers or chills, no dysuria or hematuria. No exacerbating or alleviating factors. [facility] Medical History Essential hypertension Hyperlipidemia Dyspnea on exertion Abnormal stress test Chest pain Nonrheumatic mitral (valve) insufficiency Secondary pulmonary arterial hypertension Paroxysmal atrial fibrillation Atherosclerosis of coronary artery of [place] heart without angina pectoris Ischemic cardiomyopathy Non-rheumatic aortic stenosis Non-ST elevation [place] (NSTEMI) Tobacco use DM2 (diabetes mellitus, type 2) Home Medications ?Medication ?Instructions ?Recorded ?Last Taken ?Type aspirin 81 mg tablet,delayed 81 mg PO DAILY 06/16/15 1 08/30/17 History release fluoxetine 20 mg capsule 20 mg PO DAILY 05/16/1806/15 History nitroglycerin 0.4 mg sublingual 0.4 mg sublingual ARI Y PRN Pain 07/09/19 Unknown Rx tablet #25 tabs sildenafil 50 mg tablet 50 mg PO DAILY PRN sexual ac tivity 02/27/21 Unknown History omeprazole 20 mg tablet,delayed 20 mg PO DAILY 2 Unknown History release cholecalciferol (vitamin D3) 25 50 mcg PO DAILY Unknown History mcg (1,000 unit) tablet insulin glargine U-300 conc 300 46 unit subcut DAILY 0 12/30/23 Unknown History unit/mL (1.5 mL) subcutaneous pen (Toujeo SoloStar U-300 Insulin) furosemide 40 mg tablet 40 mg PO DAILY #90 tabs 11/05 Unknown Rx spironolactone 25 mg tablet 25 mg PO DAILY #90 tabs Unknown Rx carvedilol 25 mg tablet 25 mg PO BID #180 tabs 05/02 Unknown Rx tamsulosin 0.4 mg capsule 0.4 mg PO DAILY 06/19/24 Unk nown History apixaban 5 mg tablet (Eliquis) 5 mg PO BID #60 tabs Unknown Rx sacubitril 49 mg-valsartan 51 mg 1 tab PO BID #180 tab s 09/03/24 Unknown Rx tablet (Entresto) atorvastatin 80 mg tablet 80 mg PO QHS #90 tabs Unknown Rx albuterol sulfate 90 mcg/actuation 2 inh inhalation Q6 H PRN shortness 02/06/25 Unknown History breath activated powder inhaler of breath or wheezing lorazepam 0.5 mg tablet 0.5 mg PO DAILY PRN anxiety 02/06/25 02/02/25 History losartan 100 mg tablet 100 mg PO DAILY 02/06/25 Unk nown History semaglutide 1 mg/dose (4 mg/3 mL) 0.5 mg subcut QWEEK 02/06/25 02/02/25 History subcutaneous pen injector (Ozempic) trazodone 50 mg tablet 50 - 100 mg PO QHS 02/06/25 Unknown History Allergy/AdvReac Type Severity Reaction Status Date / Time No Known Allergies Allergy Verified 02/06/25 09:28 Family History Father , Age 49 from [place] CAD (coronary artery disease) from [place] age 49 Myocardial infarction Mother Pacemaker History of heart valve replacement Surgical History Presence of cardiac resynchronization therapy defibrillator (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) (09/14/18) History of repair of rotator cuff (~04/2015) History of right and left heart catheterization (06/30/18) H/O coronary artery bypass surgery (05/06/15) Social History Smoking Status: Former smoker quit date: 04/15/15 alcohol intake: current details: rarely substance use type: does not use caffeine: Yes Type: coffee Number of servings: 1 ROS ROS ED ROS Narrative Review of systems positive for malaise and fatigue x 1 week. Generalized weakness. Intermittent chest pains even yesterday evening. Positive nausea andvomiting intermittently as well. No fevers or chills, no exacerbating or alleviating factors. EXAM Physical Exam Narrative Exam Narrative: Afebrile. Vital signs noted. Nontoxic-appearing. Cardiovascular examination reveals a regular rate and rhythm. Lungs are clear to auscultation bilaterally. Abdomen is soft and nontender with positivebowel sounds. Neurological examination nonfocal, nonlateralizing. No appreciable pedal edema bilaterally. Const Vital Signs: 02/06/25 09:27 02/06/25 09:37 02/06/25 09:38 Temperature 97.9 F Temperature Source Oral Pulse Rate 71 67 Respiratory Rate 18 14 Respiratory Effort Normal Non-Labored Respiratory Pattern Normal Blood Pressure 149/75 H 163/81 H Blood Pressure Mean 99 108 Pulse Ox 99 99 Oxygen Delivery Method Room Air Room Air 02/06/25 11:08 02/06/25 12:15 02/06/25 13:42 Temperature Temperature Source Pulse Rate 69 86 85 Respiratory Rate 17 11 L 10 L Respiratory Effort Respiratory Pattern Blood Pressure 155/99 H 170/88 H 168/75 H Blood Pressure Mean 117 115 106 Pulse Ox 98 97 97 Oxygen Delivery Method Room Air Room Air Room Air MDM MDM MDM Narrative Medical decision making narrative: Differential diagnosis includes but not limited to ACS versus unstable angina portion versus non-STEMI versus dehydration versus other electrolyte imbalance. EKG interpreted by myself independently shows a paced rhythm at [address] changes. No STEMI. I reviewed his laboratory work andhe has normal white count/slightly elevated at 11.1 with hemoglobin 11.1, hematocrit 31.3, plateletcount normal at 174. Electrolyte panel shows BUN of 36 with creatinine1.84 with glucose 192 but normal anion gap of 12. LFTs are grossly unremarkable. Initial high-sensitivity troponin is elevated at24 with repeat being 23. Lipase slightly elevated at 76 as well. Urinalysis is negative. Urinalysisnegative for infection. Chest x-ray interpreted by myself independently shows no evidence of an acute process, no pneumonia or pneumothorax. I reviewed the radiology report which confirms my independent interpretation. While in the emergency department, patient has been having intermittent chest pains. His is concerned regarding this as he started having them yesterday. With his elevated troponins, he may be having more unstable angina although this may be his baseline. He has not had a stress test since 2022, andhe did have an echocardiogram in 2023. I discussed patient with Dr. Medina, given his elevated troponin and his chronickidney disease, he may have elevated troponins for this reason, but given his stuttering chest pains in the emergency department, he will be placed on observation in the PCU. Disposition is assigned observation. Patientis in stable condition. History & Record Review Discussion w/independent historian: Patient and Family Additional record(s) reviewed:: Prior outpatient record and Prior labs Lab Data Attestation: I reviewed the patient's lab results. Labs: Laboratory Results - last 24 hr 02/06/25 02/06/25 02/06/25 10:00 11:05 12:14 WBC 11.1 H RBC 3.41 L Hgb 11.1 L Hct 31.3 L MCV 91.8 MCH 32.6 H MCHC 35.5 RDW Std Deviation 40.6 RDW Coeff of Brianna 12.2 Plt Count 174 MPV 11.1 Immature Gran % (Auto) 0.600 Neut % (Auto) 82.5 H Lymph % (Auto) 8.7 L [place] % (Auto) 6.6 Eos % (Auto) 1.3 Baso % (Auto) 0.3 Absolute Neuts (auto) 9.2 H Absolute Lymphs (auto) 0.97 Nucleated RBC % 0 Sodium 139 Potassium 4.9 Chloride 106 Carbon Dioxide 21.7 Anion Gap 12 BUN 36 H Creatinine 1.84 H Estim Creat Clear Calc 39.22 L Est GFR (MDRD) Non-Af 39 L BUN/Creatinine Ratio 19.5 Glucose 192 H Calcium 9.7 Total Bilirubin 0.49 AST 18 ALT 25 Alkaline Phosphatase 84 Troponin T High Sens 24 H Troponin T Hi Sens 2 Hr 23 H Total Protein 6.6 Albumin 4.2 Globulin 2.4 Albumin/Globulin Ratio 1.7 Lipase 76 H Urine Color Yellow Urine Clarity Clear Urine pH 6.0 Ur Specific [place] 1.015 Urine Protein 100 H Urine Glucose (UA) Normal Urine Ketones Negative Urine Occult Blood 10 H Urine Nitrite Negative Urine Bilirubin Negative Urine Urobilinogen Normal Ur Leukocyte Esterase Negative Urine RBC 0-5 SEEN Urine WBC 0 SEEN Ur Squamous Epith Cells 0-5 SEEN Urine Bacteria 0 SEEN Urine Mucus 0 SEEN Radiography Chest X-Ray - ED: 1 View, Read by ED Physician and Read by Radiologist Diagnostic Testing: Clinical Impression(s) from Imaging Studies Chest X-Ray 02/06/25 09:48 IMPRESSION: Interval placement of left thoracic transvenous pacemaker/AICD device with leads. No complication is noted. Sternotomy wires again noted. Mediastinal surgical clips are again seen. Lungs appear clear of acute disease; no evidence of pulmonary edema. No pleural effusion or pneumothorax is evident. The cardiomediastinal silhouette is stable, without evidence of cardiomegaly. No acute osseous change is seen. No evidence of acute cardiopulmonary disease. Reading Location: [place] [address] Management Discussion w/another healthcare provider: Hospitalist (Dr. Medina) Discharge Plan Dx/Rx/DC Orders Clinical Impression: Chest pain, Elevated troponin level, Malaise and fatigue, Nausea and vomiting Disposition Disposition: Acute Care Hospital [facility] What to do if you have Problems For any increased pain, shortness of breath, bleeding, nausea or vomiting, chestpain, or any unexpected problems, contact your Primary Care Provider. Call [facility] ([phone]) or report tothe closest Emergency Room. Call 911 if necessary. 02/06/25 1453 Cosigner Signature (if applicable): CC: Dr. Elo Ralph MD ~ Signed [facility]06-25-2025 Radiology Diagnostic study note [facility] Imaging Services [address] [place], [place] [address] Chest 1 View (Portable) MR#: [id number] Acct: [id number] Name: VERENA CLEMENTS Rep #: [id number] : 1955 M 69 From: Franky Chase MD PCP: Dr. Elo Ralph MD Status: PRE ER Study:Chest 1 View (Portable) Date of Exam: 02/06/25 Exam# [id number] Ordering Dr: Stevenson Trviedi MD PROCEDURE: CHEST 1 VIEW (PORTABLE) 02/06/2025 REASON FOR EXAM: SHORTNESS OF BREATH TECHNIQUE: Frontal view of the chest. COMPARISON: Chest x-ray of 05/11/2018. RAD/Chest 1 View (Portable) IMPRESSION: Interval placement of left thoracic transvenous pacemaker/AICD device with leads. No complication is noted. Sternotomy wires again noted. Mediastinal surgical clips are again seen. Lungs appear clear of acute disease; no evidence of pulmonary edema. No pleural effusion or pneumothorax is evident. The cardiomediastinal silhouette is stable, without evidence of cardiomegaly. No acute osseous change is seen. No evidence of acute cardiopulmonary disease. Reading Location: [place] [address] CC: Dr. Stevenson Trivedi MD; Dr. Elo Ralph MD ~ Windows Vmware Administrator: Signed [facility]06-06-2025 Evaluation note* Diagnosis Onset Date Resolution Status Admit Date Right carotid bruit acute January 18, 2025 11:25am Chronic systolic (congestive ) heart failure chronic January 18, 2025 11:25am Essential hypertension [facility] 2024 11:25am H/O coronary artery bypass surgery May 06, 2015 chronic January 18 025 11:25am Hyperlipidemia chronic January 18, 2025 11:25am Non-rheumatic aortic stenosis chroni c January 18, 2025 11:25am Paroxysmal atrial fibrillation chronic January 18, 2025 11:25am Presence of cardiac resynchronization therapy defibrillator (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) September 14, 2018 chronic January 11:25am [facility] Work Phone: 1(559) 497-528506-06-2025 Evaluation note* Diagnosis Onset Date Resolution Status Admit Date Right carotid bruit acute January 18, 2025 11:25am Chronic systolic (congestive ) heart failure chronic January 18, 2025 11:25am Essential hypertension chronic 2024 11:25am H/O coronary artery bypass surgery May 06, 2015 chronic January 18 025 11:25am Hyperlipidemia chronic January 18, 2025 11:25am Non-rheumatic aortic stenosis chroni c January 18, 2025 11:25am Paroxysmal atrial fibrillation chronic January 18, 2025 11:25am Presence of cardiac resynchronization therapy defibrillator (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) September 14, 2018 chronic January 11:25am Chest pain acute February 06 3:34pm Elevated troponin level acute J une 2024 3:34pm Malaise and fatigue acute February 06, 2025 3:34pm Nausea and vomiting acute February 06, 2025 3:34pm DM2 (diabetes mellitus, type 2) chronic February 06, 2025 3:34pm [facility] Work Phone: 1(653) 409-600106-06-2025 Evaluation note* Diagnosis Onset Date Resolution Status Admit Date Right carotid bruit acute January 18, 2025 11:25am Chronic systolic (congestive ) heart failure chronic January 18, 2025 11:25am Essential hypertension chronic Ju 2024 11:25am H/O coronary artery bypass surgery May 06, 2015 chronic January 18, 11:25am Hyperlipidemia chronic January 18, 2025 11:25am Non-rheumatic aortic stenosis chroni c January 18, 2025 11:25am Paroxysmal atrial fibrillation chronic January 18, 2025 11:25am Presence of cardiac resynchronization therapy defibrillator (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) September 14, 2018 chronic January 11:25am Malaise and fatigue acute February 06, 2025 3:34pm DM2 (diabetes mellitus, type 2) chronic February 06, 2025 3:34pm Chest pain resolved February 06 3:34pm Nausea and vomiting resolved February 06, 2025 3:34pm Elevated troponin level inactive J [facility] 2024 3:34pm [facility] Work Phone: 1(190) 829-640801-23-[address] Katz [facility] September 06, 2022 9:47am Note Date/Time September 06, 2022 8 :24am [facility] Medical Records Department [address] [place] [address] Emergency Department Summary 09/06/22 MR#: [id number] Acct: [id number] Name: VERENA CLEMENTS Rep #:[id number] : 1955 66 From: He Katz MD PCP: Celi Griffith, DO Status:REG E R Location: ED HPI History of Present Illness Chief Complaint: Lower Extremity Injury Informant: patient Occured/Mechanism Mechanism/Context: Yes fall Onset/Context/Timing Onset: Yesterday Context: Sudden Onset Timing: Continuous Quality of Pain: Aching Location: R knee Current Severity: Moderate Maximum Severity: Severe Worsened by: trying to WB or move Relieved by: remaining still, brace given to him Associated Symptoms Associated Symptoms: Positive for Loss of Funtion; Negative for Parasthesia or Weakness Narrative Narrative: Patient states he slipped on ice last night, his right leg caught under his leftwhen he fell, with flexion at the knee and external rotation at the hip, hearinga pop in the knee and sudden pain that has continued to this morning. Difficulty putting any weight on it. He has a specialty orthopedic brace that he states was given to him by someone else he has no prior history of knee problems. PFSH PFSH Medical History Abnormal stress test Atherosclerosis of coronary artery of [place] heart without angina pectoris Chest pain DM2 (diabetes mellitus, type 2) Dyspnea on exertion Essential hypertension Hyperlipidemia Ischemic cardiomyopathy Non-rheumatic aortic stenosis Non-ST elevation [place] (NSTEMI) Nonrheumatic mitral (valve) insufficiency Paroxysmal atrial fibrillation Secondary pulmonary arterial hypertension Tobacco use Home Medications aspirin 81 mg tablet,delayed release 81 mg PO DAILY 06/16/15 [History Last Taken 06/30/18] albuterol sulfate 90 mcg/actuation aerosol inhaler (ProAir HFA) 2 puff inhalation Q6H PRN Shortness Of Breath 05/15/18 [History Last Taken Unknown] fluoxetine 20 mg capsule 20 mg PO DAILY 05/16/18 [History Last Taken 06/30/18] nitroglycerin 0.4 mg sublingual tablet 0.4 mg sublingual DAILY PRN Pain #25 tabs109/08/18 [Rx Last Taken Unknown] sildenafil 50 mg tablet 50 mg PO DAILY PRN 02/27/21 [History Last Taken Unknown] losartan 100 mg tablet 100 mg PO DAILY #90 tabs 05/04/21 [Rx Last Taken Unknown] dulaglutide 1.5 mg/0.5 mL subcutaneous pen injector (Trulicity) 1.5 mg subcut QWEEK 09/24/21 [History Last Taken Unknown] insulin detemir U-100 100 unit/mL (3 mL) subcutaneous pen 48 unit subcut BREAKFAST 09/24/21 [History Last Taken Unknown] multivitamin 1 tab PO DAILY 09/24/21 [History Last Taken Unknown] omeprazole 20 mg tablet,delayed release 20 mg PO DAILY 09/24/21 [History Last Taken Unknown] furosemide 40 mg tablet 40 mg PO DAILY #90 tabs 11/24/21 [Rx Last Taken Unknown] atorvastatin 80 mg tablet 80 mg PO QHS #90 tabs 03/17/22 [Rx Last Taken Unknown] carvedilol 25 mg tablet 25 mg PO BID #180 tabs 04/09/22 [Rx Last Taken Unknown] spironolactone 25 mg tablet 25 mg PO DAILY #90 tabs 04/30/22 [Rx Last Taken Unknown] apixaban 5 mg tablet 5 mg PO BID #180 tabs 08/31/22 [Rx Last Taken Unknown] hydrocodone-acetaminophen 5-325mg 5mg-325mg 1 tab PO Q4H PRN PRN Pain 3 days #15TABLETS 09/06/22 [Rx Last Taken Unknown] Allergy/AdvReac Type Severity Reaction Status Date / Time No Known Allergies Allergy Verified 09/06/22 08:02 Family History Father , Age 49 from [place] CAD (coronary artery disease) from [place] age 49 Myocardial infarction Mother Pacemaker History of heart valve replacement Surgical History H/O coronary artery bypass surgery (05/06/15) History of repair of rotator cuff (~04/2015) History of right and left heart catheterization (06/30/18) Presence of cardiac resynchronization therapy defibrillator (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) (09/14/18) Social History Smoking Status: Former smoker quit date: 04/15/15 alcohol intake: current details: rarely substance use type: does not use caffeine: Yes Type: coffee Number of servings: 1 ROS ROS ED Constitutional Constitutional ED: Denies chills or fever(s) Musculoskeletal Musculoskeletal: Reports extremity pain; Denies neck pain Integumentary Denies Abrasions, rash or wounds Neurologic Neurologic: Denies paresthesias or weakness EXAM Physical Exam Const Vital Signs: 09/06/22 08:03 Temperature 98.0 F Temperature Source Temporal Pulse Rate 75 Respiratory Rate 17 Blood Pressure 159/82 H Blood Pressure Mean 107 Pulse Ox 97 Oxygen Delivery Method Room Air Positive well nourished and well developed General Appearance ED: well developed and NAD Neck full ROM and supple Back/Spine normal ROM and normal to inspection Extremity Extremity Narrative: Effusion right knee. Tenderness medial aspect of the distal femur. No other bony tenderness throughout the knee. Very limited range of motion, he cannot fully extend but extensor mechanism is intact, and he can only flex about 15 or 20 degrees. When stressing the MCL and LCL, there is no laxity but he does havesignificant discomfort with stressing the MCL. Not able to evaluate the ACL andPCL, but there is no anteroposterior laxity of the tibia on the femur. Neurovascularly intact distally. No pain with internal/external rotation about the hip. No pain with dorsiflexion and plantarflexion about the ankle. Neuro oriented x3, no focal motor deficits and no sensory deficits noted Sensorium / Orientation: alert Psych mental status grossly normal and thought process normal Skin no wounds Rashes: no rashes MDM MDM MDM Narrative Medical decision making narrative: Clinically, patient has a moderate effusion, limiting his range of motion and the exam right now, however his knee joint is not unstable or dislocated. X-rays are negative except for the effusion, 5 views which I interpreted myself. I agree with the radiologist interpretation. Patient should be referred to orthopedics, he has a brace that can function as a knee immobilizer, he already has crutches, a walker, and does not require any other hardware except for some analgesics which I will prescribe him and give him here. We discussed the differential which includes a sprained MCL and/or ACL, and/or medial meniscus involvement, and reason to follow-up with orthopedics, he is requesting Dr. Walls which I think is very reasonable. Radiography Diagnostic Testing: Clinical Impression(s) from Imaging Studies Knee X-Ray 09/06/22 08:39 IMPRESSION: Moderate size joint effusion. Prepatellar soft tissue swelling. No fracture is seen. Electronically Signed: León Merchant MD at 8:52 EST , Discharge Plan Triage Chief Complaint: Lower Extremity Injury ED Provider: He Katz Dx/Rx/DC Orders Clinical Impression: Injury of knee, right, Effusion of right knee Instructions: ED Knee Effusion Prescriptions: New hydrocodone-acetaminophen [hydrocodone-acetaminophen] 5-325 mg tablet 1 tab PO Q4H PRN PRN (Reason: Pain) 3 Days Qty: 15 0RF No Action ProAir HFA 90 mcg/actuation HFA aerosol inhaler 2 puff INHALATION Q6H PRN (Reason: Shortness Of Breath) fluoxetine 20 mg capsule 20 mg PO DAILY nitroglycerin 0.4 mg tablet, sublingual 0.4 mg SUBLINGUAL DAILY PRN (Reason: Pain) Qty: 25 3RF sildenafil 50 mg tablet 50 mg PO DAILY PRN Rx Instructions: administer 30 minutes to 4 hours before activity Trulicity 1.5 mg/0.5 mL pen injector 1.5 mg subcut QWEEK multivitamin Tablet 1 tab PO DAILY omeprazole 20 mg tablet,delayed release (DR/EC) 20 mg PO DAILY atorvastatin 80 mg tablet 80 mg PO QHS Qty: 90 3RF aspirin 81 MG tablet 81 mg PO DAILY insulin detemir U-100 100 unit/mL (3 mL) insulin pen 48 unit SC BREAKFAST losartan 100 mg tablet 100 mg PO DAILY Qty: 90 3RF furosemide 40 mg tablet 40 mg PO DAILY Qty: 90 4RF carvedilol 25 mg tablet 25 mg PO BID Qty: 180 3RF spironolactone 25 mg tablet 25 mg PO DAILY Qty: 90 3RF apixaban 5 mg tablet 5 mg PO BID Qty: 180 3RF Hold Instructions: Order Changed Primary Care Provider: Celi Griffith Referrals: Celi Griffith DO [Primary Care Provider] - Vamshi Bernardo DO [Med Staff - Active Staff] - 1-2 Weeks Activity Restrictions/Additional Instructions: Best to see orthopedics next week, due to the amount of time it may take for theswelling to go down especially since you are on a blood thinner. You should continue the blood thinner, and aggressively ice your right knee when resting, try to rest the knee in the brace and using crutches or a walker and do not force yourself to bend it. Disposition Disposition: Home, Self Care What to do if you have Problems For any increased pain, shortness of breath, bleeding, nausea or vomiting, chestpain, or any unexpected problems, contact your Primary Care Provider. Call [facility] ([phone]) or report to the closest Emergency Room. Call 911 if necessary. 09/06/22 0910 <Electronically signed by He Katz MD> Cosigner Signature (if applicable): CC: Celi Griffith DO ~ Signed [facility] Work Phone: 1(804) 218-673707-05-2022 Miscellaneous Notes* Telephone Encounter - Missy Mai Ma - 02/16/2022 11:07 AM EDT Last office visit: 11/25/21 F/u scheduled: none Needs to establish with new provider. Missy Mai Ma [facility] Miscellaneous Notes* Telephone Encounter - Georgina Mcleod RN - 01/23/2022 9:29 AM EDT Patient's Teressa called and notified of provider instruction. voiced understanding. Georgina Mcleod RN * Telephone Encounter - Aaron Camilo DO - 01/23/2022 9:28 AM EDT Patient can be seen in , needs to be seen for this concern with his health risks Aaron Camilo DO * Telephone Encounter - Georgina Mcleod RN - 01/23/2022 8:54 AM EDT Patient's Teressa calls and states that patient has gout which has gotten worse over the past week. asking if provider can send in medication for gout? Please review and advise, Georgina Mcleod RN documented in this encounterS[facility]04-13-2022 NoteHNO ID: [id number] Author: Otoniel Cortes APRN.EL TAYLOR Service: ? Author Type: Nurse Practitioner Type: Progress Notes Filed: 01/18/2022 4:47 PM Note Text: Medicare Yearly Visit Verena Clements is a 66 year old male who presents here today for a Medicare Wellness Exam. Presents to the [facility] as an established patient Dr. Otoniel Cortes APRN.BRANDON, EL Medical B eligibilty date 2018 Date of last exam unknown Past medical history: CAD, diabetes type 2, CKD stage III, diabetes with neuropathy, hypertension, GERD, hyperlipidemia, long-term anticoagulation, left bundle branch block, A. fib, status post CABG x4 DM/CKD3: Last hemoglobin A1c was 7.1%. Currently on insulin and has been using 34 units of insulin detemir U100 and morning time along with his other diabetic medications. Overall feeling well. Denies hypoglycemic symptoms. States compliance with diabetic medications. Continues with routine follow-up with cardiology. Followed by cardiology in the [facility]. - Dr. Mcgill. On chronic anticoagulation. Stage 3 CKD. Stable in previous labs. Verena Clements gets minimal exercise. He watches his diet for sodium, low fat and low cholesterol most of the time. Previously diagnosed with Covid. Complains of occasional brain fog since having COVID. Also complains of intermittent continued fatigue. Denies chest pain, shortness of breath or difficulty breathing. No jaw numbness pain or tingling. No upper extremity pain. Followed by cardiology and has an appointment next month. Current specialists seen: Cardiology: [facility]?Dr. Mcgill Ophthalmology: [facility] Past medical history, appointments, medications, allergies reviewed 11/25/2021 Previous Medical History PAST MEDICAL HISTORY Diagnosis Date - Arteriosclerosis of carotid artery 08/16/2013 - Atherosclerotic heart disease of [place] coronary artery without angina pectoris 08/26/2015 - Chronic anticoagulation 08/26/2015 - Depression - Diabetes mellitus with neuropathy (HCC) 01/29/2010 - Essential hypertension, benign - GERD (gastroesophageal reflux disease) 07/13/2010 - Hyperlipidemia LDL goal < 100 05/23/2012 - LBBB (left bundle branch block) - Paroxysmal atrial fibrillation (HCC) 08/26/2015 - Presence of cardiac resynchronization therapy defibrillator - Rotator cuff tear arthropathy 04/08/2015 - S/P CABG x 4 05/29/2015 - Type 2 diabetes mellitus with stage 3 chronic kidney disease, with long-term current use of insulin (HCC) 01/09/2016 - Ventricular bigeminy 03/28/2018 Previous Surgical History PAST SURGICAL HISTORY Procedure Laterality Date - COLONOSCOP W/ OR W/O BRSH SPEC 09/12/2013 Colonoscopy - COLONOSCOPY - CORONARY ARTERY BYPASS GRAFT - CORONARY ARTERY BYPASS GRAFT HX 05/06/2015 - EGD W/O OR W/BRUSH/WASH 09/12/2013 EGD - INSERTION OF BIVENTRICULAR ASSIST DEVICE 09/14/2018 [facility]-Dr. Simpson - ROTATOR CUFF REPAIR 04/2015 - RT AND LT HEART CATH 05/01/2015 Family History FAMILY HISTORY Problem Relation Age of Onset - Diabetes Father - Coronary Artery Disease Father - Heart Mother pacemaker - Arthritis Brother - Hypertension Brother - Heart disease Brother - Hypertension Brother - Diabetes Sister - Heart disease Paternal Grandmother - Heart disease Paternal Grandfather Patient Allergies ALLERGIES Allergen Reactions - Metformin GI Upset Current Medications Current Outpatient Medications on File Prior to Visit Medication Sig - dulaglutide (TRULICITY) 1.5 mg/0.5 mL pen injector Inject 1.5 mg subcutaneously one time a week. Inject once per week. Discard Pen After - LORazepam (ATIVAN) 0.5 mg TAKE 1 TABLET BY MOUTH EVERY DAY NEEDED FOR ANXIETY FOR UP TO 30 DAYS - temazepam (RESTORIL) 15 mg Take 1 capsule by mouth at bedtime as needed for up to 45 days. FOR INSOMNIA - furosemide (LASIX) 40 mg tablet Take 1 tablet by mouth once daily. - Insulin [place], Disposable, (BD ULTRAFINE III MINI PEN) 31 gauge x 3/16 USE 4 TIMES A DAY DIRECTED - spironolactone (ALDACTONE) 25 mg tablet Take 1 tablet by mouth once daily. - FLUoxetine (PROZAC) 20 mg capsule Take 1 capsule by mouth once daily. - apixaban (ELIQUIS) 5 mg tab(s) Take 1 tablet by mouth twice daily. - insulin detemir U-100 (LEVEMIR FLEXTOUCH U-100 INSULIN) 100 unit/mL (3 mL) injection pen Inject 34 units subcutaneously daily - atorvastatin (LIPITOR) 80 mg tablet Take 1 tablet by mouth once daily. - cholecalciferol, vitamin D3, (VITAMIN D3 ORAL) Take by mouth once daily. - ascorbic acid (VITAMIN C ORAL) Take by mouth once daily. - allopurinol (ZYLOPRIM) 100 mg tablet Take 1 tablet by mouth once daily. For gout. - albuterol HFA (PROAIR HFA) 90 mcg/actuation inhaler Inhale 2 Puffs as instructed every 4 hours as needed for Wheezing/Shortness of Breath. - omeprazole (PRILOSEC) 20 mg capsule Take 20 mg by mouth once daily. - Tadalafil (CIALIS) 20 mg tab(s) Julio (more content not included)...[facility]04-13-2022 Instructions* Patient Instructions* Otoniel Cortes APRN.EL TAYLOR - 11/25/2021 2:25 PM EDT Follow up with Otoniel Cortes APRN.EL TAYLOR in 6 months Follow-up with cardiology at [facility] Complete/schedule fasting lab work Start Lamisil for toenail infection Return to the clinic or seek care at [facility] for any worsening signs or symptoms. - Continue current medications - Recommend yearly eye exam with Ophthalmology for eval/management of diabetic eye changes and yearly diabetic foot exams with PCP - Encouraged regular aerobic exercise and weight loss - Adhere to a low-cholesterol, low-fat, and low carb diet. Please ensure that they are eating lots of fruits and vegetables, eat lean cuts of meat, and limit surgry drinks. Perform regular physical activity and limit fast food. - BP goal of <130/80 - LDL goal of <100 - A1C Goal <7%. - Recheck labs to monitor A1C, blood sugar and kidney function Healthy Habits: Recommend regular physical activity, nutrition and healthy eating habits. Consume a variety of foods every day focusing on fruits, vegetables and lean meats). Eat foods low in fat, saturated fat and cholesterol. Eat a limited amount of salt and sodium. Drink adequate amounts of water and limit sugary drinks. Exercise portion control in meal selection. Establish a mindset of a wellness approach to health. Thank you for allowing me to provide your care today. I look forward to seeing you again and maintaining your health. Otoniel Cortes APRN.EL TAYLOR documented in this encounterS[facility]04-13-2022 History of Present illness Narrative* Otoniel Cortes APRN.EL TAYLOR - 11/25/2021 1:20 PM EDT Images from the original note were not included. Medicare Yearly Visit Verena Clements is a 66 year old male who presents here today for a Medicare Wellness Exam. Presentsto the [facility] as an established patient Dr. Otoniel Cortes APRN.EL TAYLOR Medical B eligibilty date 2018 Date of last exam unknown Past medical history: CAD, diabetes type 2, CKD stage III, diabetes with neuropathy, hypertension, GERD, hyperlipidemia, long-term anticoagulation, left bundle branch block, A. fib, status post CABG x4 DM/CKD3: Last hemoglobin A1c was 7.1%. Currently on insulin and has been using 34 units of insulin detemir U100 and morning time along with his other diabetic medications. Overall feeling well. Denies hypoglycemic symptoms. States compliance with diabetic medications. Continues with routine follow-up with cardiology. Followed by cardiology in the [facility]. - Dr. Mcgill. On chronic anticoagulation. Stage 3 CKD. Stable in previous labs. Verena Clements gets minimal exercise. He watches his diet for sodium, low fat and low cholesterol most of the time. Previously diagnosed with Covid. Complains of occasional brain fog since having COVID. Also complains of intermittent continued fatigue. Denies chest pain, shortness of breath or difficulty breathing. No jaw numbness pain or tingling. No upper extremity pain. Followed by cardiology and has an appointment next month. Current specialists seen: Cardiology: [facility] Dr. Mcgill Ophthalmology: [facility] Past medical history, appointments, medications, allergies reviewed 11/25/2021 Previous Medical History PAST MEDICAL HISTORY Diagnosis Date Arteriosclerosis of carotid artery 08/16/2013 Atherosclerotic heart disease of [place] coronary artery without angina pectoris 08/26/2015 Chronic anticoagulation 08/26/2015 Depression Diabetes mellitus with neuropathy (HCC) 01/29/2010 Essential hypertension, benign GERD (gastroesophageal reflux disease) 07/13/2010 Hyperlipidemia LDL goal < 100 05/23/2012 LBBB (left bundle branch block) Paroxysmal atrial fibrillation (HCC) 08/26/2015 Presence of cardiac resynchronization therapy defibrillator Rotator cuff tear arthropathy 04/08/2015 S/P CABG x 4 05/29/2015 Type 2 diabetes mellitus with stage 3 chronic kidney disease, with long-term current use of insulin(HCC) 01/09/2016 Ventricular bigeminy 03/28/2018 Previous Surgical History PAST SURGICAL HISTORY Procedure Laterality Date COLONOSCOP W/ OR W/O BRSH SPEC 09/12/2013 Colonoscopy COLONOSCOPY CORONARY ARTERY BYPASS GRAFT CORONARY ARTERY BYPASS GRAFT HX 05/06/2015 EGD W/O OR W/BRUSH/WASH 09/12/2013 EGD INSERTION OF BIVENTRICULAR ASSIST DEVICE 09/14/2018 [facility]-Dr. Simpson ROTATOR CUFF REPAIR 04/2015 RT & LT HEART CATH 05/01/2015 Family History FAMILY HISTORY Problem Relation Age of Onset Diabetes Father Coronary Artery Disease Father Heart Mother pacemaker Arthritis Brother Hypertension Brother Heart disease Brother Hypertension Brother Diabetes Sister Heart disease Paternal Grandmother Heart disease Paternal Grandfather Patient Allergies ALLERGIES Allergen Reactions Metformin GI Upset Current Medications Current Outpatient Medications on File Prior to Visit Medication Sig dulaglutide (TRULICITY) 1.5 mg/0.5 mL pen injector Inject 1.5 mg subcutaneously one time a week. Inject once per week. Discard Pen After LORazepam (ATIVAN) 0.5 mg TAKE 1 TABLET BY MOUTH EVERY DAY NEEDED FOR ANXIETY FOR UP TO 30 DAYS temazepam (RESTORIL) 15 mg Take 1 capsule by mouth at bedtime as needed for up to 45 days. FOR INSOMNIA furosemide (LASIX) 40 mg tablet Take 1 tablet by mouth once daily. Insulin [place], Disposable, (BD ULTRAFINE III MINI PEN) 31 gauge x 3/16 USE 4 TIMES A DAY DIRECTED spironolactone (ALDACTONE) 25 mg tablet Take 1 tablet by mouth once daily. FLUoxetine (PROZAC) 20 mg capsule Take 1 capsule by mouth once daily. apixaban (ELIQUIS) 5 mg tab(s) Take 1 tablet by mouth twice daily. insulin detemir U-100 (LEVEMIR FLEXTOUCH U-100 INSULIN) 100 unit/mL (3 mL) injection pen Inject 34 units subcutaneously daily atorvastatin (LIPITOR) 80 mg tablet Take 1 tablet by mouth once daily. cholecalciferol, vitamin D3, (VITAMIN D3 ORAL) Take by mouth once daily. ascorbic acid (VITAMIN C ORAL) Take by mouth once daily. allopurinol (ZYLOPRIM) 100 mg tablet Take 1 tablet by mouth once daily. For gout. albuterol HFA (PROAIR HFA) 90 mcg/actuation inhaler Inhale 2 Puffs as instructed every 4 hours as needed for Wheezing/Shortness of Breath. omeprazole (PRILOSEC) 20 mg capsule Take 20 mg by mouth once daily. Tadalafil (CIALIS) 20 mg tab(s) Take 1 tablet by mouth as needed. nitroglycerin sublingual (NITROQUICK) 0.4 mg SL tablet Dissolve 1 tablet under the tongue every 5 minutes as needed for Chest Pain. blood sugar diagnostic ([employer] ULTRA TEST) test strip 1 Strip twice daily. Use as instructed carvedilol (COREG) 25 mg tablet Take 1 tablet by mouth twice daily. losartan (COZAAR) 100 mg tablet Take 100 mg by mouth once daily. aspirin, enteric coated (ASPIRIN, ENTERIC COATED) 81 mg EC tablet Take 1 tablet by mouth once daily. No current facility-administered medications on file prior to visit. Social History Social History Tobacco Use Smoking status: Passive Smoke Exposure - Never Smoker Smokeless tobacco: Never Used Tobacco comment: period pipe or cigar Substance Use Topics Alcohol use: Yes Comment: socially Drug use: Never Health Maintenance List DTAP,TDAP,TD(1 - Tdap) Never done SHINGRIX VACCINE(2 of 3) due on 11/21/2014 DILATED RETINAL EXAM due on 03/29/2021 ADVANCE DIRECTIVE DISCUSSION Never done LDL CHOLESTEROL due on 10/06/2021 DIABETIC FOOT EXAM due on 10/06/2021 HBA1C due on 01/18/2022 DEPRESSION SCREENING due on 02/02/2022 URINE ALBUMIN:CREATININE RATIO due on 02/04/2022 HEMOGLOBIN/HEMATOCRIT due on 02/04/2022 BP CONTROLLED (<130/80) due on 02/04/2022 INFLUENZA(Season Ended) due on 04/15/2022 SERUM CREATININE due on 07/20/2022 ANNUAL PCP TEAM CHRONIC DISEASE VISIT due on 07/21/2022 PNEUMOVAX AGE 65 AND OVER WITH 5YR LOOKBACK(1) due on 07/26/2022 PROSTATE CANCER SCREENING DISCUSSION due on 09/09/2022 COLORECTAL CANCER SCREENING due on 09/12/2023 HEPATITIS C SCREENING Completed MENINGOCOCCAL CONJUGATE Aged Out COVID-19 VACCINE Discontinued Data reviewed: Allergies reviewed: Yes Medications reviewed: Yes End of Live Planning discussed including patients advanced directive wishes: Yes I am willing to follow the patient's advanced directives. PHQ-2 / Depression screen She in the past two weeks denies having felt down, depressed, hopeless or with little interest or pleasure in doing things. Functional Ability/Safety Screen 1. Was the patient's timed Up and Go test unsteady or longer than 30 seconds? No 2. Does the patient need help with the phone, transportation, shopping,preparing meals, housework, laundry, medications or managing money? Yes 3. Does your home have rugs in the hallway, lack of grab bars in the bathroom, lack of handrails onthe stairs or have poor lighting? No Hearing Evaluation: within normal limits and normal Last 5 Encounter BP Readings: Date: BP: 07/21/2021 130/74 06/29/2021 138/80 05/05/2021 136/82 02/04/2021 132/74 10/30/2020 133/75 BMI Readings from Last 5 Encounters: 07/21/21 : 28.29 kg/m 06/29/21 : 27.87 kg/m 05/05/21 : 27.73 kg/m 02/04/21 : 28.15 kg/m 10/30/20 : 28.72 kg/m Last 5 Encounter Wt Readings: Date: Wt: 07/21/2021 90.7 kg (200 lb) 06/29/2021 89.4 kg (197 lb) 05/05/2021 88.9 kg (196 lb) 02/04/2021 90.3 kg (199 lb) 10/30/2020 92.1 kg (203 lb) Medication and allergy list reviewed, reconciled and updated 11/25/2021 Component Latest Ref Rng & Units 02/04/2021 07/20/2021 WBC 3.70 - 11.00 k/uL 10.70 RBC 4.20 - 6.00 m/uL 4.00 (L) Hemoglobin 13.0 - 17.0 g/dL 13.0 Hematocrit 39.0 - 51.0 % 37.9 (L) MCV 80.0 - 100.0 fL 94.8 MCH 26.0 - 34.0 pG 32.5 MCHC 30.5 - 36.0 g/dL 34.3 RDW-CV 11.5 - 15.0 % 12.4 Platelet Count 150 - 400 k/uL 172 MPV 9.0 - 12.7 fL 12.6 Neut% % 73.5 Abs Neut (ANC) 1.45 - 7.50 k/uL 7.87 (H) Lymph% % 14.2 Abs Lymph 1.00 - 4.00 k/uL 1.52 [place]% % 9.3 Abs [place] <0.87 k/uL 0.99 (H) Eosin% % 2.6 Abs Eosin <0.46 k/uL 0.28 Baso% % 0.4 Abs Baso <0.11 k/uL 0.04 Nucleated Reds 0 /100 WBC 0.0 Absolute nRBC <0.01 k/uL <0.01 Diff Type Auto Diff Protein, Total 6.3 - 8.0 g/dL 7.3 7.1 Albumin 3.9 - 4.9 g/dL 4.6 4.5 Calcium 8.5 - 10.2 mg/dL 9.5 10.0 Bilirubin, Total 0.2 - 1.3 mg/dL 0.4 0.6 Alkaline Phosphatase 38 - 113 U/L 98 80 AST 14 - 40 U/L 24 30 Glucose 74 - 99 mg/dL 161 (H) 161 (H) BUN 9 - 24 mg/dL 46 (H) 31 (H) Creatinine 0.73 - 1.22 mg/dL 1.76 (H) 1.57 (H) Sodium 136 - 144 mmol/L 136 138 Potassium 3.7 - 5.1 mmol/L 5.1 4.9 Chloride 97 - 105 mmol/L 106 (H) 103 CO2 22 - 30 mmol/L 19 (L) 23 Anion Gap 9 - 18 mmol/L 11 12 ALT 10 - 54 U/L 33 65 (H) eGFR- 47 54 eGFR-All Other Races . 39 44 Creatinine, Ur Random (UCRR) 20 - 300 mg/dL 118.9 Albumin, Urine Random mg/L 106.5 Albumin/Creat Ratio <30 mg/g 90 (H) Hemoglobin A1C 4.3 - 5.6 % 7.1 (H) 7.1 (H) Estimated Average Glucose mg/dL 157 157 Uric Acid 4.0 - 8.1 mg/dL 7.1 Review of Symptoms: GENERAL: No weight loss, malaise or fevers. Fatigue HEENT: Negative for significant headaches No change in vision. No blurry vision, double vision or loss of vision. No hearing loss. NECK: Negative for lumps, pain and significant neck swelling RESPIRATORY: Negative for dyspnea or shortness of breath CARDIOVASCULAR: Negative for chest pain, leg swelling, or palpitations GI: No nausea, vomiting, or diarrhea MUSCULOSKELETAL: Negative for generalized joint pain or muscle aches SKIN: Negative for lesions, rash, and itching. Toenails yellow HEMATOLOGY/LYMPHOLOGY: Negative for prolonged bleeding, bruising easily or swollen nodes PHYSICAL EXAM General Appearance: Well appearing, alert, in no acute distress, well-hydrated, well nourished. Overweight Skin: Skin color, texture, turgor normal Head: Normocephalic, no masses, lesions Eyes: Anicteric sclera Ears: External ears normal, canals clear, TM's clear with adequate light reflex. Nose/Sinuses: Nares normal, septum midline, mucosa normal, no drainage Oropharynx: Lips, mucosa, and tongue normal, teeth and gums normal, oropharynx nonreddened. Neck: Supple, no adenopathy; thyroid symmetric, normal size, no bruits. Lymph Nodes: No cervical lymphadenopathy, No supraclavicular lymphadenopathy Lungs: Lungs clear to auscultation. No wheezing, rhonchi, rales. Heart: RRR without murmur, gallop, or rubs. No ectopy. Normal S1 and S2. Extremities: No deformities, edema, skin discoloration, clubbing or cyanosis. Nilat 1st great toenails thickened and discolored. Subungual debris noted good capillary refill. MSK: FROM of upper and lower extremities. No joint swelling or redness. Peripheral Pulses: Normal - radial and carotid 2+ Psych: Attitude - Cooperative, easily engaged in conversation Appearance - Normal hygiene and grooming appropriate Affect - Euthymic (normal mood), Mental status: Alert, attentive. Speech is clear and fluent with good repetition, comprehension Coordination: No abnormal or extraneous movements. Gait/Stance: Posture is normal. Gait is steady with normal steps Feet:Shoes and socks removed, No deformities, ulcers, calluses, normal distal pulses and sensitive to 10 gm monofilament SEMMES-STEPHEN MONOFILAMENT TESTING Left Foot Right Foot Dorsal Surface Intact Dorsal Surface Intact Plantar Surface Intact Plantar Surface Intact ASSESSMENT/PLAN: 1. Medicare annual wellness visit, subsequent - ICD9: V70.0, ICD10: Z00.00 (primary diagnosis) Performed a complete age, appropriate history and physical, along with risk factor reduction and counseling on preventive services. - ADVANCE CARE PLAN DISCUSSION - LIPID PANEL BASIC - HGB A1C 2. Type 2 diabetes mellitus with stage 3b chronic kidney disease, with long-term current use of insulin (HCC) - ICD9: 250.40, 585.3, V58.67, ICD10: E11.22, N18.32, Z79.4 Clinically stable. Current A1c is 7.1%. - Continue current medications - Recommend yearly eye exam with Ophthalmology for eval/management of diabetic eye changes and yearly diabetic foot exams with PCP - Encouraged regular aerobic exercise and weight loss - Adhere to a low-cholesterol, low-fat, and low carb diet. Please ensure that they are eating lots of fruits and vegetables, eat lean cuts of meat, and limit surgry drinks. Perform regular physical activity and limit fast food. - BP goal of <130/80 - LDL goal of <100 - A1C Goal <7%. - Recheck labs to monitor A1C, blood sugar and kidney function - LIPID PANEL BASIC - HGB A1C - COMP METABOLIC PANEL 3. Fatigue, unspecified type - ICD9: 780.79, ICD10: R53.83 Unclear etiology. Post COVID vs Vit D def versus worsening aortic stenosis. He has a follow-up withcardiology next month. Last echocardiogram was 6 to 12 months ago with cardiology. Hemodynamically stable. Clinically no chest pain or shortness of breath. Reviewed red flag symptoms with patient. Recommend follow- up with cardiology next month, sooner for any worsening or red flag symptoms. Patientwill seek care in the emergency room for the following: Any concerns of chest pain pressure or palpitations; any chest pain that changes in severity, quality or location; chest pain that is associated with lightheadedness, dizziness, indigestion and/or shortness of breath, or that radiates to the jaw, neck, or back. The patient is instructed to call 911 for transport via EMS or head directly to the ER. The patient verbalizes understanding. - VITAMIN D 25 HYDROXY - COMP METABOLIC PANEL 4. Vitamin D deficiency - ICD9: 268.9, ICD10: E55.9 Heck Vit d levels. - VITAMIN D 25 HYDROXY 5. Toenail fungus - ICD9: 110.1, ICD10: B35.1 Bilat toenail fungus. Trial of Lamisil. Last LFTS stable. - TERBINAFINE HCL 250 MG TABLET - COMP METABOLIC PANEL 6. Chronic systolic heart failure (HCC) - ICD9: 428.22, ICD10: I50.22 Clinically stable. Continue follow-up with cardiology 7. Secondary pulmonary arterial hypertension (HCC) - ICD9: 416.8, ICD10: I27.21 Clinically stable. Continue follow-up with cardiology 8. Paroxysmal atrial fibrillation (HCC) - ICD9: 427.31, ICD10: I48.0 Clinically stable. Continue follow-up with cardiology 9. Non-ST elevation (NSTEMI) myocardial infarction (HCC) - ICD9: 410.70, ICD10: I21.4 Clinically stable. Continue follow-up with cardiology 10. Hyperlipidemia with target LDL less than 100 - ICD9: 272.4, ICD10: E78.5 Clinically stable. Continue follow-up with cardiology 11. Long-term current use of benzodiazepine - ICD9: V58.69, ICD10: Z79.899 Clinically stable. Continue follow-up with cardiology 12. Chronic insomnia - ICD9: 780.52, ICD10: F51.04 Clinically stable. Continue to monitor 13. Anxiety - ICD9: 300.00, ICD10: F41.9 Clinically stable. Continue to monitor Otoniel Cortes APRN.BRANDON, EL This note was completed with CSID dictation software. Note was reviewed for accuracy. There may be minor misspellings or grammar miscues with CSID Dictation. I spent a total of 45 minutes on the date of the service which included preparing to see the patient, [id number] patient care, completing clinical documentation, performing a medically appropriate examination, counseling and educating the patient/family/caregiver and ordering medications, tests, or procedures. [place] [id number] Otoniel Cortes APRN.EL TAYLOR This note was completed with Dragon 360 dictation software. Note was reviewed for accuracy. There may be minor misspellings or grammar miscues with CSID Dictation. I spent a total of 15 minutes on the date of the service which included preparing to see the patient, [id number] patient care, completing clinical documentation, performing a medically appropriate examination, counseling and educating the patient/family/caregiver and ordering medications, tests, or procedures. [place] [id number] [place] [id number] This note was copied from previous note and exam dated 07/21/21. Author is Otoniel Cortes APRN.EL TAYLOR note reviewed and changes have been made or updates noted in the copy & paste portion of an encounter. documented in this encounterS[facility] Miscellaneous Notes* Telephone Encounter - Boogie Haro Cma - 11/13/2021 9:59 AM EDT Patient notified and verbalized understanding Boogie Haro Cma * Telephone Encounter - Otoniel Cortes APRN.EL TAYLOR - 11/12/2021 3:28 PM EDT Team - Inform the patient he is due for yearly urine tox screen. Because he is on 2 controlled substances per [facility] policy he has to have a yearly illicit substance screening. Orders placed in the system. Have patient go to lab for urine sample. ASSESSMENT/PLAN: 1. Long-term current use of benzodiazepine - ICD9: V58.69, ICD10: Z79.899 (primary diagnosis) - LORAZEPAM 0.5 MG TABLET - TEMAZEPAM 15 MG CAPSULE - TOX SCREEN ROUT UR - BENZODIAZEPINE SCREEN, URINE PDMP website checked and validated 11/12/2021 All prescriptions have been APPROPRIATELY filled. No suspicious activity was identified. The following approved medication requests have been transmitted electronically. Signed Prescriptions Disp Refills dulaglutide (TRULICITY) 1.5 mg/0.5 mL pen injector 4 Each 5 Sig: Inject 1.5 mg subcutaneously one time a week. Inject once per week. Discard Pen After CHAVEZ: No Authorizing Provider: OTONIEL CORTES LORazepam (ATIVAN) 0.5 mg 15 tablet 0 Sig: TAKE 1 TABLET BY MOUTH EVERY DAY NEEDED FOR ANXIETY FOR UP TO 30 DAYS VICTOR MANUEL Class: C-IV CHAVEZ: No Authorizing Provider: OTONIEL CORTES temazepam (RESTORIL) 15 mg 45 capsule 0 Sig: Take 1 capsule by mouth at bedtime as needed for up to 45 days. FOR INSOMNIA VICTOR MANUEL Class: C-IV CHAVEZ: No Authorizing Provider: OTONIEL CORTES APRN.CNP, DNP * Telephone Encounter - Donya Vigil Ma - 11/12/2021 2:18 PM EDT Last refilled: Ativan 09/15/21 #15 0 refills Restoril 07/21/21 #90 0 refills Donya Vigil Ma * Telephone Encounter - Danita Logan Pss - 11/12/2021 1:23 PM EDT Patient has been identified by name and date of : Yes Pending Prescriptions Disp Refills TRULICITY 1.5 MG/0.5 ML SUBCUTANEOUS PEN INJECTOR 4 Each 5 Sig: Inject 1.5 mg subcutaneously one time a week. Inject once per week. Discard Pen After CHAVEZ: No LORAZEPAM 0.5 MG TABLET 15 tablet 0 Sig: TAKE 1 TABLET BY MOUTH EVERY DAY NEEDED FOR ANXIETY FOR UP TO 30 DAYS VICTOR MANUEL Class: C-IV CHAVEZ: No TEMAZEPAM 15 MG CAPSULE 90 capsule 0 Sig: Take 1 capsule by mouth at bedtime as needed for up to 90 days. FOR INSOMNIA VICTOR MANUEL Class: C-IV CHAVEZ: No RX INSTRUCTIONS: Patient aware RX will be sent to pharmacy. No need to notify patient. Patient aware RX will be sent to pharmacy. No need to nofity patient. Controlled medication - must be call in. Danita Logan Pss documented in this encounterS[facility]03-03-2022 NotePatient Outreach ([facility]) VERENA CLEMENTS ([id number]) 1955 M Date Time Provider Department 10/15/21 MISSY CHARLES During your visit today, we recorded the following information about you: Missy Charles RN 10/15/2021 10:44 AM Signed [facility] CDM Enrollment Provider Action/FYI: Patient referred by: [facility] Yoel Contact made with patient: No - Left Message: Hi my name is Missy Charles RN and I am calling from the [facility] on behalf of your PCP, Otoniel Cortes APRN.EL TAYLOR. We are excited to share with you a new program to help you manage your health. Please call me back at [phone] between the hours of 8am-5pm Tuesday-Tuesday. You will receive another phone call from me within the next two business days. I hope you can take the time to speak with me. (Keep encounter open and attempt 2nd outreach in two business days from today) END OUTREACH Allergies As of Date: 10/15/2021 Noted Allergy Reaction METFORMIN 03/29/2019 8 - GI Upset Date Reviewed: 07/21/2021 Reviewed by: Otoniel Cortes APRN.EL TAYLOR - Fully Assessed Reason for Visit: Community Monitoring Outreach [Other] Cmt: Intake Prescriptions as of 10/15/2021 - LORazepam (ATIVAN) 0.5 mg TAKE 1 TABLET BY MOUTH EVERY DAY NEEDED FOR ANXIETY FOR UP TO 30 DAYS - furosemide (LASIX) 40 mg tablet Take 1 tablet by mouth once daily. - temazepam (RESTORIL) 15 mg Take 1 capsule by mouth at bedtime as needed for up to 90 days. FOR INSOMNIA - Insulin [place], Disposable, (BD ULTRAFINE III MINI PEN) 31 gauge x 3/16 USE 4 TIMES A DAY DIRECTED - spironolactone (ALDACTONE) 25 mg tablet Take 1 tablet by mouth once daily. - FLUoxetine (PROZAC) 20 mg capsule Take 1 capsule by mouth once daily. - dulaglutide (TRULICITY) 1.5 mg/0.5 mL pen injector Inject 1.5 mg subcutaneously one time a week. Inject once per week. Discard Pen After - apixaban (ELIQUIS) 5 mg tab(s) Take 1 tablet by mouth twice daily. - insulin detemir U-100 (LEVEMIR FLEXTOUCH U-100 INSULIN) 100 unit/mL (3 mL) injection pen Inject 34 units subcutaneously daily - atorvastatin (LIPITOR) 80 mg tablet Take 1 tablet by mouth once daily. - cholecalciferol, vitamin D3, (VITAMIN D3 ORAL) Take by mouth once daily. - ascorbic acid (VITAMIN C ORAL) Take by mouth once daily. - allopurinol (ZYLOPRIM) 100 mg tablet Take 1 tablet by mouth once daily. For gout. - albuterol HFA (PROAIR HFA) 90 mcg/actuation inhaler Inhale 2 Puffs as instructed every 4 hours as needed for Wheezing/Shortness of Breath. - omeprazole (PRILOSEC) 20 mg capsule Take 20 mg by mouth once daily. - Tadalafil (CIALIS) 20 mg tab(s) Take 1 tablet by mouth as needed. - nitroglycerin sublingual (NITROQUICK) 0.4 mg SL tablet Dissolve 1 tablet under the tongue every 5 minutes as needed for Chest Pain. - blood sugar diagnostic ([employer] Creek Life SciencesTOUCH ULTRA TEST) test strip 1 Strip twice daily. Use as instructed - carvedilol (COREG) 25 mg tablet Take 1 tablet by mouth twice daily. - losartan (COZAAR) 100 mg tablet Take 100 mg by mouth once daily. - aspirin, enteric coated (ASPIRIN, ENTERIC COATED) 81 mg EC tablet Take 1 tablet by mouth once daily. Problem List As Of Date 10/15/2021 Noted Resolved Depression [F32.A] 03/02/2019 Essential Hypertension, Benign [I10] GERD (gastroesophageal reflux disease) [K21.9] 07/13/2010 Hyperlipidemia with target LDL less than 100 [E*05/23/2012 Arteriosclerosis of carotid artery [I65.29] 08/16/2013 Rotator cuff tear arthropathy [M75.100, M12.819]04/08/2015 11/22/2018 S/P CABG x 4 [Z95.1] 05/29/2015 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, F51.05] 07/11/2015 ASHD (arteriosclerotic heart disease) [I25.10] 08/26/2015 Paroxysmal atrial fibrillation (HCC) [I48.0] 08/26/2015 Chronic anticoagulation [Z79.01] 08/26/2015 Controlled type 2 diabetes mellitus without com*01/09/2016 Anxiety [F41.9] 09/17/2016 Erectile dysfunction [N52.9] 10/22/2016 CKD (chronic kidney disease) stage 3, GFR 30-59*05/02/2017 03/28/2018 Nonrheumatic aortic valve stenosis [I35.0] 07/26/2017 Situational depression [F43.21] 07/26/2017 03/02/2019 Chronic systolic heart failure (HCC) [I50.22] 06/23/2015 Presence of aortocoronary bypass graft [Z95.1] 06/23/2015 Ischemic cardiomyopathy [I25.5] 08/12/2017 Nonrheumatic tricuspid (valve) insufficiency [I*03/28/2018 Ventricular bigeminy [I49.8] 03/28/2018 11/22/2018 Secondary pulmonary arterial hypertension (HCC)*06/13/2018 Non-ST elevation (NSTEMI) myocardial infarction*06/28/2018 Encounter Status:Closed by MISSY CHARLES on 10/15/21[facility] NoteHNO ID: [id number] Author: Missy Charles RN Service: ? Author Type: Registered Nurse Type: Progress Notes Filed: 10/15/2021 10:44 AM Note Text: [facility] CDM Enrollment Provider Action/FYI: Patient referred by: C Yoel Contact made with patient: No - Left Message: Hi my name is Missy Charles RN and I am calling [facility] on behalf of your PCP, Otoniel Cortes APRN.SENIOR POWER PLANT OPERATOR, DNP. We are excited to share with you a new program to help you manage your health. Please call me back at [phone] between the hours of 8am-5pm Tuesday-Tuesday. You will receive another phone call from me within the next two business days. I hope you can take the time to speak with me. (Keep encounter open and attempt 2nd outreach in two business days from today) [facility]21 NoteHNO ID: [id number] Author: Otoniel Cortes APRN.EL TAYLOR Service: ? Author Type: Nurse Practitioner Type: Progress Notes Filed: 07/21/2021 3:08 PM Note Text: Chief Complaint Patient presents with: Recheck HPI Verena Clements is a 65 year old male who presents here today for follow-up related to low back pain episode. This is an established patient of Otoniel Cortes APRN.EL TAYLOR. Denies any recent urgent care visits, ER visits or hospitalizations. Back pain: Recently seen for back pain. Seen approximately 4 weeks ago for low back pain. Symptoms have improved. No more back pain at this time. He limited his heavy lifting he was doing as part of his workout routine. DM/CKD3: Last hemoglobin A1c was 7.3%. Currently on insulin and has been using 34 units of insulin detemir U100 and morning time along with his other diabetic medications. Overall feeling well. A1c was rechecked yesterday and was 7.1%. Denies hypoglycemic symptoms. States compliance with diabetic medications. Continues with routine follow-up with cardiology. Followed by cardiology in the [facility]. - Dr. Mcgill. On chronic anticoagulation. Stage 3 CKD. Stable in previous labs. Requesting med refills today Past medical history, appointments, medications, allergies reviewed 06/29/2021 Previous Medical History PAST MEDICAL HISTORY Diagnosis Date - Arteriosclerosis of carotid artery 08/16/2013 - Atherosclerotic heart disease of [place] coronary artery without angina pectoris 08/26/2015 - Chronic anticoagulation 08/26/2015 - Depression - Diabetes mellitus with neuropathy (HCC) 01/29/2010 - Essential hypertension, benign - GERD (gastroesophageal reflux disease) 07/13/2010 - Hyperlipidemia LDL goal < 100 05/23/2012 - LBBB (left bundle branch block) - Paroxysmal atrial fibrillation (HCC) 08/26/2015 - Presence of cardiac resynchronization therapy defibrillator - Rotator cuff tear arthropathy 04/08/2015 - S/P CABG x 4 05/29/2015 - Type 2 diabetes mellitus with stage 3 chronic kidney disease, with long-term current use of insulin (HCC) 01/09/2016 - Ventricular bigeminy 03/28/2018 Previous Surgical History PAST SURGICAL HISTORY Procedure Laterality Date - COLONOSCOP W/ OR W/O BRSH SPEC 09/12/2013 Colonoscopy - COLONOSCOPY - CORONARY ARTERY BYPASS GRAFT - CORONARY ARTERY BYPASS GRAFT HX 05/06/2015 - EGD W/O OR W/BRUSH/WASH 09/12/2013 EGD - INSERTION OF BIVENTRICULAR ASSIST DEVICE 09/14/2018 [facility]-Dr. Simpson - ROTATOR CUFF REPAIR 04/2015 - RT AND LT HEART CATH 05/01/2015 Family History FAMILY HISTORY Problem Relation Age of Onset - Diabetes Father - Coronary Artery Disease Father - Heart Mother pacemaker - Arthritis Brother - Hypertension Brother - Heart disease Brother - Hypertension Brother - Diabetes Sister - Heart disease Paternal Grandmother - Heart disease Paternal Grandfather Patient Allergies ALLERGIES Allergen Reactions - Metformin GI Upset Current Medications Current Outpatient Medications on File Prior to Visit Medication Sig - temazepam (RESTORIL) 15 mg Take 1 capsule by mouth at bedtime as needed for up to 90 days. FOR INSOMNIA - atorvastatin (LIPITOR) 80 mg tablet Take 1 tablet by mouth once daily. - cholecalciferol, vitamin D3, (VITAMIN D3 ORAL) Take by mouth once daily. - ascorbic acid (VITAMIN C ORAL) Take by mouth once daily. - insulin detemir U-100 (LEVEMIR FLEXTOUCH U-100 INSULIN) 100 unit/mL (3 mL) injection pen Inject 37 units subcutaneously daily - allopurinol (ZYLOPRIM) 100 mg tablet Take 1 tablet by mouth once daily. For gout. - albuterol HFA (PROAIR HFA) 90 mcg/actuation inhaler Inhale 2 Puffs as instructed every 4 hours as needed for Wheezing/Shortness of Breath. - Insulin [place], Disposable, (BD ULTRAFINE III MINI PEN) 31 gauge x 3/16 USE 4 TIMES A DAY DIRECTED - dulaglutide (TRULICITY) 1.5 mg/0.5 mL Inject 1.5 mg subcutaneously one time a week. Inject once per week. Discard Pen After - spironolactone (ALDACTONE) 25 mg tablet Take 1 tablet by mouth once daily. - furosemide (LASIX) 40 mg tablet Take 1 tablet by mouth once daily. - apixaban (ELIQUIS) 5 mg tab(s) Take 1 tablet by mouth twice daily. - FLUoxetine (PROZAC) 20 mg capsule Take 1 capsule by mouth once daily. - omeprazole (PRILOSEC) 20 mg capsule Take 20 mg by mouth once daily. - Tadalafil (CIALIS) 20 mg tab(s) Take 1 tablet by mouth as needed. - nitroglycerin sublingual (NITROQUICK) 0.4 mg SL tablet Dissolve 1 tablet under the tongue every 5 minutes as needed for Chest Pain. - blood sugar diagnostic ([employer] Creek Life SciencesTOUCH ULTRA TEST) test strip 1 Strip twice daily. Use as instructed - carvedilol (COREG) 25 mg tablet Take 1 tablet by mouth twice daily. - losartan (COZAAR) 100 mg tablet Take 100 mg by mouth once daily. - aspirin, enteric coated (ASPIRIN, ENTERIC COATED) 81 mg EC tablet Take 1 tablet by mouth once daily. No current facility-administer (more content not included)...[facility]11-15-2021 NoteHNO ID: [id number] Author: Otoniel Cortes APRN.BRANDON, EL Service: ? Author Type: Nurse Practitioner Type: Progress Notes Filed: 07/21/2021 8:08 AM Note Text: Chief Complaint Patient presents with: Back Pain HPI Verena Clements is a 65 year old male who presents here today for low back pain x 3 weeks. This is an established patient of Otoniel Cortes APRN.BRANDON, EL. Denies any recent urgent care visits, ER visits or hospitalizations. Back pain: Complains of 3 weeks of bilateral mid to low back pain. Denies numbness or tingling in the lower or upper extremities. Denies radicular pain. States he had an episode of shingles several weeks ago. This was on the right side. Denies redness or swelling. Denies bruising. Denies hearing a pop or snap. Pain is dull and achy typically at 2 out of 10. Pain-free today. Denies recent injury or trauma. No history of back surgery. No bowel or bladder changes. No numbness or tingling in the groin. DM/CKD3: Last hemoglobin A1c was 7.3%. Currently on insulin and has been using 34 units of insulin detemir U100 and morning time along with his other diabetic medications. Overall feeling well.. Denies hypoglycemic symptoms. States compliance with diabetic medications. Continues with routine follow-up with cardiology. Followed by cardiology in the [facility]. - Dr. Mcgill. On chronic anticoagulation. Stage 3 CKD. Stable in previous labs. Past medical history, appointments, medications, allergies reviewed 06/29/2021 Previous Medical History PAST MEDICAL HISTORY Diagnosis Date - Arteriosclerosis of carotid artery 08/16/2013 - Atherosclerotic heart disease of [place] coronary artery without angina pectoris 08/26/2015 - Chronic anticoagulation 08/26/2015 - Depression - Diabetes mellitus with neuropathy (HCC) 01/29/2010 - Essential hypertension, benign - GERD (gastroesophageal reflux disease) 07/13/2010 - Hyperlipidemia LDL goal < 100 05/23/2012 - LBBB (left bundle branch block) - Paroxysmal atrial fibrillation ([facility]) 08/26/2015 - Presence of cardiac resynchronization therapy defibrillator - Rotator cuff tear arthropathy 04/08/2015 - S/P CABG x 4 05/29/2015 - Type 2 diabetes mellitus with stage 3 chronic kidney disease, with long-term current use of insulin ([facility]) 01/09/2016 - Ventricular bigeminy 03/28/2018 Previous Surgical History PAST SURGICAL HISTORY Procedure Laterality Date - COLONOSCOP W/ OR W/O BRSH SPEC 09/12/2013 Colonoscopy - COLONOSCOPY - CORONARY ARTERY BYPASS GRAFT - CORONARY ARTERY BYPASS GRAFT HX 05/06/2015 - EGD W/O OR W/BRUSH/WASH 09/12/2013 EGD - INSERTION OF BIVENTRICULAR ASSIST DEVICE 09/14/2018 [facility]-Dr. Simpson - ROTATOR CUFF REPAIR 04/2015 - RT AND LT HEART CATH 05/01/2015 Family History FAMILY HISTORY Problem Relation Age of Onset - Diabetes Father - Coronary Artery Disease Father - Heart Mother pacemaker - Arthritis Brother - Hypertension Brother - Heart disease Brother - Hypertension Brother - Diabetes Sister - Heart disease Paternal Grandmother - Heart disease Paternal Grandfather Patient Allergies ALLERGIES Allergen Reactions - Metformin GI Upset Current Medications Current Outpatient Medications on File Prior to Visit Medication Sig - temazepam (RESTORIL) 15 mg Take 1 capsule by mouth at bedtime as needed for up to 90 days. FOR INSOMNIA - atorvastatin (LIPITOR) 80 mg tablet Take 1 tablet by mouth once daily. - cholecalciferol, vitamin D3, (VITAMIN D3 ORAL) Take by mouth once daily. - ascorbic acid (VITAMIN C ORAL) Take by mouth once daily. - insulin detemir U-100 (LEVEMIR FLEXTOUCH U-100 INSULIN) 100 unit/mL (3 mL) injection pen Inject 37 units subcutaneously daily - allopurinol (ZYLOPRIM) 100 mg tablet Take 1 tablet by mouth once daily. For gout. - albuterol HFA (PROAIR HFA) 90 mcg/actuation inhaler Inhale 2 Puffs as instructed every 4 hours as needed for Wheezing/Shortness of Breath. - Insulin [place], Disposable, (BD ULTRAFINE III MINI PEN) 31 gauge x 3/16 USE 4 TIMES A DAY DIRECTED - dulaglutide (TRULICITY) 1.5 mg/0.5 mL Inject 1.5 mg subcutaneously one time a week. Inject once per week. Discard Pen After - spironolactone (ALDACTONE) 25 mg tablet Take 1 tablet by mouth once daily. - furosemide (LASIX) 40 mg tablet Take 1 tablet by mouth once daily. - apixaban (ELIQUIS) 5 mg tab(s) Take 1 tablet by mouth twice daily. - FLUoxetine (PROZAC) 20 mg capsule Take 1 capsule by mouth once daily. - omeprazole (PRILOSEC) 20 mg capsule Take 20 mg by mouth once daily. - Tadalafil (CIALIS) 20 mg tab(s) Take 1 tablet by mouth as needed. - nitroglycerin sublingual (NITROQUICK) 0.4 mg SL tablet Dissolve 1 tablet under the tongue every 5 minutes as needed for Chest Pain. - blood sugar diagnostic (ONETOUCH ULTRA TEST) test strip 1 Strip twice daily. Use as instructed - carvedilol (COREG) 25 mg tablet Take 1 tablet by mouth twice daily. - los (more content not included)...[facility]09-23-2021 NoteHNO ID: [id number] Author: Otoniel Cortes APRN.SENIOR POWER PLANT OPERATOR, DNP Service: ? Author Type: Nurse Practitioner Type: Progress Notes Filed: 05/08/2021 8:56 AM Note Text: Chief Complaint From Urgent Care for + covid. This Team Access Model encounter involved medical decision making outside of a scheduled office visit. Patient was offered a virtual/telemedicine appointment in lieu of an office visit due to recommendations to reduce patient exposure to COVID-19. Patient agrees to the visit: Yes Patient Location: [facility] Verena Clements is a 65 year old male who is contacted today for a virtual visit This is an established patient of Dr. Otoniel Cortes APRN.SENIOR POWER PLANT OPERATOR, DNP Reports: Seen in . Tested + for COVID. had tested + for COVID. Feels better today. Had several day hx of fevers, RANDLE and bodyaches. Using OTC cold medication. Denies cough, SOB or diff breathing. Symptoms started 7 days ago. Has not had MCAT. Past medical history, appointments, medications, allergies reviewed 05/07/2021 Previous Medical History PAST MEDICAL HISTORY Diagnosis Date - Arteriosclerosis of carotid artery 08/16/2013 - Atherosclerotic heart disease of [place] coronary artery without angina pectoris 08/26/2015 - Chronic anticoagulation 08/26/2015 - Depression - Diabetes mellitus with neuropathy (HCC) 01/29/2010 - Essential hypertension, benign - GERD (gastroesophageal reflux disease) 07/13/2010 - Hyperlipidemia LDL goal < 100 05/23/2012 - LBBB (left bundle branch block) - Paroxysmal atrial fibrillation ([facility]) 08/26/2015 - Presence of cardiac resynchronization therapy defibrillator - Rotator cuff tear arthropathy 04/08/2015 - S/P CABG x 4 05/29/2015 - Type 2 diabetes mellitus with stage 3 chronic kidney disease, with long-term current use of insulin ([facility]) 01/09/2016 - Ventricular bigeminy 03/28/2018 Previous Surgical History PAST SURGICAL HISTORY Procedure Laterality Date - COLONOSCOP W/ OR W/O BRSH SPEC 09/12/2013 Colonoscopy - COLONOSCOPY - CORONARY ARTERY BYPASS GRAFT - CORONARY ARTERY BYPASS GRAFT HX 05/06/2015 - EGD W/O OR W/BRUSH/WASH 09/12/2013 EGD - INSERTION OF BIVENTRICULAR ASSIST DEVICE 09/14/2018 [facility]-Dr. Simpson - ROTATOR CUFF REPAIR 04/2015 - RT AND LT HEART CATH 05/01/2015 Family History FAMILY HISTORY Problem Relation Age of Onset - Diabetes Father - Coronary Artery Disease Father - Heart Mother pacemaker - Arthritis Brother - Hypertension Brother - Heart disease Brother - Hypertension Brother - Diabetes Sister - Heart disease Paternal Grandmother - Heart disease Paternal Grandfather Patient Allergies ALLERGIES Allergen Reactions - Metformin GI Upset Current Medications Current Outpatient Medications on File Prior to Visit Medication Sig - spironolactone (ALDACTONE) 25 mg tablet Take 1 tablet by mouth once daily. - temazepam (RESTORIL) 15 mg Take 1 capsule by mouth at bedtime as needed for up to 90 days. FOR INSOMNIA - FLUoxetine (PROZAC) 20 mg capsule Take 1 capsule by mouth once daily. - dulaglutide (TRULICITY) 1.5 mg/0.5 mL pen injector Inject 1.5 mg subcutaneously one time a week. Inject once per week. Discard Pen After - apixaban (ELIQUIS) 5 mg tab(s) Take 1 tablet by mouth twice daily. - insulin detemir U-100 (LEVEMIR FLEXTOUCH U-100 INSULIN) 100 unit/mL (3 mL) injection pen Inject 34 units subcutaneously daily - atorvastatin (LIPITOR) 80 mg tablet Take 1 tablet by mouth once daily. - cholecalciferol, vitamin D3, (VITAMIN D3 ORAL) Take by mouth once daily. - ascorbic acid (VITAMIN C ORAL) Take by mouth once daily. - allopurinol (ZYLOPRIM) 100 mg tablet Take 1 tablet by mouth once daily. For gout. - albuterol HFA (PROAIR HFA) 90 mcg/actuation inhaler Inhale 2 Puffs as instructed every 4 hours as needed for Wheezing/Shortness of Breath. - Insulin [place], Disposable, (BD ULTRAFINE III MINI PEN) 31 gauge x 3/16 USE 4 TIMES A DAY DIRECTED - furosemide (LASIX) 40 mg tablet Take 1 tablet by mouth once daily. - omeprazole (PRILOSEC) 20 mg capsule Take 20 mg by mouth once daily. - Tadalafil (CIALIS) 20 mg tab(s) Take 1 tablet by mouth as needed. - nitroglycerin sublingual (NITROQUICK) 0.4 mg SL tablet Dissolve 1 tablet under the tongue every 5 minutes as needed for Chest Pain. - blood sugar diagnostic ([employer] ULTRA TEST) test strip 1 Strip twice daily. Use as instructed - carvedilol (COREG) 25 mg tablet Take 1 tablet by mouth twice daily. - losartan (COZAAR) 100 mg tablet Take 100 mg by mouth once daily. - aspirin, enteric coated (ASPIRIN, ENTERIC COATED) 81 mg EC tablet Take 1 tablet by mouth once daily. No current facility-administered medications on file prior to visit. Social History Social History Tobacco Use - Smoking status: Passive Smoke Exposure - Never Smoker - Smokeless tobacco: Never Used - Tobacco comment: period pipe or cigar Substance Use Topics - Alcohol use: Yes Comment: socially (more content not included)...[facility] 05-05-2021 NoteHNO ID: [id number] Author: Terrance Contreras PA-C Service: ? Author Type: Physician Machine Grainer Type: Progress Notes Filed: 05/05/2021 7:19 PM Note Text: This note was created using WellAWARE Systemsriter. Subjective Verena Clements is a 65 year old male. HPI Patient presents with headache, body aches mild cough and nausea over the past 4 days. His tested positive for Covid recently. He does have decreased smell. He has not had Covid previously and is not vaccinated. He does have history of diabetes and coronary artery disease. His temp has been around 100. He has been taking ibuprofen and Tylenol. Denies chest pain or shortness of breath. Review of Systems Constitutional: Positive for fatigue and fever. HENT: Positive for congestion. Negative for sore throat. Respiratory: Positive for cough. Gastrointestinal: Positive for nausea. Genitourinary: Negative. Musculoskeletal: Positive for myalgias. Neurological: Positive for headaches. All other systems reviewed and are negative. PAST MEDICAL HISTORY Diagnosis Date - Arteriosclerosis of carotid artery 08/16/2013 - Atherosclerotic heart disease of [place] coronary artery without angina pectoris 08/26/2015 - Chronic anticoagulation 08/26/2015 - Depression - Diabetes mellitus with neuropathy ([facility]) 01/29/2010 - Essential hypertension, benign - GERD (gastroesophageal reflux disease) 07/13/2010 - Hyperlipidemia LDL goal < 100 05/23/2012 - LBBB (left bundle branch block) - Paroxysmal atrial fibrillation ([facility]) 08/26/2015 - Presence of cardiac resynchronization therapy defibrillator - Rotator cuff tear arthropathy 04/08/2015 - S/P CABG x 4 05/29/2015 - Type 2 diabetes mellitus with stage 3 chronic kidney disease, with long-term current use of insulin ([facility]) 01/09/2016 - Ventricular bigeminy 03/28/2018 Current Outpatient Medications Medication Sig Dispense Refill - spironolactone (ALDACTONE) 25 mg tablet Take 1 tablet by mouth once daily. 90 tablet 3 - temazepam (RESTORIL) 15 mg Take 1 capsule by mouth at bedtime as needed for up to 90 days. FOR INSOMNIA 90 capsule 0 - FLUoxetine (PROZAC) 20 mg capsule Take 1 capsule by mouth once daily. 90 capsule 3 - dulaglutide (TRULICITY) 1.5 mg/0.5 mL pen injector Inject 1.5 mg subcutaneously one time a week. Inject once per week. Discard Pen After 4 Each 5 - apixaban (ELIQUIS) 5 mg tab(s) Take 1 tablet by mouth twice daily. 180 tablet 3 - insulin detemir U-100 (LEVEMIR FLEXTOUCH U-100 INSULIN) 100 unit/mL (3 mL) injection pen Inject 34 units subcutaneously daily 15 Pen 3 - atorvastatin (LIPITOR) 80 mg tablet Take 1 tablet by mouth once daily. 90 tablet 3 - cholecalciferol, vitamin D3, (VITAMIN D3 ORAL) Take by mouth once daily. - ascorbic acid (VITAMIN C ORAL) Take by mouth once daily. - allopurinol (ZYLOPRIM) 100 mg tablet Take 1 tablet by mouth once daily. For gout. 30 tablet 11 - albuterol HFA (PROAIR HFA) 90 mcg/actuation inhaler Inhale 2 Puffs as instructed every 4 hours as needed for Wheezing/Shortness of Breath. 8.5 g 5 - Insulin [place], Disposable, (BD ULTRAFINE III MINI PEN) 31 gauge x 3/16 USE 4 TIMES A DAY DIRECTED 400 Each 3 - furosemide (LASIX) 40 mg tablet Take 1 tablet by mouth once daily. 90 tablet 3 - omeprazole (PRILOSEC) 20 mg capsule Take 20 mg by mouth once daily. - Tadalafil (CIALIS) 20 mg tab(s) Take 1 tablet by mouth as needed. 10 tablet 5 - nitroglycerin sublingual (NITROQUICK) 0.4 mg SL tablet Dissolve 1 tablet under the tongue every 5 minutes as needed for Chest Pain. 1 Bottle of 25 0 - blood sugar diagnostic ([employer] SciencesTOUCH ULTRA TEST) test strip 1 Strip twice daily. Use as instructed 200 Strip 3 - carvedilol (COREG) 25 mg tablet Take 1 tablet by mouth twice daily. 60 tablet 5 - losartan (COZAAR) 100 mg tablet Take 100 mg by mouth once daily. - aspirin, enteric coated (ASPIRIN, ENTERIC COATED) 81 mg EC tablet Take 1 tablet by mouth once daily. 0 No current facility-administered medications for this visit. PAST SURGICAL HISTORY Procedure Laterality Date - COLONOSCOP W/ OR W/O BRSH SPEC 09/12/2013 Colonoscopy - COLONOSCOPY - CORONARY ARTERY BYPASS GRAFT - CORONARY ARTERY BYPASS GRAFT HX 05/06/2015 - EGD W/O OR W/BRUSH/WASH 09/12/2013 EGD - INSERTION OF BIVENTRICULAR ASSIST DEVICE 09/14/2018 [facility]-Dr. Simpson - ROTATOR CUFF REPAIR 04/2015 - RT AND LT HEART CATH 05/01/2015 FAMILY HISTORY Problem Relation Age of Onset - Diabetes Father - Coronary Artery Disease Father - Heart Mother pacemaker - Arthritis Brother - Hypertension Brother - Heart disease Brother - Hypertension Brother - Diabetes Sister - Heart disease Paternal Grandmother - Heart disease Paternal Grandfather Social History Tobacco Use - Smoking status: Passive Smoke Exposure - Never Smoker - Smokeless tobacco: Never Used - Tobacco comment: period pipe or cigar Substance Use Topics - Alcohol use: Yes Comment: socially - Mayur (more content not included)...[facility]08-31-2021 Note Patient Outreach (ERICG) VERENA CLEMENTS ([id number]) 1955 M Date Time Provider Department 04/14/21 RENETTA FERREIRA During your visit today, we recorded the following information about you: Renetta Ferreira MA 04/14/2021 9:50 AM Signed POPULATION HEALTH NAVIGATION OUTREACH Action/FYI Spoke with Verena Scheduled medicare wellness exam ANNUAL MEDICARE WELLNESS EXAM Smoking cessation Contact made with patient or family member? YES Pt identified by name and : YES Outreach Outcome/Action Spoke to patient or caregiver: Patient scheduled Reason for Outreach Care Gap or Scheduling/Wellness visits Payer: Payor: MEDICARE / Plan: MEDICARE A AND B / Product Type: Medicare / Care Gap Reviewed:: Annual Wellness visit Diabetic Eye Exam Smoking cessation ACO only Reminder: Reminder note to check Health Maintenance for items below Health Maintenance items due: SHINGRIX VACCINE(2 of 3) due on 11/21/2014 DILATED RETINAL EXAM due on 03/29/2021 Advanced Directives Completed: Have you ever planned for future healthcare decisions with a power of can reforming machine operator, living will, or advance directives? Referrals: N/A Message Sent to Practice: NO Navigation Signature: Renetta Ferreira MA April 14, 2021 7:28 AM Allergies As of Date: 04/14/2021 Noted Allergy Reaction METFORMIN 03/29/2019 8 - GI Upset Date Reviewed: 02/04/2021 Reviewed by: [employer] - Fully Assessed Reason for Visit: Population Health Navigation Outreach [3910] Cmt: ACO CRUZ PCSA Prescriptions as of 04/14/2021 - FLUoxetine (PROZAC) 20 mg capsule Take 1 capsule by mouth once daily. - dulaglutide (TRULICITY) 1.5 mg/0.5 mL pen injector Inject 1.5 mg subcutaneously one time a week. Inject once per week. Discard Pen After - apixaban (ELIQUIS) 5 mg tab(s) Take 1 tablet by mouth twice daily. - insulin detemir U-100 (LEVEMIR FLEXTOUCH U-100 INSULIN) 100 unit/mL (3 mL) injection pen Inject 34 units subcutaneously daily - temazepam (RESTORIL) 15 mg Take 1 capsule by mouth at bedtime as needed for up to 90 days. FOR INSOMNIA - atorvastatin (LIPITOR) 80 mg tablet Take 1 tablet by mouth once daily. - cholecalciferol, vitamin D3, (VITAMIN D3 ORAL) Take by mouth once daily. - ascorbic acid (VITAMIN C ORAL) Take by mouth once daily. - allopurinol (ZYLOPRIM) 100 mg tablet Take 1 tablet by mouth once daily. For gout. - albuterol HFA (PROAIR HFA) 90 mcg/actuation inhaler Inhale 2 Puffs as instructed every 4 hours as needed for Wheezing/Shortness of Breath. - Insulin [place], Disposable, (BD ULTRAFINE III MINI PEN) 31 gauge x 3/16 USE 4 TIMES A DAY DIRECTED - spironolactone (ALDACTONE) 25 mg tablet Take 1 tablet by mouth once daily. - furosemide (LASIX) 40 mg tablet Take 1 tablet by mouth once daily. - omeprazole (PRILOSEC) 20 mg capsule Take 20 mg by mouth once daily. - Tadalafil (CIALIS) 20 mg tab(s) Take 1 tablet by mouth as needed. - nitroglycerin sublingual (NITROQUICK) 0.4 mg SL tablet Dissolve 1 tablet under the tongue every 5 minutes as needed for Chest Pain. - blood sugar diagnostic ([employer] SciencesTOUCH ULTRA TEST) test strip 1 Strip twice daily. Use as instructed - carvedilol (COREG) 25 mg tablet Take 1 tablet by mouth twice daily. - losartan (COZAAR) 100 mg tablet Take 100 mg by mouth once daily. - aspirin, enteric coated (ASPIRIN, ENTERIC COATED) 81 mg EC tablet Take 1 tablet by mouth once daily. Problem List As Of Date 04/14/2021 Noted Resolved Depression [F32.9] 03/02/2019 Essential Hypertension, Benign [I10] GERD (gastroesophageal reflux disease) [K21.9] 07/13/2010 Hyperlipidemia with target LDL less than 100 [E*05/23/2012 Arteriosclerosis of carotid artery [I65.29] 08/16/2013 Rotator cuff tear arthropathy [M75.100, M12.819]04/08/2015 11/22/2018 S/P CABG x 4 [Z95.1] 05/29/2015 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, F51.05] 07/11/2015 ASHD (arteriosclerotic heart disease) [I25.10] 08/26/2015 Paroxysmal atrial fibrillation (HCC) [I48.0] 08/26/2015 Chronic anticoagulation [Z79.01] 08/26/2015 Type 2 diabetes mellitus with stage 3 chronic k*01/09/2016 Anxiety [F41.9] 09/17/2016 Erectile dysfunction [N52.9] 10/22/2016 CKD (chronic kidney disease) stage 3, GFR 30-59*05/02/2017 03/28/2018 Nonrheumatic aortic valve stenosis [I35.0] 07/26/2017 Situational depression [F43.21] 07/26/2017 03/02/2019 Chronic systolic heart failure (HCC) [I50.22] 06/23/2015 Presence of aortocoronary bypass graft [Z95.1] 06/23/2015 Ischemic cardiomyopathy [I25.5] 08/12/2017 Nonrheumatic tricuspid (valve) insufficiency [I*03/28/2018 Ventricular bigeminy [I49.8] 03/28/2018 11/22/2018 Secondary pulmonary arterial hypertension (HCC)*06/13/2018 Non-ST elevation (NSTEMI) myocardial infarction*06/28/2018 Encounter Status:Closed by RENETTA FERREIRA on 04/14/21[facility]08-31-[facility]21 NoteHNO ID: [id number] Author: Renetta Ferreira MA Service: ? Author Type: Insurance Sales Supervisor Type: Progress Notes Filed: 04/14/2021 9:50 AM Note Text: POPULATION HEALTH NAVIGATION OUTREACH Action/FYI Spoke with Verena Scheduled medicare wellness exam ANNUAL MEDICARE WELLNESS EXAM Smoking cessation Contact made with patient or family member? YES Pt identified by name and : YES Outreach Outcome/Action Spoke to patient or caregiver: Patient scheduled Reason for Outreach Care Gap or Scheduling/Wellness visits Payer: Payor: MEDICARE / Plan: MEDICARE A AND B / Product Type: Medicare / Care Gap Reviewed:: Annual Wellness visit Diabetic Eye Exam Smoking cessation ACO only Reminder: Reminder note to check Health Maintenance for items below Health Maintenance items due: SHINGRIX VACCINE(2 of 3) due on 11/21/2014 DILATED RETINAL EXAM due on 03/29/2021 Advanced Directives Completed: Have you ever planned for future healthcare decisions with a power of can reforming machine operator, living will, or advance directives? Referrals: N/A Message Sent to Practice: NO Navigation Signature: Renetta Ferreira MA April 14, 2021 7:28 [facility]08-25-2021 NotePatient Outreach ([facility]) VERENA CLEMENTS ([id number]) 1955 M Date Time Provider Department 04/08/21 RAGHAV LYNCH During your visit today, we recorded the following information about you: Raghav Lynch RN 04/08/2021 11:14 AM Signed [facility] Enrollment Provider Action/FYI: - chf, ckd, dm Patient referred by: [facility] Yoel Contact made with patient: Patient not outreached at this time. Closing: Patient accepts manager intensive care unit Thank you for your time today. I am excited to work together in managing your health! You will receive information on next steps through your ActualMeds account, and I will check back within a few weeks to ensure you have all that you need to use the program successfully. (Place name in care team and assign [facility]) END OUTREACH Allergies As of Date: 04/08/2021 Noted Allergy Reaction METFORMIN 03/29/2019 8 - GI Upset Date Reviewed: 02/04/2021 Reviewed by: [employer] - Fully Assessed Reason for Visit: chronic disease management [Other] Cmt: insight enrollment Primary Visit Diagnosis:Chronic systolic heart failure (HCC) [I50.22] Order(s):CONSULT TO PRIMARY CARE COORDINATION [facility] [[id number]] Order #: [id number]: 1 Prescriptions as of 05/12/2021 - LORazepam (ATIVAN) 0.5 mg TAKE 1 TABLET BY MOUTH EVERY DAY NEEDED FOR ANXIETY - spironolactone (ALDACTONE) 25 mg tablet Take 1 tablet by mouth once daily. - temazepam (RESTORIL) 15 mg Take 1 capsule by mouth at bedtime as needed for up to 90 days. FOR INSOMNIA - FLUoxetine (PROZAC) 20 mg capsule Take 1 capsule by mouth once daily. - dulaglutide (TRULICITY) 1.5 mg/0.5 mL pen injector Inject 1.5 mg subcutaneously one time a week. Inject once per week. Discard Pen After - apixaban (ELIQUIS) 5 mg tab(s) Take 1 tablet by mouth twice daily. - insulin detemir U-100 (LEVEMIR FLEXTOUCH U-100 INSULIN) 100 unit/mL (3 mL) injection pen Inject 34 units subcutaneously daily - atorvastatin (LIPITOR) 80 mg tablet Take 1 tablet by mouth once daily. - cholecalciferol, vitamin D3, (VITAMIN D3 ORAL) Take by mouth once daily. - ascorbic acid (VITAMIN C ORAL) Take by mouth once daily. - allopurinol (ZYLOPRIM) 100 mg tablet Take 1 tablet by mouth once daily. For gout. - albuterol HFA (PROAIR HFA) 90 mcg/actuation inhaler Inhale 2 Puffs as instructed every 4 hours as needed for Wheezing/Shortness of Breath. - Insulin [place], Disposable, (BD ULTRAFINE III MINI PEN) 31 gauge x 3/16 USE 4 TIMES A DAY DIRECTED - furosemide (LASIX) 40 mg tablet Take 1 tablet by mouth once daily. - omeprazole (PRILOSEC) 20 mg capsule Take 20 mg by mouth once daily. - Tadalafil (CIALIS) 20 mg tab(s) Take 1 tablet by mouth as needed. - nitroglycerin sublingual (NITROQUICK) 0.4 mg SL tablet Dissolve 1 tablet under the tongue every 5 minutes as needed for Chest Pain. - blood sugar diagnostic (Path[employer] ULTRA TEST) test strip 1 Strip twice daily. Use as instructed - carvedilol (COREG) 25 mg tablet Take 1 tablet by mouth twice daily. - losartan (COZAAR) 100 mg tablet Take 100 mg by mouth once daily. - aspirin, enteric coated (ASPIRIN, ENTERIC COATED) 81 mg EC tablet Take 1 tablet by mouth once daily. Problem List As Of Date 04/08/2021 Noted Resolved Depression [F32.9] 03/02/2019 Essential Hypertension, Benign [I10] GERD (gastroesophageal reflux disease) [K21.9] 07/13/2010 Hyperlipidemia with target LDL less than 100 [E*05/23/2012 Arteriosclerosis of carotid artery [I65.29] 08/16/2013 Rotator cuff tear arthropathy [M75.100, M12.819]04/08/2015 11/22/2018 S/P CABG x 4 [Z95.1] 05/29/2015 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, F51.05] 07/11/2015 ASHD (arteriosclerotic heart disease) [I25.10] 08/26/2015 Paroxysmal atrial fibrillation (HCC) [I48.0] 08/26/2015 Chronic anticoagulation [Z79.01] 08/26/2015 Type 2 diabetes mellitus with stage 3 chronic k*01/09/2016 Anxiety [F41.9] 09/17/2016 Erectile dysfunction [N52.9] 10/22/2016 CKD (chronic kidney disease) stage 3, GFR 30-59*05/02/2017 03/28/2018 Nonrheumatic aortic valve stenosis [I35.0] 07/26/2017 Situational depression [F43.21] 07/26/2017 03/02/2019 Chronic systolic heart failure (HCC) [I50.22] 06/23/2015 Presence of aortocoronary bypass graft [Z95.1] 06/23/2015 Ischemic cardiomyopathy [I25.5] 08/12/2017 Nonrheumatic tricuspid (valve) insufficiency [I*03/28/2018 Ventricular bigeminy [I49.8] 03/28/2018 11/22/2018 Secondary pulmonary arterial hypertension (HCC)*06/13/2018 Non-ST elevation (NSTEMI) myocardial infarction*06/28/2018 Encounter Status:Closed by RAGHAV LYNCH on 04/08/21[facility] 04-08-2021 NoteHNO ID: [id number] Author: Raghav Lynch RN Service: ? Author Type: Registered Nurse Type: Progress Notes Filed: 04/08/2021 11:14 AM Note Text: InSight CDM Enrollment Provider Action/FYI: - chf, ckd, dm Patient referred by: [facility] Yoel Contact made with patient: Patient not outreached at this time. Closing: Patient accepts manager intensive care unit Thank you for your time today. I am excited to work together in managing your health! You will receive information on next steps through your ActualMeds account, and I will check back within a few weeks to ensure you have all that you need to use the program successfully. (Place name in care team and assign ActualMeds Rn Imcu questionnaire) [facility] NoteHNO ID: [id number] Author: Otoniel Cortes APRN.SENIOR POWER PLANT OPERATOR, DNP Service: ? Author Type: Nurse Practitioner Type: Progress Notes Filed: 02/04/2021 4:39 PM Note Text: Chief Complaint Patient presents with: Recheck RACHANA Clements is a 65 year old male who presents here today for DM follow up. This is an established patient of Dr. Reynaldo Rucker III, MD. This is a new patient to me. Denies any recent urgent care visits, ER visits or hospitalizations. DM: Last hemoglobin A1c was 7.3%. Currently on insulin and has been using 34 units of insulin detemir U100 and morning time along with his other diabetic medications. Overall feeling well.. Denies hypoglycemic symptoms. States compliance with diabetic medications. Continues with routine follow-up with cardiology. Followed by cardiology in the [facility]. On chronic anticoagulation Past medical history, appointments, medications, allergies reviewed 02/04/2021 Previous Medical History PAST MEDICAL HISTORY Diagnosis Date - Arteriosclerosis of carotid artery 08/16/2013 - Atherosclerotic heart disease of [place] coronary artery without angina pectoris 08/26/2015 - Chronic anticoagulation 08/26/2015 - Depression - Diabetes mellitus with neuropathy ([facility]) 01/29/2010 - Essential hypertension, benign - GERD (gastroesophageal reflux disease) 07/13/2010 - Hyperlipidemia LDL goal < 100 05/23/2012 - LBBB (left bundle branch block) - Paroxysmal atrial fibrillation ([facility]) 08/26/2015 - Presence of cardiac resynchronization therapy defibrillator - Rotator cuff tear arthropathy 04/08/2015 - S/P CABG x 4 05/29/2015 - Type 2 diabetes mellitus with stage 3 chronic kidney disease, with long-term current use of insulin ([facility]) 01/09/2016 - Ventricular bigeminy 03/28/2018 Previous Surgical History PAST SURGICAL HISTORY Procedure Laterality Date - COLONOSCOP W/ OR W/O BRSH SPEC 09/12/2013 Colonoscopy - COLONOSCOPY - CORONARY ARTERY BYPASS GRAFT - CORONARY ARTERY BYPASS GRAFT HX 05/06/2015 - EGD W/O OR W/BRUSH/WASH 09/12/2013 EGD - INSERTION OF BIVENTRICULAR ASSIST DEVICE 09/14/2018 [facility]-Dr. Simpson - ROTATOR CUFF REPAIR 04/2015 - RT AND LT HEART CATH 05/01/2015 Family History FAMILY HISTORY Problem Relation Age of Onset - Diabetes Father - Coronary Artery Disease Father - Heart Mother pacemaker - Arthritis Brother - Hypertension Brother - Heart disease Brother - Hypertension Brother - Diabetes Sister - Heart disease Paternal Grandmother - Heart disease Paternal Grandfather Patient Allergies ALLERGIES Allergen Reactions - Metformin GI Upset Current Medications Current Outpatient Medications on File Prior to Visit Medication Sig - temazepam (RESTORIL) 15 mg Take 1 capsule by mouth at bedtime as needed for up to 90 days. FOR INSOMNIA - atorvastatin (LIPITOR) 80 mg tablet Take 1 tablet by mouth once daily. - cholecalciferol, vitamin D3, (VITAMIN D3 ORAL) Take by mouth once daily. - ascorbic acid (VITAMIN C ORAL) Take by mouth once daily. - insulin detemir U-100 (LEVEMIR FLEXTOUCH U-100 INSULIN) 100 unit/mL (3 mL) injection pen Inject 37 units subcutaneously daily - allopurinol (ZYLOPRIM) 100 mg tablet Take 1 tablet by mouth once daily. For gout. - albuterol HFA (PROAIR HFA) 90 mcg/actuation inhaler Inhale 2 Puffs as instructed every 4 hours as needed for Wheezing/Shortness of Breath. - Insulin [place], Disposable, (BD ULTRAFINE III MINI PEN) 31 gauge x 3/16 USE 4 TIMES A DAY DIRECTED - dulaglutide (TRULICITY) 1.5 mg/0.5 mL Inject 1.5 mg subcutaneously one time a week. Inject once per week. Discard Pen After - spironolactone (ALDACTONE) 25 mg tablet Take 1 tablet by mouth once daily. - furosemide (LASIX) 40 mg tablet Take 1 tablet by mouth once daily. - apixaban (ELIQUIS) 5 mg tab(s) Take 1 tablet by mouth twice daily. - FLUoxetine (PROZAC) 20 mg capsule Take 1 capsule by mouth once daily. - omeprazole (PRILOSEC) 20 mg capsule Take 20 mg by mouth once daily. - Tadalafil (CIALIS) 20 mg tab(s) Take 1 tablet by mouth as needed. - nitroglycerin sublingual (NITROQUICK) 0.4 mg SL tablet Dissolve 1 tablet under the tongue every 5 minutes as needed for Chest Pain. - blood sugar diagnostic (ONETOUCH ULTRA TEST) test strip 1 Strip twice daily. Use as instructed - carvedilol (COREG) 25 mg tablet Take 1 tablet by mouth twice daily. - losartan (COZAAR) 100 mg tablet Take 100 mg by mouth once daily. - aspirin, enteric coated (ASPIRIN, ENTERIC COATED) 81 mg EC tablet Take 1 tablet by mouth once daily. No current facility-administered medications on file prior to visit. Social History Social History Tobacco Use - Smoking status: Passive Smoke Exposure - Never Smoker - Smokeless tobacco: Never Used - Tobacco comment: period pipe or cigar Substance Use Topics - Alcohol use: Yes Comment: socially - Drug use: Never Review of Symptoms GENERAL: No weight loss, malaise or feve (more content not included)...[facility]06-14-2021 NoteHNO ID: [id number] Author: Reny Martin Population Health Navigator Service: ? Author Type: ? Type: Progress Notes Filed: 01/26/2021 3:16 PM Note Text: POPULATION HEALTH NAVIGATION OUTREACH Action/FYI VM left for a return call to schedule follow up with new PCP Labs ordered and sent mychart lab reminder Contact made with patient or family member? NO Pt identified by name and : NO Outreach Outcome/Action Unable to reach patient: Left message MyChart message sent Advance Directives sent Reason for Outreach Care Gap or Scheduling/Wellness visits Payer: Payor: MEDICARE / Plan: MEDICARE A AND B / Product Type: Medicare / Care Gap Reviewed:: Follow-up appointment Controlling Blood Pressure Nephropathy (Albumin/Creatinine) Urine Reminder: Reminder note to check Health Maintenance for items below Health Maintenance items due: BP CONTROLLED (<130/80) due on 06/28/2019 URINE ALBUMIN:CREATININE RATIO due on 02/11/2021 Navigation Signature: Reny Martin Population Health Navigator January 26, 2021 12:00 [facility]06-14-2021 NotePatient Outreach (NEMONAV) VERENA CLEMENTS ([id number]) 1955 M Date Time Provider Department 01/26/21 RENY MARTIN During your visit today, we recorded the following information about you: Reny Martin Population Health Navigator 01/26/2021 3:16 PM Signed POPULATION HEALTH NAVIGATION OUTREACH Action/FYI VM left for a return call to schedule follow up with new PCP Labs ordered and sent mychart lab reminder Contact made with patient or family member? NO Pt identified by name and : NO Outreach Outcome/Action Unable to reach patient: Left message MyChart message sent Advance Directives sent Reason for Outreach Care Gap or Scheduling/Wellness visits Payer: Payor: MEDICARE / Plan: MEDICARE A AND B / Product Type: Medicare / Care Gap Reviewed:: Follow-up appointment Controlling Blood Pressure Nephropathy (Albumin/Creatinine) Urine Reminder: Reminder note to check Health Maintenance for items below Health Maintenance items due: BP CONTROLLED (<130/80) due on 06/28/2019 URINE ALBUMIN:CREATININE RATIO due on 02/11/2021 Navigation Signature: Reny Martin Population Health Navigator January 26, 2021 12:00 PM Allergies As of Date: 01/26/2021 Noted Allergy Reaction METFORMIN 03/29/2019 8 - GI Upset Date Reviewed: 10/30/2020 Reviewed by: Lilian ([facility]) TESSA Lerma - Fully Assessed Reason for Visit: Population Health Navigation Outreach [3910] Cmt: ACO Care Gap Prescriptions as of 01/26/2021 Sig: TEMAZEPAM 15 MG CAPSULE Take 1 capsule by mouth at be* ATORVASTATIN 80 MG TABLET Take 1 tablet by mouth once d* LORAZEPAM 0.5 MG TABLET TAKE 1 TABLET BY MOUTH EVERY * VITAMIN D3 ORAL Take by mouth once daily. VITAMIN C ORAL Take by mouth once daily. LEVEMIR FLEXTOUCH U-100 INSUL* Inject 37 units subcutaneousl* ALLOPURINOL 100 MG TABLET Take 1 tablet by mouth once d* ALBUTEROL SULFATE HFA 90 MCG/* Inhale 2 Puffs as instructed * PEN NEEDLE, DIABETIC 31 GAUGE* USE 4 TIMES A DAY DIRECTED TRULICITY 1.5 MG/0.5 ML SUBCU* Inject 1.5 mg subcutaneously * SPIRONOLACTONE 25 MG TABLET Take 1 tablet by mouth once d* FUROSEMIDE 40 MG TABLET Take 1 tablet by mouth once d* APIXABAN 5 MG TABLET Take 1 tablet by mouth twice * FLUOXETINE 20 MG CAPSULE Take 1 capsule by mouth once * OMEPRAZOLE 20 MG CAPSULE,JOAQUIN* Take 20 mg by mouth once ari* TADALAFIL 20 MG TABLET Take 1 tablet by mouth as nee* NITROGLYCERIN 0.4 MG SUBLINGU* Dissolve 1 tablet under the t* BLOOD SUGAR DIAGNOSTIC STRIPS 1 Strip twice daily. Use as i* CARVEDILOL 25 MG TABLET Take 1 tablet by mouth twice * LOSARTAN 100 MG TABLET Take 100 mg by mouth once jacquelyn* ASPIRIN 81 MG TABLET,DELAYED * Take 1 tablet by mouth once d* Problem List As Of Date 01/26/2021 Noted Resolved Depression [F32.9] 03/02/2019 Essential Hypertension, Benign [I10] GERD (gastroesophageal reflux disease) [K21.9] 07/13/2010 Hyperlipidemia with target LDL less than 100 [E*05/23/2012 Arteriosclerosis of carotid artery [I65.29] 08/16/2013 Rotator cuff tear arthropathy [M75.100, M12.819]04/08/2015 11/22/2018 S/P CABG x 4 [Z95.1] 05/29/2015 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, F51.05] 07/11/2015 ASHD (arteriosclerotic heart disease) [I25.10] 08/26/2015 Paroxysmal atrial fibrillation (HCC) [I48.0] 08/26/2015 Chronic anticoagulation [Z79.01] 08/26/2015 Type 2 diabetes mellitus with stage 3 chronic k*01/09/2016 Anxiety [F41.9] 09/17/2016 Erectile dysfunction [N52.9] 10/22/2016 CKD (chronic kidney disease) stage 3, GFR 30-59*05/02/2017 03/28/2018 Nonrheumatic aortic valve stenosis [I35.0] 07/26/2017 Situational depression [F43.21] 07/26/2017 03/02/2019 Chronic systolic heart failure (HCC) [I50.22] 06/23/2015 Presence of aortocoronary bypass graft [Z95.1] 06/23/2015 Ischemic cardiomyopathy [I25.5] 08/12/2017 Nonrheumatic tricuspid (valve) insufficiency [I*03/28/2018 Ventricular bigeminy [I49.8] 03/28/2018 11/22/2018 Secondary pulmonary arterial hypertension (HCC)*06/13/2018 Non-ST elevation (NSTEMI) myocardial infarction*06/28/2018 Encounter Status:Closed by [facility] on 01/26/21 [facility]01-31-2019 Evaluation note* Diagnosis Onset Date Resolution Status Chronic systolic (congestive) heart failure chronic Ischemic cardiomyopathy parking 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 veronica Paroxysmal atrial fibrillation chronic Presence of cardiac resynchr onization therapy defibrillator (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) September 14, 2018 [facility] Work Phone: [phone]) 405-785601-31-2019 Evaluation note* Diagnosis Onset Date Resolution Status Chronic systolic (congestive) heart failure chronic Ischemic cardiomyopathy parking 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 veronica Paroxysmal atrial fibrillation chronic Presence of cardiac resynchr onization therapy defibrillator (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) September 14, 2018 chronic Chronic systolic (congestive) heart failure chronic Presence of cardiac resynchr onization therapy defibrillator (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) September 14, 2018 [facility] Work Phone: [phone]) 963-887101-31-2019 Evaluation note* Diagnosis Onset Date Resolution Status Chronic systolic (congestive) heart failure chronic Presence of cardiac resynchr onization therapy defibrillator (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) September 14, 2018 chronic Chronic systolic (congestive) heart failure chronic Essential hypertension chron ic H/O coronary artery bypass surgery May 06 chronic Hyperlipidemia chronic Non-rheumatic aortic stenosis chronic Nonrheumatic mitral (valve) insufficiency chronic Paroxysmal atrial fibrillation chronic Presence of cardiac resynchr onization therapy defibrillator (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) September 14, 2018 [facility] Work Phone: [phone]) 753-637201-31-2019 Evaluation note* Diagnosis Onset Date Resolution Status Chronic systolic (congestive) heart failure chronic Ischemic cardiomyopathy parking 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 veronica Paroxysmal atrial fibrillation chronic Presence of cardiac resynchr onization therapy defibrillator (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) September 14, 2018 chronic Dyspnea on exertion acute Chronic systolic (congestive) heart failure chronic Essential hypertension chron ic H/O coronary artery bypass surgery May 06 chronic Hyperlipidemia chronic Non-rheumatic aortic stenosis chronic Paroxysmal atrial fibrillation chronic Presence of cardiac resynchr onization therapy defibrillator (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) September 14, 2018 [facility] Work Phone: [phone]) 892-640008-14-2018 History of Past illness Narrative* Problem Noted Date Resolved Date Ventricular bigeminy 03/28/2018 11/22/2018 Situational depression 07/26/2017 9 CKD (chronic kidney disease) stage 3, GFR 30-59 ml/min 05/02/2017 03/28/2018 Rotator cuff tear arthropathy 04/08/2015 Depression 03/02/2019 documented as of this encounter (statuses as of 11/13/2021) [facility]08-14-2018 History of Past illness Narrative* Problem Noted Date Resolved Date Ventricular bigeminy 03/28/2018 11/22/2018 Ischemic cardiomyopathy 08/12/2017 11/24/19 22 Situational depression 07/26/2017 9 Presence of aortocoronary bypass graft 5 11/23/2021 Rotator cuff tear arthropathy 04/08/2015 Depression 03/02/2019 documented as of this encounter (statuses as of 11/25/2021) [facility]08-14-2018 History of Past illness Narrative* Problem Noted Date Resolved Date Ventricular bigeminy 03/28/2018 11/22/2018 Ischemic cardiomyopathy 08/12/2017 11/24/19 22 Situational depression 07/26/2017 9 Presence of aortocoronary bypass graft 5 11/23/2021 Rotator cuff tear arthropathy 04/08/2015 Depression 03/02/2019 documented as of this encounter (statuses as of 01/23/2022) [facility]08-14-2018 History of Past illness Narrative* Problem Noted Date Resolved Date Ventricular bigeminy 03/28/2018 11/22/2018 Ischemic cardiomyopathy 08/12/2017 11/24/19 22 Situational depression 07/26/2017 9 Presence of aortocoronary bypass graft 5 11/23/2021 Rotator cuff tear arthropathy 04/08/2015 Depression 03/02/2019 documented as of this encounter (statuses as of 02/16/2022) [facility]09-22-2015 Evaluation note* Diagnosis Onset Date Resolution Status Dyspnea on exertion acute Chronic systolic (congestive) heart failure chronic Essential hypertension chron ic H/O coronary artery bypass surgery May 06 5 chronic Hyperlipidemia chronic Non-rheumatic aortic stenosis chronic Paroxysmal atrial fibrillation chronic Presence of cardiac resynchr onization therapy defibrillator (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) September 14, 2018 chronic Chronic systolic (congestive) heart failure chronic Ischemic cardiomyopathy parking 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 Elo Ralph MD Status:ADM IN O Location: [place] [address] Providers Date of Admission: 02/06/25 Date of Discharge: 02/07/25 Primary Care Physician: Elo Ralph MD Reason For Visit: CP R/O Diagnosis Discharge Diagnosis (1) Chest pain: Status: Acute Code(s): R07.9 - Chest pain, unspecified (2) DM2 (diabetes mellitus, type 2): Status: Chronic Code(s): E11.9 - Type 2 diabetes mellitus without complications Qualifiers: Diabetes mellitus complication status: without complication Qualified Code(s): E11.9 - Plan 69-year-old Male admitted with nausea vomiting, generalized weakness and fatiguefor about 1 week. Did not vomit last 24 hours. Yesterday had intermittent chest pain. # Intermittent chest pain, ACS ruled out -Chest pain atypical and happens 15 to 20 seconds at random, sometimes left sideof chest sometimes middle Serial troponins were 24, 23 and 25. -EKG paced with no acute changes -Pharmacological nuclear stress test was done which shows prior inferior nontransmural infarct but no significant guillermo-infarct ischemia. EF 40%. 2D echo was also done which shows EF improved to 45%. Stage II diastolic dysfunction, LA mildly enlarged mild MR, mild TR RVSP 42 mmHg. Mild aortic stenosis aortic valve area 1.5 cm??. Patient stated his prior EF was very low about 18% Lipid profile shows LDL 59, HDL 28. Triglyceride 160. Patient on appropriate medications as mentioned below # History of ischemic cardiomyopathy with pacemaker/defibrillator - Daily weights, I's and O's - Does not appear to be fluid overloaded - Continue patient's home medications - Patient is listed on being on both losartan and Entresto, continue Entresto and holding losartan, will need to verify which 1 patient is on as these 2 02/07: Patient on furosemide, spironolactone, Entresto, atorvastatin, and baby aspirin continue. Losartan discontinued. Follow-up with Kiki Ramirez in 1 month # CKD stage III b -Appears to be at baseline -Avoid nephrotoxic agents -Daily BMPs 02/07: Kidney function is on baseline #Type 2 diabetes mellitus -Glucose checks and sliding scale insulin -Continue long-acting insulin but at lower dosing given patient will be n.p.o. #Paroxysmal Atrial Fibrillation -Rate control: Carvedilol -Anticoagulation: Eliquis # History of coronary artery disease -With previous CABG - Continue aspirin and statin #Chronic BPH with obstruction -Continue home medications #GERD -Continue PPI #Depression/anxiety -Continue home medications #DVT ppx: Patient on Eliquis Discharge medication reconciliation done. Discharge follow-up instructions completed. Discharge process discussed with the patient and all questions wereanswered to patient's satisfaction. Follow with PCP in 1 to 2 weeks Total time spent, exact 35 minutes on discharge meds reconciliation, examination, coordination of care with nurses and ancillary staff, review of imaging and blood test and discussion with the patient on follow-up instructions. Medications at Discharge Home Medications aspirin 81 mg tablet,delayed release 81 mg PO DAILY 06/16/15 fluoxetine 20 mg capsule 20 mg PO DAILY 05/16/18 nitroglycerin 0.4 mg sublingual tablet 0.4 mg sublingual DAILY PRN Pain #25 tabs109/08/18 sildenafil 50 mg tablet 50 mg PO DAILY PRN sexual activity 02/27/21 omeprazole 20 mg tablet,delayed release 20 mg PO DAILY 09/24/21 cholecalciferol (vitamin D3) 25 mcg (1,000 unit) tablet 50 mcg PO DAILY 09/30/23 insulin glargine U-300 conc 300 unit/mL (1.5 mL) subcutaneous pen (Toujeo SoloStar U-300 Insulin) 46 unit subcut DAILY 12/30/23 furosemide 40 mg tablet 40 mg PO DAILY #90 tabs 01/16/24 spironolactone 25 mg tablet 25 mg PO DAILY #90 tabs 03/29/24 carvedilol 25 mg tablet 25 mg PO BID #180 tabs 05/02/24 tamsulosin 0.4 mg capsule 0.4 mg PO DAILY 06/19/24 apixaban 5 mg tablet (Eliquis) 5 mg PO BID #60 tabs 08/29/24 sacubitril 49 mg-valsartan 51 mg tablet (Entresto) 1 tab PO BID #180 tabs 09/03/24 atorvastatin 80 mg tablet 80 mg PO QHS #90 tabs 10/22/24 albuterol sulfate 90 mcg/actuation breath activated powder inhaler 2 inh inhalation Q6H PRN shortness of breath or wheezing 02/06/25 lorazepam 0.5 mg tablet 0.5 mg PO DAILY PRN anxiety 02/06/25 semaglutide 1 mg/dose (4 mg/3 mL) subcutaneous pen injector (Ozempic) 0.5 mg subcut QWEEK 02/06/25 trazodone 50 mg tablet 50 - 100 mg PO QHS 02/06/25 Hospital Course Summary of Care Provided Hospital Course: Clinical Impression(s) from Imaging Studies Chest X-Ray 02/06/25 09:48 IMPRESSION: Interval placement of left thoracic transvenous pacemaker/AICD device with leads. No complication is noted. Sternotomy wires again noted. Mediastinal surgical clips are again seen. Lungs appear clear of acute disease; no evidence of pulmonary edema. No pleural effusion or pneumothorax is evident. The cardiomediastinal silhouette is stable, without evidence of cardiomegaly. No acute osseous change is seen. No evidence of acute cardiopulmonary disease. Reading Location: [facility] Echocardiogram 02/06/25 16:00 Interpretation Summary Mild concentric left ventricular hypertrophy. The global longitudinal strain = -14.7% (abnormal). The LV ejection fraction is 45 %. Stage 2 diastolic dysfunction. The left atrium is mildly enlarged. Mild (1+) mitral valve insufficiency. Mild tricuspid valve insufficiency. Right ventricular systolic pressure estimated to be 42 mmHg. Mild aortic valve stenosis. Mean peak gradient 11 mmHg. Aortic valve area 1.5 cm?? by planimetry. Ordering Physician: Miesha Medina Performed By: Mike Lin RCS Physical Exam Narrative Seen and examined Patient worked unaccustomed under sun. Feeling normal back to his baseline Physical exam General: Alert, Oriented x3, Cooperative HEENT: Atraumatic, PERRLA, EOMI, Normocephalic. Oral: No Gingival or Mucosal Lesions/ Ulcerations Neck: Supple, No JVD, Negative Carotid Bruits Chest wall/Lungs: Air entry diminished in bilateral lung bases. No crepitation/rhonchi Cardiovascular: Sinus rhythm, normal S1,S2, soft holosystolic murmur at cardiac apex. Defibrillator. Prior CABG Abdomen: Bowel Sounds Present, Soft, Non Tender, Non-Distended : No dysuria. No renal angle tenderness. No suprapubic tenderness. Extremities: No edema, Capillary Refill Less than 3 Seconds Skin: No rashes, No breakdown Musculoskeletal: No Tenderness to Palpation of Joints or Extremities Neurological: Cranial nerves II-XII grossly intact, DTR 2+/4. No acute focal neurological deficit. Psych/Mental Status: Normal Affect, Appropriate. Weight / BMI Weight Weight: 188 lb 14.978 oz Body Mass Index (BMI) 26.3 ABG / Lab / Microbiology Data 02/07/25 05:20 02/07/25 05:20 Laboratory: Laboratory Results - last 24 hr 02/06/25 18:11: POC Glucose 139 H 02/07/25 02:52: POC Glucose 119 H 02/07/25 05:20: WBC 10.0, RBC 3.25 L, Hgb 10.6 L, Hct 30.0 L, MCV 92.3, MCH 32.6H, MCHC 35.3, RDW Std Deviation 40.7, RDW Coeff of Brianna 12.0, Plt Count 154, MPV 11.3, Immature Gran % (Auto) 0.300, Neut % (Auto) 76.7 H, Lymph % (Auto) 13.5 L,[place] % (Auto) 7.6, Eos % (Auto) 1.6, Baso % (Auto) 0.3, Absolute Neuts (auto) 7.7, Absolute Lymphs (auto) 1.35, Nucleated RBC % 0, Sodium 140, Potassium 4.5, Chloride 110 H, Carbon Dioxide 20.7 L, Anion Gap 10, BUN 27 H, Creatinine 1.55 H, Estim Creat Clear Calc 46.56 L, Est GFR (MDRD) Non-Af 48 L, BUN/Creatinine Ratio 17.2, Glucose 138 H, Calcium 9.1, Triglycerides 168, Cholesterol 121, LDL Cholesterol, Calc 59, VLDL Cholesterol 34, HDL Cholesterol 28 L, Cholesterol/HDLRatio 4.31, TSH 2.190 Radiography Diagnostic Testing: Radiology Impression Echocardiogram 02/06/25 16:00 Interpretation Summary Mild concentric left ventricular hypertrophy. The global longitudinal strain = -14.7% (abnormal). The LV ejection fraction is 45 %. Stage 2 diastolic dysfunction. The left atrium is mildly enlarged. Mild (1+) mitral valve insufficiency. Mild tricuspid valve insufficiency. Right ventricular systolic pressure estimated to be 42 mmHg. Mild aortic valve stenosis. Mean peak gradient 11 mmHg. Aortic valve area 1.5 cm?? by planimetry. Ordering Physician: Miesha Medina Performed By: Mike Lin RCS D/C Instructions Discharge Diet: Low fat / Low cholesterol and 2000 mg Sodium Diet Weight Bearing Status: Weight bearing as tolerated Call your doctor if you observe: Fever of 101 or Higher, Coldness, Increased Pain, Numbness or Tingling, Change in Color, Inability to urinate, Inability to have a bowel movement, Shortness of breath, Dizziness, Fainting spells, Swellingin the ankles, Chest pain, Prolonged hiccupping, Increased palpitations (irregular heartbeat) and Calf discomfort DC O2, CPAP, BIPAP Needs Home O2 Discharge instructions: No When: IN 2 WEEKS Meaningful Use Info Meaningful Use Meaningful Use Diagnoses (Choose all that apply): None applicable Ischemic Stroke Statin Dosing Therapy Reference: STATIN DOSE THERAPY REFERENCE: * Patients > 75 years receive moderate or high dose statin therapy. * Patients 75 years or YOUNGER should receive HIGH intensity statin dose unless contraindicated. You will be required to document reason for non-treatment if statin daily dose does not meet guidelines. HIGH DOSE STATIN THERAPY DAILY Atorvastatin > than or = to 40 mg Rosuvastatin > than or = to 20 mg Amlodipine + Atorvastatin > than or = to 2.5/40 mg Ezetimibe + Simvastatin 10/80 mg Simvastatin 80mg Discharge Plan Admission Admit Date/Time: 02/06/25 15:34 Primary Reason for Your Visit: Atypical chest pain, nausea/vomiting Attending Provider: Jair Simmons Primary Care Provider: Elo Ralph Consulting Providers: Miesha Medina Discharge Orders/Prescriptions Prescriptions: Continued fluoxetine 20 mg capsule 20 mg PO DAILY nitroglycerin 0.4 mg tablet, sublingual 0.4 mg SUBLINGUAL DAILY PRN (Reason: Pain) Qty: 25 3RF sildenafil 50 mg tablet 50 mg PO DAILY PRN (Reason: sexual activity) Rx Instructions: administer 30 minutes to 4 hours before activity omeprazole 20 mg tablet,delayed release (DR/EC) 20 mg PO DAILY cholecalciferol (vitamin D3) 25 mcg (1,000 unit) tablet 50 mcg PO DAILY insulin glargine U-300 conc [Toujeo SoloStar U-300 Insulin] 300 unit/mL (1.5 mL) insulin pen 46 unit subcut DAILY tamsulosin 0.4 mg capsule 0.4 mg PO DAILY aspirin 81 MG tablet 81 mg PO DAILY lorazepam 0.5 mg tablet 0.5 mg PO DAILY PRN (Reason: anxiety) Ozempic 1 mg/dose (4 mg/3 mL) pen injector 0.5 mg subcut QWEEK Patient Comments: SATURDAYS trazodone 50 mg tablet 50 - 100 mg PO QHS albuterol sulfate 90 mcg/actuation aerosol powdr breath activated 2 inh inhalation Q6H PRN (Reason: shortness of breath or wheezing) furosemide 40 mg tablet 40 mg PO DAILY Qty: 90 4RF spironolactone 25 mg tablet 25 mg PO DAILY Qty: 90 3RF carvedilol 25 mg tablet 25 mg PO BID Qty: 180 3RF Eliquis 5 mg tablet 5 mg PO BID Qty: 60 11RF Entresto 49-51 mg tablet 1 tab PO BID Qty: 180 3RF atorvastatin 80 mg tablet 80 mg PO QHS Qty: 90 3RF Discontinued losartan 100 mg tablet 100 mg PO DAILY Referrals / Follow Up: Elo Ralph MD [Primary Care Provider] - Kiki Ramirez PA [Med Staff - Adv Practice Prof] - Within 1 Month Disposition Disposition (needs filled in before D/C Order can be placed): Home, Self Care Charges/Coding Visit Charges Inpatient E&M: 97564 Disch Hosp >30min 02/07/25 1536 <Electronically signed by Jair Simmons MD> Cosigner Signature (if applicable): CC: Dr. Elo Ralph MD; Dr. Jair Simmons MD~ Signed [facility] Work Phone: Evaluation note* Diagnosis Long-term current use of benzodiazepine- Primary Type 2 diabetes mellitus with stage 3 chronic kidney disease, with long-term current use of insulin ([facility]) Anxiety Anxiety state, unspecified Chronic insomnia Insomnia, unspecified [facility]* Diagnosis Medicare annual wellness visit, subsequent- Primary Routine general medical examination at a health care facility Type 2 diabetes mellitus with stage 3b chronic kidney disease, with long-term current use of insulin ([facility]) Fatigue, unspecified type Vitamin D deficiency Unspecified vitamin D deficiency Toenail fungus Dermatophytosis of nail Chronic systolic heart failure (HCC) Chronic systolic heart failure Secondary pulmonary arterial hypertension (HCC) Paroxysmal atrial fibrillation (HCC) Atrial fibrillation Non-ST elevation (NSTEMI) myocardial infarction ([facility]) Acute myocardial infarction, subendocardial infarction, episode of care unspecified Hyperlipidemia with target LDL less than 100 Other and unspecified hyperlipidemia Long-term current use of benzodiazepine Chronic insomnia Insomnia, unspecified Anxiety Anxiety state, unspecified [facility]* Diagnosis Toenail fungus Dermatophytosis of nail [facility] department noteNo assessment information availableWFlower Hospital Work Phone: Evaluation note* Diagnosis Onset Date Resolution Status Admit Date Right carotid bruit acute January 18, 2025 11:25am Chronic systolic (congestive ) heart failure chronic January 18, 2025 11:25am Essential hypertension chronic Ju 2024 11:25am H/O coronary artery bypass surgery May 06, 2015 chronic January 18, 2 025 11:25am Hyperlipidemia chronic January 18, 2025 11:25am Non-rheumatic aortic stenosis chroni c January 18, 2025 11:25am Paroxysmal atrial fibrillation chronic January 18, 2025 11:25am Presence of cardiac resynchronization therapy defibrillator (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) September 14, 2018January 11:25am [facility] Work Phone: Hospital Discharge instructions Additional Instructions Best to see orthopedics next week, due to the amount of time it may take for the swelling to go down especially since you are on a blood thinner. You should continue the blood thinner, and aggressively ice your right knee when resting, try to rest the knee in the brace and using crutches or a walker and do not force yourself to bend it.[facility] Work Phone: Reason for referral (narrative)No reason for referral information availableRiver[facility] Work Phone: Summary Purpose Family History No Family History Records Found Relationship Condition Age at Onset Recorded Date/T neeta father Coronary artery disease Unknown Myocardial infarction Unknown mother Presence of cardiac pacemaker Unknown History of heart valve replacement Unknow n Advance Directives No Advanced Directives Records Found Advance Directive Response Recorded Date/ Time Advance Directives No June 7:00am Living Will No September 06 8:16am Power of Curing Room Supervisor No September 06, 2022 8:16am Advance Directive Response Recorded Date/ Time Advance Directives No June 8:00am Living Will No September 06 9:16am Power of Curing Room Supervisor No September 06, 2022 9:16am Advance Directive Response Recorded Date/ Time Advance Directives No June 8:00am Advance Directive Response Recorded Date/ Time Do you have a Healthcare Power of Curing Room Supervisor? No February 06, 2025 9:37am Advance Directives No June 8:00am Advance Directive Response Recorded Date/ Time Do you have a Healthcare Power of Curing Room Supervisor? No February 06, 2025 6:04pm Advance Directives No June 8:00am Chief Complaint and Reason for Visit Chief Complaint 3 mos remote 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 f /u RIGHT KNEE PAIN Reason for Visit Chronic systolic (co ngestive) heart failure Ischemic cardiomyopathy Paroxysmal atrial fibrillation Presence of cardiac resynchronization therapy defibrillator (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) Chief Complaint 3 mos remote 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 f /u RIGHT KNEE PAIN 3 mos remote 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 f/u Laceration of right quadriceps muscle, fascia and Reason for Visit Chronic systolic (co ngestive) heart failure Ischemic cardiomyopathy Paroxysmal atrial fibrillation Presence of cardiac resynchronization therapy defibrillator (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) Chronic systolic (congestive) heart failure Presence of cardiac resynchronization therapy defibrillator (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) Chief Complaint RIGHT KNEE PAIN 3 mos remote 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 f/u Laceration of right quadriceps muscle, fascia and 6 M FU E ORDER Reason for Visit Chronic systolic (co ngestive) heart failure Presence of cardiac resynchronization therapy defibrillator (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) Chronic systolic (congestive) heart failure Essential hypertension H/O coronary artery bypass surgery Hyperlipidemia Non-rheumatic aortic stenosis Nonrheumatic mitral (valve) insufficiency Paroxysmal atrial fibrillation Presence of cardiac resynchronization therapy defibrillator (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) Chief Complaint RIGHT KNEE PAIN 3 mos remote 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 f/u Laceration of right quadriceps muscle, fascia and 6 M FU E ORDER AORTIC VALVE STENOSIS Reason for Visit Chronic systolic (co ngestive) heart failure Presence of cardiac resynchronization therapy defibrillator (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) Chronic systolic (congestive) heart failure Essential hypertension H/O coronary artery bypass surgery Hyperlipidemia Non-rheumatic aortic stenosis Nonrheumatic mitral (valve) insufficiency Paroxysmal atrial fibrillation Presence of cardiac resynchronization therapy defibrillator (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) Chief Complaint 3 mos remote 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 f /u Reason for Visit Chronic systolic (co ngestive) heart failure Ischemic cardiomyopathy Paroxysmal atrial fibrillation Presence of cardiac resynchronization therapy defibrillator (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) Chief Complaint 3 mos remote 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 f /u TYPE 2 DM, CKD Reason for Visit Chronic systolic (co ngestive) heart failure Ischemic cardiomyopathy Paroxysmal atrial fibrillation Presence of cardiac resynchronization therapy defibrillator (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) Chief Complaint TYPE 2 DM, CKD Chief Complaint TYPE 2 DM, CKD annual in-clinic 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 / JR @ 11:30 E ORDERS CABG CABG Amb Documentation Reason for Visit Dyspnea on exertion Chronic systolic (congestive) heart failure Essential hypertension H/O coronary artery bypass surgery Hyperlipidemia Non-rheumatic aortic stenosis Paroxysmal atrial fibrillation Presence of cardiac resynchronization therapy defibrillator (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) Chronic systolic (congestive) heart failure Ischemic cardiomyopathy Presence of cardiac resynchronization therapy defibrillator (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) Chief Complaint Pacer Check Remote 3 mos remote 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 f/u CHEST CONGESTION 1 Y FU Pacer Check Remote DYSPNEA ON EXERTION Reason for Visit Chronic systolic (co ngestive) heart failure Ischemic cardiomyopathy Paroxysmal atrial fibrillation Presence of cardiac resynchronization therapy defibrillator (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) Dyspnea on exertion Chronic systolic (congestive) heart failure Essential hypertension H/O coronary artery bypass surgery Hyperlipidemia Non-rheumatic aortic stenosis Paroxysmal atrial fibrillation Presence of cardiac resynchronization therapy defibrillator (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) Chief Complaint Admit Date Pacer Check Remote November 12, 2024 9:1 9am 6-8 M FU January 18, 2025 11:25 am Reason for Visit Admit Date Right carotid bruit January 18, 2025 11:25 am Chronic systolic (congestive) heart fail ure January 18, 2025 11:25am Essential hypertension January 18, 2025 11 :25am H/O coronary artery bypass surgery January 18, 2025 11:25am Hyperlipidemia January 18, 2025 11:25 am Non-rheumatic aortic stenosis January 18, 2025 11:25am Paroxysmal atrial fibrillation January 18, 2025 11:25am Presence of cardiac resynchr onization therapy defibrillator (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) January 18, 2025 11:25am Chief Complaint Admit Date Pacer Check Remote November 12, 2024 9:1 9am 6-8 M January 18, 2025 11:25 am INT LAB ORDERS January 18, 2025 12:00 pm Chief Complaint Admit Date Pacer Check Remote November 12, 2024 9:1 9am 6-8 M FU January 18, 2025 11:25 am INT LAB ORDERS January 18, 2025 12:00 pm carotid right bruit January 30, 2025 9:56 am gen illness February 06, 2025 9:26 am Chief Complaint Admit Date Pacer Check Remote November 12, 2024 9:1 9am 6-8 M FU January 18, 2025 11:25 am INT LAB ORDERS January 18, 2025 12:00 pm carotid right bruit January 30, 2025 9:56 am CP R/O February 06, 2025 3:34 pm Reason for Visit Admit Date Right carotid bruit January 18, 2025 11:25 am Chronic systolic (congestive) heart fail ure January 18, 2025 11:25am Essential hypertension January 18, 2025 11 :25am H/O coronary artery bypass surgery January 18, 2025 11:25am Hyperlipidemia January 18, 2025 11:25 am Non-rheumatic aortic stenosis January 18, 2025 11:25am Paroxysmal atrial fibrillation January 18, 2025 11:25am Presence of cardiac resynchr onization therapy defibrillator (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) January 18, 2025 11:25am Chest pain February 06, 2025 3:34 pm Elevated troponin level February 06, 2025 3:34pm Malaise and fatigue February 06, 2025 3:34 pm Nausea and vomiting February 06, 2025 3:34 pm DM2 (diabetes mellitus, type 2) January 3:34pm Chief Complaint Admit Date Pacer Check Remote November 12, 2024 9:1 9am 6-8 M FU January 18, 2025 11:25 am INT LAB ORDERS January 18, 2025 12:00 pm carotid right bruit January 30, 2025 9:56 am CP R/O February 06, 2025 3:34 pm CP R/O February 07, 2025 1:23 pm CP R/O February 07, 2025 3:28 pm Chief Complaint Admit Date Pacer Check Remote November 12, 2024 9:1 9am 6-8 M FU January 18, 2025 11:25 am INT LAB ORDERS January 18, 2025 12:00 pm carotid right bruit January 30, 2025 9:56 am CP R/O February 06, 2025 3:34 pm CP ADMIT February 06, 2025 8:57 pm CP R/O February 07, 2025 1:23 pm CP R/O February 07, 2025 3:28 pm Pacer Check Remote February 11, 2025 6:38 am Reason for Visit Admit Date Right carotid bruit January 18, 2025 11:25 am Chronic systolic (congestive) heart fail ure January 18, 2025 11:25am Essential hypertension January 18, 2025 11 :25am H/O coronary artery bypass surgery January 18, 2025 11:25am Hyperlipidemia January 18, 2025 11:25 am Non-rheumatic aortic stenosis January 18, 2025 11:25am Paroxysmal atrial fibrillation January 18, 2025 11:25am Presence of cardiac resynchr onization therapy defibrillator (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) January 18, 2025 11:25am Malaise and fatigue February 06, 2025 3:34 pm DM2 (diabetes mellitus, type 2) January 3:34pm Chest pain February 06, 2025 3:34 pm Nausea and vomiting February 06, 2025 3:34 pm Elevated troponin level February 06, 2025 3:34pm Additional Source Comments (unrecognized sect ion and content) No Status Records FoundNo Status Records FoundNo Status Records Found INFORMATION SOURCE (unrecogn ized section and content) DATE CREATED AUTHOR 02/02/2018 [facility] DATE CREATED AUTHOR AUTHOR'S ORGANIZ ATION 01/23/2022 [facility] DATE CREATED AUTHOR AUTHOR'S ORGANIZ ATION 02/17/2025 [facility] Source Comments (unrecognize d section and content) In the event this informatio n is protected by the Federal Confidentiality of Alcohol and Drug Abuse Patient Records regulations: The Federal rules restrict any use of the information to criminally investigate or prosecute any alcohol or drug abuse patient.[facility] the event this information is protected by the Federal Confidentiality of Alcohol and Drug Abuse Patient Records regulations: The Federal rules restrict any use of the information to criminally investigate or prosecute any alcohol or drug abuse patient.[facility] the event this information is protected by the Federal Confidentiality of Alcohol and Drug Abuse Patient Records regulations: The Federal rules restrict any use of the information to criminally investigate or prosecute any alcohol or drug abuse patient.[facility] the event this information is protected by the Federal Confidentiality of Alcohol and Drug Abuse Patient Records regulations: The Federal rules restrict any use of the information to criminally investigate or prosecute any alcohol or drug abuse patient.[facility] Reason for Visit (unrecogniz ed section and content) Reason Onset Date Comments Refill Request 11/12/2021 Reason Comments Medicare Wellness Exam Reason Comments Patient Update Reason Comments Refill Request Care Teams (unrecognized sec tion and content) Reworker Relationship Specialty Start Date End Date Otoniel Cortes APRN.CNP DNP [address] [place] [address] PCP - General Family Practice 02/04/21 Reworker Relationship Specialty Start Date End Date Otoniel Cortes APRN.CNP DNP [address] [place] [address] PCP - General Family Practice 02/04/21 Reworker Relationship Specialty Start Date End Date Otoniel Cortes APRN.CNP DNP [address] [place] [address] PCP - General Family Practice 02/04/21 Reworker Relationship Specialty Start Date End Date Otoniel Cortes APRN.CNP DNP [address] [place] [address] PCP - General Family Practice 02/04/21 Team Status: Active Member Role Status Dates Dr. Reynaldo Rucker III, MD Family Provider Active Celi Griffith DO Primary Care Provider Active Team Status: Inactive Member Role Status Dates Otoniel Cortes STAGE RIGGER, STAGE RIGGER-C Primary Care Provider, Referring Provider Active Dr. César Mcgill MD Attending Provider Active Team Status: Inactive Member Role Status Dates Celi Griffith DO Primary Care Provider Active Dr. He Katz MD Emergency Provider Active Dr. Vamshi Bernardo DO Active Team Status: Inactive Member Role Status Dates Otoniel Cortes STAGE RIGGER, STAGE RIGGER-C Referring Provider Active Lety Calderon Attending Provider Active Celi Griffith DO Primary Care Provider Active Team Status: Inactive Member Role Status Dates Celi Griffith , Primary Care Provider Active Dr. He Katz MD Attending Provider, Emergency Provider Active Dr. Vamshi Bernardo DO Active Team Status: Inactive Member Role Status Dates Celi Griffith , Primary Care Provider Active Dr. Vamshi Bernardo , Attending Provider Active Team Status: Inactive Member Role Status Dates Celi Griffith , DO Primary Care Provider, Attending Provider Active Team Status: Active Member Role Status Dates Celi Griffith , DO Primary Care Provi rashard, Attending Provider, Referring Provider Active Team Status: Inactive Member Role Status Dates Celi Griffith , DO Primary Care Provider, Referring Provider Active James Reid STAGE RIGGER, STAGE RIGGER-C Active Alka Wagner STAGE RIGGER, STAGE RIGGER-C Attending Provider Active Team Status: Inactive Member Role Status Dates Celi Griffith , Primary Care Provider Active Alka Wagner STAGE RIGGER, STAGE RIGGER-C Attending Provider, Referring P rovider Active Team Status: Active Member Role Status Dates Celi Griffith , Primary Care Provider Active Dr. César Mcgill MD Attending Provider Active Team Status: Inactive Member Role Status Dates Celi Griffith , DO Primary Care Provi rashard, Attending Provider, Referring Provider Active Team Status: Active Member Role Status Dates Celi Griffith , DO Primary Care Provider Active Alka Wagner STAGE RIGGER, STAGE RIGGER-C Attending Provider Active Team Status: Inactive Member Role Status Dates Celi Griffith , Primary Care Provider Active Alka Wagner STAGE RIGGER, STAGE RIGGER-C Attending Provider Active Team Status: Inactive Member Role Status Dates Celi Griffith , DO Primary Care Provider, Referring Provider Active Lety Calderon Attending Provider Active Team Status: Active Member Role Status Dates Celi Griffith , Primary Care Provider Active James Reid STAGE RIGGER, STAGE RIGGER-C Referring Provider, Other Provide r Active Dr. Lewis Templeton MD Attending Provider Active Team Status: Active Member Role Status Dates Celi Griffith , Primary Care Provider Active James Reid STAGE RIGGER, STAGE RIGGER-C Attending Provider Active Team Status: Inactive Member Role Status Dates Celi Griffith , DO Primary Care Provider Active James Reid STAGE RIGGER, STAGE RIGGER-C Attending Provider, Referring Pro vider Active Team Status: Inactive Member Role Status Dates Celi Redd Gladis , DO Primary Care Provider, Referring Provider Active James Reid STAGE RIGGER, STAGE RIGGER-C Attending Provider Active Team Status: Inactive Member Role Status Dates Celi Griffith , DO Primary Care Provider, Referring Provider Active Lety Calderon Active Dr. Lewis Templeton MD Attending Provider Active Team Status: Inactive Member Role Status Dates Celi Griffith , DO Primary Care Provider, Referring Provider Active Sunny Lopez PA, PA Attending Provider Active Team Status: Inactive Member Role Status Dates Celi Griffith DO Primary Care Provider Active Dr. Lewis Templeton MD Attending Provider Active Team Status: Active Member Role Status Albina Ralph MD Primary Care Provider Active Team Status: Inactive Member Role Status Albina Ralph MD Primary Care Provider Active St art: November 12, 2024 End: November 12, 2024 Dr. Lewis Templeton MD Attending Provider Active S tart: November 12, 2024 End: November 12, 2024 Team Status: Inactive Member Role Status Albina Ralph MD Primary Care Provider Active St art: January 18, 2025 End: January 18, 2025 Elo Ralph MD Referring Provider Active Start : January 18, 2025 End: January 18, 2025 Kiki Ramirez PA, PA Attending Provider Active Start: January 18, 2025 End: January 18, 2025 Team Status: Inactive Member Role Status Albina Ralph MD Primary Care Provider Active St art: January 18, 2025 End: January 18, 2025 Kiki Ramirez PA, PA Attending Provider Active Start: January 18, 2025 End: January 18, 2025 Kiki Ramirez PA, PA Referring Provider Active Start: January 18, 2025 End: January 18, 2025 Team Status: Inactive Member Role Status Albina Ralph MD Primary Care Provider Active St art: January 30, 2025 End: January 30, 2025 Kiki Ramirez PA, PA Attending Provider Active Start: January 30, 2025 End: January 30, 2025 Kiki Ramirez PA, PA Referring Provider Active Start: January 30, 2025 End: January 30, 2025 Team Status: Active Member Role Status Albina Ralph MD Primary Care Provider Active St art: January 30, 2025 Dr. Joel Esquivel MD Attending Provider Active S tart: January 30, 2025 Team Status: Active Member Role Status Albina Ralph MD Primary Care Provider Active St art: February 06, 2025 Stevenson Trivedi MD Emergency Provider Active Star t: February 06, 2025 Team Status: Active Member Role Status Albina Ralph MD Primary Care Provider Active St art: February 06, 2025 Stevenson Trivedi MD Emergency Provider Active Star t: February 06, 2025 Dr. Miesha Medina MD Admit Provider Active Star t: February 06, 2025 Dr. Miesha Medina MD Attending Provider Active Start: February 06, 2025 Team Status: Inactive Member Role Status Albina Ralph MD Primary Care Provider Active St art: February 06, 2025 End: February 07, 2025 Stevenson Trivedi MD Emergency Provider Active Star t: February 06, 2025 End: February 07, 2025 Dr. Miesha Medina MD Admit Provider Active Star t: February 06, 2025 End: February 07, 2025 Dr. Miesha Medina MD Other Provider Active Star t: February 06, 2025 End: February 07, 2025 Dr. Jair Simmons MD Attending Provider Active Start: February 06, 2025 End: February 07, 2025 Team Status: Active Member Role Status Albina Ralph MD Primary Care Provider Active St art: February 07, 2025 Stevenson Trivedi MD Emergency Provider Active Star t: February 07, 2025 Dr. Miesha Medina MD Admit Provider Active Star t: February 07, 2025 Dr. Miesha Medina MD Other Provider Active Star t: February 07, 2025 Dr. Jair Simmons MD Other Provider Active Sta rt: February 07, 2025 Dr. Piero Lee MD Attending Provider Active Start: February 07, 2025 Team Status: Active Member Role Status Albina Ralph MD Primary Care Provider Active St art: February 07, 2025 Stevenson Trivedi MD Emergency Provider Active Star t: February 07, 2025 Dr. Miesha Medina MD Admit Provider Active Star t: February 07, 2025 Dr. Miesha Medina MD Other Provider Active Star t: February 07, 2025 Dr. Jair Simmons MD Attending Provider Active Start: February 07, 2025 Dr. Jair Simmons MD Other Provider Active Sta rt: February 07, 2025 Team Status: Active Member Role/Relationship Status Albina Ralph MD Primary Care Provider Active Team Status: Inactive Member Role/Relationship Status Albina Ralph MD Primary Care Provider Active St art: November 12, 2024 End: November 12, 2024 Dr. Lewis Templeton MD Attending Provider Active S tart: November 12, 2024 End: November 12, 2024 Team Status: Inactive Member Role/Relationship Status Albina Ralph MD Primary Care Provider Active St art: January 18, 2025 End: January 18, 2025 Elo Ralph MD Referring Provider Active Start : January 18, 2025 End: January 18, 2025 Kiki BLACKWELL, PA Attending Provider Active Start: January 18, 2025 End: January 18, 2025 Team Status: Inactive Member Role/Relationship Status Albina Ralph MD Primary Care Provider Active St art: January 18, 2025 End: January 18, 2025 Kiki Ramirez PA, PA Attending Provider Active Start: January 18, 2025 End: January 18, 2025 Kiki Ramirez PA, PA Referring Provider Active Start: January 18, 2025 End: January 18, 2025 Team Status: Inactive Member Role/Relationship Status Albina Ralph MD Primary Care Provider Active St art: January 30, 2025 End: January 30, 2025 Kiki Ramirez PA, PA Attending Provider Active Start: January 30, 2025 End: January 30, 2025 Kiki Ramirez PA, PA Referring Provider Active Start: January 30, 2025 End: January 30, 2025 Team Status: Active Member Role/Relationship Status Albina Ralph MD Primary Care Provider Active St art: January 30, 2025 Dr. Joel Esquivel MD Attending Provider Active S tart: January 30, 2025 Kiki Ramirez PA, PA Referring Provider Active Start: January 30, 2025 Team Status: Inactive Member Role/Relationship Status Albina Ralph MD Primary Care Provider Active St art: February 06, 2025 End: February 07, 2025 Stevenson Trivedi MD Emergency Provider Active Star t: February 06, 2025 End: February 07, 2025 Dr. Miesha Medina MD Admit Provider Active Star t: February 06, 2025 End: February 07, 2025 Dr. Miesha Medina MD Other Provider Active Star t: February 06, 2025 End: February 07, 2025 Dr. Jair Simmons MD Attending Provider Active Start: February 06, 2025 End: February 07, 2025 Team Status: Active Member Role/Relationship Status Dates Elo Ralph MD Primary Care Provider Active St art: February 06, 2025 End: February 06, 2025 Dr. Piero Lee MD Attending Provider Active Start: February 06, 2025 End: February 06, 2025 Dr. Piero Lee MD Referring Provider Active Start: February 06, 2025 End: February 06, 2025 Team Status: Active Member Role/Relationship Status Dates Elo Ralph MD Primary Care Provider Active St art: February 07, 2025 Stevenson Trivedi MD Emergency Provider Active Star t: February 07, 2025 Dr. Miesha Medina MD Admit Provider Active Star t: February 07, 2025 Dr. Miesha Medina MD Other Provider Active Star t: February 07, 2025 Dr. Jair Simmons MD Other Provider Active Sta rt: February 07, 2025 Dr. Piero Lee MD Attending Provider Active Start: February 07, 2025 Team Status: Active Member Role/Relationship Status Dates Elo Ralph MD Primary Care Provider Active St art: February 07, 2025 Stevenson Trivedi MD Emergency Provider Active Star t: February 07, 2025 Dr. Miesha Medina MD Admit Provider Active Star t: February 07, 2025 Dr. Miesha Medina MD Other Provider Active Star t: February 07, 2025 Dr. Jair Simmons MD Attending Provider Active Start: February 07, 2025 Dr. Jair Simmons MD Other Provider Active Sta rt: February 07, 2025 Team Status: Inactive Member Role/Relationship Status Dates Elo Ralph MD Primary Care Provider Active St art: February 11, 2025 End: February 11, 2025 Dr. Lewis Templeton MD Attending Provider Active S tart: February 11, 2025 End: February 11, 2025 Goals (unrecognized section and content) Goals may be documented in a n alternate sectionGoals may be documented in an alternate sectionGoals may be documented in an alternate sectionGoals may be documented in an alternate sectionGoals may be documented in an alternate sectionGoals may be documented in an alternate sectionGoals may be documented in an alternate sectionGoals may be documented in an alternate sectionGoals may be documented in an alternate sectionGoals may be documented in an alternate sectionGoals may be documented in an alternate sectionGoals may be documented in an alternate sectionGoals may be documented in an alternate sectionGoals may be documented in an alternate sectionGoals may be documented in an alternate sectionGoals may be documented in an alternate sectionGoals may be documented in an alternate section FOR RECORDS PERTAINING TO PATIENTS WHO ARE OR HAVE BEEN ENROLLED IN A CHEMICAL DEPENDENCY/SUBSTANCEABUSE PROGRAM, SOME INFORMATION MAY BE OMITTED. This clinical summary was aggregated from multiple sources. Caution should be exercised in using it in the provision of clinical care. This summary normalizes information from multiple sources, and as a consequence, information in this document may materially change the coding, format and clinical context of patient data. In addition, data may be omitted in some cases. CLINICAL DECISIONS SHOULD BE BASED ON THE PRIMARY CLINICAL RECORDS. [email or web address] [email or web address]. provides no warranty or guarantee of the accuracy or completeness of information in this document.
== END 2025-02-18 23:59 | disposition home or self-care (01) ==
LOC: MFPLAB 16:27
PROVIDERS: PCP Family Medicine; Referring Provider Family Medicine; Visit Provider Family Medicine
DX: D64.9 Anemia, unspecified (principal); E11.9 Type 2 diabetes mellitus without complications; E55.9 Vitamin D deficiency, unspecified; I10 Essential (primary) hypertension
CPT/HCPCS: 36415; 80048; 82306; 83036; 85025

== ENCOUNTER → 2025-03-05 | Outpatient (CLI) | payer MEDICARE, SELFPAY ==
[2025-03-05 13:39] LABS: Anion Gap 12 (5-15); BUN 31 mg/dL (4-19); BUN/Creat Ratio 18.1 RATIO (10-20); Calcium,Total 9.2 mg/dL (7.6-11.0); Carbon Dioxide 20.9 mmol/L (21.0-32.0); Chloride 105 mmol/L (98-108); Glucose 198 mg/dL (70-99); Potassium 4.6 mmol/L (3.3-5.1); Pro- Brain NATRIURETIC PEPTIDE 980 pg/mL (<=900)
== END | disposition home or self-care (01) ==
LOC: LAB 12:23
PROVIDERS: PCP Family Medicine; Referring Provider Student in an Organized Health Care Education/Training Program; Visit Provider Student in an Organized Health Care Education/Training Program
DX: I50.22 Chronic systolic (congestive) heart failure (principal); R63.5 Abnormal weight gain; R60.9 Edema, unspecified
CPT/HCPCS: 36415; 80048; 83880

== ENCOUNTER → 2025-04-10 | Outpatient (CLI) | payer MEDICARE, SELFPAY ==
--- NOTE | 2025-04-10 12:55 | RAD_ITS ---
PROCEDURE: FOOT MIN 3 VIEWS 04/10/2025 REASON FOR EXAM: TOE FOOT PAIN TECHNIQUE: FOOT MIN 3 VIEWS Laterality: Left COMPARISON: None. RAD/Foot min 3 Views IMPRESSION: Prominent arterial calcification is seen. On the lateral view, normal contour of the Achilles tendon is seen. Mild degenerative changes are seen throughout the toes and midfoot. Mild degenerative changes are seen of the left 1st metatarsophalangeal joint. No hallux valgus is noted. No erosive process is seen. No fracture or dislocation is evident. Reading Location: [place] [id number]
[2025-04-10 15:53] LABS: AST(SGOT) 15 U/L (<=37); Alanine Aminotransfer ALT/SGPT 22 U/L (<=46); Albumin, Serum 3.9 g/dL (3.4-4.8); Alkaline Phosphatase 82 U/L (40-129); Anion Gap 12 (5-15); BUN 38 mg/dL (4-19); BUN/Creat Ratio 21.2 RATIO (10-20); Calcium,Total 9.1 mg/dL (7.6-11.0); Carbon Dioxide 20.1 mmol/L (21.0-32.0); Chloride 104 mmol/L (98-108); Globulin 2.6 g/dL (2.2-4.2); Glucose 214 mg/dL (70-99); Potassium 4.6 mmol/L (3.3-5.1); Uric Acid 10.7 mg/dL (3.5-7.2)
== END | disposition home or self-care (01) ==
PROVIDERS: PCP Family Medicine
DX: M10.9 Gout, unspecified (principal)
CPT/HCPCS: 73630; 80053; 84550